=== PATIENT | female | born 1970 | race Caucasian/White ===

== ENCOUNTER → 2016-09-28 | Outpatient (CLI) | payer OTHER ==
--- NOTE | 2016-09-28 13:44 | US ---
EXAMINATION TYPE: US transvaginal DATE OF EXAM: 09/28/2016 1:17 PM COMPARISON: 09/10/2011 CLINICAL HISTORY: heavy frequent cycles with large clots, larger habitus. TECHNIQUE: Transvaginal (TV) Date of LMP: pt unsure EXAM MEASUREMENTS: Uterus: 8.2 x 4.1 x 5.1cm Endometrial Stripe: unable to clearly delineate secondary to distention with fluid and debris. Right Ovary: 3.1 x 1.6 x 1.9cm Left Ovary: 2.3 x 2.1 x 1.7cm Findings: 1. Uterus: Anteverted 2. Endometrium: moderately dilated with fluid and debris, unable to measure thickness 3. Right Ovary: seen with a 1.8cm septated cyst 4. Left Ovary: wnl 5. Bilateral Adnexa: wnl 6. Posterior cul-de-sac: no free fluid seen IMPRESSION: 1. There is moderate dilation of the endometrial cavity with fluid and debris and therefore thickness could not be obtained. This could be related to hemorrhage. Endometrial pathology not excluded corre late clinically. 2. Septated cyst right ovary measuring 1.8 cm.
== END | disposition home or self-care (01) ==
LOC: RADUSWWP 12:59
PROVIDERS: ATTEND Pediatrics
DX: N83.201 Unspecified ovarian cyst, right side (principal); N94.6 Dysmenorrhea, unspecified
CPT/HCPCS: 76830

== ENCOUNTER 2018-03-11 22:21 | Observation (INO) | payer MEDICARE, OTHER ==
--- NOTE | 2018-03-11 22:51 | ED ---
General Adult HPI - General Chief complaint: Chest Pain Stated complaint: Chest Pain Time Seen by Provider: 03/11/18 22:30 Source: patient, RN notes reviewed, old records reviewed Mode of arrival: wheelchair Limitations: no limitations - History of Present Illness Initial comments: This is a 47-year-old female the ER for evasive chest pain. Patient presents today for evaluation of chest pain shortness of breath. Patient patient has history of asthma. She states pain started just prior to coming to emergency room. No recent travel history no sick contacts. No recent fever cough or congestion. As was been under well-controlled rate no change in medications. Patient denies drugs or alcohol. Patient states chest pain is anterior heaviness, no associated diaphoresis. But does again admit to shortness of breath - Related Data Home Medications Medication Instructions Recorded Confirmed ARIPiprazole [Abilify] 10 mg PO DAILY 12/31/15 03/11/18 Furosemide [Lasix] 20 mg PO DAILY 04/13/16 03/11/18 FLUoxetine HCL [PROzac] 20 mg PO DAILY 03/11/18 03/11/18 Ibuprofen [Motrin] 800 mg PO TID 03/11/18 03/11/18 Allergies Allergy/AdvReac Type Severity Reaction Status Date / Time amoxicillin Allergy Nausea & Verified 03/11/18 22:32 Vomiting Review of Systems ROS Statement: Those systems with pertinent positive or pertinent negative responses have been documented in the HPI. ROS Other: All systems not noted in ROS Statement are negative. Past Medical History Past Medical History: Asthma Additional Past Medical History / Comment(s): neurofibrosis History of Any Multi-Drug Resistant Organisms: None Reported Past Surgical History: Tubal Ligation Past Psychological History: Depression Smoking Status: Current every day smoker Past Alcohol Use History: None Reported Past Drug Use History: None Reported General Exam Limitations: no limitations General appearance: alert, in no apparent distress Head exam: Present: atraumatic, normocephalic, normal inspection Eye exam: Present: normal appearance, PERRL, EOMI. Absent: scleral icterus, conjunctival injection, periorbital swelling ENT exam: Present: normal exam, mucous membranes moist Neck exam: Present: normal inspection. Absent: tenderness, meningismus, lymphadenopathy Respiratory exam: Present: normal lung sounds bilaterally. Absent: respiratory distress, wheezes, rales, rhonchi, stridor Cardiovascular Exam: Present: regular rate, normal rhythm, normal heart sounds. Absent: systolic murmur, diastolic murmur, rubs, gallop, clicks GI/Abdominal exam: Present: soft, normal bowel sounds. Absent: distended, tenderness, guarding, rebound, rigid Extremities exam: Present: normal inspection, full ROM, normal capillary refill. Absent: tenderness, pedal edema, joint swelling, calf tenderness Back exam: Present: normal inspection Neurological exam: Present: alert, oriented X3, CN II-XII intact Psychiatric exam: Present: normal affect, normal mood Skin exam: Present: warm, dry, intact, normal color. Absent: rash Course Vital Signs 03/11/18 22:24 Temperature 98.2 F Pulse Rate 74 Respiratory 16 Rate Blood Pressure 132/90 O2 Sat by Pulse 98 Oximetry - Reevaluation(s) Reevaluation #1: 03/12/18 00:59 Patient is with continued chest at this time, no prior cardiac evaluation EKG Findings - EKG Comments: EKG Findings:: EKG shows normal sinus rhythm rate of 71, WA 1:30, QRS 92, QTc 417 Medical Decision Making - Medical Decision Making 47 female the ER with chest pain. CT labwork this time negative, EKG unremarkable. Patient concern for discharge home, patient will be admitted for cardiology observation. Telemetry anticoagulation - Lab Data Result diagrams: 03/11/18 22:45 03/11/18 22:45 Lab Results 03/11/18 03/11/18 03/11/18 Range/Units 22:45 22:45 22:45 WBC 9.4 (3.8-10.6) k/uL RBC 5.01 (3.80-5.40) m/uL Hgb 15.0 (11.4-16.0) gm/dL Hct 44.6 (34.0-46.0) % MCV 89.1 (80.0-100.0) fL MCH 29.9 (25.0-35.0) pg MCHC 33.5 (31.0-37.0) g/dL RDW 13.7 (11.5-15.5) % Plt Count 236 (150-450) k/uL Neutrophils % 51 % Lymphocytes % 35 % Monocytes % 8 % Eosinophils % 3 % Basophils % 1 % Neutrophils # 4.8 (1.3-7.7) k/uL Lymphocytes # 3.3 (1.0-4.8) k/uL Monocytes # 0.7 (0-1.0) k/uL Eosinophils # 0.3 (0-0.7) k/uL Basophils # 0.1 (0-0.2) k/uL PT (9.0-12.0) sec INR (<1.2) APTT (22.0-30.0) sec D-Dimer (<0.60) mg/L FEU Sodium 137 (137-145) mmol/L Potassium 4.2 (3.5-5.1) mmol/L Chloride 101 (98-107) mmol/L Carbon Dioxide 28 (22-30) mmol/L Anion Gap 8 mmol/L BUN 14 (7-17) mg/dL Creatinine 0.90 (0.52-1.04) mg/dL Est GFR (CKD-EPI)AfAm 90 (>60 ml/min/1.73 sqM) Est GFR (CKD-EPI)NonAf 78 (>60 ml/min/1.73 sqM) Glucose 95 (74-99) mg/dL Calcium 10.6 H (8.4-10.2) mg/dL Magnesium 2.1 (1.6-2.3) mg/dL Total Bilirubin 0.2 (0.2-1.3) mg/dL AST 14 (14-36) U/L ALT 29 (9-52) U/L Alkaline Phosphatase 85 (38-126) U/L Total Creatine Kinase 36 (30-135) U/L CK-MB (CK-2) <0.2 (0.0-2.4) ng/mL CK-MB (CK-2) Rel Index Troponin I <0.012 (0.000-0.034) ng/mL Total Protein 6.6 (6.3-8.2) g/dL Albumin 3.9 (3.5-5.0) g/dL Lipase 79 (23-300) U/L 03/11/18 Range/Units 22:45 WBC (3.8-10.6) k/uL RBC (3.80-5.40) m/uL Hgb (11.4-16.0) gm/dL Hct (34.0-46.0) % MCV (80.0-100.0) fL MCH (25.0-35.0) pg MCHC (31.0-37.0) g/dL RDW (11.5-15.5) % Plt Count (150-450) k/uL Neutrophils % % Lymphocytes % % Monocytes % % Eosinophils % % Basophils % % Neutrophils # (1.3-7.7) k/uL Lymphocytes # (1.0-4.8) k/uL Monocytes # (0-1.0) k/uL Eosinophils # (0-0.7) k/uL Basophils # (0-0.2) k/uL PT 10.0 (9.0-12.0) sec INR 1.0 (<1.2) APTT 24.5 (22.0-30.0) sec D-Dimer 0.36 (<0.60) mg/L FEU Sodium (137-145) mmol/L Potassium (3.5-5.1) mmol/L Chloride (98-107) mmol/L Carbon Dioxide (22-30) mmol/L Anion Gap mmol/L BUN (7-17) mg/dL Creatinine (0.52-1.04) mg/dL Est GFR (CKD-EPI)AfAm (>60 ml/min/1.73 sqM) Est GFR (CKD-EPI)NonAf (>60 ml/min/1.73 sqM) Glucose (74-99) mg/dL Calcium (8.4-10.2) mg/dL Magnesium (1.6-2.3) mg/dL Total Bilirubin (0.2-1.3) mg/dL AST (14-36) U/L ALT (9-52) U/L Alkaline Phosphatase (38-126) U/L Total Creatine Kinase (30-135) U/L CK-MB (CK-2) (0.0-2.4) ng/mL CK-MB (CK-2) Rel Index Troponin I (0.000-0.034) ng/mL Total Protein (6.3-8.2) g/dL Albumin (3.5-5.0) g/dL Lipase (23-300) U/L - Radiology Data Radiology results: report reviewed (CTA chest negative), image reviewed Disposition Clinical Impression: Chest pain Disposition: ADMITTED IP TO THIS [facility] Condition: Undetermined Instructions: Chest Pain (ED) Is patient prescribed a controlled substance at d/c from ED?: No Referrals: Nonstaff,Physician [REFERRING] - 1-2 days
[2018-03-11 22:59] LABS: Basophils # (A) 0.1 k/uL (0-0.2); Basophils % (A) 1 %; Eosinophils # (A) 0.3 k/uL (0-0.7); Eosinophils % (A) 3 %; HCT 44.6 % (34.0-46.0); Lymphocytes # (A) 3.3 k/uL (1.0-4.8); Lymphocytes % (A) 35 %; MCH 29.9 pg (25.0-35.0); MCHC 33.5 g/dL (31.0-37.0); MCV 89.1 fL (80.0-100.0); Mean Platelet Volume 10.5; Monocytes # (A) 0.7 k/uL (0-1.0); Monocytes % (A) 8 %; Neutrophils # (A) 4.8 k/uL (1.3-7.7); Neutrophils % (A) 51 %; Platelet Count 236 k/uL (150-450); RBC 5.01 m/uL (3.80-5.40); RDW 13.7 % (11.5-15.5); WBC 9.4 k/uL (3.8-10.6)
[2018-03-11 23:08] LABS: Albumin 3.9 g/dL (3.5-5.0); Calcium 10.6 mg/dL (8.4-10.2); Magnesium 2.1 mg/dL (1.6-2.3); Potassium 4.2 mmol/L (3.5-5.1); Total Bilirubin 0.2 mg/dL (0.2-1.3); Total Protein 6.6 g/dL (6.3-8.2)
[2018-03-11 23:11] LABS: Creatine Kinase 36 U/L (30-135)
[2018-03-11 23:16] LABS: D-Dimer 0.36 mg/L FEU (<0.60); Partial Thromboplastin Time 24.5 sec (22.0-30.0)
--- NOTE | 2018-03-11 23:16 | XR ---
EXAMINATION TYPE: XR chest 2V DATE OF EXAM: 03/11/2018 COMPARISON: NONE HISTORY: Chest pain TECHNIQUE: Frontal and lateral views of the chest are obtained. FINDINGS: There is increased density over the lower lung field on the lateral view that apparently r elates to consolidation in the left lower lobe behind the heart. This is in the left paraspinal regio n. The other lung alejandro are clear. Heart and mediastinum are normal. There is no pleural effusion. T here are chest leads. IMPRESSION: Left lower lobe pneumonia. Follow-up is recommended show clearing.
[2018-03-11 23:25] LABS: Creatine Kinase MB <0.2 ng/mL (0.0-2.4); Troponin I <0.012 ng/mL (0.000-0.034)
--- NOTE | 2018-03-12 00:35 | CT ---
EXAMINATION TYPE: CT angio chest DATE OF EXAM: 03/12/2018 12:15 AM COMPARISON: NONE HISTORY: sternal chest pain CT DLP: 774.10 mGycm Automated exposure control for dose reduction was used. CONTRAST: CTA scan of the thorax is performed with IV Contrast, patient injected with 85 mL of Isovue 370, pulm onary embolism protocol. There are 3-D post processed images.. FINDINGS: The lungs are clear of consolidation. There is some mild groundglass interstitial infiltrate in the l ower lobes. There is no pleural effusion. There is no pericardial effusion. There is no mediastinal a denopathy. There are no hilar masses. Thoracic aorta appears normal. There is no evidence of aneurysm or dissection. I see no filling defec ts in the pulmonary arteries. There is mid and lower thoracic increased paraspinal soft tissue densit y. This extends into expanded neural foramina. IMPRESSION: NO EVIDENCE OF PULMONARY EMBOLISM. INTERSTITIAL PULMONARY DENSITY IS NONSPECIFIC AND COULD RELATE TO PULMONARY FIBROSIS. Paraspinal density and abnormal neural foramina could relate to multiple lateral meningoceles. MR sca n would be helpful for further evaluation if clinically indicated.
--- NOTE | 2018-03-12 00:37 | US ---
EXAMINATION TYPE: US venous doppler duplex LE RT DATE OF EXAM: 03/12/2018 12:28 AM COMPARISON: NONE CLINICAL HISTORY: Pain. SIDE PERFORMED: TECHNIQUE: The lower extremity deep venous system is examined utilizing real time linear array sonog nehemias with graded compression, doppler sonography and color-flow sonography. VESSELS IMAGED: External Iliac Vein (EIV) Common Femoral Vein Deep Femoral Vein Greater Saphenous Vein * Femoral Vein Popliteal Vein Small Saphenous Vein * Proximal Calf Veins (* superficial vessels) Right Leg: IMPRESSION: Negative exam. No evidence of deep venous thrombosis in the right leg.
[2018-03-12] MEDS ORDERED: NITROGLYCERIN SL TABS 0.4 MG TAB SUBLINGUAL PRN (00:57)
[2018-03-12] MEDS ORDERED: ASPIRIN 81 MG PO STA (00:57)
[2018-03-12] MEDS ORDERED: HEPARIN SODIUM,PORCINE 5,000 UNIT/ML 1 ML VIAL IV ONE (00:57)
[2018-03-12] MEDS ORDERED: HEPARIN SODIUM,PORCINE 5,000 UNIT/ML 1 ML VIAL IV PRN (00:57)
[2018-03-12] MEDS ORDERED: SODIUM CHLORIDE 0.9% 1,000 ML IV SCH (01:00)
[2018-03-12] MEDS ORDERED: HEPARIN SODIUM,PORCINE/D5W PMX 25,000 UNIT in DEXTROSE/WATER 1 500ML.BAG IV SCH (01:15)
[2018-03-12 05:35] VITALS: RESP 18
[2018-03-12 07:21] LABS: Mean Platelet Volume 10.2; Platelet Count 210 k/uL (150-450)
[2018-03-12 07:43] LABS: Creatine Kinase 28 U/L (30-135)
[2018-03-12 07:56] LABS: Creatine Kinase MB <0.2 ng/mL (0.0-2.4); Troponin I <0.012 ng/mL (0.000-0.034)
[2018-03-12] MEDS ORDERED: METOPROLOL TARTRATE 25 MG TAB PO SCH (09:00)
[2018-03-12] MEDS: ATORVASTATIN 80 MG TAB PO SCH ×2 (09:49→09:51)
--- NOTE | 2018-03-12 11:21 | P.HPIM ---
History of Present Illness 45-year-old the female came in with comments of chest pain sharp in nature points to parasternal area on the left side which was 10/10 in severity started last night denied any significant shortness of breath was comparing of cough without any sputum production does appear to have bronchitis., Continues to smoke denied any fever chills chest pain isn't not associated diaphoresis not associated with nausea lightheadedness not associated with food not associated with deep breathing. Presently 2/10 in severity, lasted for 2 minutes nonradiating. Patient's EKG is normal sinus rhythm without any acute ST-T wave changes cardiology evaluated the patient patient 2 sets of troponins are negative. CT angios the chest did not show any pulmonary embolism Patient chest x-ray was suspicious for left lower lobe pneumonia on the CAT scan did not show any lobar pneumonia patient does have bronchitis patient does have a neurofibromatosis. If cleared by cardiology patient will be discharged home with doxycycline for bronchitis and counseling for and according cessation. Evaluated addition of further testing including stress test to cardiology. Review of Systems REVIEW OF SYSTEMS: CONSTITUTIONAL: No fever, no malaise, no fatigue. HEENT: No recent visual problems or hearing problems. Denied any sore throat. CARDIOVASCULAR: No orthopnea, PND, no palpitations, no syncope. PULMONARY: No shortness of breath, no cough, no hemoptysis. GASTROINTESTINAL: No diarrhea, no nausea, no vomiting, no abdominal pain. Normoactive bowel sounds. NEUROLOGICAL: No headaches, no weakness, no numbness. HEMATOLOGICAL: Denies any bleeding or petechiae. GENITOURINARY: Denies any burning micturition, frequency, or urgency. MUSCULOSKELETAL/RHEUMATOLOGICAL: Denies any joint pain, swelling, or any muscle pain. ENDOCRINE: Denies any polyuria or polydipsia. The rest of the 14-point review of systems is negative. Past Medical History Past Medical History: Asthma Additional Past Medical History / Comment(s): neurofibromatosis, mild learning disability, legally blind bilaterally-pt states as long as she wears her glasses she can see pretty well, bilateral lower leg edema at times. 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 Past Anesthesia/Blood Transfusion Reactions: Postoperative Nausea & Vomiting ( PONV) Smoking Status: Current every day smoker - Past Family History Father Family Medical History: Cancer Additional Family Medical History / Comment(s): Father had lung to bone cancer and of this at the age of 70yrs. He was an exsmoker. Mother Family Medical History: Cancer Additional Family Medical History / Comment(s): Mother of breast cancer at the age of 65yrs. Medications and Allergies Home Medications Medication Instructions Recorded Confirmed Type ARIPiprazole [Abilify] 10 mg PO DAILY 12/31/15 03/11/18 History Furosemide [Lasix] 20 mg PO DAILY 04/13/16 03/11/18 History FLUoxetine HCL [PROzac] 20 mg PO DAILY 03/11/18 03/11/18 History Ibuprofen [Motrin] 800 mg PO TID 03/11/18 03/11/18 History Albuterol Inhaler [Ventolin Hfa 1 - 2 puff INHALATION Q6HR PRN #1 03/12/18 Rx Inhaler] inhaler Doxycycline Monohydrate [Monodox] 100 mg PO Q12HR #6 cap 03/12/18 Rx Allergies Allergy/AdvReac Type Severity Reaction Status Date / Time amoxicillin Allergy Nausea & Verified 03/11/18 22:32 Vomiting Physical Exam Vitals: Vital Signs Temp Pulse Resp BP Pulse Ox 03/12/18 06:01 97.2 F L 76 18 137/71 98 03/12/18 05:00 78 18 97 03/12/18 04:00 73 16 99 03/12/18 03:38 72 161 H 121/75 98 03/12/18 01:14 98.2 F 71 16 137/67 100 03/12/18 00:27 72 18 134/65 98 03/11/18 22:24 98.2 F 74 16 132/90 98 Intake and Output 03/11/18 03/12/18 03/12/18 22:59 06:59 14:59 Intake Total 165.333 Balance 165.333 Intake: Intake, IV Titration 165.333 Amount Heparin Sodium,Porcine/ 165.333 D5w Pmx 25,000 unit In Dextrose/Water 1 500ml. bag @ 20 mls/hr IV .Q24H [facility] Rx#:[id number] Other: Weight 142.882 kg PHYSICAL EXAMINATION: GENERAL: The patient is alert and oriented x3, not in any acute distress. Obese with the diffuse neurofibromatosis lesions HEENT: Pupils are round and equally reacting to light. EOMI. No scleral icterus. No conjunctival pallor. Normocephalic, atraumatic. No pharyngeal erythema. No thyromegaly. CARDIOVASCULAR: S1 and S2 present. No murmurs, rubs, or gallops. PULMONARY: Good air entry but rhonchus breath sounds due to tracheobronchitis. ABDOMEN: Soft, nontender, nondistended, normoactive bowel sounds. No palpable organomegaly. MUSCULOSKELETAL: No joint swelling or deformity. EXTREMITIES: No cyanosis, clubbing, or pedal edema. NEUROLOGICAL: Gross neurological examination did not reveal any focal deficits. SKIN: No rashes. Results CBC & Chem 7: 03/12/18 07:03 03/11/18 22:45 Labs: Abnormal Lab Results - Last 24 Hours (Table) 03/11/18 03/12/18 Range/Units 22:45 07:03 Calcium 10.6 H (8.4-10.2) mg/dL Total Creatine Kinase 28 L (30-135) U/L Thrombosis Risk Factor Assmnt - Choose All That Apply Any of the Below Risk Factors Present?: Yes Each Factor Represents 1 point: Age 41-60 years, Obesity (BMI >25) Other Risk Factors: No Other congenital or acquired thrombophilia - If yes, enter type in comment: No Thrombosis Risk Factor Assessment Total Risk Factor Score: 2 Thrombosis Risk Factor Assessment Level: Low Risk Assessment and Plan Plan: -Chest pain ruled out acute current syndromes, further management including stress test as per cardiology rule out pulmonary embolism. -Nicotine use: Counseling was provided -Tracheobronchitis 3 days of doxycycline and as needed inhaler. -Neurofibromatosis type II -Depression
--- NOTE | 2018-03-12 11:21 | P.DS ---
Providers Date of admission: 03/12/18 00:59 Attending physician: Juan Morales Consults: 03/12/18 00:57 Consult Physician Urgent Consulting Provider: Jarek De La Cruz Consult Reason/Comments: cp Do you want consulting provider notified?: Yes Primary care physician: [facility] Course: Please refer to my HPI Patient Condition at Discharge: Undetermined Plan - Discharge Summary Discharge Rx Participant: No New Discharge Prescriptions: New Albuterol Inhaler [Ventolin Hfa Inhaler] 1 - 2 puff INHALATION Q6HR PRN #1 inhaler PRN Reason: Shortness Of Breath Or Wheezing Doxycycline Monohydrate [Monodox] 100 mg PO Q12HR #6 cap No Action ARIPiprazole [Abilify] 10 mg PO DAILY Furosemide [Lasix] 20 mg PO DAILY FLUoxetine HCL [PROzac] 20 mg PO DAILY Ibuprofen [Motrin] 800 mg PO TID Discharge Medication List ARIPiprazole [Abilify] 10 mg PO DAILY 12/31/15 [History] Furosemide [Lasix] 20 mg PO DAILY 04/13/16 [History] FLUoxetine HCL [PROzac] 20 mg PO DAILY 03/11/18 [History] Ibuprofen [Motrin] 800 mg PO TID 03/11/18 [History] Albuterol Inhaler [Ventolin Hfa Inhaler] 1 - 2 puff INHALATION Q6HR PRN #1 inhaler 03/12/18 [Rx] Doxycycline Monohydrate [Monodox] 100 mg PO Q12HR #6 cap 03/12/18 [Rx] Follow up Appointment(s)/Referral(s): Nonstaff,Physician [REFERRING] - 1-2 days Patient Instructions/Handouts: Chest Pain (ED) Discharge Disposition: HOME SELF-CARE
[2018-03-12 11:50] LABS: Creatine Kinase 29 U/L (30-135)
[2018-03-12 12:03] LABS: Creatine Kinase MB 0.2 ng/mL (0.0-2.4); Troponin I <0.012 ng/mL (0.000-0.034)
--- NOTE | 2018-03-12 12:11 | P.CRDCN ---
History of Present Illness History of present illness: Mrs. Toure is a pleasant 47-year-old female past medical history significant for asthma, neurofibromatosis and chronic nicotine dependence. She denies history of coronary artery disease, hypertension, dyslipidemia or diabetes mellitus. She has never followed with a clinic office manager for any reason. She started yesterday having a sharp pain in the left precordial region at rest. The pain sudden onset and intense with no associated symptoms and no radiation of the pain. The pain was brief and resolved on its own with no specific alleviating factors. She has been coughing recently with green mucous production. She was recently treated on a course of antibiotics for her primary care physician for bronchitis. She states she finished the antibiotics approximately one to 2 weeks ago. She continues to have intermittent symptoms of chest discomfort that is reproducible on palpation. EKG reveals sinus mechanism with no acute ST or T-wave abnormalities. Chest x-ray is suspicious for left lower lobe pneumonia. CT angios of chest reveals no evidence for pulmonary embolism with possibility of fibrosis. Laboratory data reviewed, hemoglobin 15.0, platelets 210, d-dimer 0.66, sodium 137, potassium 4.2, creatinine 0.9, magnesium 2.1, cardiac enzymes negative 3. She takes no daily cardiac medications. Review of Systems At the time of my exam: CONSTITUTIONAL: Denies fever. Denies chills. EYES: Denies blurred vision. Denies vision changes. Denies eye pain. EARS, NOSE, MOUTH & THROAT: Denies headache. Denies sore throat. Denies ear pain. CARDIOVASCULAR: Complains of reproducible chest pain. Denies shortness of breath. Denies orthopnea. Denies PND. Denies palpitations. RESPIRATORY: Complains of productive cough. GASTROINTESTINAL: Denies abdominal pain. Denies diarrhea. Denies constipation. Denies nausea. Denies vomiting. MUSCULOSKELETAL: Denies myalgias. INTEGUMENTARY: Denies pruitis. Denies rash. NEUROLOGIC: Denies numbness. Denies tingling. Denies weakness. PSYCHIATRIC: Denies anxiety. Denies depression. ENDOCRINE: Denies fatigue. Denies weight change. Denies polydipsia. Denies polyurina. GENITOURINARY: Denies burning, hematuria or urgency with micturation. HEMATOLOGIC: Denies history of anemia. Denies bleeding. Past Medical History Past Medical History: Asthma Additional Past Medical History / Comment(s): neurofibromatosis, mild learning disability, legally blind bilaterally-pt states as long as she wears her glasses she can see pretty well, bilateral lower leg edema at times. 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 Past Anesthesia/Blood Transfusion Reactions: Postoperative Nausea & Vomiting ( PONV) Smoking Status: Current every day smoker - Past Family History Father Family Medical History: Cancer Additional Family Medical History / Comment(s): Father had lung to bone cancer and of this at the age of 70yrs. He was an exsmoker. Mother Family Medical History: Cancer Additional Family Medical History / Comment(s): Mother of breast cancer at the age of 65yrs. Medications and Allergies Home Medications Medication Instructions Recorded Confirmed Type ARIPiprazole [Abilify] 10 mg PO DAILY 12/31/15 03/11/18 History Furosemide [Lasix] 20 mg PO DAILY 04/13/16 03/11/18 History FLUoxetine HCL [PROzac] 20 mg PO DAILY 03/11/18 03/11/18 History Ibuprofen [Motrin] 800 mg PO TID 03/11/18 03/11/18 History Albuterol Inhaler [Ventolin Hfa 1 - 2 puff INHALATION Q6HR PRN #1 03/12/18 Rx Inhaler] inhaler Doxycycline Monohydrate [Monodox] 100 mg PO Q12HR #6 cap 03/12/18 Rx Allergies Allergy/AdvReac Type Severity Reaction Status Date / Time amoxicillin Allergy Nausea & Verified 03/11/18 22:32 Vomiting Physical Exam Vitals: Vital Signs Temp Pulse Resp BP Pulse Ox 03/12/18 06:01 97.2 F L 76 18 137/71 98 03/12/18 05:00 78 18 97 03/12/18 04:00 73 16 99 03/12/18 03:38 72 161 H 121/75 98 03/12/18 01:14 98.2 F 71 16 137/67 100 03/12/18 00:27 72 18 134/65 98 03/11/18 22:24 98.2 F 74 16 132/90 98 Intake and Output 03/11/18 03/12/18 03/12/18 22:59 06:59 14:59 Intake Total 165.333 Balance 165.333 Intake: Intake, IV Titration 165.333 Amount Heparin Sodium,Porcine/ 165.333 D5w Pmx 25,000 unit In Dextrose/Water 1 500ml. bag @ 20 mls/hr IV .Q24H [facility] Rx#:[id number] Other: Weight 142.882 kg Blood pressure 137/71 heart rate 76 afebrile maintaining oxygen saturation on room air GENERAL: This is a 47-year-old female in no apparent distress at the time of my examination. Morbidly obese. HEENT: Head is atraumatic, normocephalic. Pupils are equal, round. Sclerae anicteric. Conjunctivae are clear. Mucous membranes of the mouth are moist. Neck is supple. There is no jugular venous distention. No carotid bruit is heard. LUNGS: Clear to auscultation no wheezes, rales or rhonchi. No chest wall tenderness is noted on palpation or with deep breathing. HEART: Regular rate and rhythm without murmurs, rubs or gallops. S1 and S2 heard. ABDOMEN: Soft, nontender. Bowel sounds are heard. No organomegaly noted. EXTREMITIES: No evidence of peripheral edema and no calf tenderness noted. VASCULAR: Radial and dorsalis pedis pulses palpated, no evidence of clubbing. NEUROLOGIC: Patient is awake, alert and oriented x3. Results 03/12/18 07:03 03/11/18 22:45 Cardiac Enzymes 03/11/18 03/11/18 03/12/18 Range/Units 22:45 22:45 07:03 AST 14 (14-36) U/L CK-MB (CK-2) <0.2 <0.2 (0.0-2.4) ng/mL Troponin I <0.012 <0.012 (0.000-0.034) ng/mL Coagulation 03/11/18 03/12/18 Range/Units 22:45 07:03 PT 10.0 (9.0-12.0) sec APTT 24.5 29.0 (22.0-30.0) sec CBC 03/11/18 03/12/18 Range/Units 22:45 07:03 WBC 9.4 (3.8-10.6) k/uL RBC 5.01 (3.80-5.40) m/uL Hgb 15.0 (11.4-16.0) gm/dL Hct 44.6 (34.0-46.0) % Plt Count 236 210 (150-450) k/uL Comprehensive Metabolic Panel 03/11/18 Range/Units 22:45 Sodium 137 (137-145) mmol/L Potassium 4.2 (3.5-5.1) mmol/L Chloride 101 (98-107) mmol/L Carbon Dioxide 28 (22-30) mmol/L BUN 14 (7-17) mg/dL Creatinine 0.90 (0.52-1.04) mg/dL Glucose 95 (74-99) mg/dL Calcium 10.6 H (8.4-10.2) mg/dL AST 14 (14-36) U/L ALT 29 (9-52) U/L Alkaline Phosphatase 85 (38-126) U/L Total Protein 6.6 (6.3-8.2) g/dL Albumin 3.9 (3.5-5.0) g/dL Current Medications Generic Name Dose Route Start Last Admin Trade Name Freq PRN Reason Stop Dose Admin Aspirin 81 mg 03/13/18 09:00 Aspirin PO DAILY [facility] Atorvastatin Calcium 80 mg 03/12/18 09:00 03/12/18 09:51 Lipitor PO 80 mg DAILY JERRELL Administration Heparin Sodium (Porcine) 0 unit 03/12/18 00:57 Heparin IV Q6HR PRN Low PTT Protocol Sodium Chloride 1,000 mls @ 20 mls/hr 03/12/18 01:00 03/12/18 01:34 Saline 0.9% IV 20 mls/hr .Q24H JERRELL Administration Nitroglycerin 0.4 mg 03/12/18 00:57 Nitrostat SUBLINGUAL Q5M PRN Chest Pain Intake and Output 03/11/18 03/12/18 03/12/18 22:59 06:59 14:59 Intake Total 165.333 Balance 165.333 Intake: Intake, IV Titration 165.333 Amount Heparin Sodium,Porcine/ 165.333 D5w Pmx 25,000 unit In Dextrose/Water 1 500ml. bag @ 20 mls/hr IV .Q24H [facility] Rx#:[id number] Other: Weight 142.882 kg 03/12/18 07:03 03/11/18 22:45 Assessment and Plan Assessment: ASSESSMENT 1. Chest pain, atypical. An acute coronary event has been ruled out with no EKG evidence of ischemia and negative cardiac enzymes. 2. Suspicion of left lower lobe pneumonia with productive cough. 3. Morbid obesity. PLAN Obtain 2D echocardiogram and doppler study to assess cardiac structure and function. An acute coronary event has been ruled out. Heparin infusion can be discontinued. Pain is pleurtic in nature and most likely secondary to cough. If echo is normal she is stable from a cardiac perspective. Thank you kindly for this consultation. Nurse Practitioner note has been reviewed, I agree with a documented findings and plan of care. Patient was seen and examined.
--- NOTE | 2018-03-12 12:59 | ECHOF ---
Referral Reason:cp, sob MEASUREMENTS -------- HEIGHT: 0.0 cm WEIGHT: 0.0 kg BP: 133/71 IVSd: 1.1 cm (0.6 - 1.1) LVIDd: 5.0 cm (3.9 - 5.3) LVPWd: 1.1 cm (0.6 - 1.1) IVSs: 1.2 cm LVIDs: 3.9 cm LVPWs: 1.3 cm LA Diam: 3.4 cm (2.7 - 3.8) LAESV Index (A-L): 24.94 ml/m Ao Diam: 2.6 cm (2.0 - 3.7) AV Cusp: 1.7 cm (1.5 - 2.6) LA Diam: 4.3 cm (2.7 - 3.8) MV EXCURSION: 17.701 mm (> 18.000) MV EF SLOPE: 111 mm/s (70 - 150) EPSS: 0.4 cm MV E Aayush: 0.57 m/s MV DecT: 253 ms MV A Aayush: 0.70 m/s MV E/A Ratio: 0.81 RAP: 5.00 mmHg RVSP: 12.70 mmHg FINDINGS -------- Sinus rhythm. Morbid Obesity This was a techncally difficult study with suboptimal views, , Lumason utilized for enhancement of im ages. LV size, wall thickness and systolic function are normal, with an EF greater than 55%. The left nadya tricular size is normal. The right ventricle is normal in size. The left atrial size is normal. The right atrial size is normal. 5.0mg OF Lumason UTLIZED: 2 OR MORE WALL SEGMENTS NOT VISUALIZED. The aortic valve is trileaflet, and appears structurally normal. No aortic stenosis or regurgitation. Mild mitral regurgitation is present. Mild tricuspid regurgitation present. There is no evidence of pulmonary hypertension. The right v entricular systolic pressure, as measured by Doppler, is 12.70mmHg. There is no pulmonic regurgitation present. The aortic root size is normal. There is no pericardial effusion. CONCLUSIONS -------- 1. Morbid Obesity 2. This was a techncally difficult study with suboptimal views, , Lumason utilized for enhancement of images. 3. LV size, wall thickness and systolic function are normal, with an EF greater than 55%. 4. The left ventricular size is normal. 5. The right ventricle is normal in size. 6. The left atrial size is normal. 7. The right atrial size is normal. 8. 5.0mg OF Lumason UTLIZED: 2 OR MORE WALL SEGMENTS NOT VISUALIZED. 9. The aortic valve is trileaflet, and appears structurally normal. No aortic stenosis or regurgitati on. 10. Mild mitral regurgitation is present. 11. Mild tricuspid regurgitation present. 12. There is no evidence of pulmonary hypertension. 13. The right ventricular systolic pressure, as measured by Doppler, is 12.70mmHg. 14. There is no pulmonic regurgitation present. 15. The aortic root size is normal. 16. There is no pericardial effusion. OFFICE EMPLOYEE: Jaelyn Hankins RDCS
[2018-03-12 13:10] VITALS: BP 118/70; PULSE 85; TEMP 98
[2018-03-13] MEDS ORDERED: ASPIRIN 81 MG PO SCH (09:00)
[2018-03-13] MEDS ORDERED: ASPIRIN 325 MG TAB PO SCH (09:00)
== END 2018-03-12 13:23 | disposition home or self-care (01) ==
LOC: EC 22:21 → 3OBS 03-12 00:59
PROVIDERS: ADMIT Hospitalist; ATTEND Hospitalist
DX: R07.89 Other chest pain (principal); J45.909 Unspecified asthma, uncomplicated; Q85.02 Neurofibromatosis, type 2; F32.9 Major depressive disorder, single episode, unspecified; F17.200 Nicotine dependence, unspecified, uncomplicated; E66.01 Morbid (severe) obesity due to excess calories; Z68.43 Body mass index [BMI] 50.0-59.9, adult; H54.8 Legal blindness, as defined in USA; F81.9 Developmental disorder of scholastic skills, unspecified; Z79.1 Long term (current) use of non-steroidal anti-inflammatories (NSAID); Z79.899 Other long term (current) drug therapy; Z88.0 Allergy status to penicillin; Z80.8 Family history of malignant neoplasm of other organs or systems; Z80.1 Family history of malignant neoplasm of trachea, bronchus and lung; Z80.3 Family history of malignant neoplasm of breast; Z81.2 Family history of tobacco abuse and dependence
CPT/HCPCS: 99285 ×2; 96365 ×2; 96366 ×12; 96376 ×2; 36415; 93005; 85379; 80053; 82550 ×2; 82553 ×2; 83690; 83735; 84484 ×2; 85025; 85049; 85610; 85730 ×2; 71046; 93971; 71275; G0378; C8929; J1644 ×2; Q9950; Q9967; 93306

== ENCOUNTER → 2018-05-09 | Outpatient (CLI) | payer MEDICARE ==
--- NOTE | 2018-05-13 12:20 | MM ---
Reason for exam: screening (asymptomatic). Last mammogram was performed 3 years and 3 months ago. History: Patient is nulliparous. Family history of breast cancer in mother at age 63. Took hormonal contraceptives for 2 years. Physical Findings: A clinical breast exam by your physician is recommended on an annual basis and results should be correlated with mammographic findings. MG 3D Screening Mammo W/Cad Bilateral CC and MLO view(s) were taken. Prior study comparison: January 24, 2015, bilateral MG screening mammo w CAD. The breast tissue is heterogeneously dense. This may lower the sensitivity of mammography. No significant changes when compared with prior studies. ASSESSMENT: Benign, BI-RAD 2 RECOMMENDATION: Routine screening mammogram of both breasts in 1 year.
== END | disposition home or self-care (01) ==
LOC: RADMAMWWP 14:24
PROVIDERS: ATTEND Pediatrics
DX: Z12.31 Encounter for screening mammogram for malignant neoplasm of breast (principal)
CPT/HCPCS: 77063; 77067

== ENCOUNTER → 2018-07-24 | Outpatient (CLI) | payer MEDICARE ==
--- NOTE | 2018-07-24 17:42 | CONS ---
CONSULTATION DATE OF SERVICE: 07/24/2018 47-year-old lady has been evaluated in the sleep center for possible obstructive sleep apnea-hypopnea syndrome. HISTORY OF PRESENT ILLNESS/SLEEP WAKE EVALUATION: SLEEP SCHEDULE: Patient usual sleep schedule to be in between 10 and 10:30 p.m. and she gets up in the morning about 6:30. FALLING ASLEEP: She does have problem with falling asleep although no TV in bedroom. DURING SLEEP: She snores loudly and then wakes up from sleep with episodes of stopped breathing, choking 2 times at night and 2 episodes of nocturia during the sleep. No history of hypnagogical hallucinations, sleep paralysis or cataplexy. DURING THE DAY/SLEEP WAKE EVALUATION: During the day, the patient may feel sleepiness, may take naps around 2:00 pm. Harriet Sleepiness Scale is 6. PAST MEDICAL HISTORY: Positive for anxiety, sciatica and nerve problems, swelling of the legs. PAST SURGICAL HISTORY: Tubal ligation. SOCIAL HISTORY: Positive for smoking about half pack a day for 25 years. Alcohol consumption none. FAMILY HISTORY: Hypertension, asthma, cancer, diabetes. REVIEW OF SYSTEMS: Awakenings from sleep, sometimes tiredness and sleepiness during the day, swelling of the legs. MEDICATIONS: Abilify, Prozac, Aldactone, Lasix, Motrin, Pepcid and . PHYSICAL EXAM: lady without distress. BP 118/63, HR 84, RR 16, height 5 feet 4 inches, weight 302. Body mass index 52, temperature 97.8, O2 saturation room air 98%. Oropharynx low position of soft palate, wide neck, 20 inches in circumference. Abdomen obese. Neck: Supple, no JVD. Thyroid is not palpable. LUNGS: Clear to percussion and to auscultation. Good air exchange. No wheezing or rhonchi. HEART: S1, S2 regular. No murmurs, gallops, or rubs. ABDOMEN: Obese. Soft and nontender. Bowel sounds are present. No organomegaly appreciated. EXTREMITIES: No clubbing or cyanosis. COSMETIC SALES CONSULTANT: Awake, alert, and oriented X3. Cranial nerves 2 to 7 intact. There is no fasciculation or atrophy. noted. No focal deficits observed. SKIN: Multiple papillomas. IMPRESSION: 1. Snoring, awakenings from sleep with choking, low position of soft palate, wide neck. The patient takes naps during the day. Obstructive sleep apnea-hypopnea syndrome. 2. Obesity, body mass index 52. 3. History of anxiety. 4. History of sciatic nerve problems. 5. History of swelling of the legs. 6. disease. 7. Neurofibromatosis. 8. Acid reflux. PLAN: 1. Polysomnography for evaluation of patient's breathing during sleep. 2. CPAP/BiPAP titration if sleep study confirms obstructive sleep apnea-hypopnea syndrome. 3. Preferable position during sleep on the side. 4. No driving if patient feels any sleepiness. 5. I will see patient for follow up visit to explain results of testing and following plan. Tank you very much for referring this patient for consultation. Sincerely, Juan Miguel Everett MD, PhD, FAASM Diplomat of [employer] E[employer] Technician of [facility] [place] MMODL / IJN: [id number] /
== END | disposition home or self-care (01) ==
LOC: SLEEP 11:37
PROVIDERS: ATTEND Internal Medicine
DX: G47.33 Obstructive sleep apnea (adult) (pediatric) (principal); E66.9 Obesity, unspecified; F41.9 Anxiety disorder, unspecified; K21.9 Gastro-esophageal reflux disease without esophagitis; Q85.00 Neurofibromatosis, unspecified; F17.200 Nicotine dependence, unspecified, uncomplicated; Z68.43 Body mass index [BMI] 50.0-59.9, adult; Z87.39 Personal history of other diseases of the musculoskeletal system and connective tissue; Z79.899 Other long term (current) drug therapy; Z79.1 Long term (current) use of non-steroidal anti-inflammatories (NSAID); Z98.890 Other specified postprocedural states
CPT/HCPCS: 99211

== ENCOUNTER 2018-11-21 14:38 | Inpatient (IN) | payer MEDICARE ==
[2018-11-21] MEDS ORDERED: IPRATROPIUM-ALBUTEROL 3 ML NEB INHALATION STA ×3 (14:56→16:52)
[2018-11-21] MEDS ORDERED: SODIUM CHLORIDE 0.9% 500 ML 500 ML IV STA (14:56)
[2018-11-21] MEDS ORDERED: methylPREDNISolone SOD SUCCI 125 MG/2 ML VIAL IV STA (15:05)
--- NOTE | 2018-11-21 15:22 | ED ---
General Adult HPI <Naga Sandoval - Last Filed: 11/21/18 17:08> - General Source: patient, RN notes reviewed, old records reviewed Mode of arrival: wheelchair Limitations: no limitations <Erick Burr - Last Filed: 11/21/18 18:10> - General Chief complaint: Shortness of Breath Stated complaint: ADOLFO Time Seen by Provider: 11/21/18 14:56 - History of Present Illness Initial comments: 48-year-old female patient past medical history of neurofibromatosis, tubal ligation, presents to ED with approximately 1 week of productive cough and shortness of breath while coughing. Patient has not been diagnosed with COPD, however she does have asthma and she has a regular cigarette smoker. Patient was seen at [facility] on 12/17/18 and reportedly diagnosed with pneumonia and started on azithromycin. Patient states that her symptoms have not improved azithromycin. Patient denies any chest pain. Patient denies any abdominal pain, nausea vomiting or diarrhea, fevers or chills. Patient denies all other complaints. Systemic: Pt denies fatigue, myalgia, fever/chills, rash. Pt denies weakness, night sweats, weight loss. Neuro: Pt denies headache, visual disturbances, syncope or pre-syncope. HEENT: Pt denies ocular discharge or irritation, otalgia, rhinorrhea, pharyngitis or notable lymphadenopathy. Cardiopulmonary: Pt denies chest pain, SOB, heart palpitations, dyspnea on exertion. Abdominal/GI: Pt denies abdominal pain, n/v/d. : Pt denies dysuria, burning w/ urination, frequency/urgency. Denies new onset urinary or bowel incontinence. MSK: Pt denies myalgia, loss of strength or function in extremities. Neuro: Pt denies new onset weakness, paresthesias. (Erick Burr) - Related Data Home Medications Medication Instructions Recorded Confirmed ARIPiprazole [Abilify] 10 mg PO DAILY 12/31/15 11/21/18 Furosemide [Lasix] 20 mg PO DIRECTED 04/13/16 11/21/18 FLUoxetine HCL [PROzac] 20 mg PO DAILY 03/11/18 11/21/18 Ibuprofen [Motrin] 800 mg PO TID 03/11/18 11/21/18 Famotidine [Pepcid] 40 mg PO DAILY 11/21/18 11/21/18 Spironolactone [Aldactone] 50 mg PO DAILY 11/21/18 11/21/18 diphenhydrAMINE [Benadryl] 25 mg PO HS 11/21/18 11/21/18 Allergies Allergy/AdvReac Type Severity Reaction Status Date / Time amoxicillin Allergy Nausea & Verified 11/21/18 16:01 Vomiting Review of Systems ROS Other: All systems not noted in ROS Statement are negative. <Naga Sandoval - Last Filed: 11/21/18 17:08> ROS Other: All systems not noted in ROS Statement are negative. <Erick Burr - Last Filed: 11/21/18 18:10> ROS Statement: Those systems with pertinent positive or pertinent negative responses have been documented in the HPI. Past Medical History Past Medical History: Asthma, Pneumonia Additional Past Medical History / Comment(s): neurofibromatosis, mild learning disability, legally blind bilaterally-pt states as long as she wears her glasses she can see pretty well, bilateral lower leg edema at times. 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 Past Anesthesia/Blood Transfusion Reactions: Postoperative Nausea & Vomiting ( PONV) Past Psychological History: Depression Smoking Status: Current every day smoker Past Alcohol Use History: None Reported Past Drug Use History: None Reported - Past Family History Father Family Medical History: Cancer Additional Family Medical History / Comment(s): Father had lung to bone cancer and of this at the age of 70yrs. He was an exsmoker. Mother Family Medical History: Cancer Additional Family Medical History / Comment(s): Mother of breast cancer at the age of 65yrs. <Erick Burr - Last Filed: 11/21/18 18:10> General Exam <Naga Sandoval - Last Filed: 11/21/18 17:08> Limitations: no limitations <Erick Burr - Last Filed: 11/21/18 18:10> - General Exam Comments Initial Comments: Constitutional: NAD, AOX3, Pt has pleasant affect. HEENT: NC/AT, trachea midline, neck supple, no lymphadenopathy. Posterior pharynx non erythematous, without exudates. External ears appear normal, without discharge. Mucous membranes moist. Eyes PERRLA, EOM intact. There is no scleral icterus. No pallor noted. Cardiopulmonary: RRR, no murmurs, rubs or gallops, no JVD noted. Wheezing noted in anterior alejandro. No peripheral edema. Abdominal exam: Abdomen soft and non-distended. Abdomen non-tender to palpation in all 4 quadrants. Bowel sounds active in LLQ. No hepatosplenomegaly. No ecchymosis Neuro: CN II-XII grossly intact. No nuchal rigidity. MSK: No posterior calf tenderness bilaterally, homans sign negative bilaterally. Posterior tibialis and radial pulse +2 bilaterally. Sensation intact in upper and lower extremities. Full active ROM in upper and lower extremities, 5/5 stregnth. (Erick Burr) Course <Naga Sandoval - Last Filed: 11/21/18 17:08> <Erick Burr - Last Filed: 11/21/18 18:10> Vital Signs 11/21/18 11/21/18 11/21/18 14:44 15:23 15:32 Temperature 97.4 F L Pulse Rate 106 H 100 100 Respiratory 24 Rate Blood Pressure 114/63 O2 Sat by Pulse 99 Oximetry 11/21/18 11/21/18 16:56 17:08 Temperature Pulse Rate 102 H 100 Respiratory Rate Blood Pressure O2 Sat by Pulse Oximetry - Reevaluation(s) Reevaluation #1: 11/21/18 17:08 PA supervision: I proceeded [id number] evaluation the patient she did demonstrate some dyspneahe is more upper airway than lower. CAT scan shows evidence of increased interstitial markings consistent with interstitial pneumonia. She has been on oral antibiotics and is failing outpatient treatment she will be admitted for inpatient treatment. I do agree with the assessment and plan. I did discuss the case with Dr. Morales. (Naga Sandoval) Medical Decision Making - Lab Data Result diagrams: 11/21/18 15:17 11/21/18 15:17 <Naga Sandoval - Last Filed: 11/21/18 17:08> - Lab Data Result diagrams: 11/21/18 15:17 11/21/18 15:17 <Erick Burr - Last Filed: 11/21/18 18:10> - Medical Decision Making 48-year-old female patient past medical history of neurofibromatosis, tubal ligation, presents to ED with approximately 1 week of productive cough and shortness of breath while coughing. Patient has not been diagnosed with COPD, however she does have asthma and she has a regular cigarette smoker. Patient was seen at [facility] on 12/17/18 and reportedly diagnosed with pneumonia and started on azithromycin. Patient states that her symptoms have not improved azithromycin. Patient denies any chest pain. Patient denies any abdominal pain, nausea vomiting or diarrhea, fevers or chills. Patient denies all other complaints. Pt VSS, afebrile. Physical exam displayed: Wheezing noted in anterior alejandro. Improved after breathing treatment. Laboratory investigations reveal nonimpressive CBC, CMP. Coagulation studies within normal limits. Troponin negative. BNP within normal limits. CT chest pulmonary angiography revealed no evidence of pulmonary embolism. Pneumonia in bilateral lower lung alejandro. Patient administered DuoNeb breathing treatment, IV steroids. Patient started on Levaquin. Patient to be admitted to hospital for failed outpatient treatment of community-acquired pneumonia and asthma exacerbation. Case discussed and patient seen by Dr. Sandoval. (Erick Burr) - Lab Data Lab Results 11/21/18 11/21/18 11/21/18 Range/Units 15:17 15:17 15:17 WBC 7.1 (3.8-10.6) k/uL RBC 5.02 (3.80-5.40) m/uL Hgb 14.7 (11.4-16.0) gm/dL Hct 46.2 H (34.0-46.0) % MCV 91.9 (80.0-100.0) fL MCH 29.4 (25.0-35.0) pg MCHC 31.9 (31.0-37.0) g/dL RDW 14.5 (11.5-15.5) % Plt Count 228 (150-450) k/uL Neutrophils % 53 % Lymphocytes % 32 % Monocytes % 8 % Eosinophils % 4 % Basophils % 1 % Neutrophils # 3.7 (1.3-7.7) k/uL Lymphocytes # 2.3 (1.0-4.8) k/uL Monocytes # 0.6 (0-1.0) k/uL Eosinophils # 0.3 (0-0.7) k/uL Basophils # 0.1 (0-0.2) k/uL PT 10.2 (9.0-12.0) sec INR 0.9 (<1.2) APTT 27.6 (22.0-30.0) sec Sodium 137 (137-145) mmol/L Potassium 4.8 (3.5-5.1) mmol/L Chloride 105 (98-107) mmol/L Carbon Dioxide 26 (22-30) mmol/L Anion Gap 6 mmol/L BUN 11 (7-17) mg/dL Creatinine 0.62 (0.52-1.04) mg/dL Est GFR (CKD-EPI)AfAm >90 (>60 ml/min/1.73 sqM) Est GFR (CKD-EPI)NonAf >90 (>60 ml/min/1.73 sqM) Glucose 117 H (74-99) mg/dL Calcium 10.7 H (8.4-10.2) mg/dL Total Bilirubin 0.8 (0.2-1.3) mg/dL AST 18 (14-36) U/L ALT 26 (9-52) U/L Alkaline Phosphatase 88 (38-126) U/L Troponin I (0.000-0.034) ng/mL NT-Pro-B Natriuret Pep pg/mL Total Protein 7.1 (6.3-8.2) g/dL Albumin 4.1 (3.5-5.0) g/dL 11/21/18 11/21/18 Range/Units 15:17 15:17 WBC (3.8-10.6) k/uL RBC (3.80-5.40) m/uL Hgb (11.4-16.0) gm/dL Hct (34.0-46.0) % MCV (80.0-100.0) fL MCH (25.0-35.0) pg MCHC (31.0-37.0) g/dL RDW (11.5-15.5) % Plt Count (150-450) k/uL Neutrophils % % Lymphocytes % % Monocytes % % Eosinophils % % Basophils % % Neutrophils # (1.3-7.7) k/uL Lymphocytes # (1.0-4.8) k/uL Monocytes # (0-1.0) k/uL Eosinophils # (0-0.7) k/uL Basophils # (0-0.2) k/uL PT (9.0-12.0) sec INR (<1.2) APTT (22.0-30.0) sec Sodium (137-145) mmol/L Potassium (3.5-5.1) mmol/L Chloride (98-107) mmol/L Carbon Dioxide (22-30) mmol/L Anion Gap mmol/L BUN (7-17) mg/dL Creatinine (0.52-1.04) mg/dL Est GFR (CKD-EPI)AfAm (>60 ml/min/1.73 sqM) Est GFR (CKD-EPI)NonAf (>60 ml/min/1.73 sqM) Glucose (74-99) mg/dL Calcium (8.4-10.2) mg/dL Total Bilirubin (0.2-1.3) mg/dL AST (14-36) U/L ALT (9-52) U/L Alkaline Phosphatase (38-126) U/L Troponin I <0.012 (0.000-0.034) ng/mL NT-Pro-B Natriuret Pep 283 pg/mL Total Protein (6.3-8.2) g/dL Albumin (3.5-5.0) g/dL Disposition <Naga Sandoval - Last Filed: 11/21/18 17:08> Is patient prescribed a controlled substance at d/c from ED?: No <Erick Burr - Last Filed: 11/21/18 18:10> Clinical Impression: Asthma exacerbation, Community acquired pneumonia Disposition: ADMITTED IP TO THIS HOSP Condition: Serious
[2018-11-21 15:36] LABS: Basophils # (A) 0.1 k/uL (0-0.2); Basophils % (A) 1 %; Eosinophils # (A) 0.3 k/uL (0-0.7); Eosinophils % (A) 4 %; HCT 46.2 % (34.0-46.0); HGB 14.7 gm/dL (11.4-16.0); Lymphocytes # (A) 2.3 k/uL (1.0-4.8); Lymphocytes % (A) 32 %; MCH 29.4 pg (25.0-35.0); MCHC 31.9 g/dL (31.0-37.0); MCV 91.9 fL (80.0-100.0); Mean Platelet Volume 9.9; Monocytes # (A) 0.6 k/uL (0-1.0); Monocytes % (A) 8 %; Neutrophils # (A) 3.7 k/uL (1.3-7.7); Neutrophils % (A) 53 %; Platelet Count 228 k/uL (150-450); RBC 5.02 m/uL (3.80-5.40); RDW 14.5 % (11.5-15.5); WBC 7.1 k/uL (3.8-10.6)
[2018-11-21 15:46] LABS: ALT 26 U/L (9-52); AST 18 U/L (14-36); Albumin 4.1 g/dL (3.5-5.0); Alkaline Phosphatase 88 U/L (38-126); Anion Gap 6 mmol/L; Blood Urea Nitrogen 11 mg/dL (7-17); Calcium 10.7 mg/dL (8.4-10.2); Carbon Dioxide 26 mmol/L (22-30); Chloride 105 mmol/L (98-107); Glucose 117 mg/dL (74-99); Potassium 4.8 mmol/L (3.5-5.1); Sodium 137 mmol/L (137-145); Total Bilirubin 0.8 mg/dL (0.2-1.3); Total Protein 7.1 g/dL (6.3-8.2)
[2018-11-21 16:02] LABS: INR 0.9 (<1.2); Partial Thromboplastin Time 27.6 sec (22.0-30.0); Prothrombin Time 10.2 sec (9.0-12.0)
[2018-11-21] MEDS ORDERED: diphenhydrAMINE 50 MG/ML 1 ML VIAL IVP STA (16:26)
[2018-11-21] MEDS ORDERED: FAMOTIDINE 20 MG/2 ML VIAL IV STA (16:26)
--- NOTE | 2018-11-21 16:50 | CT ---
EXAMINATION TYPE: CT chest angio for PE DATE OF EXAM: 11/21/2018 COMPARISON: 03/11/2018 HISTORY: Shortness of breath and cough CT DLP: 528 mGycm Automated exposure control for dose reduction was used. CONTRAST: CT Chest for pulmonary embolism performed with with IV Contrast, patient injected with 100 mL of Isov ue 370. FINDINGS: There is mild groundglass interstitial density in the mid and lower lung alejandro. There is no evidence of a pulmonary mass. There is no pleural effusion. There is subsegmental atelectasis at the right po sterior lung base. Heart size is normal. There are no hilar masses. There is no mediastinal adenopath y. Thoracic aorta shows no aneurysm or dissection. I see no filling defects in the pulmonary arteries . There are multiple bilateral paraspinal mass is with low attenuation in the lower thoracic region w ith expansion of the neural foramina. 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 Masses do not enhance. Multiple neurofibromas is also possibl e. IMPRESSION: No evidence of pulmonary embolism. Increased pulmonary interstitial density in the mid and lower lung alejandro is nonspecific and could relate to interstitial pneumonia or pulmonary fibrosis. This is incr eased compared to last exam. 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
[2018-11-21] MEDS ORDERED: NALOXONE 0.4 MG/ML 1 ML VIAL IV PRN (17:27)
[2018-11-21] MEDS ORDERED: IBUPROFEN 400 MG TAB PO PRN (17:27)
--- NOTE | 2018-11-21 18:12 | ED ---
Medical Decision Making - Lab Data Result diagrams: 11/21/18 15:17 11/21/18 15:17 Lab Results 11/21/18 11/21/18 11/21/18 Range/Units 15:17 15:17 15:17 WBC 7.1 (3.8-10.6) k/uL RBC 5.02 (3.80-5.40) m/uL Hgb 14.7 (11.4-16.0) gm/dL Hct 46.2 H (34.0-46.0) % MCV 91.9 (80.0-100.0) fL MCH 29.4 (25.0-35.0) pg MCHC 31.9 (31.0-37.0) g/dL RDW 14.5 (11.5-15.5) % Plt Count 228 (150-450) k/uL Neutrophils % 53 % Lymphocytes % 32 % Monocytes % 8 % Eosinophils % 4 % Basophils % 1 % Neutrophils # 3.7 (1.3-7.7) k/uL Lymphocytes # 2.3 (1.0-4.8) k/uL Monocytes # 0.6 (0-1.0) k/uL Eosinophils # 0.3 (0-0.7) k/uL Basophils # 0.1 (0-0.2) k/uL PT 10.2 (9.0-12.0) sec INR 0.9 (<1.2) APTT 27.6 (22.0-30.0) sec Sodium 137 (137-145) mmol/L Potassium 4.8 (3.5-5.1) mmol/L Chloride 105 (98-107) mmol/L Carbon Dioxide 26 (22-30) mmol/L Anion Gap 6 mmol/L BUN 11 (7-17) mg/dL Creatinine 0.62 (0.52-1.04) mg/dL Est GFR (CKD-EPI)AfAm >90 (>60 ml/min/1.73 sqM) Est GFR (CKD-EPI)NonAf >90 (>60 ml/min/1.73 sqM) Glucose 117 H (74-99) mg/dL Calcium 10.7 H (8.4-10.2) mg/dL Total Bilirubin 0.8 (0.2-1.3) mg/dL AST 18 (14-36) U/L ALT 26 (9-52) U/L Alkaline Phosphatase 88 (38-126) U/L Troponin I (0.000-0.034) ng/mL NT-Pro-B Natriuret Pep pg/mL Total Protein 7.1 (6.3-8.2) g/dL Albumin 4.1 (3.5-5.0) g/dL 11/21/18 11/21/18 Range/Units 15:17 15:17 WBC (3.8-10.6) k/uL RBC (3.80-5.40) m/uL Hgb (11.4-16.0) gm/dL Hct (34.0-46.0) % MCV (80.0-100.0) fL MCH (25.0-35.0) pg MCHC (31.0-37.0) g/dL RDW (11.5-15.5) % Plt Count (150-450) k/uL Neutrophils % % Lymphocytes % % Monocytes % % Eosinophils % % Basophils % % Neutrophils # (1.3-7.7) k/uL Lymphocytes # (1.0-4.8) k/uL Monocytes # (0-1.0) k/uL Eosinophils # (0-0.7) k/uL Basophils # (0-0.2) k/uL PT (9.0-12.0) sec INR (<1.2) APTT (22.0-30.0) sec Sodium (137-145) mmol/L Potassium (3.5-5.1) mmol/L Chloride (98-107) mmol/L Carbon Dioxide (22-30) mmol/L Anion Gap mmol/L BUN (7-17) mg/dL Creatinine (0.52-1.04) mg/dL Est GFR (CKD-EPI)AfAm (>60 ml/min/1.73 sqM) Est GFR (CKD-EPI)NonAf (>60 ml/min/1.73 sqM) Glucose (74-99) mg/dL Calcium (8.4-10.2) mg/dL Total Bilirubin (0.2-1.3) mg/dL AST (14-36) U/L ALT (9-52) U/L Alkaline Phosphatase (38-126) U/L Troponin I <0.012 (0.000-0.034) ng/mL NT-Pro-B Natriuret Pep 283 pg/mL Total Protein (6.3-8.2) g/dL Albumin (3.5-5.0) g/dL - EKG Data -: EKG Interpreted by Me (and Dr. Sandoval) EKG Comments: 1) Ventricular rate 102, CT interval 132, QRS 86, QT/QTC 342/445. Sinus tachycardia, otherwise normal EKG. Disposition Clinical Impression: Asthma exacerbation, Community acquired pneumonia Disposition: ADMITTED IP TO THIS HOSP Condition: Serious Is patient prescribed a controlled substance at d/c from ED?: No
[2018-11-21] MEDS: LEVOFLOXACIN 750MG-D5W PMX 750 MG in DEXTROSE/WATER 1 150ML.BAG IVPB SCH (19:00)
[2018-11-21] MEDS: SODIUM CHLORIDE 0.9% 1,000 ML IV SCH (19:01)
[2018-11-21 19:31] VITALS: BMI 48.8
[2018-11-21] MEDS: ACETAMINOPHEN TAB 325 MG TAB PO PRN (22:09)
[2018-11-21 22:17] LABS: Appearance,Urine Clear (Clear); Bilirubin,Urine Negative (Negative); Blood,Urine Trace (Negative); Color,Urine Light Yellow; Glucose,Urine (UA) Negative (Negative); Ketones,Urine 1+ (Negative); Leukocyte Esterase,Urine Negative (Negative); Nitrite,Urine Negative (Negative); Protein,Urine Negative (Negative); RBC,Urine <1 /hpf (0-5); Specific Gravity,Urine 1.035 (1.001-1.035); Squamous Epithelial Cell,Urine 1 /hpf (0-4); Urobilinogen,Urine <2.0 mg/dL (<2.0)
[2018-11-21] MEDS: IPRATROPIUM-ALBUTEROL 3 ML NEB INHALATION PRN (22:31)
[2018-11-22] MEDS: ACETAMINOPHEN TAB 325 MG TAB PO PRN (05:51)
[2018-11-22] MEDS: IPRATROPIUM-ALBUTEROL 3 ML NEB INHALATION PRN ×2 (07:22→11:10)
[2018-11-22 07:43] LABS: Basophils % (A) 0 %; Eosinophils # (A) 0.1 k/uL (0-0.7); Eosinophils % (A) 1 %; HCT 45.4 % (34.0-46.0); HGB 14.7 gm/dL (11.4-16.0); Lymphocytes # (A) 1.4 k/uL (1.0-4.8); Lymphocytes % (A) 14 %; MCH 29.9 pg (25.0-35.0); MCHC 32.5 g/dL (31.0-37.0); MCV 92.1 fL (80.0-100.0); Mean Platelet Volume 10.6; Monocytes # (A) 0.4 k/uL (0-1.0); Monocytes % (A) 4 %; Neutrophils # (A) 7.9 k/uL (1.3-7.7); Neutrophils % (A) 80 %; Platelet Count 248 k/uL (150-450); RBC 4.93 m/uL (3.80-5.40); RDW 14.5 % (11.5-15.5); WBC 9.9 k/uL (3.8-10.6)
[2018-11-22 07:56] LABS: Anion Gap 6 mmol/L; Blood Urea Nitrogen 10 mg/dL (7-17); Calcium 11.1 mg/dL (8.4-10.2); Carbon Dioxide 25 mmol/L (22-30); Chloride 106 mmol/L (98-107); Glucose 119 mg/dL (74-99); Potassium 5.1 mmol/L (3.5-5.1); Sodium 137 mmol/L (137-145)
[2018-11-22] MEDS: IPRATROPIUM-ALBUTEROL 3 ML NEB INHALATION SCH ×4 (11:14→23:40)
[2018-11-22] MEDS: FLUoxetine HCL 20 MG CAP PO SCH (11:20)
[2018-11-22] MEDS: SPIRONOLACTONE 25 MG TAB PO SCH (11:20)
[2018-11-22] MEDS: FAMOTIDINE 20 MG TAB PO SCH (11:20)
[2018-11-22] MEDS: IBUPROFEN 800 MG TAB PO SCH ×3 (11:24→21:18)
[2018-11-22] MEDS: ARIPiprazole 10 MG TAB PO SCH (11:38)
--- NOTE | 2018-11-22 13:02 | P.CNPUL ---
History of Present Illness Consult date: 11/22/18 Reason for consult: dyspnea History of present illness: This is a 48-year-old morbidly obese female patient with known history of neurofibromatosis who presented emergency department because of one-week history of increased dyspnea cough chest tightness and wheezing. The patient is a chronic smoker in she is trying to quit smoking. She has history of COPD status as well. The patient was seen and Deja and the patient was started on antibiotics for questionable pneumonia. Her symptoms without improvement following that the patient decided to come into the hospital here at [facility] for further evaluation and treatment. No pleurisy. No hemoptysis. No chest pain. No fever chills or night sweats. No nausea vomiting or abdominal pain. No other complaints otherwise for now. She does not use home oxygen. She does not use any form of maintenance respiratory medications at home. He has a nebulizer that she can use on an as-needed basis. CAT scan of the chest was done and it showed no evidence of any pulmonary embolism. The patient was found to have a bilateral paraspinal lesions a low-attenuation the lower thoracic region with expression of the neural foramina unchanged compared to the previous CAT scan of the chest was done on 03/11/2018. This could be a representation of a underlying neurofibroma. Clinically the patient is feeling better. She is less short of breath compared to yesterday. His sleep evaluation was done and the sleep center and the patient was negative for any underlying obstructive sleep apnea. The patient has known significant leukocytosis. Renal function is stable. No other significant abnormalities noted. Clinically improving. Review of Systems Constitutional: Denies chills, Denies fever Eyes: bilateral blurred vision, bilateral decreased vision, denies as per HPI, denies bulging eye, denies diplopia, denies discharge, denies dry eye, denies irritation, denies itching, denies pain, denies photophobia, denies loss of peripheral vision, denies loss of vision, denies tunnel vision/blind spots Ears: deny: decreased hearing, ear discharge, earache, tinnitus Ears, nose, mouth and throat: Denies headache, Denies sore throat Breasts: absent: as per HPI, change in shape, gynecomastia, masses, nipple discharge, pain, skin changes, swelling Cardiovascular: Reports decreased exercise tolerance, Reports dyspnea on exertion Respiratory: Reports cough, Reports cough with sputum, Reports dyspnea, Reports wheezing Gastrointestinal: Reports as per HPI Genitourinary: Reports as per HPI Menstruation: Reports as per HPI Musculoskeletal: Reports as per HPI Musculoskeletal: absent: ankle pain, ankle stiffness, ankle swelling, as per HPI , elbow pain, elbow stiffness, elbow swelling, foot pain, foot stiffness, foot swelling, hand pain, hand stiffness, hand swelling, hip pain, hip stiffness, hip swelling, knee pain, knee stiffness, knee swelling, shoulder pain, shoulder stiffness, shoulder swelling, wrist pain, wrist stiffness, wrist swelling Integumentary: Reports as per HPI (Patient has neurofibromatosis with extensive skin lesions consistent with her disease.) Neurological: Reports as per HPI Psychiatric: Reports as per HPI Endocrine: Reports as per HPI Hematologic/Lymphatic: Reports as per HPI Allergic/Immunologic: Reports as per HPI Past Medical History Past Medical History: Asthma, Pneumonia Additional Past Medical History / Comment(s): neurofibromatosis, mild learning disability, legally blind bilaterally-pt states as long as she wears her glasses she can see pretty well, bilateral lower leg edema at times. 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 Past Anesthesia/Blood Transfusion Reactions: Postoperative Nausea & Vomiting ( PONV) Past Psychological History: Depression Smoking Status: Current every day smoker Past Alcohol Use History: None Reported Past Drug Use History: None Reported - Past Family History Father Family Medical History: Cancer Additional Family Medical History / Comment(s): Father had lung to bone cancer and of this at the age of 70yrs. He was an exsmoker. Mother Family Medical History: Cancer Additional Family Medical History / Comment(s): Mother of breast cancer at the age of 65yrs. Medications and Allergies Home Medications Medication Instructions Recorded Confirmed Type ARIPiprazole [Abilify] 10 mg PO DAILY 12/31/15 11/21/18 History Furosemide [Lasix] 20 mg PO DIRECTED 04/13/16 11/21/18 History FLUoxetine HCL [PROzac] 20 mg PO DAILY 03/11/18 11/21/18 History Ibuprofen [Motrin] 800 mg PO TID 03/11/18 11/21/18 History Famotidine [Pepcid] 40 mg PO DAILY 11/21/18 11/21/18 History Spironolactone [Aldactone] 50 mg PO DAILY 11/21/18 11/21/18 History diphenhydrAMINE [Benadryl] 25 mg PO HS 11/21/18 11/21/18 History Allergies Allergy/AdvReac Type Severity Reaction Status Date / Time amoxicillin Allergy Nausea & Verified 11/21/18 16:01 Vomiting Physical Exam Vitals: Vital Signs Temp Pulse Pulse Resp BP BP Pulse Ox 11/22/18 11:52 97.5 F L 113 H 22 150/88 98 11/22/18 11:23 100 11/22/18 11:11 98 11/22/18 07:32 101 H 11/22/18 07:24 100 95 11/22/18 05:27 97.7 F 91 17 133/78 97 11/21/18 22:30 89 11/21/18 22:21 88 11/21/18 21:17 97 11/21/18 20:30 97.5 F L 103 H 17 149/89 100 11/21/18 18:00 123 H 22 116/87 99 11/21/18 17:30 101 H 24 105/88 99 11/21/18 17:08 100 11/21/18 17:00 92 14 132/79 100 11/21/18 16:56 102 H 11/21/18 16:30 98 19 122/72 100 11/21/18 16:00 90 17 118/75 100 11/21/18 15:32 100 11/21/18 15:30 96 17 114/68 100 11/21/18 15:28 100 11/21/18 15:23 100 11/21/18 14:44 97.4 F L 106 H 24 114/63 99 Intake and Output 11/21/18 11/22/18 11/22/18 22:59 06:59 14:59 Intake Total 150 240 Balance 150 240 Intake: Intake, IV Titration 150 Amount Levofloxacin 750Mg-D5w 150 Pmx 750 mg In Dextrose/ Water 1 150ml.bag @ 100 mls/hr IVPB Q24H [facility] Rx#: [id number] Oral 240 Other: Voiding Method Toilet Toilet GENERAL: The patient is alert and oriented x3, not in any acute distress. Obese with the diffuse neurofibromatosis lesions HEENT: Pupils are round and equally reacting to light. EOMI. No scleral icterus. No conjunctival pallor. Normocephalic, atraumatic. No pharyngeal erythema. No thyromegaly. CARDIOVASCULAR: S1 and S2 present. No murmurs, rubs, or gallops. PULMONARY: Good air entry but rhonchus breath sounds due to tracheobronchitis. Diminished breath sounds with few scattered expiratory wheezes throughout the lung bilaterally. ABDOMEN: Soft, nontender, nondistended, normoactive bowel sounds. No palpable organomegaly. MUSCULOSKELETAL: No joint swelling or deformity. EXTREMITIES: No cyanosis, clubbing, or pedal edema. NEUROLOGICAL: Gross neurological examination did not reveal any focal deficits. SKIN: No rashes. Examination of the skin revealed no evidence of significant rashes, suspicious appearing nevi or other concerning lesions. Results - Laboratory Findings CBC and BMP: 11/22/18 07:16 11/22/18 07:16 PT/INR, D-dimer PT 10.2 sec (9.0-12.0) 11/21/18 15:17 INR 0.9 (<1.2) 11/21/18 15:17 Abnormal lab findings: Abnormal Labs 11/21/18 11/21/18 11/21/18 15:17 15:17 22:00 Hct 46.2 H Neutrophils # Glucose 117 H Calcium 10.7 H Urine Ketones 1+ H Urine Blood Trace H 11/22/18 11/22/18 07:16 07:16 Hct Neutrophils # 7.9 H Glucose 119 H Calcium 11.1 H Urine Ketones Urine Blood - Diagnostic Findings Chest x-ray: image reviewed CT scan - chest: image reviewed Assessment and Plan Plan: Assessment 1 acute exacerbation of COPD/bronchitis. CT angios the chest was reviewed and there is no evidence of pneumonia or pulmonary embolism 2 paraspinal neurofibroma unchanged compared to the previous CAT scan from last. 3 neurofibromatosis type II 4 morbid obesity with a BMI 53.5 5 depression 6 smoker Plan Smoking cessation counseling was done. DuoNeb treatments around the clock. IV Levaquin. IV Solu Medrol. The shortness and the results of the CAT scan of the chest. We'll continue to follow. Clinically improving compared to yesterday.
[2018-11-22] MEDS: methylPREDNISolone SOD SUCCI 40 MG/ML 1 ML VIAL IV SCH (16:23)
[2018-11-22] MEDS: SODIUM CHLORIDE 0.9% 1,000 ML IV SCH (16:33)
[2018-11-22] MEDS ORDERED: MAGNESIUM HYDROXIDE 2,400 MG/10 ML CUP PO PRN (16:37)
[2018-11-22] MEDS ORDERED: LACTULOSE 20 GM/30 ML CUP PO PRN (16:37)
[2018-11-22] MEDS ORDERED: ONDANSETRON 4 MG/2 ML VIAL IVP PRN (16:37)
[2018-11-22] MEDS ORDERED: ALPRAZolam 0.25 MG TAB PO PRN (16:37)
[2018-11-22] MEDS ORDERED: CALCIUM CARBONATE 500 MG CHEWABLE PO PRN (16:37)
[2018-11-22] MEDS ORDERED: MELATONIN 3 MG TABLET PO PRN (16:37)
[2018-11-22] MEDS: ENOXAPARIN 40 MG/0.4 ML SYRINGE SQ SCH (17:02)
[2018-11-22] MEDS: LEVOFLOXACIN 750MG-D5W PMX 750 MG in DEXTROSE/WATER 1 150ML.BAG IVPB SCH (17:02)
[2018-11-22] MEDS: NICOTINE 14MG/24HR PATCH TRANSDERM SCH (17:02)
--- NOTE | 2018-11-22 17:39 | HP ---
HISTORY AND PHYSICAL DATE OF ADMISSION: 11/21/2018 DATE OF SERVICE: 11/22/2018 PRESENTING COMPLAINT: Short of breath, cough. HISTORY OF PRESENTING COMPLAINT: This is a pleasant 48-year-old patient Dr. Slater whose chronic stable medical conditions include neurofibromatosis, depression, slight mental retardation. The patient is a cigarette smoker. The patient presents with worsening shortness of breath and cough for about a week, a little sputum production. No fever. No chills. Appetite is maintained. Some wheezing. Admitted with COPD exacerbation and started on bronchodilators and steroids. Admitted for the same. REVIEW OF SYSTEMS: CONSTITUTIONAL: Tired. HEENT: None. RESPIRATORY: As above. CARDIOVASCULAR: None. GASTROINTESTINAL: None. GENITOURINARY: None. MUSCULOSKELETAL: None. DERMATOLOGICAL: Chronic fibromas. HEMATOLOGICAL: None. LYMPHATICS: None. PSYCHIATRY: None. NEUROLOGICAL: Mental slowness. PAST MEDICAL HISTORY: 1. COPD. 2. Neurofibromatosis. 3. Decreased vision. 4. Depression. 5. Slight mental retardation. PAST SURGICAL HISTORY: 1. Tubal ligation. 2. Hysterectomy with ablation. 3. Neurofibroma removed from left ear, ureter and finger. PSYCH HISTORY: Depression. SOCIAL HISTORY: Lives with her sister Sally. Has smoked about half a pack a day for close to 28 years. No alcohol. FAMILY HISTORY: Father had lung cancer with metastases to the bone. HOME MEDICATIONS: 1. Benadryl 25 mg at bedtime. 2. Aldactone 50 mg p.o. daily. 3. Lasix 20 mg as directed. 4. Pepcid 40 mg p.o. daily. 5. Prozac 20 mg p.o. daily. 6. Abilify 10 mg p.o. daily. 7. Ibuprofen 800 mg t.i.d. ALLERGIES: AMOXICILLIN. PHYSICAL EXAMINATION: VITAL SIGNS ON PRESENTATION: Temperature 97.4, pulse 106, respiration 24, blood pressure 114/63, pulse 99% on room air. GENERAL APPEARANCE: Well built; BMI 53.5. Sitting up. A bit tired-appearing. EYES: Pupils equal. Conjunctivae normal. HEENT: External appearance of nose and ears normal. Oral cavity normal. NECK: JVD not raised. Mass not palpable. RESPIRATORY: Effort increased. LUNGS: Diminished breath sounds. Prolonged expiration and wheezing. CARDIOVASCULAR: First and second sounds normal. No edema. ABDOMEN: Soft, non-tender. Liver and spleen not palpable. LYMPHATIC: No lymph node palpable in neck or axillae. PSYCHIATRY: Alert and oriented x3. Mood and affect normal. NEUROLOGICAL: Pupils equal. Cranial nerves grossly intact. Power and sensation grossly intact. DERMATOLOGICAL: Multiple neurofibromas. INVESTIGATIONS: White count 7.1, hemoglobin 14.7, potassium 4.8. EKG tracing, personally reviewed by me, shows sinus tachycardia. Chest CTA shows no PE. ASSESSMENT: 1. Acute chronic obstructive pulmonary disease exacerbation, probably from acute bronchitis, in a current smoker. 2. Chronic nicotine dependence. Patient is a cigarette smoker. 3. Morbid obesity; body mass index 53.5. 4. Neurofibromatosis. 5. Depression not otherwise specified. 6. Mild mental retardation. PLAN: Patient has been started on DuoNeb, bronchodilators, antibiotics. Home medications are resumed. Care was discussed with the patient. SMOKING CESSATION COUNSELING: This was done with the patient. More than 3 minutes was spent on this aspect of the case. She was started on a nicotine patch. MMTHELMA / NICHOLEN: [id number] /
[2018-11-23] MEDS: methylPREDNISolone SOD SUCCI 40 MG/ML 1 ML VIAL IV SCH ×2 (00:51→08:13)
[2018-11-23] MEDS: IPRATROPIUM-ALBUTEROL 3 ML NEB INHALATION SCH ×3 (02:51→11:09)
[2018-11-23] MEDS: ARIPiprazole 10 MG TAB PO SCH (08:13)
[2018-11-23] MEDS: FLUoxetine HCL 20 MG CAP PO SCH (08:13)
[2018-11-23] MEDS: FAMOTIDINE 20 MG TAB PO SCH (08:13)
[2018-11-23] MEDS: ENOXAPARIN 40 MG/0.4 ML SYRINGE SQ SCH (08:13)
[2018-11-23] MEDS: IBUPROFEN 800 MG TAB PO SCH ×2 (08:13→14:24)
[2018-11-23] MEDS: NICOTINE 14MG/24HR PATCH TRANSDERM SCH (08:14)
[2018-11-23] MEDS: SPIRONOLACTONE 25 MG TAB PO SCH (08:14)
[2018-11-23 11:30] VITALS: BP 125/74; PULSE 91; RESP 20; TEMP 98
--- NOTE | 2018-11-23 13:21 | P.PN ---
Subjective Progress Note Date: 11/23/18 This is a 48-year-old morbidly obese female patient with known history of neurofibromatosis who presented emergency department because of one-week history of increased dyspnea cough chest tightness and wheezing. The patient is a chronic smoker in she is trying to quit smoking. She has history of COPD status as well. The patient was seen and Deja and the patient was started on antibiotics for questionable pneumonia. Her symptoms without improvement following that the patient decided to come into the hospital here at [facility] for further evaluation and treatment. No pleurisy. No hemoptysis. No chest pain. No fever chills or night sweats. No nausea vomiting or abdominal pain. No other complaints otherwise for now. She does not use home oxygen. She does not use any form of maintenance respiratory medications at home. He has a nebulizer that she can use on an as-needed basis. CAT scan of the chest was done and it showed no evidence of any pulmonary embolism. The patient was found to have a bilateral paraspinal lesions a low-attenuation the lower thoracic region with expression of the neural foramina unchanged compared to the previous CAT scan of the chest was done on 03/11/2018. This could be a representation of a underlying neurofibroma. Clinically the patient is feeling better. She is less short of breath compared to yesterday. His sleep evaluation was done and the sleep center and the patient was negative for any underlying obstructive sleep apnea. The patient has known significant leukocytosis. Renal function is stable. No other significant abnormalities noted. Clinically improving. On today's evaluation of 11/23/2018, the patient is doing well. The patient is being treated for an acute COPD exacerbation. She is on a combination of DuoNeb nebulized treatment [id number], IV Solu-Medrol and antibiotics with Levaquin. No fever or chills. She is improving. She is less short of breath and she is ambulating pH is off oxygen. She is requesting to be discharged home. Objective - Vital Signs Vital signs: Vital Signs Temp 98 F 11/23/18 11:30 Pulse 91 11/23/18 11:30 Resp 20 11/23/18 11:30 BP 125/74 11/23/18 11:30 Pulse Ox 100 11/23/18 11:30 Intake & Output 11/22/18 11/23/18 11/23/18 18:59 06:59 18:59 Intake Total 760 990 Balance 760 990 Intake: Intake, IV Titration 160 150 Amount Levofloxacin 750Mg-D5w 150 Pmx 750 mg In Dextrose/ Water 1 150ml.bag @ 100 mls/hr IVPB Q24H JERRELL Rx#: [id number] Sodium Chloride 0.9% 1, 160 000 ml @ 20 mls/hr IV . Q24H JERRELL Rx#:[id number] Oral 600 840 Other: Voiding Method Toilet Toilet Toilet # Voids 2 2 - Exam GENERAL: The patient is alert and oriented x3, not in any acute distress. Obese with the diffuse neurofibromatosis lesions HEENT: Pupils are round and equally reacting to light. EOMI. No scleral icterus. No conjunctival pallor. Normocephalic, atraumatic. No pharyngeal erythema. No thyromegaly. CARDIOVASCULAR: S1 and S2 present. No murmurs, rubs, or gallops. PULMONARY: Good air entry but rhonchus breath sounds due to tracheobronchitis. Diminished breath sounds with few scattered expiratory wheezes throughout the lung bilaterally. ABDOMEN: Soft, nontender, nondistended, normoactive bowel sounds. No palpable organomegaly. MUSCULOSKELETAL: No joint swelling or deformity. EXTREMITIES: No cyanosis, clubbing, or pedal edema. NEUROLOGICAL: Gross neurological examination did not reveal any focal deficits. SKIN: No rashes. Examination of the skin revealed no evidence of significant rashes, suspicious appearing nevi or other concerning lesions. - Labs CBC & Chem 7: 11/22/18 07:16 11/22/18 07:16 Labs: Microbiology - Last 24 Hours (Table) 11/21/18 15:17 Blood Culture - Preliminary Blood No Growth after 24 hours Assessment and Plan Plan: Assessment 1 acute exacerbation of COPD/bronchitis. CT angios the chest was reviewed and there is no evidence of pneumonia or pulmonary embolism 2 paraspinal neurofibroma unchanged compared to the previous CAT scan from last. 3 neurofibromatosis type II 4 morbid obesity with a BMI 53.5 5 depression 6 smoker Plan Smoking cessation counseling was done. DuoNeb treatments around the clock. IV Levaquin. IV Solu Medrol. The patient can be discharged home today as the patient is improved considerably. Recommend a prednisone burst taper. Outpatient Levaquin course for a total of 6-7 days. Outpatient follow-up regarding her COPD. Weight loss. Smoking cessation counseling was again done.
--- NOTE | 2018-11-23 22:31 | DS ---
DISCHARGE SUMMARY DATE OF ADMISSION: November 21, 2018. DATE OF DISCHARGE: November 23, 2018. FINAL DIAGNOSES: 1. Acute chronic obstructive pulmonary disease exacerbation from acute bronchitis in a current smoker. 2. Chronic nicotine dependence, patient is a cigarette smoker. 3. Morbid obesity BMI 53.5. 4. Chronic neurofibromatosis. 5. Depression, not otherwise specified. 6. Mild mental retardation. HOSPITAL COURSE: This patient is a smoker, presented with COPD exacerbation, bronchitis. Doing better today tolerating a diet, very keen to go home. PHYSICAL EXAMINATION: VITAL SIGNS: Temperature 98, pulse 91, respiration 20, blood pressure 120/74, pulse 100 percent room air. LUNGS: Improved air entry. CONSULTATION: Dr. Rausch from Pulmonary. The patient advised against smoking. DISCHARGE MEDICATIONS: 1. Abilify 10 mg p.o. daily. 2. Lasix 20 mg as directed. 3. Prozac 20 mg a day. 4. Motrin 800 mg t.i.d. 5. Pepcid 40 mg p.o. daily. 6. Aldactone 50 mg p.o. daily. 7. Ventolin HFA 1-2 puffs q.6 p.r.n. 8. Atrovent HFA 2 puffs t.i.d. 9. Levaquin 500 mg p.o. daily melatonin 3 mg q.h.s. p.r.n. 10.Nicotine patch 14. 11.Prednisone taper. Discussion and discharge planning more than 35 minutes. FOLLOWUP: Follow up with Dr. Slater in 3 days. MMODL / IJN: [id number] /
== END 2018-11-23 15:00 | disposition home or self-care (01) | DRG 191 ==
LOC: EC 14:38 → 3NMEDONC 17:07
PROVIDERS: ADMIT Hospitalist; ATTEND Hospitalist
DX: J44.0 Chronic obstructive pulmonary disease with (acute) lower respiratory infection (principal); J45.901 Unspecified asthma with (acute) exacerbation; Z68.43 Body mass index [BMI] 50.0-59.9, adult; J44.1 Chronic obstructive pulmonary disease with (acute) exacerbation; J20.9 Acute bronchitis, unspecified; E66.01 Morbid (severe) obesity due to excess calories; F17.210 Nicotine dependence, cigarettes, uncomplicated; F32.9 Major depressive disorder, single episode, unspecified; F70 Mild intellectual disabilities; F81.9 Developmental disorder of scholastic skills, unspecified; H54.8 Legal blindness, as defined in USA; Q85.02 Neurofibromatosis, type 2; Z79.899 Other long term (current) drug therapy; Z80.1 Family history of malignant neoplasm of trachea, bronchus and lung; Z80.3 Family history of malignant neoplasm of breast; Z90.710 Acquired absence of both cervix and uterus; Z71.6 Tobacco abuse counseling; Z88.1 Allergy status to other antibiotic agents
CPT/HCPCS: 36415; 71275; 80048; 80053; 81001; 83880; 84484; 85025; 85610; 85730; 87040; 93005; 94640; 96365; 96375; 99285

== ENCOUNTER 2019-01-24 12:32 | Emergency (ER) | payer MEDICARE ==
[2019-01-24 13:15] LABS: Basophils # (A) 0.1 k/uL (0-0.2); Basophils % (A) 1 %; Eosinophils # (A) 0.2 k/uL (0-0.7); Eosinophils % (A) 2 %; HCT 43.9 % (34.0-46.0); HGB 14.8 gm/dL (11.4-16.0); Lymphocytes # (A) 2.4 k/uL (1.0-4.8); Lymphocytes % (A) 27 %; MCH 30.6 pg (25.0-35.0); MCHC 33.6 g/dL (31.0-37.0); MCV 90.9 fL (80.0-100.0); Mean Platelet Volume 9.2; Monocytes # (A) 0.6 k/uL (0-1.0); Monocytes % (A) 7 %; Neutrophils # (A) 5.5 k/uL (1.3-7.7); Neutrophils % (A) 62 %; Platelet Count 225 k/uL (150-450); RBC 4.83 m/uL (3.80-5.40)
--- NOTE | 2019-01-24 13:17 | ED ---
General Adult HPI - General Chief complaint: Shortness of Breath Stated complaint: ADOLFO Time Seen by Provider: 01/24/19 12:35 Source: patient, RN notes reviewed Mode of arrival: ambulatory Limitations: no limitations - History of Present Illness Initial comments: This is a 48-year-old female who comes to the emergency department complaining of shortness of breath. Patient states symptoms on going for 2 days. Patient denies any chest pain or palpitations. Patient denies any fever chills or cough. Patient states a month ago she had pneumonia. Patient denies any lightheadedness or dizziness. Patient denies any abdominal pain. Patient denies any nausea vomiting. Patient is oxygenating in the 100% when I interviewed and she is on room air. Patient denies any calf pain or swelling to the legs - Related Data Home Medications Medication Instructions Recorded Confirmed ARIPiprazole [Abilify] 10 mg PO DAILY 12/31/15 01/25/19 Furosemide [Lasix] 20 mg PO DAILY 04/13/16 01/25/19 FLUoxetine HCL [PROzac] 20 mg PO DAILY 03/11/18 01/25/19 Ibuprofen [Motrin] 800 mg PO TID 03/11/18 01/25/19 Famotidine [Pepcid] 40 mg PO DAILY 11/21/18 01/25/19 Spironolactone [Aldactone] 50 mg PO DAILY 11/21/18 01/25/19 Ipratropium Ch[place]is [Atrovent Hfa] 2 puff INHALATION RT-TID 01/24/19 01/25/19 Previous Rx's Medication Instructions Recorded Albuterol Inhaler [Ventolin Hfa 1 - 2 puff INHALATION RT-Q6H PRN 11/23/18 Inhaler] #1 inhaler Allergies Allergy/AdvReac Type Severity Reaction Status Date / Time amoxicillin AdvReac Nausea & Verified 01/25/19 07:16 Vomiting Review of Systems ROS Statement: Those systems with pertinent positive or pertinent negative responses have been documented in the HPI. ROS Other: All systems not noted in ROS Statement are negative. Past Medical History Past Medical History: Asthma Additional Past Medical History / Comment(s): neurofibromatosis, mild learning disability, legally blind bilaterally-pt states as long as she wears her glasses she can see pretty well, bilateral lower leg edema at times. 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 Past Anesthesia/Blood Transfusion Reactions: Postoperative Nausea & Vomiting (PONV) Past Psychological History: Depression Smoking Status: Current every day smoker Past Alcohol Use History: None Reported Past Drug Use History: None Reported - Past Family History Father Family Medical History: Cancer Additional Family Medical History / Comment(s): Father had lung to bone cancer and of this at the age of 70yrs. He was an exsmoker. Mother Family Medical History: Cancer Additional Family Medical History / Comment(s): Mother of breast cancer at the age of 65yrs. General Exam - General Exam Comments Initial Comments: GENERAL: Patient is well-developed and well-nourished. Patient is nontoxic and well- hydrated and is in no acute distress. ENT: Neck is soft and supple. No significant lymphadenopathy is noted. Oropharynx is clear. Moist mucous membranes. Neck has full range of motion without eliciting any pain. EYES: The sclera were anicteric and conjunctiva were pink and moist. Extraocular movements were intact and pupils were equal round and reactive to light. Eyelids were unremarkable. PULMONARY: Unlabored respirations. Good breath sounds bilaterally. Patient had an ex piratory groan but it disappeared when distracted or speaking or when breathing through her nose CARDIOVASCULAR: There is a regular rate and rhythm without any murmurs gallops or rubs. ABDOMEN: Soft and nontender with normal bowel sounds. SKIN: Patient has lesions all over her back and chest and face that appears as though she might have neurofibromatosis NEUROLOGIC: Patient is alert and oriented x3. Cranial nerves II through XII are grossly intact. Motor and sensory are also intact. Normal speech, volume and content. Symmetrical smile. MUSCULOSKELETAL: Normal extremities with adequate strength and full range of motion. No lower extremity swelling or edema. No calf tenderness. LYMPHATICS: No significant lymphadenopathy is noted PSYCHIATRIC: Normal psychiatric evaluation. Normal interpersonal interactions appears functionally intact in deals appropriately with others. No signs of depression. No signs of anxiety. Limitations: no limitations Course Vital Signs 01/24/19 01/24/19 01/24/19 12:33 13:18 13:19 Temperature 97.6 F Pulse Rate 94 91 Respiratory 18 20 20 Rate Blood Pressure 111/60 107/71 O2 Sat by Pulse 99 99 Oximetry 01/24/19 01/24/19 14:39 14:46 Temperature 97.8 F Pulse Rate 93 Respiratory 18 Rate Blood Pressure 107/60 O2 Sat by Pulse 99 Oximetry Medical Decision Making - Medical Decision Making EKG shows normal sinus rhythm at 99 bpm [place] interval is 128 QRSs 80 QT interval 340 QTC is 446. Patient's EKG shows no ST segment elevation or depression or T wave abnormalities are noted. Chest x-ray shows no acute abnormality. Patient was having 100% on room air throughout her stay in the emergency department. I went back to reevaluate the patient she was oxygenating 100% on room air she was in no respiratory distress. Patient ambulated out of the ER without any expiratory or inspiratory noise and in no respiratory distress. - Lab Data Result diagrams: 01/24/19 13:03 01/24/19 13:03 Lab Results 01/24/19 01/24/19 01/24/19 Range/Units 13:03 13:03 13:03 WBC 9.0 (3.8-10.6) k/uL RBC 4.83 (3.80-5.40) m/uL Hgb 14.8 (11.4-16.0) gm/dL Hct 43.9 (34.0-46.0) % MCV 90.9 (80.0-100.0) fL MCH 30.6 (25.0-35.0) pg MCHC 33.6 (31.0-37.0) g/dL RDW 14.0 (11.5-15.5) % Plt Count 225 (150-450) k/uL Neutrophils % 62 % Lymphocytes % 27 % Monocytes % 7 % Eosinophils % 2 % Basophils % 1 % Neutrophils # 5.5 (1.3-7.7) k/uL Lymphocytes # 2.4 (1.0-4.8) k/uL Monocytes # 0.6 (0-1.0) k/uL Eosinophils # 0.2 (0-0.7) k/uL Basophils # 0.1 (0-0.2) k/uL PT 10.3 (9.0-12.0) sec INR 1.0 (<1.2) APTT 27.3 (22.0-30.0) sec D-Dimer 0.31 (<0.60) mg/L FEU Sodium 137 (137-145) mmol/L Potassium 4.4 (3.5-5.1) mmol/L Chloride 105 (98-107) mmol/L Carbon Dioxide 25 (22-30) mmol/L Anion Gap 7 mmol/L BUN 9 (7-17) mg/dL Creatinine 0.74 (0.52-1.04) mg/dL Est GFR (CKD-EPI)AfAm >90 (>60 ml/min/1.73 sqM) Est GFR (CKD-EPI)NonAf >90 (>60 ml/min/1.73 sqM) Glucose 99 (74-99) mg/dL Calcium 10.9 H (8.4-10.2) mg/dL Magnesium 1.9 (1.6-2.3) mg/dL Total Bilirubin 0.5 (0.2-1.3) mg/dL AST 14 (14-36) U/L ALT 21 (9-52) U/L Alkaline Phosphatase 87 (38-126) U/L Troponin I (0.000-0.034) ng/mL NT-Pro-B Natriuret Pep pg/mL Total Protein 6.9 (6.3-8.2) g/dL Albumin 4.0 (3.5-5.0) g/dL 01/24/19 01/24/19 Range/Units 13:03 13:03 WBC (3.8-10.6) k/uL RBC (3.80-5.40) m/uL Hgb (11.4-16.0) gm/dL Hct (34.0-46.0) % MCV (80.0-100.0) fL MCH (25.0-35.0) pg MCHC (31.0-37.0) g/dL RDW (11.5-15.5) % Plt Count (150-450) k/uL Neutrophils % % Lymphocytes % % Monocytes % % Eosinophils % % Basophils % % Neutrophils # (1.3-7.7) k/uL Lymphocytes # (1.0-4.8) k/uL Monocytes # (0-1.0) k/uL Eosinophils # (0-0.7) k/uL Basophils # (0-0.2) k/uL PT (9.0-12.0) sec INR (<1.2) APTT (22.0-30.0) sec D-Dimer (<0.60) mg/L FEU Sodium (137-145) mmol/L Potassium (3.5-5.1) mmol/L Chloride (98-107) mmol/L Carbon Dioxide (22-30) mmol/L Anion Gap mmol/L BUN (7-17) mg/dL Creatinine (0.52-1.04) mg/dL Est GFR (CKD-EPI)AfAm (>60 ml/min/1.73 sqM) Est GFR (CKD-EPI)NonAf (>60 ml/min/1.73 sqM) Glucose (74-99) mg/dL Calcium (8.4-10.2) mg/dL Magnesium (1.6-2.3) mg/dL Total Bilirubin (0.2-1.3) mg/dL AST (14-36) U/L ALT (9-52) U/L Alkaline Phosphatase (38-126) U/L Troponin I <0.012 (0.000-0.034) ng/mL NT-Pro-B Natriuret Pep 192 pg/mL Total Protein (6.3-8.2) g/dL Albumin (3.5-5.0) g/dL Disposition Clinical Impression: Anxiety Disposition: HOME SELF-CARE Condition: Good Instructions (If sedation given, give patient instructions): Anxiety (ED) Is patient prescribed a controlled substance at d/c from ED?: No Referrals: Mt Slater MD [Primary Care Provider] - 1-2 days Time of Disposition: 14:30
--- NOTE | 2019-01-24 13:23 | XR ---
EXAMINATION TYPE: XR chest 2V DATE OF EXAM: 01/24/2019 HISTORY: difficulty breathing. REFERENCE: Previous study dated 03/11/2018 as [address] as a CT scan of the chest dated 11/21/2018. FINDINGS: There is increased density in the left paraspinal region. This is less obvious than on the previous examination. This may represent pneumonia. Paraspinal mass is not excluded. No pleural fluid is seen. The heart is not enlarged. The right lung is clear. 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 THIS WAS SHOWN O N A RECENT CT SCAN TO REPRESENT A PARTIALLY CALCIFIED MASS EXTENDING FROM THE NEURAL FORAMINA AND PRE SENT BILATERALLY. MRI OF THE SPINAL BE SUGGESTED.
[2019-01-24 13:25] LABS: ALT 21 U/L (9-52); AST 14 U/L (14-36); Alkaline Phosphatase 87 U/L (38-126); Anion Gap 7 mmol/L; Blood Urea Nitrogen 9 mg/dL (7-17); Calcium 10.9 mg/dL (8.4-10.2); Carbon Dioxide 25 mmol/L (22-30); Chloride 105 mmol/L (98-107); Glucose 99 mg/dL (74-99); Magnesium 1.9 mg/dL (1.6-2.3); Potassium 4.4 mmol/L (3.5-5.1); Sodium 137 mmol/L (137-145); Total Bilirubin 0.5 mg/dL (0.2-1.3); Total Protein 6.9 g/dL (6.3-8.2)
[2019-01-24 13:31] LABS: D-Dimer 0.31 mg/L FEU (<0.60); Partial Thromboplastin Time 27.3 sec (22.0-30.0); Prothrombin Time 10.3 sec (9.0-12.0)
[2019-01-24] MEDS ORDERED: LORazepam 1 MG TAB PO STA (14:30)
[2019-01-24 14:40] VITALS: BP 107/60; PULSE 93; RESP 18
[2019-01-24 14:47] VITALS: TEMP 97.8
== END 2019-01-24 14:46 | disposition home or self-care (01) ==
LOC: EC 12:32
DX: F41.9 Anxiety disorder, unspecified (principal); J45.909 Unspecified asthma, uncomplicated; F32.9 Major depressive disorder, single episode, unspecified; F17.200 Nicotine dependence, unspecified, uncomplicated; Z79.899 Other long term (current) drug therapy; Z79.51 Long term (current) use of inhaled steroids; Z88.0 Allergy status to penicillin
CPT/HCPCS: 36415; 71046; 80053; 83735; 83880; 84484; 85025; 85379; 85610; 85730; 93005; 99285

== ENCOUNTER 2019-01-24 23:51 | Emergency (ER) | payer MEDICARE ==
[2019-01-25] MEDS ORDERED: ETOMIDATE 2 MG/ML 10 ML VIAL IVP STA (00:01)
[2019-01-25] MEDS ORDERED: SUCCINYLCHOLINE CHLORIDE VIAL 200 MG/10 ML VIAL IV STA (00:01)
[2019-01-25] MEDS ORDERED: PROPOFOL 1,000 MG in EMPTY BAG 1 BAG IV SCH (00:05)
[2019-01-25] MEDS ORDERED: ALBUTEROL NEBULIZED 2.5 MG/3 ML INHALATION STA (00:12)
[2019-01-25] MEDS ORDERED: SODIUM CHLORIDE 0.9% 1,000 ML IV STA (00:12)
[2019-01-25 00:49] VITALS: TEMP 97.9
[2019-01-25 00:53] LABS: Partial Thromboplastin Time 24.7 sec (22.0-30.0); Prothrombin Time 10.3 sec (9.0-12.0)
--- NOTE | 2019-01-25 00:54 | ED ---
SOB HPI - General Chief Complaint: Shortness of Breath Stated Complaint: ADOLFO Time Seen by Provider: 01/25/19 00:11 Source: patient, EMS Mode of arrival: EMS - History of Present Illness Initial Comments: Nisha is a 48-year-old female with a history of asthma and neurofibromatosis type II. Patient was seen and evaluated in our emergency department earlier in the day today, and evaluated for shortness of breath. At that time her chest x- ray and labs were unremarkable. Patient was subsequently discharged home. Patient reports that since being discharged home her breathing has worsened. Patient is only able to answer yes and no questions upon arrival, she denies any chest pain or recent fevers or chills. - Related Data Home Medications Medication Instructions Recorded Confirmed ARIPiprazole [Abilify] 10 mg PO DAILY 12/31/15 01/24/19 Furosemide [Lasix] 20 mg PO DAILY 04/13/16 01/24/19 FLUoxetine HCL [PROzac] 20 mg PO DAILY 03/11/18 01/24/19 Ibuprofen [Motrin] 800 mg PO TID 03/11/18 01/24/19 Famotidine [Pepcid] 40 mg PO DAILY 11/21/18 01/24/19 Spironolactone [Aldactone] 50 mg PO DAILY 11/21/18 01/24/19 Ipratropium [place] [Atrovent Hfa] 2 puff INHALATION RT-TID 01/24/19 01/24/19 Previous Rx's Medication Instructions Recorded Albuterol Inhaler [Ventolin Hfa 1 - 2 puff INHALATION RT-Q6H PRN 11/23/18 Inhaler] #1 inhaler Allergies Allergy/AdvReac Type Severity Reaction Status Date / Time amoxicillin AdvReac Nausea & Verified 01/25/19 00:49 Vomiting Review of Systems ROS Statement: Those systems with pertinent positive or pertinent negative responses have been documented in the HPI. ROS Other: All systems not noted in ROS Statement are negative. Past Medical History Past Medical History: Asthma Additional Past Medical History / Comment(s): neurofibromatosis, mild learning disability, legally blind bilaterally-pt states as long as she wears her glasses she can see pretty well, bilateral lower leg edema at times. 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 Past Anesthesia/Blood Transfusion Reactions: Postoperative Nausea & Vomiting (PONV) Past Psychological History: Depression Smoking Status: Current every day smoker Past Alcohol Use History: None Reported Past Drug Use History: None Reported - Past Family History Father Family Medical History: Cancer Additional Family Medical History / Comment(s): Father had lung to bone cancer and of this at the age of 70yrs. He was an exsmoker. Mother Family Medical History: Cancer Additional Family Medical History / Comment(s): Mother of breast cancer at the age of 65yrs. General Exam - General Exam Comments Initial Comments: Physical Exam GENERAL: Acute respiratory distress Diaphoretic HENT: Normocephalic, Atraumatic. EYES: PERRL, EOMI PULMONARY: Upper airway stridor Loud transmitted upper airway sounds CARDIOVASCULAR: Tachycardic ABDOMEN: Soft and nontender with normal bowel sounds. SKIN: Neurofibromatosis : Normal external genitalia NEUROLOGIC: Patient is alert and oriented x3 Moving all extremities spontaneously MUSCULOSKELETAL: No obvious deformities PSYCHIATRIC: Appropriate situational anxiety Limitations: respiratory distress Course Vital Signs 01/25/19 01/25/19 01/25/19 00:44 01:34 01:37 Temperature 97.9 F Pulse Rate 140 H 117 H 116 H Respiratory 30 H 16 14 Rate Blood Pressure 143/115 103/53 109/48 O2 Sat by Pulse 96 99 99 Oximetry 01/25/19 01/25/19 01:40 01:50 Temperature Pulse Rate 114 H 114 H Respiratory 6 L 16 Rate Blood Pressure 109/48 105/47 O2 Sat by Pulse 99 99 Oximetry Procedures - Intubation Sedative: Etomidate Paralytic: Succinylcholine Laryngoscope: fiber optic video scope Size: 4 Assist Device Used: Bougie ET Tube Size: 7.5 ET Tube Uncuffed: No Tube Secured Depth (cm): 22 Tube Secured Location: teeth Tube Placement Confirmation: visualized tube passing through cords, equal breath sounds bilaterally, no breath sounds over epigastrium, confirmation by capnometry Patient Tolerated Procedure: well Intubation Complications: difficult intubation Medical Decision Making - Medical Decision Making The patient was seen and evaluated immediately upon arrival to the emergency department Patient was noted to be in acute respiratory distress with audible stridor, when moved from EMS gurney to the bed patient was removed from oxygen and oxygen saturations decreased from the mid 90s to 76% patient became diaphoretic and tachycardic Patient was placed on BiPAP but continued to have significant stridor, there is concern the patient did not have a stable airway and decision was made to intubate the patient Patient was intubated with 7.5 ET tube, there was significant angioedema of the tongue during intubation, airway was very tight and there is bloody secretions Chest x-ray with concern for pulmonary hemorrhage versus edema given that there is significant bloody secretions were ET tube I have a high suspicion of pulmonary hemorrhage unknown etiology Or standing leukocytosis troponin mildly elevated 0.06 however given that the patient is having bloody secretions I do not feel she would benefit from heparin at this time Patient care was discussed with buffing and sueding machine operator textile conservator Dr. Rausch, given the patient's relatively young age and Get a medical comorbidities he recommends transfer to a higher level of care Patient care was discussed with Dr. Cuellar at [facility] who accepts the transfer - Lab Data Result diagrams: 01/24/19 22:55 01/24/19 22:55 Lab Results 01/24/19 01/24/19 01/24/19 Range/Units 22:55 22:55 22:55 WBC 14.7 H (3.8-10.6) k/uL RBC 5.09 (3.80-5.40) m/uL Hgb 15.0 (11.4-16.0) gm/dL Hct 47.5 H (34.0-46.0) % MCV 93.3 (80.0-100.0) fL MCH 29.4 (25.0-35.0) pg MCHC 31.5 (31.0-37.0) g/dL RDW 14.7 (11.5-15.5) % Plt Count 279 (150-450) k/uL Neutrophils % 46 % Lymphocytes % 41 % Monocytes % 7 % Eosinophils % 2 % Basophils % 1 % Neutrophils # 6.7 (1.3-7.7) k/uL Lymphocytes # 6.0 H (1.0-4.8) k/uL Monocytes # 1.0 (0-1.0) k/uL Eosinophils # 0.3 (0-0.7) k/uL Basophils # 0.2 (0-0.2) k/uL Manual Slide Review Performed Large Platelets Present Anisocytosis (manual) Present PT (9.0-12.0) sec INR (<1.2) APTT (22.0-30.0) sec Sodium 138 (137-145) mmol/L Potassium 5.1 (3.5-5.1) mmol/L Chloride 105 (98-107) mmol/L Carbon Dioxide 26 (22-30) mmol/L Anion Gap 7 mmol/L BUN 9 (7-17) mg/dL Creatinine 0.83 (0.52-1.04) mg/dL Est GFR (CKD-EPI)AfAm >90 (>60 ml/min/1.73 sqM) Est GFR (CKD-EPI)NonAf 85 (>60 ml/min/1.73 sqM) Glucose 174 H (74-99) mg/dL POC Glucose (mg/dL) (75-99) mg/dL POC Glu Instructional Support Technician ID Calcium 10.5 H (8.4-10.2) mg/dL Magnesium 1.8 (1.6-2.3) mg/dL Total Bilirubin 0.5 (0.2-1.3) mg/dL AST 17 (14-36) U/L ALT 22 (9-52) U/L Alkaline Phosphatase 105 (38-126) U/L Troponin I (0.000-0.034) ng/mL NT-Pro-B Natriuret Pep 152 pg/mL Total Protein 7.0 (6.3-8.2) g/dL Albumin 4.1 (3.5-5.0) g/dL 01/24/19 01/24/19 01/25/19 Range/Units 22:55 22:55 00:45 WBC (3.8-10.6) k/uL RBC (3.80-5.40) m/uL Hgb (11.4-16.0) gm/dL Hct (34.0-46.0) % MCV (80.0-100.0) fL MCH (25.0-35.0) pg MCHC (31.0-37.0) g/dL RDW (11.5-15.5) % Plt Count (150-450) k/uL Neutrophils % % Lymphocytes % % Monocytes % % Eosinophils % % Basophils % % Neutrophils # (1.3-7.7) k/uL Lymphocytes # (1.0-4.8) k/uL Monocytes # (0-1.0) k/uL Eosinophils # (0-0.7) k/uL Basophils # (0-0.2) k/uL Manual Slide Review Large Platelets Anisocytosis (manual) PT 10.3 (9.0-12.0) sec INR 1.0 (<1.2) APTT 24.7 (22.0-30.0) sec Sodium (137-145) mmol/L Potassium (3.5-5.1) mmol/L Chloride (98-107) mmol/L Carbon Dioxide (22-30) mmol/L Anion Gap mmol/L BUN (7-17) mg/dL Creatinine (0.52-1.04) mg/dL Est GFR (CKD-EPI)AfAm (>60 ml/min/1.73 sqM) Est GFR (CKD-EPI)NonAf (>60 ml/min/1.73 sqM) Glucose (74-99) mg/dL POC Glucose (mg/dL) 131 H (75-99) mg/dL POC Glu Instructional Support Technician ID Becerra, Edilia Calcium (8.4-10.2) mg/dL Magnesium (1.6-2.3) mg/dL Total Bilirubin (0.2-1.3) mg/dL AST (14-36) U/L ALT (9-52) U/L Alkaline Phosphatase (38-126) U/L Troponin I 0.067 H* (0.000-0.034) ng/mL NT-Pro-B Natriuret Pep pg/mL Total Protein (6.3-8.2) g/dL Albumin (3.5-5.0) g/dL Critical Care Time Critical Care Time: Yes Total Critical Care Time: 45 Disposition Clinical Impression: Stridor, Respiratory failure with hypoxia, Pulmonary hemorrhage, Neurofibromatosis, type 2, Morbid obesity Disposition: OTHER INSTITUTION NOT DEFINED Condition: Serious Referrals: Mt Slater MD [Primary Care Provider] - 1-2 days - Out of Hospital Transfer - Req. Specs Out of Hospital Transfer - Requested Specifics: Other Emergency Center ([facility])
[2019-01-25 00:57] LABS: Glucose,Whole Blood 131 mg/dL (75-99)
--- NOTE | 2019-01-25 00:57 | XR ---
EXAM: XR Chest, 1 View CLINICAL HISTORY: intubation TECHNIQUE: Frontal view of the chest. COMPARISON: 01/24/2019 FINDINGS: Lungs: Large amount of airspace opacities throughout both lungs are new, suggest pulmonary edema versus hemorrhage. Pleural space: Suspect small bilateral pleural effusions. No pneumothorax. Heart: Unremarkable. No cardiomegaly. Mediastinum: Unremarkable. Bones/joints: Unremarkable. Tubes, lines and devices: Tip of endotracheal tube is directed towards right main bronchus, at the level of lj. Tip of enteric tube is in the body of the stomach. IMPRESSION: 1. Tip of endotracheal tube is directed towards right main bronchus, at the level of lj. Recommend pull up by about 2-3 cm. 2. Large amount of airspace opacities throughout both lungs are new, suggest pulmonary edema versus hemorrhage. 3. Suspect small bilateral pleural effusions.
[2019-01-25 00:58] LABS: ALT 22 U/L (9-52); AST 17 U/L (14-36); Albumin 4.1 g/dL (3.5-5.0); Alkaline Phosphatase 105 U/L (38-126); Anion Gap 7 mmol/L; Blood Urea Nitrogen 9 mg/dL (7-17); Calcium 10.5 mg/dL (8.4-10.2); Carbon Dioxide 26 mmol/L (22-30); Chloride 105 mmol/L (98-107); Glucose 174 mg/dL (74-99); Magnesium 1.8 mg/dL (1.6-2.3); Potassium 5.1 mmol/L (3.5-5.1); Sodium 138 mmol/L (137-145); Total Bilirubin 0.5 mg/dL (0.2-1.3)
[2019-01-25 01:00] LABS: Basophils # (A) 0.2 k/uL (0-0.2); Basophils % (A) 1 %; Eosinophils # (A) 0.3 k/uL (0-0.7); Eosinophils % (A) 2 %; HCT 47.5 % (34.0-46.0); Lymphocytes % (A) 41 %; MCH 29.4 pg (25.0-35.0); MCHC 31.5 g/dL (31.0-37.0); MCV 93.3 fL (80.0-100.0); Mean Platelet Volume 10.9; Monocytes % (A) 7 %; Neutrophils # (A) 6.7 k/uL (1.3-7.7); Neutrophils % (A) 46 %; Platelet Count 279 k/uL (150-450); RBC 5.09 m/uL (3.80-5.40); RDW 14.7 % (11.5-15.5); WBC 14.7 k/uL (3.8-10.6)
[2019-01-25] MEDS: MIDAZOLAM 1 MG/ML 5 ML VIAL IV PRN ×2 (01:16→01:59)
[2019-01-25 01:31] LABS: Large Platelets Present
[2019-01-25 01:33] LABS: Anisocytosis (M) Present
[2019-01-25 01:43] VITALS: PULSE 114
[2019-01-25 01:52] VITALS: BP 105/47; RESP 16
== END 2019-01-25 02:05 | disposition short-term general hospital (02) ==
LOC: EC 23:51
DX: J96.91 Respiratory failure, unspecified with hypoxia (principal); R04.89 Hemorrhage from other sites in respiratory passages; Q85.02 Neurofibromatosis, type 2; E66.01 Morbid (severe) obesity due to excess calories; Z68.42 Body mass index [BMI] 45.0-49.9, adult; R00.0 Tachycardia, unspecified; J45.909 Unspecified asthma, uncomplicated; F32.9 Major depressive disorder, single episode, unspecified; F17.200 Nicotine dependence, unspecified, uncomplicated; Z79.899 Other long term (current) drug therapy; Z88.0 Allergy status to penicillin
CPT/HCPCS: 99291 ×2; 31500 ×2; 99285; 36415 ×2; 94002; 93005; 85379; 83880; 80053; 83735; 84484; 85025; 85610; 85730; 71045; 71046; J0330; J2250; J2704

== ENCOUNTER 2019-02-14 03:42 | Inpatient (IN) | payer MEDICARE ==
[2019-02-14 04:09] LABS: VBG PH 7.25 (7.31-7.41)
[2019-02-14 04:14] LABS: ALT 32 U/L (9-52); AST 31 U/L (14-36); African American GFR (CKD) >90 (>60 ml/min/1.73 sqM); Albumin 4.1 g/dL (3.5-5.0); Alkaline Phosphatase 115 U/L (38-126); Anion Gap 7 mmol/L; Blood Urea Nitrogen 22 mg/dL (7-17); Calcium 11.9 mg/dL (8.4-10.2); Carbon Dioxide 26 mmol/L (22-30); Chloride 103 mmol/L (98-107); Glucose 138 mg/dL (74-99); Sodium 136 mmol/L (137-145); Total Bilirubin 1.1 mg/dL (0.2-1.3); Total Protein 7.1 g/dL (6.3-8.2)
[2019-02-14 04:15] LABS: Potassium 4.6 mmol/L (3.5-5.1)
--- NOTE | 2019-02-14 04:15 | ED ---
SOB HPI - General Chief Complaint: Shortness of Breath Stated Complaint: ADOLFO Hx CHF Time Seen by Provider: 02/14/19 03:48 Source: patient, EMS Mode of arrival: EMS Limitations: physical limitation (Severe dyspnea) - History of Present Illness Initial Comments: This patient is a 48-year-old woman with history of neurofibromatosis, who comes to the emergency department by ambulance after she developed increasing dyspnea tonight. She also was having noisy respirations. Patient's was coughing up moderate amounts of thin clear to white sputum. She denied fever. She had just been discharged from the hospital prior. She was not able to give much history as she is very dyspneic. MD Complaint: shortness of breath, cough -: hour(s) Consistency: constant Improves With: nothing Worsens With: nothing Known History Of: COPD Associated Symptoms: cough, sputum production Treatments Prior to Arrival: oxygen, NIPPV - Related Data Home Medications Medication Instructions Recorded Confirmed ARIPiprazole [Abilify] 10 mg PO DAILY 12/31/15 02/14/19 FLUoxetine HCL [PROzac] 20 mg PO DAILY 03/11/18 02/14/19 Ibuprofen [Motrin] 800 mg PO TID 03/11/18 02/14/19 Famotidine [Pepcid] 40 mg PO DAILY 11/21/18 02/14/19 Previous Rx's Medication Instructions Recorded Chlorhexidine Gluconate [Peridex] 15 ml MUCOUS MEM BID solution 02/24/19 Heparin Sodium,Porcine [Heparin 5,000 unit SQ Q8HR vial 02/24/19 Sodium] Ipratropium-Albuterol Nebulize 3 ml INHALATION RT-QID ampul.neb 02/24/19 [Duoneb 0.5 mg-3 mg/3 ml Soln] cefTRIAXone [Rocephin] 1 gm IVPB Q24HR vial 02/24/19 predniSONE 60 mg PO DAILY #10 tab 02/24/19 Allergies Allergy/AdvReac Type Severity Reaction Status Date / Time amoxicillin AdvReac Nausea & Verified 02/14/19 07:24 Vomiting Review of Systems ROS Statement: Those systems with pertinent positive or pertinent negative responses have been documented in the HPI. ROS Other: All systems not noted in ROS Statement are negative. Limitations: ROS unobtainable due to patients medical condition Constitutional: Denies: fever Respiratory: Reports: cough, dyspnea, wheezes Cardiovascular: Reports: edema. Denies: chest pain, palpitations Gastrointestinal: Denies: abdominal pain, vomiting, diarrhea Genitourinary: Denies: dysuria Musculoskeletal: Denies: back pain Skin: Denies: rash Neurological: Denies: headache, weakness Past Medical History Past Medical History: Asthma Additional Past Medical History / Comment(s): neurofibromatosis, mild learning disability, legally blind bilaterally-pt states as long as she wears her glasses she can see pretty well, bilateral lower leg edema at times. 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 Past Anesthesia/Blood Transfusion Reactions: Postoperative Nausea & Vomiting (PONV) Past Psychological History: Depression Smoking Status: Current every day smoker Past Alcohol Use History: None Reported Past Drug Use History: None Reported - Past Family History Father Family Medical History: Cancer Additional Family Medical History / Comment(s): Father had lung to bone cancer and of this at the age of 70yrs. He was an exsmoker. Mother Family Medical History: Cancer Additional Family Medical History / Comment(s): Mother of breast cancer at the age of 65yrs. General Exam Limitations: no limitations General appearance: alert, in distress Head exam: Present: atraumatic, normocephalic Eye exam: Present: normal appearance. Absent: scleral icterus, conjunctival injection ENT exam: Present: normal oropharynx Neck exam: Present: normal inspection Respiratory exam: Present: respiratory distress, rales, rhonchi, accessory muscle use. Absent: wheezes, decreased breath sounds, prolonged expiratory Cardiovascular Exam: Present: regular rate, tachycardia, normal heart sounds. Absent: systolic murmur, diastolic murmur, rubs, gallop GI/Abdominal exam: Present: soft. Absent: distended, tenderness, guarding, rebound, rigid Extremities exam: Present: normal inspection, normal capillary refill. Absent: pedal edema, calf tenderness Back exam: Present: normal inspection. Absent: CVA tenderness (R), CVA tenderness (L) Neurological exam: Present: alert Skin exam: Present: warm, dry, intact, normal color. Absent: rash Course Vital Signs 02/14/19 02/14/19 02/14/19 03:49 04:15 05:23 Temperature 97.6 F 98.0 F Pulse Rate 112 H 104 H Respiratory 18 18 30 H Rate Blood Pressure 155/84 142/85 O2 Sat by Pulse 97 96 Oximetry Medical Decision Making - Medical Decision Making This patient is a 48-year-old woman who presents by ambulance for acute dyspnea. Patient not able to give much history initially as she is severely dyspneic and on BiPAP. She did begin to have some improvement with the BiPAP. The patient's chest x-ray shows possible infiltrates versus CHF developing. Patient's labs do show leukocytosis, elevated d-dimer, and gases that are suggestive of respiratory acidosis. In addition patient has a mild elevation of BNP. It appears that the patient has multifactorial dyspnea. She is given antibiotic. Patient is on the BiPAP. She does appear to be having improvement with this. Patient admitted. Case discussed with application packager. - Lab Data Result diagrams: 02/24/19 05:00 02/24/19 05:00 Lab Results 02/14/19 02/14/19 02/14/19 Range/Units 03:53 03:53 03:53 WBC 20.9 H (3.8-10.6) k/uL RBC 4.49 (3.80-5.40) m/uL Hgb 13.6 (11.4-16.0) gm/dL Hct 40.5 (34.0-46.0) % MCV 90.1 (80.0-100.0) fL MCH 30.3 (25.0-35.0) pg MCHC 33.7 (31.0-37.0) g/dL RDW 16.0 H (11.5-15.5) % Plt Count 226 (150-450) k/uL Neutrophils % (Manual) 81 % Lymphocytes % (Manual) 12 % Monocytes % (Manual) 7 % Neutrophils # (Manual) 16.93 H (1.3-7.7) k/uL Lymphocytes # (Manual) 2.51 (1.0-4.8) k/uL Monocytes # (Manual) 1.46 H (0-1.0) k/uL Nucleated RBCs 0 (0-0) /100 WBC Manual Slide Review Performed Large Platelets Present PT (9.0-12.0) sec INR (<1.2) APTT (22.0-30.0) sec D-Dimer (<0.60) mg/L FEU VBG pH 7.25 L (7.31-7.41) VBG pCO2 64 H (37-51) mmHg VBG HCO3 27 (24-28) mmol/L Sodium (137-145) mmol/L Potassium (3.5-5.1) mmol/L Chloride (98-107) mmol/L Carbon Dioxide (22-30) mmol/L Anion Gap mmol/L BUN (7-17) mg/dL Creatinine (0.52-1.04) mg/dL Est GFR (CKD-EPI)AfAm (>60 ml/min/1.73 sqM) Est GFR (CKD-EPI)NonAf (>60 ml/min/1.73 sqM) Glucose (74-99) mg/dL Plasma Lactic Acid Jeffrey 0.9 (0.7-2.0) mmol/L Calcium (8.4-10.2) mg/dL Phosphorus (2.5-4.5) mg/dL Magnesium (1.6-2.3) mg/dL Total Bilirubin (0.2-1.3) mg/dL AST (14-36) U/L ALT (9-52) U/L Alkaline Phosphatase (38-126) U/L Troponin I (0.000-0.034) ng/mL NT-Pro-B Natriuret Pep pg/mL Total Protein (6.3-8.2) g/dL Albumin (3.5-5.0) g/dL 02/14/19 02/14/19 02/14/19 Range/Units 03:53 03:53 03:53 WBC (3.8-10.6) k/uL RBC (3.80-5.40) m/uL Hgb (11.4-16.0) gm/dL Hct (34.0-46.0) % MCV (80.0-100.0) fL MCH (25.0-35.0) pg MCHC (31.0-37.0) g/dL RDW (11.5-15.5) % Plt Count (150-450) k/uL Neutrophils % (Manual) % Lymphocytes % (Manual) % Monocytes % (Manual) % Neutrophils # (Manual) (1.3-7.7) k/uL Lymphocytes # (Manual) (1.0-4.8) k/uL Monocytes # (Manual) (0-1.0) k/uL Nucleated RBCs (0-0) /100 WBC Manual Slide Review Large Platelets PT 11.1 (9.0-12.0) sec INR 1.1 (<1.2) APTT 22.4 (22.0-30.0) sec D-Dimer (<0.60) mg/L FEU VBG pH (7.31-7.41) VBG pCO2 (37-51) mmHg VBG HCO3 (24-28) mmol/L Sodium 136 L (137-145) mmol/L Potassium 4.6 (3.5-5.1) mmol/L Chloride 103 (98-107) mmol/L Carbon Dioxide 26 (22-30) mmol/L Anion Gap 7 mmol/L BUN 22 H (7-17) mg/dL Creatinine 0.50 L (0.52-1.04) mg/dL Est GFR (CKD-EPI)AfAm >90 (>60 ml/min/1.73 sqM) Est GFR (CKD-EPI)NonAf >90 (>60 ml/min/1.73 sqM) Glucose 138 H (74-99) mg/dL Plasma Lactic Acid Jeffrey (0.7-2.0) mmol/L Calcium 11.9 H (8.4-10.2) mg/dL Phosphorus (2.5-4.5) mg/dL Magnesium 2.0 (1.6-2.3) mg/dL Total Bilirubin 1.1 (0.2-1.3) mg/dL AST 31 (14-36) U/L ALT 32 (9-52) U/L Alkaline Phosphatase 115 (38-126) U/L Troponin I (0.000-0.034) ng/mL NT-Pro-B Natriuret Pep 1280 pg/mL Total Protein 7.1 (6.3-8.2) g/dL Albumin 4.1 (3.5-5.0) g/dL 02/14/19 02/14/19 02/14/19 Range/Units 03:53 03:53 03:53 WBC (3.8-10.6) k/uL RBC (3.80-5.40) m/uL Hgb (11.4-16.0) gm/dL Hct (34.0-46.0) % MCV (80.0-100.0) fL MCH (25.0-35.0) pg MCHC (31.0-37.0) g/dL RDW (11.5-15.5) % Plt Count (150-450) k/uL Neutrophils % (Manual) % Lymphocytes % (Manual) % Monocytes % (Manual) % Neutrophils # (Manual) (1.3-7.7) k/uL Lymphocytes # (Manual) (1.0-4.8) k/uL Monocytes # (Manual) (0-1.0) k/uL Nucleated RBCs (0-0) /100 WBC Manual Slide Review Large Platelets PT (9.0-12.0) sec INR (<1.2) APTT (22.0-30.0) sec D-Dimer 1.76 H (<0.60) mg/L FEU VBG pH (7.31-7.41) VBG pCO2 (37-51) mmHg VBG HCO3 (24-28) mmol/L Sodium (137-145) mmol/L Potassium (3.5-5.1) mmol/L Chloride (98-107) mmol/L Carbon Dioxide (22-30) mmol/L Anion Gap mmol/L BUN (7-17) mg/dL Creatinine (0.52-1.04) mg/dL Est GFR (CKD-EPI)AfAm (>60 ml/min/1.73 sqM) Est GFR (CKD-EPI)NonAf (>60 ml/min/1.73 sqM) Glucose (74-99) mg/dL Plasma Lactic Acid Jeffrey (0.7-2.0) mmol/L Calcium (8.4-10.2) mg/dL Phosphorus 3.6 (2.5-4.5) mg/dL Magnesium (1.6-2.3) mg/dL Total Bilirubin (0.2-1.3) mg/dL AST (14-36) U/L ALT (9-52) U/L Alkaline Phosphatase (38-126) U/L Troponin I 0.018 (0.000-0.034) ng/mL NT-Pro-B Natriuret Pep pg/mL Total Protein (6.3-8.2) g/dL Albumin (3.5-5.0) g/dL - EKG Data -: EKG Interpreted by Me EKG shows normal: sinus rhythm, axis (Normal), intervals (Normal), QRS complexes (Normal) Rate: tachycardia (Rate 105 bpm) Interpretation: nonspecific ST-T wave changes Critical Care Time Critical Care Time: Yes (35 minutes) Disposition Clinical Impression: Pneumonia, CHF (congestive heart failure), Respiratory acidosis Disposition: ADMITTED IP TO THIS HOSP Condition: Serious
--- NOTE | 2019-02-14 04:15 | XR ---
EXAM: XR Chest, 1 View CLINICAL HISTORY: ITS.REASON XR Reason: dyspnea TECHNIQUE: Frontal view of the chest. COMPARISON: Chest x-ray 01/25/19 IMPRESSION: Cardiomegaly. Increased bilateral lower lobe opacities, possibly aspiration, atelectasis, or edema. No pleural effusion.
[2019-02-14 04:20] LABS: HCT 40.5 % (34.0-46.0); HGB 13.6 gm/dL (11.4-16.0); MCH 30.3 pg (25.0-35.0); MCHC 33.7 g/dL (31.0-37.0); MCV 90.1 fL (80.0-100.0); Mean Platelet Volume 12.6; Platelet Count 226 k/uL (150-450); RBC 4.49 m/uL (3.80-5.40); WBC 20.9 k/uL (3.8-10.6)
[2019-02-14 04:25] LABS: INR 1.1 (<1.2); Partial Thromboplastin Time 22.4 sec (22.0-30.0); Prothrombin Time 11.1 sec (9.0-12.0)
[2019-02-14 04:40] LABS: Lymphocytes # (M) 2.51 k/uL (1.0-4.8); Monocytes # (M) 1.46 k/uL (0-1.0); Neutrophils # (M) 16.93 k/uL (1.3-7.7); Neutrophils % (M) 81 %; Nucleated Red Blood Cells 0 /100 WBC (0-0); Total Cells Counted 100
[2019-02-14 04:41] LABS: Large Platelets Present
[2019-02-14] MEDS ORDERED: FUROSEMIDE 10 MG/ML 2 ML VIAL IV STA (05:03)
[2019-02-14] MEDS ORDERED: ALBUTEROL NEBULIZED 2.5 MG/3 ML INHALATION PRN (05:08)
[2019-02-14] MEDS ORDERED: FUROSEMIDE 10 MG/ML 4 ML VIAL IV SCH (05:15)
[2019-02-14] MEDS ORDERED: PNEUMONIA PROTOCOL UTILIZED 1 EACH MISC PO PRN (05:45)
[2019-02-14] MEDS ORDERED: LEVOFLOXACIN 750MG-D5W PMX 750 MG in DEXTROSE/WATER 1 150ML.BAG IVPB STA (05:45)
[2019-02-14] MEDS ORDERED: IPRATROPIUM-ALBUTEROL 3 ML NEB INHALATION SCH (08:00)
[2019-02-14] MEDS ORDERED: FAMOTIDINE 20 MG TAB PO SCH (09:00)
[2019-02-14] MEDS ORDERED: FLUoxetine HCL 20 MG CAP PO SCH (09:00)
[2019-02-14] MEDS ORDERED: SPIRONOLACTONE 25 MG TAB PO SCH (09:00)
[2019-02-14] MEDS ORDERED: ARIPiprazole 10 MG TAB PO SCH (09:00)
[2019-02-14] MEDS ORDERED: predniSONE 20 MG TAB PO SCH (09:00)
[2019-02-14] MEDS ORDERED: NITROGLYCERIN OINT 1 INCH/GM PACKET TOPICAL SCH (09:00)
[2019-02-14] MEDS ORDERED: VANCOMYCIN IV PER PHARMACY 1 EACH MISC MISCELLANE PRN (09:41)
[2019-02-14 10:18] LABS: ABG Base Excess 3.7 mmol/L; ABG HCO3 29 mmol/L (21-25); ABG Oxygen Saturation 97.3 % (94-97); ABG PCO2 47 mmHg (35-45); ABG PH 7.39 (7.35-7.45); ABG PO2 87 mmHg (83-108); ABG TCO2 30 mmol/L (19-24); Allen Test Performed? Yes
--- NOTE | 2019-02-14 10:35 | XR ---
EXAMINATION TYPE: XR chest 1V DATE OF EXAM: 02/14/2019 COMPARISON: 02/14/2019 INDICATION: Intubation, difficulty breathing TECHNIQUE: Single frontal view of the chest is obtained. FINDINGS: The heart size is normal. The pulmonary vasculature is upper limits of normal. Infiltrate is present at the right lower lobe. Correlate for atelectasis and pneumonia. Findings are worsening from comparison. Patient has been intubated and has its tip of the endotracheal tube 4.4 cm above the lj. Nasogast hugo tube transverses the thorax tip in the left upper quadrant of the abdomen. Left central venous ca theter is present with tip in superior vena cava region. No pneumothorax is evident. IMPRESSION: 1. Worsening right lower lobe infiltrate. Correlate for atelectasis. Pneumonia could be considered. 2. Multiple lines and catheters discussed above. 3. No pneumothorax is present post central venous catheter placement.
[2019-02-14] MEDS: CHLORHEXIDINE GLUCONATE 15 ML CUP MUCOUS MEM SCH ×2 (10:38→20:31)
[2019-02-14] MEDS: PROPOFOL 1,000 MG in EMPTY BAG 1 BAG IV SCH ×6 (10:38→23:18)
[2019-02-14] MEDS: SODIUM CHLORIDE 0.9% 1,000 ML IV SCH ×2 (10:43→23:18)
[2019-02-14] MEDS: HEPARIN SODIUM,PORCINE 5,000 UNIT/ML 1 ML VIAL SQ SCH ×3 (10:43→23:38)
[2019-02-14] MEDS: CEFEPIME 2 GM in SODIUM CHLORIDE 0.9% 100 ML IVPB SCH ×2 (10:43→20:28)
[2019-02-14] MEDS: PANTOPRAZOLE 40 MG/10 ML VIAL IVP SCH (10:43)
[2019-02-14] MEDS ORDERED: VANCOMYCIN 2,500 MG in SODIUM CHLORIDE 0.9% 500 ML 500 ML IVPB ONE (11:00)
[2019-02-14] MEDS: IPRATROPIUM-ALBUTEROL 3 ML NEB INHALATION SCH ×3 (11:32→19:43)
[2019-02-14 12:12] LABS: Appearance,Urine Clear (Clear); Bilirubin,Urine Negative (Negative); Blood,Urine Negative (Negative); Color,Urine Colorless; Glucose,Urine (UA) Negative (Negative); Ketones,Urine Negative (Negative); Leukocyte Esterase,Urine Negative (Negative); Nitrite,Urine Negative (Negative); Protein,Urine Negative (Negative); Specific Gravity,Urine 1.008 (1.001-1.035); Urobilinogen,Urine <2.0 mg/dL (<2.0)
--- NOTE | 2019-02-14 12:44 | P.CNPUL ---
History of Present Illness Consult date: 02/14/19 Reason for consult: dyspnea History of present illness: This is a 48-year-old female patient with known history of COPD and neurofibromatosis was post intubation mechanical ventilation for respiratory failure approximately 3 weeks ago at [facility]. The patient was discharged home and this morning the patient was brought back to the emergency department lethargic, diminished level of consciousness, worsening shortness of breath and she was having inspiratory stridor. The patient was placed on a BiPAP in the emergency department. The patient was transferred to selective telemetry unit. At that point, the patient had worsening shortness of breath and further diminishment in level of consciousness pH she got transferred to the intensive care unit. I immediately saw the patient upon arrival to the ICU. She was having inspiratory stridor/noisy breathing while even being on a BiPAP at a pressure of 10/5 cm of water. I briefly discontinued the BiPAP and inspiratory stridor was quite obvious. As such, I suspect an upper airway obstruction. He decided to intubate the patient accordingly. The chest x-ray showed cardiac cardiac structures to be normal with some cardiomegaly. There was increased bilateral lower lobe opacity and pneumonia was suspected. At this point, I started the patient with propofol. Using a glydoscope, I inspected the upper airway. I did not find any significant obstruction in the supraglottic area. In fact, epiglottis was within normal limits. The arytenoids and the vocal cords were all within normal limits. There was copious amount of purulent respiratory secretions occupying the posterior oropharynx and the larynx and the these were suctioned out. As I was getting ready to do my intubation, I noticed that the patient was coughing copious amount of purulent material which was origin radiating from her lungs and with every cough I was able to suction large globs of purulent material that was settling in her posterior larynx and the vocal cord area. I did further suctioning and I aspirated approximately 20-25 mL of purulent chocolate the creamy.material. Following that, intubated the patient with a #7.5 ET tube. Post intubation, I performed a bronchoscopy and another 25-30 mL of purulent material was aspirated from the patient's lungs bilaterally more so on the right. Following this, I did an airway inspection. The lower airways were patent without any acute abnormalities. There was significant purulent material and this was only finding. The visualized airways were all patent without any foreign bodies or endobronchial tumor. At that point, I moved the bronchoscope to the ET tube and I retracted the bronchoscope and I inspected the entire trachea reaching the subglottic area. I was not able to identify any form of airway obstruction or subglottic stenosis in this patient. The subglottic trachea was small but patent. I completed the procedure. Following that I kept the patient a mechanical ventilator and currently she is sedated with propofol. Is on a vent with a assist-control mode with an FiO2 of 100%, PEEP of 5, tidal volume of 400 and rate of 20. Post intubation blood gases showed a pH of 7.39 with a pCO2 of 46 and pO2 of 87. Po st intubation chest x-ray showed a large consolidation of the right lower lobe. A triple lumen catheter was inserted. An outline catheter was inserted. The patient was started on a combination of cefepime and vancomycin and Levaquin. The patient was started on IV Solu-Medrol. The patient was started on DuoNeb the right units [id number]. She is well sedated for now and she is quite successful the mechanical ventilator. No hypotension. She is currently on normal saline at the rate of 75 mL an hour and the patient has not required any pressors. Review of Systems ROS unobtainable: due to endotracheal tube Past Medical History Past Medical History: COPD Additional Past Medical History / Comment(s): neurofibromatosis, mild learning disability, legally blind bilaterally-pt states as long as she wears her glasses she can see pretty well, bilateral lower leg edema at times. 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 Past Anesthesia/Blood Transfusion Reactions: Postoperative Nausea & Vomiting (PONV) Smoking Status: Current every day smoker - Past Family History Father Family Medical History: Cancer Additional Family Medical History / Comment(s): Father had lung to bone cancer and of this at the age of 70yrs. He was an exsmoker. Mother Family Medical History: Cancer Additional Family Medical History / Comment(s): Mother of breast cancer at the age of 65yrs. Medications and Allergies Home Medications Medication Instructions Recorded Confirmed Type ARIPiprazole [Abilify] 10 mg PO DAILY 12/31/15 02/14/19 History Furosemide [Lasix] 20 mg PO DAILY 04/13/16 02/14/19 History FLUoxetine HCL [PROzac] 20 mg PO DAILY 03/11/18 02/14/19 History Ibuprofen [Motrin] 800 mg PO TID 03/11/18 02/14/19 History Famotidine [Pepcid] 40 mg PO DAILY 11/21/18 02/14/19 History Spironolactone [Aldactone] 50 mg PO DAILY 11/21/18 02/14/19 History Albuterol Inhaler [Ventolin Hfa 1 - 2 puff INHALATION RT-Q6H PRN 11/23/18 Rx Inhaler] #1 inhaler Ipratropium [place] [Atrovent Hfa] 2 puff INHALATION RT-TID 01/24/19 02/14/19 History Allergies Allergy/AdvReac Type Severity Reaction Status Date / Time amoxicillin AdvReac Nausea & Verified 02/14/19 07:24 Vomiting Physical Exam Vitals: Vital Signs Temp Pulse Pulse Resp BP BP Pulse Ox 02/14/19 11:54 90 02/14/19 11:33 96 02/14/19 08:15 116 H 02/14/19 08:03 110 H 02/14/19 06:17 97.6 F 108 H 30 H 131/56 94 L 02/14/19 05:23 98.0 F 104 H 30 H 142/85 96 02/14/19 04:15 18 02/14/19 03:49 97.6 F 112 H 18 155/84 97 Intake and Output 02/13/19 02/14/19 02/14/19 22:59 06:59 14:59 Intake Total 881.608 Output Total 1300 Balance -418.392 Intake: IV 825 Cefepime 2 gm In Sodium 100 Chloride 0.9% 100 ml @ 200 mls/hr IVPB Q12HR [facility] Rx#:[id number] Sodium Chloride 0.9% 1, 225 000 ml @ 75 mls/hr IV . [id number] [facility] Rx#:[id number] Vancomycin 2,000 mg In 500 Sodium Chloride 0.9% 500 ml 500 ml @ 167 mls/hr IVPB Q12H [facility] Rx#: [id number] Intake, IV Titration 56.608 Amount Propofol 1,000 mg In 56.608 Empty Bag 1 bag @ Titrate IV .Q0M [facility] Rx#: [id number] Output: Urine 1300 Other: Weight 136.078 kg Obese, comfortable likely distress sedated. The patient is also intubated on a mechanical ventilator. She is interested a mechanical ventilator. She is morbidly obese with a BMI 51.5. She has obvious neurofibromas scattered throughout her face neck upper and lower extremities bilaterally. Also there are neurofibromas on her abdomen and trunk. Head exam was generally normal. There was no scleral icterus or corneal arcus. Mucous membranes were moist. Neck was supple and without jugular venous distension, thyromegaly, or carotid bruits. Carotids were easily palpable bilaterally. There was no adenopathy. The patient has no significant JVDs. No goiter or neck masses. Orogastric and o rotracheal tube are both in place and the patient has a left subtalar triple- lumen catheter in place. Lungs sounds are diminished bilaterally especially in the lung bases along with scattered rhonchi Cardiac exam revealed the PMI to be normally situated and sized. The rhythm was regular and no extrasystoles were noted during several minutes of auscultation. The first and second heart sounds were normal and physiologic splitting of the second heart sound was noted. There were no murmurs, rubs, clicks, or gallops. Abdominal exam revealed normal bowel sounds. The abdomen was soft, non-tender, and without masses, organomegaly, or appreciable enlargement of the abdominal aorta. Examination of the extremities revealed easily palpable radial, femoral and pedal pulses. There was no cyanosis, clubbing , trace edema in lower extremities bilaterally. Examination of the skin revealed no evidence of significant rashes, suspicious appearing nevi or other concerning lesions. There is diffuse neurofibromas neurologically the patient is sedated and intubated on a mechanical ventilator. She was awake and she was moving all 4 extremities just prior to the intubation process. Results - Laboratory Findings CBC and BMP: 02/14/19 03:53 02/14/19 03:53 ABG ABG pH 7.39 (7.35-7.45) 02/14/19 10:10 ABG pCO2 47 mmHg (35-45) H 02/14/19 10:10 ABG pO2 87 mmHg (83-108) 02/14/19 10:10 ABG O2 Saturation 97.3 % (94-97) H 02/14/19 10:10 PT/INR, D-dimer PT 11.1 sec (9.0-12.0) 02/14/19 03:53 INR 1.1 (<1.2) 02/14/19 03:53 D-Dimer 1.76 mg/L FEU (<0.60) H 02/14/19 03:53 Abnormal lab findings: Abnormal Labs 02/14/19 02/14/19 02/14/19 03:53 03:53 03:53 WBC 20.9 H RDW 16.0 H Neutrophils # (Manual) 16.93 H Monocytes # (Manual) 1.46 H D-Dimer ABG pCO2 ABG HCO3 ABG Total CO2 ABG O2 Saturation VBG pH 7.25 L VBG pCO2 64 H Sodium 136 L BUN 22 H Creatinine 0.50 L Glucose 138 H Calcium 11.9 H 02/14/19 02/14/19 03:53 10:10 WBC RDW Neutrophils # (Manual) Monocytes # (Manual) D-Dimer 1.76 H ABG pCO2 47 H ABG HCO3 29 H ABG Total CO2 30 H ABG O2 Saturation 97.3 H VBG pH VBG pCO2 Sodium BUN Creatinine Glucose Calcium - Diagnostic Findings Chest x-ray: image reviewed Assessment and Plan Plan: 1 acute hypoxic respiratory failure with copious and purulent respiratory secretions causing significant amount of mucus plugging it stridor at time of admission. The patient has better lower lobe pneumonia right more than left and she has a dense consolidation that evolved following the intubation process. Consider gram-negative/polymicrobial infection. The patient is covered with broad-spectrum antibiotics and currently she is intubated on a mechanical ventilator. She is also post bronchoscopy and seborrheic it was suctioning with removal of copious amount of purulent discharge secretions from the airway 2 stridor, likely secondary to copious mucous plugs occupying the upper airway, the patient is post intubation, the patient is post herpetic airway suctioning, the patient is post bronchoscopy 3 COPD exacerbation secondary to above 4 neurofibromatosis 5 obesity with a BMI of 51.5 6 smoking 7 depression 8 leukocytosis secondary to above 9 troponin leak Plan The patient is currently intubated on a mechanical ventilator. The necessity ventilator changes will be done. We'll wean down the FiO2. Increase the PEEP up to 8 and gradually wean down FiO2 to maintain a saturation above 90%. The secretions in the mucous plugs that were suctioned earlier will be sent for Gram stain and culture. We'll cover the patient with a combination of antibiotics including IV cefepime and vancomycin. The patient will placed on DuoNeb nebulized treatment [id number]. The patient be kept on IV Solu Medrol. A triple lumen catheter inserted. Arterial line cath has been inserted. We'll initiate tube feeds at a later stage. Heparin subcu for DVT prophylaxis. IV fluids with normal state rate of 75 mL an hour. We'll continue to follow make further recommendations based on her progress. Condition is critical and the patient will be kept in ICU. Time with Patient: Greater than 30
--- NOTE | 2019-02-14 12:49 | P.PCN ---
Date of Procedure: 02/14/19 Preoperative Diagnosis: Acute stridor and respiratory failure Postoperative Diagnosis: Copious amount of mucous plugs causing obstruction of the airway and the vocal cords, therapeutic airway suctioning was done. Patient is intubated on a mechanical ventilator. The patient had a bronchoscopy with airway inspection where therapeutic airway suctioning was done approximately 20-25 mL of purulent chocolate-like material was aspirated from the lungs bilaterally. Patient has bilateral pneumonia right more than left. No evidence of any upper or lower airways obstruction. Procedure(s) Performed: Flexible bronchoscopy Anesthesia: MAC Surgeon: Adrienne Rausch Pathology: other Condition: critical Disposition: ICU Operative Findings: This patient came in to the ICU having stridor. Immediately she was sedated with propofol. Following that the glyburide to scope was used and copious amount of upper airway purulent material was identified occupying the voice box and the vocal cords. Therapeutic airway suctioning was done. In fact the patient was coughing out purulent material and upon direct inspection with a glidoscope, we were able to see please material been consult from the lung and causing upper airway obstruction. Therapeutic airway suctioning. Done and following that the patient was intubated and placed on a mechanical ventilator. The patient was intubated with a glidoscope utilizing a 7.5 oral tracheal tube. Following intubation the patient was tested mechanical ventilator. As the patient was being oxygenated and ventilated, a flexible bronchoscope was inserted through the orotracheal tube and was advanced into the lower trachea. The tip of the orotracheal tube was seen on 1 cm above the lj. The tube was pulled back by around 1 cm. Copious amount of rest or secretions were occupying the patient's ET tube that were suctioned out. Similar secretions were also seen in the distal trachea and bilateral mainstem bronchi and a segment of the lower lobes bilaterally. Therapeutic it was suctioning was done and a total of 25-30 mL of pleural material was aspirated without any major difficulties. This improved the patient's oxygenation which immediately came up to 97%. At that point, airway inspection was completed and the visualized airways included the d istal trachea, right upper lobe bronchus, right middle lobe bronchus, right lower lobe bronchus, bronchus intermedius, left upper lobe bronchus and left lower lobe bronchus and all of these airways achieved adequate patency after therapeutic it was suctioning. Following that the bronchoscope was moved to the ET tube and the ET tube was pulled back all the way up to the vocal cords. The subglottic area was patent and there was no evidence of any subglottic lesions or stenosis or narrowing. The proximal and the trachea was also patent and within normal limits. Addendum of the procedure, I did another inspection of the upper airway through the left nostril and the posterior oropharynx and the larynx and epiglottis and the vallecula were all within normal limits without any anatomic obstruction. The scope was removed. The patient was Sedated on a mechanical ventilator. The physical vent changes to be done after obtaining blood gases.
--- NOTE | 2019-02-14 13:32 | PCN ---
PROCEDURE NOTE TRIPLE LUMEN CATHETER PLACEMENT IN RIGHT RADIAL ARTERY: Indication: Hemodynamic monitoring/Intravenous access. PREOPERATIVE DIAGNOSIS: Acute respiratory failure. POSTOPERATIVE DIAGNOSIS: Acute respiratory failure. A time-out was completed verifying correct patient, procedure, site, positioning, and implant(s) or special equipment if applicable. The patient was placed in a dependent position appropriate for triple lumen catheter placement based on the vein to be cannulated. The patient's left neck was prepped and draped in sterile fashion. 1% Lidocaine was used to anesthetize the surrounding skin area. A triple lumen 9F Cordis catheter was introduced into the left subclavian vein using Seldinger technique. The catheter was threaded smoothly over the guide wire and appropriate blood return was obtained. Each lumen of the catheter was evacuated of air and flushed with sterile saline. The catheter was then sutured in place to the skin and a sterile dressing applied. Perfusion to the extremity distal to the point of catheter insertion was checked and found to be adequate. No bedside complications or bleeding. MMODL / IJN: [id number] /
--- NOTE | 2019-02-14 13:35 | PCN ---
PROCEDURE NOTE PROCEDURE: Intubation. PREOPERATIVE DIAGNOSIS: Acute respiratory failure/stridor. POSTOPERATIVE DIAGNOSIS: Acute respiratory failure/stridor. This procedure was done in the intensive care unit. I utilized a GlideScope to visualize the upper airway. The patient was having stridor preoperatively. The patient was having a significant amount of respiratory distress and she was placed on BiPAP. Even while on the BiPAP she was having a harsh inspiratory noise originating from her neck area. At that point, the patient was given propofol, a total of 10 mg IV push. Using the GlideScope, the upper airway structures were inspected and the patient was identified to have copious amounts of purulent respiratory secretion plugs occupying the posterior oropharynx and larynx and completely occluding the vocal cords. Using a suction catheter, these secretions were suctioned out. There was a total of 10- 15 mL of creamy dark-colored purulent material in the upper airway. As the voice box was being inspected, more material was being coughed out from the patient's lungs, and it was causing again obstruction of her upper airway. Under direct visualization using the GlideScope, these secretions were aspirated. Following that, using the GlideScope, I intubated the patient utilizing a 7.5 ET tube. No difficulties during the intubation process. After insertion of the ET tube the tube was suctioned out and there was more material being suctioned out. The total amount of purulent material was estimated to be around 25-30 mL. The patient was placed on a mechanical ventilator. No complications. Chest x-ray is to follow. MMODL / IJN: [id number] /
[2019-02-14] MEDS ORDERED: SUCCINYLCHOLINE CHLORIDE VIAL 200 MG/10 ML VIAL IV ONE (13:46)
[2019-02-14] MEDS ORDERED: ETOMIDATE 2 MG/ML 10 ML VIAL ONE (13:46)
[2019-02-14] MEDS: methylPREDNISolone SOD SUCCI 40 MG/ML 1 ML VIAL IV SCH ×3 (14:07→23:38)
[2019-02-14] MEDS: VANCOMYCIN 2,000 MG in SODIUM CHLORIDE 0.9% 500 ML 500 ML IVPB SCH (20:46)
[2019-02-15] MEDS: PROPOFOL 1,000 MG in EMPTY BAG 1 BAG IV SCH ×9 (01:44→21:30)
[2019-02-15 04:01] LABS: Glucose,Whole Blood 123 mg/dL (75-99)
[2019-02-15 04:29] LABS: ABG Base Excess 3.9 mmol/L; ABG HCO3 28 mmol/L (21-25); ABG PCO2 42 mmHg (35-45); ABG PH 7.44 (7.35-7.45); ABG PO2 75 mmHg (83-108); ABG TCO2 29 mmol/L (19-24); Allen Test Performed? Yes
[2019-02-15 05:27] LABS: African American GFR (CKD) >90 (>60 ml/min/1.73 sqM); Anion Gap 5 mmol/L; Blood Urea Nitrogen 17 mg/dL (7-17); Calcium 11.2 mg/dL (8.4-10.2); Carbon Dioxide 27 mmol/L (22-30); Chloride 104 mmol/L (98-107); Glucose 126 mg/dL (74-99); Magnesium 1.7 mg/dL (1.6-2.3); Phosphorus 2.5 mg/dL (2.5-4.5); Potassium 3.5 mmol/L (3.5-5.1); Sodium 136 mmol/L (137-145)
[2019-02-15 05:28] LABS: Anisocytosis Slight; Basophils % (A) 0 %; Eosinophils % (A) 0 %; HCT 35.6 % (34.0-46.0); HGB 11.5 gm/dL (11.4-16.0); Lymphocytes # (A) 0.8 k/uL (1.0-4.8); Lymphocytes % (A) 6 %; MCH 29.7 pg (25.0-35.0); MCHC 32.2 g/dL (31.0-37.0); MCV 92.1 fL (80.0-100.0); Mean Platelet Volume 12.5; Monocytes # (A) 0.8 k/uL (0-1.0); Monocytes % (A) 6 %; Neutrophils # (A) 10.4 k/uL (1.3-7.7); Neutrophils % (A) 86 %; Platelet Count 155 k/uL (150-450); RBC 3.86 m/uL (3.80-5.40); RDW 16.6 % (11.5-15.5); WBC 12.1 k/uL (3.8-10.6)
[2019-02-15] MEDS ORDERED: LEVOFLOXACIN 750 MG TAB PO SCH (05:46)
[2019-02-15] MEDS: methylPREDNISolone SOD SUCCI 40 MG/ML 1 ML VIAL IV SCH ×3 (06:02→18:05)
[2019-02-15] MEDS: IPRATROPIUM-ALBUTEROL 3 ML NEB INHALATION SCH ×4 (07:36→19:42)
--- NOTE | 2019-02-15 07:54 | XR ---
EXAMINATION TYPE: XR chest 1V portable DATE OF EXAM: 02/15/2019 COMPARISON: Prior chest x-ray 02/14/2019 HISTORY: Intubated TECHNIQUE: Single frontal view of the chest is obtained. FINDINGS: Endotracheal tube and NG tube, left subclavian central venous catheter or overlying approp riate positions and are stable. No pneumothorax. Bibasilar increased density is present, interval obs cured left hemidiaphragm noted. Heart is stable. IMPRESSION: Possible basilar effusions and associated atelectasis, correlate to exclude pneumonia or edema. Follow-up recommended.
[2019-02-15] MEDS: CHLORHEXIDINE GLUCONATE 15 ML CUP MUCOUS MEM SCH ×2 (08:54→21:31)
[2019-02-15] MEDS: POTASSIUM CHLORIDE 10 MEQ in WATER FOR INJECTION 1 100ML.BAG IVPB SCH ×4 (08:54→15:31)
[2019-02-15] MEDS: HEPARIN SODIUM,PORCINE 5,000 UNIT/ML 1 ML VIAL SQ SCH ×2 (08:54→15:31)
[2019-02-15] MEDS: MAGNESIUM SULFATE-D5W PMX 1 GM in DEXTROSE/WATER 1 100ML.BAG IVPB SCH ×2 (08:54→12:35)
[2019-02-15] MEDS: PANTOPRAZOLE 40 MG/10 ML VIAL IVP SCH (08:55)
[2019-02-15] MEDS: CEFEPIME 2 GM in SODIUM CHLORIDE 0.9% 100 ML IVPB SCH ×2 (08:55→21:31)
[2019-02-15] MEDS: VANCOMYCIN 2,000 MG in SODIUM CHLORIDE 0.9% 500 ML 500 ML IVPB SCH ×2 (08:57→21:31)
--- NOTE | 2019-02-15 11:35 | P.PN ---
Subjective Progress Note Date: 02/15/19 This is a 48-year-old female patient with known history of COPD and neurofibromatosis was post intubation mechanical ventilation for respiratory failure approximately 3 weeks ago at [facility]. The patient was discharged home and this morning the patient was brought back to the emergency department lethargic, diminished level of consciousness, worsening shortness of breath and she was having inspiratory stridor. The patient was placed on a BiPAP in the emergency department. The patient was transferred to selective telemetry unit. At that point, the patient had worsening shortness of breath and further diminishment in level of consciousness pH she got transferred to the intensive care unit. I immediately saw the patient upon arrival to the ICU. She was having inspiratory stridor/noisy breathing while even being on a BiPAP at a pressure of 10/5 cm of water. I briefly discontinued the BiPAP and inspiratory stridor was quite obvious. As such, I suspect an upper airway obstr uction. He decided to intubate the patient accordingly. The chest x-ray showed cardiac cardiac structures to be normal with some cardiomegaly. There was increased bilateral lower lobe opacity and pneumonia was suspected. At this point, I started the patient with propofol. Using a glydoscope, I inspected the upper airway. I did not find any significant obstruction in the supraglottic area. In fact, epiglottis was within normal limits. The arytenoids and the vocal cords were all within normal limits. There was copious amount of purulent respiratory secretions occupying the posterior oropharynx and the larynx and the these were suctioned out. As I was getting ready to do my intubation, I noticed that the patient was coughing copious amount of purulent material which was origin radiating from her lungs and with every cough I was able to suction large globs of purulent material that was settling in her posterior larynx and the vocal cord area. I did further suctioning and I aspirated approximately 20-25 mL of purulent chocolate the creamy.material. Following that, intubated the patient with a #7.5 ET tube. Post intubation, I performed a bronchoscopy and another 25-30 mL of purulent material was aspirated from the patient's lungs bilaterally more so on the right. Following this, I did an airway inspection. The lower airways were patent without any acute abnormalities. There was significant purulent material and this was only finding. The visualized airways were all patent without any foreign bodies or endobronchial tumor. At that point, I moved the bronchoscope to the ET tube and I retracted the bronchoscope and I inspected the entire trachea reaching the subglottic area. I was not able to identify any form of airway obstruction or subglottic stenosis in this patient. The subglottic trachea was small but patent. I completed the procedure. Following that I kept the patient a mechanical ventilator and currently she is sedated with propofol. Is on a vent with a assist-control mode with an FiO2 of 100%, PEEP of 5, tidal volume of 400 and rate of 20. Post intubation blood gases showed a pH of 7.39 with a pCO2 of 46 and pO2 of 87. Post intubation chest x-ray showed a large consolidation of the right lower lobe. A triple lumen catheter was inserted. An outline catheter was inserted. The patient was started on a combination of cefepime and vancomycin and Levaquin. The patient was started on IV Solu-Medrol. The patient was started on DuoNeb the right units [id number]. She is well sedated for now and she is quite successful the mechanical ventilator. No hypotension. She is currently on normal saline at the rate of 75 mL an hour and the patient has not required any pressors. On 02/15/2019 the patient remains sedated and intubated on a mechanical ventilator, comfortable on propofol at 60 mics. 6 is a mechanical ventilator which is set at a tidal volume of 400 with a rate of 20 and a PEEP of 8 with an FiO2 of 50%. Blood gases from today showed a pH of 7.44 with a pCO2 of 42 and pO2 of 75. Chest x-rays revealing bilateral lower lobe consolidation/pneumonia. ET tube is in a good location. All of the lines are in place. The cultures still pending for now. Cover this patient with broad-spectrum antibiotics yesterday and the patient is afebrile and hemodynamically stable. Tube feeds will be started today. No nausea. No emesis. No abdominal distention. No significant orotracheal secretions. She remains on a combination of DuoNeb nebulized treatments around the clock. She is on IV cefepime and vancomycin. She is on IV Solu Medrol 4 mg every 6 hours. She is on DVT and GI prophylaxis. As mentioned earlier, the guide the scope evaluation of the upper airway, bronchoscopic evaluation of the lower airway shows no evidence of any airway obstruction and the findings were mainly consistent with purulent mucus and mucous plugs causing airway obstruction. Therapeutic airway suctioning was done. Objective - Vital Signs Vital signs: Vital Signs Temp 97.4 F L 02/15/19 08:00 Pulse 68 02/15/19 11:25 Resp 22 02/15/19 11:00 BP 85/64 02/14/19 09:30 Pulse Ox 97 02/15/19 11:00 Intake & Output 02/14/19 02/15/19 02/15/19 18:59 06:59 18:59 Intake Total 4055.216 1658.909 1067.261 Output Total 1730 630 210 Balance -092.897 2355.909 857.261 Weight 132.5 kg Intake: IV 1275 1576 875 Cefepime 2 gm In Sodium 100 100 100 Chloride 0.9% 100 ml @ 200 mls/hr IVPB Q12HR [facility] Rx#:[id number] Magnesium Sulfate-D5w Pmx 100 1 gm In Dextrose/Water 1 100ml.bag @ 100 mls/hr IVPB Q1H [facility] Rx#: [id number] Potassium Chloride 10 meq 100 In Water For Injection 1 100ml.bag @ 100 mls/hr IVPB Q1HR [facility] Rx#: [id number] Sodium Chloride 0.9% 1, 675 975 75 000 ml @ 75 mls/hr IV . [id number] [facility] Rx#:[id number] Vancomycin 2,000 mg In 500 501 500 Sodium Chloride 0.9% 500 ml 500 ml @ 167 mls/hr IVPB Q12H [facility] Rx#: [id number] Intake, IV Titration 255.111 483.909 192.261 Amount Propofol 1,000 mg In 255.111 483.909 192.261 Empty Bag 1 bag @ Titrate IV .Q0M [facility] Rx#: [id number] Output: Gastric Drainage 200 300 Urine 1530 330 210 Other: Voiding Method Indwelling Catheter Indwelling Catheter Indwelling Catheter # Voids 0 ABP, PAP, CO, CI - Last Documented Arterial Blood Pressure 142/64 - Exam Obese, comfortable likely distress sedated. The patient is also intubated on a mechanical ventilator. She is interested a mechanical ventilator. She is morbidly obese with a BMI 51.5. She has obvious neurofibromas scattered throughout her face neck upper and lower extremities bilaterally. Also there are neurofibromas on her abdomen and trunk. Head exam was generally normal. There was no scleral icterus or corneal arcus. Mucous membranes were moist. Neck was supple and without jugular venous distension, thyromegaly, or carotid bruits. Carotids were easily palpable bilaterally. There was no adenopathy. The patient has no significant JVDs. No goiter or neck masses. Orogastric and orotracheal tube are both in place and the patient has a left subtalar triple- lumen catheter in place. Lungs sounds are diminished bilaterally especially in the lung bases along with scattered rhonchi Cardiac exam revealed the PMI to be normally situated and sized. The rhythm was regular and no extrasystoles were noted during several minutes of auscultation. The first and second heart sounds were normal and physiologic splitting of the second heart sound was noted. There were no murmurs, rubs, clicks, or gallops. Abdominal exam revealed normal bowel sounds. The abdomen was soft, non-tender, and without masses, organomegaly, or appreciable enlargement of the abdominal aorta. Examination of the extremities revealed easily palpable radial, femoral and pedal pulses. There was no cyanosis, clubbing , trace edema in lower extremities bilaterally. Examination of the skin revealed no evidence of significant rashes, suspicious appearing nevi or other concerning lesions. There is diffuse neurofibromas neurologically the patient is sedated and intubated on a mechanical ventilator. She was awake and she was moving all 4 extremities just prior to the intubation process. - Labs CBC & Chem 7: 02/15/19 05:05 02/15/19 05:05 Labs: Abnormal Lab Results - Last 24 Hours (Table) 02/15/19 02/15/19 02/15/19 Range/Units 03:59 04:24 05:05 WBC 12.1 H (3.8-10.6) k/uL RDW 16.6 H (11.5-15.5) % Neutrophils # 10.4 H (1.3-7.7) k/uL Lymphocytes # 0.8 L (1.0-4.8) k/uL ABG pO2 75 L (83-108) mmHg ABG HCO3 28 H (21-25) mmol/L ABG Total CO2 29 H (19-24) mmol/L Sodium (137-145) mmol/L Creatinine (0.52-1.04) mg/dL Glucose (74-99) mg/dL POC Glucose (mg/dL) 123 H (75-99) mg/dL Calcium (8.4-10.2) mg/dL 02/15/19 Range/Units 05:05 WBC (3.8-10.6) k/uL RDW (11.5-15.5) % Neutrophils # (1.3-7.7) k/uL Lymphocytes # (1.0-4.8) k/uL ABG pO2 (83-108) mmHg ABG HCO3 (21-25) mmol/L ABG Total CO2 (19-24) mmol/L Sodium 136 L (137-145) mmol/L Creatinine 0.45 L (0.52-1.04) mg/dL Glucose 126 H (74-99) mg/dL POC Glucose (mg/dL) (75-99) mg/dL Calcium 11.2 H (8.4-10.2) mg/dL Microbiology - Last 24 Hours (Table) 02/14/19 11:00 Gram Stain - Preliminary Sputum Sputum Culture - Preliminary Assessment and Plan Plan: 1 acute hypoxic respiratory failure with copious and purulent respiratory secretions causing significant amount of mucus plugging it stridor at time of admission. The patient has better lower lobe pneumonia right more than left and she has a dense consolidation that evolved following the intubation process. Consider gram-negative/polymicrobial infection. The patient is covered with broad-spectrum antibiotics and currently she is intubated on a mechanical ventilator. She is also post bronchoscopy and seborrheic it was suctioning with removal of copious amount of purulent discharge secretions from the airway. The patient is currently showing bilateral lower lobe consolidation. Cultures are still pending for now. Remains and accommodation of cefepime and vancomycin. Currently on a PEEP of 8 with an FiO2 of 50%. Blood gases was noted. The patient will be started on enteral feeding for nutritional support. 2 stridor, likely secondary to copious mucous plugs occupying the upper airway, the patient is post intubation, the patient is post herpetic airway suctioning, the patient is post bronchoscopy 3 COPD exacerbation secondary to above 4 neurofibromatosis 5 obesity with a BMI of 51.5 6 smoking 7 depression 8 leukocytosis secondary to above 9 troponin leak Plan The patient is currently intubated on a mechanical ventilator. No vent changes for today. Continue same antibiotic coverage. Awaiting cultures and sensitivities from the samples of mucous plugs send earlier for microbial analysis. Start tube feeds. Continue bronchodilators. Continue systemic steroids. Continue same antibiotic coverage. Continue vent support. Not ready for any weaning yet and will continue making further recommendations as to monitor this patient on a daily basis. There is a critically care evaluation was done more than 30 minutes. Patient is critically ill intubated on mechanical ventilator. Time with Patient: Greater than 30
--- NOTE | 2019-02-15 12:00 | P.HPIM ---
History of Present Illness Date of service 02/14/2019, patient is seen and examined by me on 02/14/2019. This is a 48 years old female who presents because of respiratory distress. When I was informed about the patient she was already in the ICU, at that time patient was already been seen by the critical care team and they were doing the intubation procedure while she was in the ICU. I saw patient later on she was already intubated and on mechanical ventilation. Patient could not provide information as she was intubated and sedated so information was taken from the staff and the medical records. Apparently patient with past medical history of COPD and neurofibromatosis, she was recently discharged from my clearing the [facility] where she got intubated there for respiratory failure however she is on support to the hospital again with diminished level of consciousness and dyspnea as per records so patient was moved to the ICU and she was intubated. She has a lot of secretions which were worked suctioned out both at the Intubation time and during the bronchoscopy which was done later on. Review of Systems not applicable as patient is intubated Past Medical History Past Medical History: COPD Additional Past Medical History / Comment(s): neurofibromatosis, mild learning disability, legally blind bilaterally-pt states as long as she wears her glasses she can see pretty well, bilateral lower leg edema at times. 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 Past Anesthesia/Blood Transfusion Reactions: Postoperative Nausea & Vomiting (PONV) Past Psychological History: Depression Additional Psychological History / Comment(s): Pt resides with her sister, Sally who is her payee. Pt uses no assistive device. She does not drive, her sister or boyfriend take her places. She is disabled. She signs her own paperwork, she manages her own medications. Smoking Status: Former smoker Past Alcohol Use History: None Reported Additional Past Alcohol Use History / Comment(s): Pt started smoking in 1990, quit 2017 Past Drug Use History: None Reported - Past Family History Father Family Medical History: Cancer Additional Family Medical History / Comment(s): Father had lung to bone cancer and of this at the age of 70yrs. He was an exsmoker. Mother Family Medical History: Cancer Additional Family Medical History / Comment(s): Mother of breast cancer at the age of 65yrs. Medications and Allergies Home Medications Medication Instructions Recorded Confirmed Type ARIPiprazole [Abilify] 10 mg PO DAILY 12/31/15 02/14/19 History Furosemide [Lasix] 20 mg PO DAILY 04/13/16 02/14/19 History FLUoxetine HCL [PROzac] 20 mg PO DAILY 03/11/18 02/14/19 History Ibuprofen [Motrin] 800 mg PO TID 03/11/18 02/14/19 History Famotidine [Pepcid] 40 mg PO DAILY 11/21/18 02/14/19 History Spironolactone [Aldactone] 50 mg PO DAILY 11/21/18 02/14/19 History Albuterol Inhaler [Ventolin Hfa 1 - 2 puff INHALATION RT-Q6H PRN 11/23/18 02/14/19 Rx Inhaler] #1 inhaler Ipratropium [place] [Atrovent Hfa] 2 puff INHALATION RT-TID 01/24/19 02/14/19 History Allergies Allergy/AdvReac Type Severity Reaction Status Date / Time amoxicillin AdvReac Nausea & Verified 02/14/19 07:24 Vomiting Physical Exam Vitals: Vital Signs Temp Pulse Pulse Resp Pulse Ox 02/15/19 11:25 68 02/15/19 11:00 70 22 97 02/15/19 10:30 78 20 97 02/15/19 10:00 73 20 95 02/15/19 09:30 71 20 94 L 02/15/19 09:00 63 20 95 02/15/19 08:30 62 20 95 02/15/19 08:00 97.4 F L 60 20 96 02/15/19 07:45 67 02/15/19 07:39 62 02/15/19 07:30 64 20 95 02/15/19 07:00 64 20 96 02/15/19 06:30 64 20 96 02/15/19 06:00 64 20 96 02/15/19 05:30 68 20 96 02/15/19 05:00 69 20 96 02/15/19 04:30 71 20 96 02/15/19 04:00 97.5 F L 74 20 98 02/15/19 03:30 71 20 95 02/15/19 03:00 70 20 95 02/15/19 02:30 69 20 95 02/15/19 02:00 71 20 95 02/15/19 01:30 74 20 95 02/15/19 01:00 75 20 95 02/15/19 00:30 78 20 95 02/15/19 00:00 97.6 F 74 20 98 02/14/19 23:49 77 20 97 02/14/19 23:30 78 16 97 02/14/19 23:00 72 20 99 02/14/19 22:30 82 20 96 02/14/19 22:00 85 20 96 02/14/19 21:30 87 22 97 02/14/19 21:00 86 20 98 02/14/19 20:30 84 20 99 02/14/19 20:00 98.2 F 86 20 97 02/14/19 19:53 87 02/14/19 19:44 80 02/14/19 19:30 83 22 98 02/14/19 19:00 89 20 99 02/14/19 18:30 88 20 99 02/14/19 18:00 86 20 100 02/14/19 17:30 90 20 99 02/14/19 17:00 89 20 100 02/14/19 16:30 92 20 99 02/14/19 16:00 98.1 F 93 20 99 02/14/19 15:33 96 02/14/19 15:30 98 20 99 02/14/19 15:27 98 02/14/19 15:00 89 20 99 02/14/19 14:30 95 20 99 02/14/19 14:05 95 20 99 02/14/19 14:00 93 20 99 02/14/19 13:00 87 25 H 100 02/14/19 12:50 87 20 100 02/14/19 12:41 89 20 100 02/14/19 12:00 88 20 99 02/14/19 11:54 90 02/14/19 11:33 96 Intake and Output 02/14/19 02/15/19 02/15/19 22:59 06:59 14:59 Intake Total 4257.982 8486.909 1067.261 Output Total 540 420 210 Balance 849.111 705.909 857.261 Intake: IV 1034 842 875 Cefepime 2 gm In Sodium 100 100 Chloride 0.9% 100 ml @ 200 mls/hr IVPB Q12HR [facility] Rx#:[id number] Magnesium Sulfate-D5w Pmx 100 1 gm In Dextrose/Water 1 100ml.bag @ 100 mls/hr IVPB Q1H [facility] Rx#: [id number] Potassium Chloride 10 meq 100 In Water For Injection 1 100ml.bag @ 100 mls/hr IVPB Q1HR [facility] Rx#: [id number] Sodium Chloride 0.9% 1, 600 675 75 000 ml @ 75 mls/hr IV . [id number] [facility] Rx#:[id number] Vancomycin 2,000 mg In 334 167 500 Sodium Chloride 0.9% 500 ml 500 ml @ 167 mls/hr IVPB Q12H [facility] Rx#: [id number] Intake, IV Titration 355.111 283.909 192.261 Amount Propofol 1,000 mg In 355.111 283.909 192.261 Empty Bag 1 bag @ Titrate IV .Q0M [facility] Rx#: [id number] Output: Gastric Drainage 300 200 Urine 240 220 210 Other: Voiding Method Indwelling Catheter Indwelling Catheter Indwelling Catheter # Voids 0 Weight 132.5 kg ABP, PAP, CO, CI - Last 8 Hours Arterial Blood Pressure 142/64 Arterial Blood Pressure 154/70 Arterial Blood Pressure 125/59 Arterial Blood Pressure 116/57 Arterial Blood Pressure 102/50 Arterial Blood Pressure 108/53 Arterial Blood Pressure 108/53 Arterial Blood Pressure 95/47 Arterial Blood Pressure 98/49 Arterial Blood Pressure 101/49 Arterial Blood Pressure 102/48 Arterial Blood Pressure 98/47 Arterial Blood Pressure 105/51 Arterial Blood Pressure 114/52 -GENERAL: The patient is intubated and sedated. She is obese HEENT: Pupils are round and equally reacting to light. EOMI. No scleral icterus. No conjunctival pallor. Normocephalic, atraumatic. No pharyngeal erythema. No thyromegaly. CARDIOVASCULAR: S1 and S2 present. No murmurs, rubs, or gallops. -PULMONARY: Chest is clear to auscultation, she has coarse breath sounds on both lower bases. no wheezing or crackles. ABDOMEN: Soft, nontender, nondistended, normoactive bowel sounds. No palpable organomegaly. MUSCULOSKELETAL: No joint swelling or deformity. -EXTREMITIES: No cyanosis, clubbing, or pedal edema. She has multiple nodules in extremities, related to her neurofibromatosis NEUROLOGICAL: Gross neurological examination did not reveal any focal deficits. SKIN: No rashes. Results CBC & Chem 7: 02/15/19 05:05 02/15/19 05:05 Labs: Abnormal Lab Results - Last 24 Hours (Table) 02/15/19 02/15/19 02/15/19 Range/Units 03:59 04:24 05:05 WBC 12.1 H (3.8-10.6) k/uL RDW 16.6 H (11.5-15.5) % Neutrophils # 10.4 H (1.3-7.7) k/uL Lymphocytes # 0.8 L (1.0-4.8) k/uL ABG pO2 75 L (83-108) mmHg ABG HCO3 28 H (21-25) mmol/L ABG Total CO2 29 H (19-24) mmol/L Sodium (137-145) mmol/L Creatinine (0.52-1.04) mg/dL Glucose (74-99) mg/dL POC Glucose (mg/dL) 123 H (75-99) mg/dL Calcium (8.4-10.2) mg/dL 02/15/19 Range/Units 05:05 WBC (3.8-10.6) k/uL RDW (11.5-15.5) % Neutrophils # (1.3-7.7) k/uL Lymphocytes # (1.0-4.8) k/uL ABG pO2 (83-108) mmHg ABG HCO3 (21-25) mmol/L ABG Total CO2 (19-24) mmol/L Sodium 136 L (137-145) mmol/L Creatinine 0.45 L (0.52-1.04) mg/dL Glucose 126 H (74-99) mg/dL POC Glucose (mg/dL) (75-99) mg/dL Calcium 11.2 H (8.4-10.2) mg/dL Microbiology - Last 24 Hours (Table) 02/14/19 11:00 Gram Stain - Preliminary Sputum Sputum Culture - Preliminary Thrombosis Risk Factor Assmnt - Choose All That Apply Any of the Below Risk Factors Present?: Yes Each Factor Represents 1 point: Age 41-60 years, Medical pt on bed rest, Obesity (BMI >25) Other Risk Factors: Yes Each Risk Factor Represents 2 Points: Patient confined to bed Other congenital or acquired thrombophilia - If yes, enter type in comment: No Thrombosis Risk Factor Assessment Total Risk Factor Score: 5 Thrombosis Risk Factor Assessment Level: High Risk Assessment and Plan Assessment: Acute hypoxemic respiratory failure secondary to bilateral lower lobe pneumonia. Patient need mechanical ventilation bilateral purulent lower lobe pneumonia, clips more on the right side Acute COPD exacerbation history of neurofibromatosis Obesity History of smoking Plan: This is a 48 years old female who presents with bilateral purulent pneumonia, a nd respiratory failure needed intubation. Patient admitted to the ICU. We'll follow the recommendation of the pulmonary/critical care team. Continue with broad-spectrum antibiotics. Follow-up sputum culture. Continue with steroids. Continue with a breathing treatments. Continue with IV fluids.Labs and medication were reviewed.. Continue same treatment. Continue with symptomatic treatment. Monitor lytes and vitals. DVT and GI prophylaxis. Further recommendations of the clinical course of the patient DVT prophylaxis: Subcutaneous heparin GI Prophylaxis: Protonix Prognosis is guarded
--- NOTE | 2019-02-15 12:25 | PCN ---
PROCEDURE NOTE PROCEDURE PERFORMED: Art line insertion. SITE OF INSERTION: Right radial artery. DATE OF INSERTION: 02/14/2019. PREOP DIAGNOSES: Bilateral pneumonia and respiratory failure. POSTOP DIAGNOSES: Bilateral pneumonia and respiratory failure. ARTERIAL LINE PLACEMENT: Indications: Hemodynamic monitoring. A time-out was completed verifying correct patient, procedure, site, positioning, and implant(s) or special equipment if applicable. Zach's test was performed to ensure adequate perfusion. The patient's right wrist was prepped and draped in sterile fashion. 1% Lidocaine was used to anesthetize the area. An 18G Arrow arterial line was introduced into the radial artery. The catheter was threaded over the guide wire and the needle was removed with appropriate pulsatile blood return. Blood loss was minimal. The catheter was then sutured in place to the skin and a sterile dressing applied. Perfusion to the extremity distal to the point of catheter insertion was checked and found to be adequate. The patient tolerated the procedure well and there were no complications. MMODL / IJN: [id number] /
[2019-02-15] MEDS: SODIUM CHLORIDE 0.9% 1,000 ML IV SCH (12:35)
[2019-02-16] MEDS: PROPOFOL 1,000 MG in EMPTY BAG 1 BAG IV SCH ×11 (00:50→23:08)
[2019-02-16] MEDS: HEPARIN SODIUM,PORCINE 5,000 UNIT/ML 1 ML VIAL SQ SCH ×4 (00:51→23:19)
[2019-02-16] MEDS: methylPREDNISolone SOD SUCCI 40 MG/ML 1 ML VIAL IV SCH ×5 (00:51→23:19)
--- NOTE | 2019-02-16 01:31 | P.PN ---
Subjective This is a 48 years old female who presents because of respiratory distress. When I was informed about the patient she was already in the ICU, at that time patient was already been seen by the critical care team and they were doing the intubation procedure while she was in the ICU. I saw patient later on she was already intubated and on mechanical ventilation. Patient could not provide information as she was intubated and sedated so information was taken from the staff and the medical records. Apparently patient with past medical history of COPD and neurofibromatosis, she was recently discharged from my [facility] where she got intubated there for respiratory failure however she is on support to the hospital again with diminished level of consciousness and dyspnea as per records so patient was moved to the ICU and she was intubated. She has a lot of secretions which were worked suctioned out both at the Intubation time and during the bronchoscopy which was done later on. 02/16/2019 pt remains in the ICU intubated and sedated , she is in critical condition for her bilateral pneumonia, more on the right , she has coupous purulent secretion , . she is currently on vancomycin and cefepime, culture is growing presumptive staph aureus, pending final results, her WBC is coming down 20 K to 12 K ,her creatinine is 0.45 Objective - Vital Signs Vital signs: Vital Signs Temp 97.5 F L 02/15/19 16:00 Pulse 65 02/15/19 19:53 Resp 21 02/15/19 19:00 BP 85/64 02/14/19 09:30 Pulse Ox 96 02/15/19 19:00 Intake & Output 02/15/19 02/15/19 02/16/19 06:59 18:59 06:59 Intake Total 2059.909 1989.623 175.000 Output Total 630 995 50 Balance 1429.909 994.623 125.000 Weight 132.5 kg 132.5 kg Intake: IV 1576 1510 75 Cefepime 2 gm In Sodium 100 100 Chloride 0.9% 100 ml @ 200 mls/hr IVPB Q12HR [facility] Rx#:[id number] Magnesium Sulfate-D5w Pmx 200 1 gm In Dextrose/Water 1 100ml.bag @ 100 mls/hr IVPB Q1H [facility] Rx#: [id number] Potassium Chloride 10 meq 400 In Water For Injection 1 100ml.bag @ 100 mls/hr IVPB Q1HR [facility] Rx#: [id number] Sodium Chloride 0.9% 1, 975 310 75 000 ml @ 75 mls/hr IV . [id number] [facility] Rx#:[id number] Vancomycin 2,000 mg In 501 500 Sodium Chloride 0.9% 500 ml 500 ml @ 167 mls/hr IVPB Q12H [facility] Rx#: [id number] Intake, IV Titration 483.909 479.623 100.000 Amount Propofol 1,000 mg In 483.909 479.623 100.000 Empty Bag 1 bag @ Titrate IV .Q0M [facility] Rx#: [id number] Output: Gastric Drainage 300 Urine 330 995 50 Other: Voiding Method Indwelling Catheter Indwelling Catheter # Voids 0 ABP, PAP, CO, CI - Last Documented Arterial Blood Pressure 90/47 - Exam -GENERAL: The patient is intubated and sedated. She is obese HEENT: Pupils are round and equally reacting to light. EOMI. No scleral icterus. No conjunctival pallor. Normocephalic, atraumatic. No pharyngeal erythema. No thyromegaly. CARDIOVASCULAR: S1 and S2 present. No murmurs, rubs, or gallops. -PULMONARY: Chest is clear to auscultation, she has coarse breath sounds on both lower bases. no wheezing or crackles. ABDOMEN: Soft, nontender, nondistended, normoactive bowel sounds. No palpable organomegaly. MUSCULOSKELETAL: No joint swelling or deformity. -EXTREMITIES: No cyanosis, clubbing, or pedal edema. She has multiple nodules in extremities, related to her neurofibromatosis NEUROLOGICAL: Gross neurological examination did not reveal any focal deficits. SKIN: No rashes. - Labs CBC & Chem 7: 02/15/19 05:05 02/15/19 05:05 Labs: Abnormal Lab Results - Last 24 Hours (Table) 02/15/19 02/15/19 02/15/19 Range/Units 03:59 04:24 05:05 WBC 12.1 H (3.8-10.6) k/uL RDW 16.6 H (11.5-15.5) % Neutrophils # 10.4 H (1.3-7.7) k/uL Lymphocytes # 0.8 L (1.0-4.8) k/uL ABG pO2 75 L (83-108) mmHg ABG HCO3 28 H (21-25) mmol/L ABG Total CO2 29 H (19-24) mmol/L Sodium (137-145) mmol/L Creatinine (0.52-1.04) mg/dL Glucose (74-99) mg/dL POC Glucose (mg/dL) 123 H (75-99) mg/dL Calcium (8.4-10.2) mg/dL 02/15/19 Range/Units 05:05 WBC (3.8-10.6) k/uL RDW (11.5-15.5) % Neutrophils # (1.3-7.7) k/uL Lymphocytes # (1.0-4.8) k/uL ABG pO2 (83-108) mmHg ABG HCO3 (21-25) mmol/L ABG Total CO2 (19-24) mmol/L Sodium 136 L (137-145) mmol/L Creatinine 0.45 L (0.52-1.04) mg/dL Glucose 126 H (74-99) mg/dL POC Glucose (mg/dL) (75-99) mg/dL Calcium 11.2 H (8.4-10.2) mg/dL Microbiology - Last 24 Hours (Table) 02/14/19 10:12 Blood Culture - Preliminary Blood No Growth after 24 hours 02/14/19 11:00 Gram Stain - Preliminary Sputum Sputum Culture - Preliminary Presumptive Staph aureus Assessment and Plan Assessment: Acute hypoxemic respiratory failure secondary to bilateral lower lobe pneumonia. Patient need mechanical ventilation bilateral purulent lower lobe pneumonia, clips more on the right side Acute COPD exacerbation history of neurofibromatosis Obesity History of smoking Plan: This is a 48 years old female who presents with bilateral purulent pneumonia, and respiratory failure needed intubation. Patient admitted to the ICU. We'll follow the recommendation of the pulmonary/critical care team. Continue with broad-spectrum antibiotics. Follow-up sputum culture. Continue with steroids. Continue with a breathing treatments. Continue with IV fluids.Labs and medication were reviewed.. Continue same treatment. Continue with symptomatic treatment. Monitor lytes and vitals. DVT and GI prophylaxis. Further recommendations of the clinical course of the patient DVT prophylaxis: Subcutaneous heparin GI Prophylaxis: Protonix Prognosis is guarded
[2019-02-16] MEDS: SODIUM CHLORIDE 0.9% 1,000 ML IV SCH ×2 (03:37→15:11)
[2019-02-16 03:47] LABS: ABG Base Excess 1.9 mmol/L; ABG HCO3 26 mmol/L (21-25); ABG Oxygen Saturation 96.7 % (94-97); ABG PCO2 39 mmHg (35-45); ABG PH 7.44 (7.35-7.45); ABG PO2 80 mmHg (83-108); ABG TCO2 27 mmol/L (19-24)
[2019-02-16 04:17] LABS: Allen Test Performed? no
[2019-02-16 05:09] LABS: Anisocytosis Slight; HCT 34.3 % (34.0-46.0); HGB 11.4 gm/dL (11.4-16.0); MCH 30.7 pg (25.0-35.0); MCHC 33.4 g/dL (31.0-37.0); MCV 91.9 fL (80.0-100.0); Mean Platelet Volume 11.6; Platelet Count 149 k/uL (150-450); RBC 3.73 m/uL (3.80-5.40); RDW 16.7 % (11.5-15.5); WBC 12.9 k/uL (3.8-10.6)
[2019-02-16 05:18] LABS: African American GFR (CKD) >90 (>60 ml/min/1.73 sqM); Anion Gap 3 mmol/L; Blood Urea Nitrogen 14 mg/dL (7-17); Calcium 11.1 mg/dL (8.4-10.2); Carbon Dioxide 27 mmol/L (22-30); Chloride 109 mmol/L (98-107); Glucose 124 mg/dL (74-99); Magnesium 2.2 mg/dL (1.6-2.3); Phosphorus 2.5 mg/dL (2.5-4.5); Potassium 3.7 mmol/L (3.5-5.1); Sodium 139 mmol/L (137-145)
[2019-02-16 05:32] LABS: Band Neutrophils % 3 %; Large Platelets Present; Lymphocytes # (M) 0.65 k/uL (1.0-4.8); Monocytes # (M) 0.52 k/uL (0-1.0); Myelocytes # (M) 0.13 k/uL (0); Myelocytes % 1 %; Neutrophils % (M) 87 %; Nucleated Red Blood Cells 0 /100 WBC (0-0); Total Cells Counted 200
[2019-02-16] MEDS ORDERED: POTASSIUM BICARBONATE/CIT AC 20 MEQ TABLET.EFF NG-TUBE SCH (06:00)
[2019-02-16] MEDS: IPRATROPIUM-ALBUTEROL 3 ML NEB INHALATION SCH ×4 (07:25→19:36)
[2019-02-16] MEDS ORDERED: FUROSEMIDE 10 MG/ML 2 ML VIAL IV STA (07:27)
--- NOTE | 2019-02-16 08:32 | XR ---
EXAMINATION TYPE: XR chest 1V portable DATE OF EXAM: 02/16/2019 COMPARISON: 02/15/2019 INDICATION: Tube placement TECHNIQUE: Single frontal view of the chest is obtained. FINDINGS: The heart size is mildly prominent. The pulmonary vasculature is normal. Bibasilar infiltrates are present. Small left pleural effusion may be present. Findings appear simila r prior study Endotracheal tube tip is above the lj. Nasogastric tube transverses the thorax. Left central veno us catheter is tip in the superior vena cava. IMPRESSION: 1. Bibasilar infiltrates and small left pleural effusion. 2. Lines and catheters discussed above
[2019-02-16] MEDS: CHLORHEXIDINE GLUCONATE 15 ML CUP MUCOUS MEM SCH ×2 (08:53→20:20)
[2019-02-16] MEDS: CEFEPIME 2 GM in SODIUM CHLORIDE 0.9% 100 ML IVPB SCH ×2 (08:53→20:19)
[2019-02-16] MEDS: VANCOMYCIN 2,000 MG in SODIUM CHLORIDE 0.9% 500 ML 500 ML IVPB SCH (08:53)
[2019-02-16] MEDS: PANTOPRAZOLE 40 MG/10 ML VIAL IVP SCH (08:53)
--- NOTE | 2019-02-16 11:28 | P.PN ---
Subjective Progress Note Date: 02/16/19 This is a 48-year-old female patient with known history of COPD and neurofibromatosis was post intubation mechanical ventilation for respiratory failure approximately 3 weeks ago at [facility]. The patient was discharged home and this morning the patient was brought back to the emergency department lethargic, diminished level of consciousness, worsening shortness of breath and she was having inspiratory stridor. The patient was placed on a BiPAP in the emergency department. The patient was transferred to selective telemetry unit. At that point, the patient had worsening shortness of breath and further diminishment in level of consciousness pH she got transferred to the intensive care unit. I immediately saw the patient upon arrival to the ICU. She was having inspiratory stridor/noisy breathing while even being on a BiPAP at a pressure of 10/5 cm of water. I briefly discontinued the BiPAP and inspiratory stridor was quite obvious. As such, I suspect an upper airway obstr uction. He decided to intubate the patient accordingly. The chest x-ray showed cardiac cardiac structures to be normal with some cardiomegaly. There was increased bilateral lower lobe opacity and pneumonia was suspected. At this point, I started the patient with propofol. Using a glydoscope, I inspected the upper airway. I did not find any significant obstruction in the supraglottic area. In fact, epiglottis was within normal limits. The arytenoids and the vocal cords were all within normal limits. There was copious amount of purulent respiratory secretions occupying the posterior oropharynx and the larynx and the these were suctioned out. As I was getting ready to do my intubation, I noticed that the patient was coughing copious amount of purulent material which was origin radiating from her lungs and with every cough I was able to suction large globs of purulent material that was settling in her posterior larynx and the vocal cord area. I did further suctioning and I aspirated approximately 20-25 mL of purulent chocolate the creamy.material. Following that, intubated the patient with a #7.5 ET tube. Post intubation, I performed a bronchoscopy and another 25-30 mL of purulent material was aspirated from the patient's lungs bilaterally more so on the right. Following this, I did an airway inspection. The lower airways were patent without any acute abnormalities. There was significant purulent material and this was only finding. The visualized airways were all patent without any foreign bodies or endobronchial tumor. At that point, I moved the bronchoscope to the ET tube and I retracted the bronchoscope and I inspected the entire trachea reaching the subglottic area. I was not able to identify any form of airway obstruction or subglottic stenosis in this patient. The subglottic trachea was small but patent. I completed the procedure. Following that I kept the patient a mechanical ventilator and currently she is sedated with propofol. Is on a vent with a assist-control mode with an FiO2 of 100%, PEEP of 5, tidal volume of 400 and rate of 20. Post intubation blood gases showed a pH of 7.39 with a pCO2 of 46 and pO2 of 87. Post intubation chest x-ray showed a large consolidation of the right lower lobe. A triple lumen catheter was inserted. An outline catheter was inserted. The patient was started on a combination of cefepime and vancomycin and Levaquin. The patient was started on IV Solu-Medrol. The patient was started on DuoNeb the right units [id number]. She is well sedated for now and she is quite successful the mechanical ventilator. No hypotension. She is currently on normal saline at the rate of 75 mL an hour and the patient has not required any pressors. On 02/15/2019 the patient remains sedated and intubated on a mechanical ventilator, comfortable on propofol at 60 mics. 6 is a mechanical ventilator which is set at a tidal volume of 400 with a rate of 20 and a PEEP of 8 with an FiO2 of 50%. Blood gases from today showed a pH of 7.44 with a pCO2 of 42 and pO2 of 75. Chest x-rays revealing bilateral lower lobe consolidation/pneumonia. ET tube is in a good location. All of the lines are in place. The cultures still pending for now. Cover this patient with broad-spectrum antibiotics yesterday and the patient is afebrile and hemodynamically stable. Tube feeds will be started today. No nausea. No emesis. No abdominal distention. No significant orotracheal secretions. She remains on a combination of DuoNeb nebulized treatments around the clock. She is on IV cefepime and vancomycin. She is on IV Solu Medrol 4 mg every 6 hours. She is on DVT and GI prophylaxis. As mentioned earlier, the guide the scope evaluation of the upper airway, bronchoscopic evaluation of the lower airway shows no evidence of any airway obstruction and the findings were mainly consistent with purulent mucus and mucous plugs causing airway obstruction. Therapeutic airway suctioning was done. On 02/16/2019 the patient remains intubated on a mechanical ventilator. The patient is sedated. She was given a pre-sedation holiday during which she was waking up and moving and she was not following any specific commands. We'll put her back on propofol. She is still on a tidal volume of 400 with FiO2 of 50% and PEEP of 8 with a rate of 20. Morning blood gases showed a pH of 7.44 with a pCO2 of 39 and pO2 of 80. The patient is found to have staph aureus in her lungs and a culture is more consistent with MSSA. Based on that the vancomycin will be discontinued and the patient will be kept on IV cefepime. The patient is still having significant amount of respiratory secretions. The chest x-ray from today still showing bilateral lower lobe consolidation of right more than left. She is receiving enteral feeding for nutritional support. Otherwise, she has adequate blood pressure pH is adequate urine output. No fever or chills. She remains on IV Solu Medrol at a lower dose of 40 mg every 6 hours. We'll continue to follow. Objective - Vital Signs Vital signs: Vital Signs Temp 97.6 F 02/16/19 08:00 Pulse 105 H 02/16/19 11:00 Resp 24 02/16/19 11:00 BP 85/64 02/14/19 09:30 Pulse Ox 93 L 02/16/19 11:00 Intake & Output 02/15/19 02/16/19 02/16/19 18:59 06:59 18:59 Intake Total 6989.541 4734.790 1038.767 Output Total 759 698 4556 Balance 236.414 2874.790 -226.233 Weight 132.5 kg 130.6 kg Intake: IV 1510 1500 706 Cefepime 2 gm In Sodium 100 100 100 Chloride 0.9% 100 ml @ 200 mls/hr IVPB Q12HR [facility] Rx#:[id number] Magnesium Sulfate-D5w Pmx 200 1 gm In Dextrose/Water 1 100ml.bag @ 100 mls/hr IVPB Q1H [facility] Rx#: [id number] Potassium Chloride 10 meq 400 In Water For Injection 1 100ml.bag @ 100 mls/hr IVPB Q1HR [facility] Rx#: [id number] Sodium Chloride 0.9% 1, 310 900 105 000 ml @ 10 mls/hr IV . Q24H [facility] Rx#:[id number] Vancomycin 2,000 mg In 500 500 501 Sodium Chloride 0.9% 500 ml 500 ml @ 167 mls/hr IVPB Q12H [facility] Rx#: [id number] Intake, IV Titration 479.623 375.790 225.767 Amount Propofol 1,000 mg In 479.623 375.790 225.767 Empty Bag 1 bag @ Titrate IV .Q0M [facility] Rx#: [id number] Tube Feeding 55 77 Other 30 30 Output: Urine 381 023 2164 Other: Voiding Method Indwelling Catheter Indwelling Catheter Indwelling Catheter ABP, PAP, CO, CI - Last Documented Arterial Blood Pressure 130/65 - Exam Obese, comfortable likely distress sedated. The patient is also intubated on a mechanical ventilator. She is interested a mechanical ventilator. She is morbidly obese with a BMI 51.5. She has obvious neurofibromas scattered th roughout her face neck upper and lower extremities bilaterally. Also there are neurofibromas on her abdomen and trunk. Head exam was generally normal. There was no scleral icterus or corneal arcus. M ucous membranes were moist. Neck was supple and without jugular venous distension, thyromegaly, or carotid bruits. Carotids were easily palpable bilaterally. There was no adenopathy. The patient has no significant JVDs. No goiter or neck masses. Orogastric and orotracheal tube are both in place and the patient has a left subtalar triple- lumen catheter in place. Lungs sounds are diminished bilaterally especially in the lung bases along with scattered rhonchi Cardiac exam revealed the PMI to be normally situated and sized. The rhythm was regular and no extrasystoles were noted during several minutes of auscultation. The first and second heart sounds were normal and physiologic splitting of the second heart sound was noted. There were no murmurs, rubs, clicks, or gallops. Abdominal exam revealed normal bowel sounds. The abdomen was soft, non-tender, and without masses, organomegaly, or appreciable enlargement of the abdominal aorta. Examination of the extremities revealed easily palpable radial, femoral and pedal pulses. There was no cyanosis, clubbing , trace edema in lower extremities bilaterally. Examination of the skin revealed no evidence of significant rashes, suspicious appearing nevi or other concerning lesions. There is diffuse neurofibromas neurologically the patient is sedated and intubated on a mechanical ventilator. She was awake and she was moving all 4 extremities just prior to the intubation process. - Labs CBC & Chem 7: 02/16/19 05:00 02/16/19 05:00 Labs: Abnormal Lab Results - Last 24 Hours (Table) 02/16/19 02/16/19 02/16/19 Range/Units 03:46 05:00 05:00 WBC 12.9 H (3.8-10.6) k/uL RBC 3.73 L (3.80-5.40) m/uL RDW 16.7 H (11.5-15.5) % Plt Count 149 L (150-450) k/uL Neutrophils # (Manual) 11.60 H (1.3-7.7) k/uL Lymphocytes # (Manual) 0.65 L (1.0-4.8) k/uL Myelocytes # (Manual) 0.13 H (0) k/uL ABG pO2 80 L (83-108) mmHg ABG HCO3 26 H (21-25) mmol/L ABG Total CO2 27 H (19-24) mmol/L Chloride 109 H (98-107) mmol/L Creatinine 0.49 L (0.52-1.04) mg/dL Glucose 124 H (74-99) mg/dL Calcium 11.1 H (8.4-10.2) mg/dL Microbiology - Last 24 Hours (Table) 02/14/19 11:00 Gram Stain - Final Sputum Sputum Culture - Final Staphylococcus aureus 02/14/19 10:12 Blood Culture - Preliminary Blood No Growth after 24 hours Assessment and Plan Plan: 1 acute hypoxic respiratory failure with copious and purulent respiratory secretions causing significant amount of mucus plugging / stridor at time of admission. The patient has better lower lobe pneumonia right more than left and she has a dense consolidation that evolved following the intubation process. Consider gram-negative/polymicrobial infection. The patient is covered with broad-spectrum antibiotics and currently she is intubated on a mechanical ventilator. She is also post bronchoscopy and suctioning with removal of copious amount of purulent discharge secretions from the airway. The patient is currently showing bilateral lower lobe consolidation. Cultures are consistent with staph aureus/emesis and the patient will be taken of vancomycin for now. Nevertheless, the chest x-ray findings that showing lower lobe consolidation bilaterally right more than left. The patient remains on a mechanical ventilator. She is oxygenating and ventilating well for now. She remains sedated. 2 stridor, likely secondary to copious mucous plugs occupying the upper airway, the patient is post intubation, the patient is post herpetic airway suctioning, the patient is post bronchoscopy 3 COPD exacerbation secondary to above 4 neurofibromatosis 5 obesity with a BMI of 51.5 6 smoking 7 depression 8 leukocytosis secondary to above 9 troponin leak Plan Drop-down the FiO2 to 40%. We'll attempt to wean down the PEEP gradually to maintain a saturation above 90%. Kept on IV fluids to KVO. Give the patient dose of Lasix. Discontinue the vancomycin and continued IV cefepime for now. Sedation holiday. Continue enteral feeding for nutritional support. Repeat chest x-ray in the morning. Blood gases in the morning. We'll continue to follow make further recommendations based on her progress. She will stay intubated for now. There is a critically care evaluation was done and more than 30 minutes. Time with Patient: Greater than 30
[2019-02-16] MEDS ORDERED: VANCOMYCIN TROUGH DUE 1 EACH MISC MISCELLANE ONE (20:00)
[2019-02-17] MEDS: PROPOFOL 1,000 MG in EMPTY BAG 1 BAG IV SCH ×7 (01:03→23:51)
[2019-02-17 04:12] LABS: Anisocytosis Slight; Basophils # (A) 0.1 k/uL (0-0.2); Basophils % (A) 1 %; Eosinophils # (A) 0.1 k/uL (0-0.7); Eosinophils % (A) 1 %; HCT 36.3 % (34.0-46.0); HGB 11.4 gm/dL (11.4-16.0); Lymphocytes # (A) 0.7 k/uL (1.0-4.8); Lymphocytes % (A) 5 %; MCHC 31.4 g/dL (31.0-37.0); MCV 92.3 fL (80.0-100.0); Mean Platelet Volume 11.5; Monocytes # (A) 0.8 k/uL (0-1.0); Monocytes % (A) 6 %; Neutrophils # (A) 11.9 k/uL (1.3-7.7); Neutrophils % (A) 86 %; Platelet Count 173 k/uL (150-450); RBC 3.94 m/uL (3.80-5.40); RDW 16.7 % (11.5-15.5); WBC 13.8 k/uL (3.8-10.6)
[2019-02-17 04:23] LABS: African American GFR (CKD) >90 (>60 ml/min/1.73 sqM); Anion Gap 4 mmol/L; Blood Urea Nitrogen 22 mg/dL (7-17); Calcium 11.1 mg/dL (8.4-10.2); Carbon Dioxide 28 mmol/L (22-30); Chloride 108 mmol/L (98-107); Glucose 138 mg/dL (74-99); Magnesium 2.1 mg/dL (1.6-2.3); Phosphorus 2.6 mg/dL (2.5-4.5); Sodium 140 mmol/L (137-145)
[2019-02-17 04:55] LABS: ABG Base Excess 5.2 mmol/L; ABG HCO3 29 mmol/L (21-25); ABG Oxygen Saturation 96.3 % (94-97); ABG PCO2 39 mmHg (35-45); ABG PH 7.48 (7.35-7.45); ABG PO2 80 mmHg (83-108); ABG TCO2 30 mmol/L (19-24); Allen Test Performed? Yes
[2019-02-17 05:11] LABS: Large Platelets Present
[2019-02-17] MEDS: methylPREDNISolone SOD SUCCI 40 MG/ML 1 ML VIAL IV SCH ×4 (05:11→23:52)
--- NOTE | 2019-02-17 06:22 | P.PN ---
Subjective This is a 48 years old female who presents because of respiratory distress. When I was informed about the patient she was already in the ICU, at that time patient was already been seen by the critical care team and they were doing the intubation procedure while she was in the ICU. I saw patient later on she was already intubated and on mechanical ventilation. Patient could not provide information as she was intubated and sedated so information was taken from the staff and the medical records. Apparently patient with past medical history of COPD and neurofibromatosis, she was recently discharged from [facility] where she got intubated there for respiratory failure however she is on support to the hospital again with diminished level of consciousness and dyspnea as per records so patient was moved to the ICU and she was intubated. She has a lot of secretions which were worked suctioned out both at the Intubation time and during the bronchoscopy which was done later on. 02/16/2019 pt remains in the ICU intubated and sedated , she is in critical condition for her bilateral pneumonia, more on the right , she has coupous purulent secretion , . she is currently on vancomycin and cefepime, culture is growing MSSA, vancomycin will be discontinued., her WBC is coming down 20 K to 12.9 K .pulmonary critical care team are following the case closely and mention patient found. Patient is currently on steroids as well. And Lasix. Patient was on sedation holiday today Objective - Vital Signs Vital signs: Vital Signs Temp 97.6 F 02/16/19 08:00 Pulse 80 02/16/19 19:00 Resp 24 02/16/19 19:00 BP 85/64 02/14/19 09:30 Pulse Ox 93 L 02/16/19 19:00 Intake & Output 02/16/19 02/16/19 02/17/19 06:59 18:59 06:59 Intake Total 3334.838 1938.267 67 Output Total 800 1985 15 Balance 1160.790 -355.733 52 Weight 130.6 kg Intake: IV 1500 829 56 Arterial Line 0 3 CVP 3 3 Cefepime 2 gm In Sodium 100 100 Chloride 0.9% 100 ml @ 200 mls/hr IVPB Q12HR [facility] Rx#:[id number] Sodium Chloride 0.9% 1, 900 225 50 000 ml @ 50 mls/hr IV . Q20H [facility] Rx#:[id number] Vancomycin 2,000 mg In 500 501 Sodium Chloride 0.9% 500 ml 500 ml @ 167 mls/hr IVPB Q12H [facility] Rx#: [id number] Intake, IV Titration 375.790 545.267 Amount Propofol 1,000 mg In 375.790 545.267 Empty Bag 1 bag @ Titrate IV .Q0M [facility] Rx#: [id number] Tube Feeding 55 165 11 Other 30 90 Output: Urine 800 1985 15 Other: Voiding Method Indwelling Catheter Indwelling Catheter ABP, PAP, CO, CI - Last Documented Arterial Blood Pressure 107/59 - Exam -GENERAL: The patient is intubated and sedated. She is obese HEENT: Pupils are round and equally reacting to light. EOMI. No scleral icterus. No conjunctival pallor. Normocephalic, atraumatic. No pharyngeal erythema. No thyromegaly. CARDIOVASCULAR: S1 and S2 present. No murmurs, rubs, or gallops. -PULMONARY: Chest is clear to auscultation, she has coarse breath sounds on both lower bases. no wheezing or crackles. ABDOMEN: Soft, nontender, nondistended, normoactive bowel sounds. No palpable organomegaly. MUSCULOSKELETAL: No joint swelling or deformity. -EXTREMITIES: No cyanosis, clubbing, or pedal edema. She has multiple nodules in extremities, related to her neurofibromatosis NEUROLOGICAL: Gross neurological examination did not reveal any focal deficits. SKIN: No rashes. - Labs CBC & Chem 7: 02/17/19 04:03 02/17/19 04:03 Labs: Abnormal Lab Results - Last 24 Hours (Table) 02/16/19 02/16/19 02/16/19 Range/Units 03:46 05:00 05:00 WBC 12.9 H (3.8-10.6) k/uL RBC 3.73 L (3.80-5.40) m/uL RDW 16.7 H (11.5-15.5) % Plt Count 149 L (150-450) k/uL Neutrophils # (Manual) 11.60 H (1.3-7.7) k/uL Lymphocytes # (Manual) 0.65 L (1.0-4.8) k/uL Myelocytes # (Manual) 0.13 H (0) k/uL ABG pO2 80 L (83-108) mmHg ABG HCO3 26 H (21-25) mmol/L ABG Total CO2 27 H (19-24) mmol/L Chloride 109 H (98-107) mmol/L Creatinine 0.49 L (0.52-1.04) mg/dL Glucose 124 H (74-99) mg/dL Calcium 11.1 H (8.4-10.2) mg/dL Microbiology - Last 24 Hours (Table) 02/14/19 10:12 Blood Culture - Preliminary Blood No Growth after 48 hours 02/14/19 11:00 Gram Stain - Final Sputum Sputum Culture - Final Staphylococcus aureus Assessment and Plan Assessment: Acute hypoxemic respiratory failure secondary to bilateral lower lobe pneumonia. Patient need mechanical ventilation bilateral purulent lower lobe pneumonia, clips more on the right side Acute COPD exacerbation history of neurofibromatosis Obesity History of smoking Plan: This is a 48 years old female who presents with bilateral purulent pneumonia, and respiratory failure needed intubation. Patient admitted to the ICU. We'll follow the recommendation of the pulmonary/critical care team. Continue with broad-spectrum antibiotics. Follow-up sputum culture. Continue with steroids. Continue with a breathing treatments. Continue with IV fluids.Labs and medication were reviewed.. Continue same treatment. Continue with symptomatic treatment. Monitor lytes and vitals. DVT and GI prophylaxis. Further recommendations of the clinical course of the patient DVT prophylaxis: Subcutaneous heparin GI Prophylaxis: Protonix Prognosis is guarded
[2019-02-17] MEDS: IPRATROPIUM-ALBUTEROL 3 ML NEB INHALATION SCH ×4 (07:27→19:44)
[2019-02-17] MEDS: HEPARIN SODIUM,PORCINE 5,000 UNIT/ML 1 ML VIAL SQ SCH ×3 (08:06→23:53)
[2019-02-17] MEDS: CHLORHEXIDINE GLUCONATE 15 ML CUP MUCOUS MEM SCH ×2 (08:07→21:27)
[2019-02-17] MEDS: CEFEPIME 2 GM in SODIUM CHLORIDE 0.9% 100 ML IVPB SCH ×2 (08:07→21:27)
[2019-02-17] MEDS: PANTOPRAZOLE 40 MG/10 ML VIAL IVP SCH (08:07)
--- NOTE | 2019-02-17 09:04 | XR ---
EXAMINATION TYPE: XR chest 1V portable DATE OF EXAM: 02/17/2019 COMPARISON: 02/16/2019 HISTORY: Endotracheal tube placement. Ventilatory dependent respiratory failure. TECHNIQUE: Single frontal view of the chest is obtained. FINDINGS: There are small layering pleural effusions and bibasilar airspace disease, similar to the prior. Enteric tube and endotracheal tube appear stable. Left-sided subclavian central venous cathete r has its distal tip in the distal superior vena cava. No pneumothorax is noted. Cardia mediastinal s ilhouette is stable and again upper limits of normal. IMPRESSION: Similar small pleural effusions and bibasilar airspace disease that may represent atelec tasis or pneumonia.
--- NOTE | 2019-02-17 13:51 | P.PN ---
Subjective Progress Note Date: 02/17/19 Principal diagnosis: Acute hypoxic respiratory failure secondary to her 11 tracheobronchitis and pneumonia. Likely hospital-acquired. This is a 48-year-old female patient with known history of COPD and neurofibromatosis was post intubation mechanical ventilation for respiratory failure approximately 3 weeks ago at [facility]. The patient was discharged home and this morning the patient was brought back to the emergency department lethargic, diminished level of consciousness, worsening shortness of breath and she was having inspiratory stridor. The patient was placed on a BiPAP in the emergency department. The patient was transferred to selective telemetry unit. At that point, the patient had worsening shortness of breath and further diminishment in level of consciousness pH she got transferred to the intensive care unit. I immediately saw the patient upon arrival to the ICU. She was having inspiratory stridor/noisy breathing while even being on a BiPAP at a pressure of 10/5 cm of water. I briefly discontinued the BiPAP and inspiratory stridor was quite obvious. As such, I suspect an upper airway obstruction. He decided to intubate the patient accordingly. The chest x-ray showed cardiac cardiac structures to be normal with some cardiomegaly. There was increased bilateral lower lobe opacity and pneumonia was suspected. At this point, I started the patient with propofol. Using a glydoscope, I inspected the upper airway. I did not find any significant obstruction in the supraglottic area. In fact, epiglottis was within normal limits. The arytenoids and the vocal cords were all within normal limits. There was copious amount of purulent respiratory secretions occupying the posterior oropharynx and the larynx and the these were suctioned out. As I was getting ready to do my intubation, I noticed that the patient was coughing copious amount of purulent material which was origin radiating from her lungs and with every cough I was able to suction large globs of purulent material that was settling in her posterior larynx and the vocal cord area. I did further suctioning and I aspirated approximately 20-25 mL of purulent chocolate the creamy.material. Following that, intubated the patient with a #7.5 ET tube. Post intubation, I performed a bronchoscopy and another 25-30 mL of purulent material was aspirated from the patient's lungs bilaterally more so on the right. Following this, I did an airway inspection. The lower airways were patent without any acute abnormalities. There was significant purulent material and this was only finding. The visualized airways were all patent without any foreign bodies or endobronchial tumor. At that point, I moved the bronchoscope to the ET tube and I retracted the bronchoscope and I inspected the entire trachea reaching the subglottic area. I was not able to identify any form of airway obstruction or subglottic stenosis in this patient. The subglottic trachea was small but patent. I completed the procedure. Following that I kept the patient a mechanical ventilator and currently she is sedated with propofol. Is on a vent with a assist-control mode with an FiO2 of 100%, PEEP of 5, tidal volume of 400 and rate of 20. Post intubation blood gases showed a pH of 7.39 with a pCO2 of 46 and pO2 of 87. Post intubation chest x-ray showed a large consolidation of the right lower lobe. A triple lumen catheter was inserted. An outline catheter was inserted. The patient was started on a combination of cefepime and vancomycin and Levaquin. The patient was started on IV Solu-Medrol. The patient was started on DuoNeb the right units [id number]. She is well sedated for now and she is quite successful the mechanical ventilator. No hypotension. She is currently on normal saline at the rate of 75 mL an hour and the patient has not required any pressors. On 02/15/2019 the patient remains sedated and intubated on a mechanical ventilator, comfortable on propofol at 60 mics. 6 is a mechanical ventilator which is set at a tidal volume of 400 with a rate of 20 and a PEEP of 8 with an FiO2 of 50%. Blood gases from today showed a pH of 7.44 with a pCO2 of 42 and pO2 of 75. Chest x-rays revealing bilateral lower lobe consolidation/pneumonia. ET tube is in a good location. All of the lines are in place. The cultures still pending for now. Cover this patient with broad-spectrum antibiotics yesterday and the patient is afebrile and hemodynamically stable. Tube feeds will be started today. No nausea. No emesis. No abdominal distention. No significant orotracheal secretions. She remains on a combination of DuoNeb nebulized treatments around the clock. She is on IV cefepime and vancomycin. She is on IV Solu Medrol 4 mg every 6 hours. She is on DVT and GI prophylaxis. As mentioned earlier, the guide the scope evaluation of the upper airway, bronchoscopic evaluation of the lower airway shows no evidence of any airway obstruction and the findings were mainly consistent with purulent mucus and mucous plugs causing airway obstruction. Therapeutic airway suctioning was done. On 02/16/2019 the patient remains intubated on a mechanical ventilator. The patient is sedated. She was given a pre-sedation holiday during which she was waking up and moving and she was not following any specific commands. We'll put her back on propofol. She is still on a tidal volume of 400 with FiO2 of 50% and PEEP of 8 with a rate of 20. Morning blood gases showed a pH of 7.44 with a pCO2 of 39 and pO2 of 80. The patient is found to have staph aureus in her lungs and a culture is more consistent with MSSA. Based on that the vancomycin will be discontinued and the patient will be kept on IV cefepime. The patient is still having significant amount of respiratory secretions. The chest x-ray from today still showing bilateral lower lobe consolidation of right more than left. She is receiving enteral feeding for nutritional support. Otherwise, she has adequate blood pressure pH is adequate urine output. No fever or chills. She remains on IV Solu Medrol at a lower dose of 40 mg every 6 hours. We'll continue to follow. Reevaluated today on 02/17/2019, remains on mechanical ventilation. She is presently on assist control rate of 20, tidal volume of 400, FiO2 40%, PEEP of 8. Patient is on propofol, at 20 mcg/kg/m. Sedated, however I plan to wake of the patient today, and I plan to consider weaning parameters evaluation, and possibly a weaning trial. Chest x-ray was reviewed showed small bilateral pleural effusions, anddisease involving the lower lobes representing atelectasis or infiltrates. ABG this morning showed a pO2 of 80 pCO2 of 39 pH of 7.48 electrolytes were noted to be normal renal profile is normal. CBC showed a bit of leukocytosis with WBC count of 13.8 hemoglobin is 11.4. Objective - Vital Signs Vital signs: Vital Signs Temp 98.0 F 02/17/19 12:00 Pulse 83 02/17/19 12:00 Resp 15 02/17/19 12:00 BP 99/48 02/17/19 06:30 Pulse Ox 95 02/17/19 12:00 Intake & Output 02/16/19 02/17/19 02/17/19 18:59 06:59 18:59 Intake Total 7391.565 4980.463 601.506 Output Total 1984 328 162 Balance -774.414 7977.463 439.506 Weight 132 kg Intake: IV 829 772 336 Arterial Line 0 36 18 CVP 3 36 18 Cefepime 2 gm In Sodium 100 100 Chloride 0.9% 100 ml @ 200 mls/hr IVPB Q12HR [facility]RE[facility] Rx#:[id number] Sodium Chloride 0.9% 1, 225 600 300 000 ml @ 50 mls/hr IV . Q20H [facility] Rx#:[id number] Vancomycin 2,000 mg In 501 Sodium Chloride 0.9% 500 ml 500 ml @ 167 mls/hr IVPB Q12H [facility] Rx#: [id number] Intake, IV Titration 545.267 359.463 191.506 Amount Propofol 1,000 mg In 545.267 359.463 191.506 Empty Bag 1 bag @ Titrate IV .Q0M J[facility]RELL Rx#: [id number] Tube Feeding 165 121 44 Other 90 90 30 Output: Urine 1984 328 162 Other: Voiding Method Indwelling Catheter Indwelling Catheter ABP, PAP, CO, CI - Last Documented Arterial Blood Pressure 143/69 - Exam Physical Exam: Revealed 48-year-old female in no distress, sedated, on mechanical ventilation. Head: Atraumatic, normocephalic. HEENT:[Neck is supple.] [No neck masses.] [No thyromegaly.] [No JVD.] PERRLA, EOMI, no icterus, endotracheal tube and orogastric tube are intact. Chest: Crackles and rhonchi at the bases, no wheezes noted. Symmetrical chest expansion, no chest wall tenderness.] Cardiac Exam: [Normal S1 and S2, no S3 gallop, no murmur.] Abdomen: Obese, [Soft, nontender, no megaly, no rebound, no guarding, normal bowel sounds.] Extremities: [No clubbing, trace of bipedal edema, no cyanosis.] Neurological Exam: Not be assessed, patient is sedated, on propofol drip. Psychiatric: Could not be assessed, patient is on propofol drip. Lymphatics: No lymphadenopathy. Skin: Diffuse neurofibromas noted bilaterally. - Labs CBC & Chem 7: 02/17/19 04:03 02/17/19 04:03 Labs: Abnormal Lab Results - Last 24 Hours (Table) 02/17/19 02/17/19 02/17/19 Range/Units 04:03 04:03 04:51 WBC 13.8 H (3.8-10.6) k/uL RDW 16.7 H (11.5-15.5) % Neutrophils # 11.9 H (1.3-7.7) k/uL Lymphocytes # 0.7 L (1.0-4.8) k/uL ABG pH 7.48 H (7.35-7.45) ABG pO2 80 L (83-108) mmHg ABG HCO3 29 H (21-25) mmol/L ABG Total CO2 30 H (19-24) mmol/L Chloride 108 H (98-107) mmol/L BUN 22 H (7-17) mg/dL Glucose 138 H (74-99) mg/dL Calcium 11.1 H (8.4-10.2) mg/dL Microbiology - Last 24 Hours (Table) 02/14/19 10:12 Blood Culture - Preliminary Blood No Growth after 72 hours Assessment and Plan Assessment: Impression: 1 acute hypoxic respiratory failure requiring intubation and mechanical ventilation, patient presented with significant stridor and significant mucus plugging was suspected upon intubating the patient by Dr. Rausch. 2 strongly suspect right lower lobe pneumonia most likely hospital-acquired since the patient had a recent hospitalization for similar presentation. Chest x-ray shows consolidation in the right lower lobe and to some extent in the left lower lobe. 3 history of underlying COPD with acute exacerbation. For neurofibromatosis 5 obesity 6 depression 7 history of smoking 8 troponin leak Recommendation: Continue ventilatory support, nutritional support, GI and DVT prophylaxis, patient is presently on cefepime, her vancomycin was discontinued, she is also on Lasix. Will likely hold sedation today, and address the patient weaning parameters and weaning trial if possible today. In the meantime continue enteral feeding, continue antibiotics, we'll continue to follow. Critical care time is 35 minutes. Time with Patient: Greater than 30
[2019-02-17] MEDS: SODIUM CHLORIDE 0.9% 1,000 ML IV SCH (16:31)
[2019-02-18] MEDS: PROPOFOL 1,000 MG in EMPTY BAG 1 BAG IV SCH ×5 (02:10→17:47)
[2019-02-18 04:57] LABS: African American GFR (CKD) >90 (>60 ml/min/1.73 sqM); Anion Gap 4 mmol/L; Blood Urea Nitrogen 27 mg/dL (7-17); Calcium 11.3 mg/dL (8.4-10.2); Carbon Dioxide 27 mmol/L (22-30); Chloride 109 mmol/L (98-107); Glucose 129 mg/dL (74-99); Magnesium 2.2 mg/dL (1.6-2.3); Phosphorus 3.1 mg/dL (2.5-4.5); Potassium 4.2 mmol/L (3.5-5.1); Sodium 140 mmol/L (137-145)
[2019-02-18 05:18] LABS: Anisocytosis Slight; HCT 35.1 % (34.0-46.0); HGB 11.1 gm/dL (11.4-16.0); MCH 29.3 pg (25.0-35.0); MCHC 31.8 g/dL (31.0-37.0); MCV 92.2 fL (80.0-100.0); Mean Platelet Volume 11.5; Platelet Count 169 k/uL (150-450); RDW 16.8 % (11.5-15.5); WBC 11.8 k/uL (3.8-10.6)
[2019-02-18] MEDS: methylPREDNISolone SOD SUCCI 40 MG/ML 1 ML VIAL IV SCH ×3 (05:43→16:54)
--- NOTE | 2019-02-18 06:43 | P.PN ---
Subjective This is a 48 years old female who presents because of respiratory distress. When I was informed about the patient she was already in the ICU, at that time patient was already been seen by the critical care team and they were doing the intubation procedure while she was in the ICU. I saw patient later on she was already intubated and on mechanical ventilation. Patient could not provide information as she was intubated and sedated so information was taken from the staff and the medical records. Apparently patient with past medical history of COPD and neurofibromatosis, she was recently discharged from my clearing the [facility] where she got intubated there for respiratory failure however she is on support to the hospital again with diminished level of consciousness and dyspnea as per records so patient was moved to the ICU and she was intubated. She has a lot of secretions which were worked suctioned out both at the Intubation time and during the bronchoscopy which was done later on. 02/16/2019 pt remains in the ICU intubated and sedated , she is in critical condition for her bilateral pneumonia, more on the right , she has coupous purulent secretion , . she is currently on vancomycin and cefepime, culture is growing MSSA, vancomycin will be discontinued., her WBC is coming down 20 K to 12.9 K .pulmonary critical care team are following the case closely and mention patient found. Patient is currently on steroids as well. And Lasix. Patient was on sedation holiday today 02/17/2019 Patient in the ICU, intubated and sedated. Repeat chest x-ray showing possible persistent pneumonia with small bilateral pleural effusion. She is currently on cefepime and steroids. Her vancomycin was stopped. WBC is 13.8 K, creatinine 0.5. Patient is followed and managed carefully by the pulmonary/critical care team. Objective - Vital Signs Vital signs: Vital Signs Temp 98.1 F 02/17/19 19:30 Pulse 82 02/17/19 20:00 Resp 20 02/17/19 20:00 BP 99/48 02/17/19 06:30 Pulse Ox 96 02/17/19 20:00 Intake & Output 02/17/19 02/17/19 02/18/19 06:59 18:59 06:59 Intake Total 1196.650 5635.506 123 Output Total 328 367 70 Balance 1014.463 705.506 53 Weight 132 kg Intake: IV 772 622 112 Arterial Line 36 36 6 CVP 36 36 6 Cefepime 2 gm In Sodium 100 Chloride 0.9% 100 ml @ 200 mls/hr IVPB Q12HR [facility] Rx#:[id number] Sodium Chloride 0.9% 1, 600 550 100 000 ml @ 50 mls/hr IV . Q20H [facility] Rx#:[id number] Intake, IV Titration 359.463 291.506 Amount Propofol 1,000 mg In 359.463 291.506 Empty Bag 1 bag @ Titrate IV .Q0M [facility]LL Rx#: [id number] Tube Feeding 121 99 11 Other 90 60 Output: Urine 328 367 70 Other: Voiding Method Indwelling Catheter Indwelling Catheter Indwelling Catheter ABP, PAP, CO, CI - Last Documented Arterial Blood Pressure 136/70 - Exam -GENERAL: The patient is intubated and sedated. She is obese HEENT: Pupils are round and equally reacting to light. EOMI. No scleral icterus. No conjunctival pallor. Normocephalic, atraumatic. No pharyngeal erythema. No thyromegaly. CARDIOVASCULAR: S1 and S2 present. No murmurs, rubs, or gallops. -PULMONARY: Chest is clear to auscultation, she has coarse breath sounds on both lower bases. no wheezing or crackles. ABDOMEN: Soft, nontender, nondistended, normoactive bowel sounds. No palpable organomegaly. MUSCULOSKELETAL: No joint swelling or deformity. -EXTREMITIES: No cyanosis, clubbing, or pedal edema. She has multiple nodules in extremities, related to her neurofibromatosis NEUROLOGICAL: Gross neurological examination did not reveal any focal deficits. SKIN: No rashes. - Labs CBC & Chem 7: 02/18/19 04:15 02/18/19 04:15 Labs: Abnormal Lab Results - Last 24 Hours (Table) 02/17/19 02/17/19 02/17/19 Range/Units 04:03 04:03 04:51 WBC 13.8 H (3.8-10.6) k/uL RDW 16.7 H (11.5-15.5) % Neutrophils # 11.9 H (1.3-7.7) k/uL Lymphocytes # 0.7 L (1.0-4.8) k/uL ABG pH 7.48 H (7.35-7.45) ABG pO2 80 L (83-108) mmHg ABG HCO3 29 H (21-25) mmol/L ABG Total CO2 30 H (19-24) mmol/L Chloride 108 H (98-107) mmol/L BUN 22 H (7-17) mg/dL Glucose 138 H (74-99) mg/dL Calcium 11.1 H (8.4-10.2) mg/dL Microbiology - Last 24 Hours (Table) 02/14/19 10:12 Blood Culture - Preliminary Blood No Growth after 72 hours Assessment and Plan Assessment: Acute hypoxemic respiratory failure secondary to bilateral lower lobe pneumonia. Patient need mechanical ventilation bilateral purulent lower lobe pneumonia, clips more on the right side Acute COPD exacerbation history of neurofibromatosis Obesity History of smoking Plan: This is a 48 years old female who presents with bilateral purulent pneumonia, and respiratory failure needed intubation. Patient admitted to the ICU. We'll follow the recommendation of the pulmonary/critical care team. Continue with broad-spectrum antibiotics. Follow-up sputum culture. Continue with steroids. Continue with a breathing treatments. Continue with IV fluids.Labs and medication were reviewed.. Continue same treatment. Continue with symptomatic treatment. Monitor lytes and vitals. DVT and GI prophylaxis. Further recommendations of the clinical course of the patient DVT prophylaxis: Subcutaneous heparin GI Prophylaxis: Protonix Prognosis is guarded
[2019-02-18 07:34] LABS: ABG Base Excess 4.8 mmol/L; ABG HCO3 28 mmol/L (21-25); ABG Oxygen Saturation 96.9 % (94-97); ABG PCO2 38 mmHg (35-45); ABG PH 7.48 (7.35-7.45); ABG PO2 83 mmHg (83-108); ABG TCO2 30 mmol/L (19-24)
[2019-02-18 07:36] LABS: Band Neutrophils % 2 %; Lymphocytes # (M) 0.71 k/uL (1.0-4.8); Metamyelocytes # (M) 0.12 k/uL (0); Metamyelocytes % 1 %; Monocytes # (M) 0.59 k/uL (0-1.0); Myelocytes # (M) 0.12 k/uL (0); Myelocytes % 1 %; Neutrophils % (M) 86 %; Nucleated Red Blood Cells 0 /100 WBC (0-0); Total Cells Counted 200
[2019-02-18 07:37] LABS: Large Platelets Present
[2019-02-18] MEDS: IPRATROPIUM-ALBUTEROL 3 ML NEB INHALATION SCH ×4 (07:39→19:26)
--- NOTE | 2019-02-18 07:53 | XR ---
EXAMINATION TYPE: XR chest 1V portable DATE OF EXAM: 02/18/2019 COMPARISON: 02/17/2019 HISTORY: SOB, Follow Up FINDINGS: Indwelling tubes and catheters are unchanged. Right basilar infiltrate, atelectasis and/or effusion persists. Improved aeration left lung base. Stable appearance of the cardio-mediastinal structures at this time. IMPRESSION: 1. Right basilar infiltrate, atelectasis and/or effusion persists. Improved aeration left lung base.
[2019-02-18 08:00] LABS: Allen Test Performed? no
[2019-02-18] MEDS: HEPARIN SODIUM,PORCINE 5,000 UNIT/ML 1 ML VIAL SQ SCH ×2 (08:48→16:54)
[2019-02-18] MEDS: PANTOPRAZOLE 40 MG/10 ML VIAL IVP SCH (08:48)
[2019-02-18] MEDS: CEFEPIME 2 GM in SODIUM CHLORIDE 0.9% 100 ML IVPB SCH ×2 (08:48→20:28)
[2019-02-18] MEDS: CHLORHEXIDINE GLUCONATE 15 ML CUP MUCOUS MEM SCH ×2 (08:48→20:28)
[2019-02-18] MEDS: SODIUM CHLORIDE 0.9% 1,000 ML IV SCH (10:54)
--- NOTE | 2019-02-18 12:42 | P.PN ---
Subjective Progress Note Date: 02/18/19 Principal diagnosis: Acute hypoxic respiratory failure secondary to purulent tracheobronchitis and pneumonia. This is a 48-year-old female patient with known history of COPD and neurofibromatosis was post intubation mechanical ventilation for respiratory failure approximately 3 weeks ago at [facility]. The patient was discharged home and this morning the patient was brought back to the emergency department lethargic, diminished level of consciousness, worsening shortness of breath and she was having inspiratory stridor. The patient was placed on a BiPAP in the emergency department. The patient was transferred to selective telemetry unit. At that point, the patient had worsening shortness of breath and further diminishment in level of consciousness pH she got transferred to the intensive care unit. I immediately saw the patient upon arrival to the ICU. She was having inspiratory stridor/noisy breathing while even being on a BiPAP at a pressure of 10/5 cm of water. I briefly discontinued the BiPAP and inspiratory stridor was quite obvious. As such, I suspect an upper airway obstruction. He decided to intubate the patient accordingly. The chest x-ray showed cardiac cardiac structures to be normal with some cardiomegaly. There was increased bilateral lower lobe opacity and pneumonia was suspected. At this point, I started the patient with propofol. Using a glydoscope, I inspected the upper airway. I did not find any significant obstruction in the supraglottic area. In fact, epiglottis was within normal limits. The arytenoids and the vocal cords were all within normal limits. There was copious amount of purulent respiratory secretions occupying the posterior oropharynx and the larynx and the these were suctioned out. As I was getting ready to do my intubation, I noticed that the patient was coughing copious amount of purulent material which was origin radiating from her lungs and with every cough I was able to suction large globs of purulent material that was settling in her posterior larynx and the vocal cord area. I did further suctioning and I aspirated approximately 20-25 mL of purulent chocolate the creamy.material. Following that, intubated the patient with a #7.5 ET tube. Post intubation, I performed a bronchoscopy and another 25-30 mL of purulent material was aspirated from the patient's lungs bilaterally more so on the right. Following this, I did an airway inspection. The lower airways were patent without any acute abnormalities. There was significant purulent material and this was only finding. The visualized airways were all patent without any foreign bodies or endobronchial tumor. At that point, I moved the bronchoscope to the ET tube and I retracted the bronchoscope and I inspected the entire trachea reaching the subglottic area. I was not able to identify any form of airway obstruction or subglottic stenosis in this patient. The subglottic trachea was small but patent. I completed the procedure. Following that I kept the patient a mechanical ventilator and currently she is sedated with propofol. Is on a vent with a assist-control mode with an FiO2 of 100%, PEEP of 5, tidal volume of 400 and rate of 20. Post intubation blood gases showed a pH of 7.39 with a pCO2 of 46 and pO2 of 87. Post intubation chest x-ray showed a large consolidation of the right lower lob e. A triple lumen catheter was inserted. An outline catheter was inserted. The patient was started on a combination of cefepime and vancomycin and Levaquin. The patient was started on IV Solu-Medrol. The patient was started on DuoNeb the right units [id number]. She is well sedated for now and she is quite successful the mechanical ventilator. No hypotension. She is currently on normal saline at the rate of 75 mL an hour and the patient has not required any pressors. On 02/15/2019 the patient remains sedated and intubated on a mechanical ventilator, comfortable on propofol at 60 mics. 6 is a mechanical ventilator which is set at a tidal volume of 400 with a rate of 20 and a PEEP of 8 with an FiO2 of 50%. Blood gases from today showed a pH of 7.44 with a pCO2 of 42 and pO2 of 75. Chest x-rays revealing bilateral lower lobe consolidation/pneumonia. ET tube is in a good location. All of the lines are in place. The cultures still pending for now. Cover this patient with broad-spectrum antibiotics yesterday and the patient is afebrile and hemodynamically stable. Tube feeds will be started today. No nausea. No emesis. No abdominal distention. No significant orotracheal secretions. She remains on a combination of DuoNeb nebulized treatments around the clock. She is on IV cefepime and vancomycin. She is on IV Solu Medrol 4 mg every 6 hours. She is on DVT and GI prophylaxis. As mentioned earlier, the guide the scope evaluation of the upper airway, bronch oscopic evaluation of the lower airway shows no evidence of any airway obstruction and the findings were mainly consistent with purulent mucus and mucous plugs causing airway obstruction. Therapeutic airway suctioning was done. On 02/16/2019 the patient remains intubated on a mechanical ventilator. The patient is sedated. She was given a pre-sedation holiday during which she was waking up and moving and she was not following any specific commands. We'll put her back on propofol. She is still on a tidal volume of 400 with FiO2 of 50% and PEEP of 8 with a rate of 20. Morning blood gases showed a pH of 7.44 with a pCO2 of 39 and pO2 of 80. The patient is found to have staph aureus in her lungs and a culture is more consistent with MSSA. Based on that the vancomycin will be discontinued and the patient will be kept on IV cefepime. The patient is still having significant amount of respiratory secretions. The chest x-ray from today still showing bilateral lower lobe consolidation of right more than left. She is receiving enteral feeding for nutritional support. Otherwise, she has adequate blood pressure pH is adequate urine output. No fever or chills. She remains on IV Solu Medrol at a lower dose of 40 mg every 6 hours. We'll continue to follow. Reevaluated today on 02/17/2019, remains on mechanical ventilation. She is presently on assist control rate of 20, tidal volume of 400, FiO2 40%, PEEP of 8. Patient is on propofol, at 20 mcg/kg/m. Sedated, however I plan to wake of the patient today, and I plan to consider weaning parameters evaluation, and possibly a weaning trial. Chest x-ray was reviewed showed small bilateral pleural effusions, anddisease involving the lower lobes representing atelectasis or infiltrates. ABG this morning showed a pO2 of 80 pCO2 of 39 pH of 7.48 electrolytes were noted to be normal renal profile is normal. CBC showed a bit of leukocytosis with WBC count of 13.8 hemoglobin is 11.4. Patient was reevaluated today on 02/18/2019, remains on mechanical ventilation, basically on the same vent settings as noted above. PEEP was cut down to 5. Her FiO2 remained at 40%. Her ABG showed a pO2 of 83 pCO2 of 38 pH of 7.48. Chest x-ray continues to show dense consolidation in the right lower lobe. Patient was taken off sedation, seems to be arousable, followed simple instructions, however I had a chance today to get a full discussion with her sister was also legal guardian, and she explained to me that the patient had similar presentation before in early January, she was intubated in our ER, sent to [facility], she was extubated after couple of days, but within 3 hours she had to be reintubated. Even the second time she was extubated she was always marginal, and she continued to have almost symptoms of stridor. She was sent to [facility], and 2 days after the patient deteriorated again and had to be reintubated in our ER again. Considering the story and the presentation, today I had a long discussion with the sister, and suggested that we proceed with tracheostomy since this usually seems to be going on for quite some time. And most likely the patient will fail again if extubated hence it would be best to proceed with tracheostomy, in the meantime continue antibiotics, continue suctioning of secretions when tracheostomy is placed, and eventually may have to be bronchoscoped and evaluate her airways, also have ENT evaluate her vocal cords. According to Dr. Rausch the vocal cords were intact, and there was no evidence of masses on the vocal cords when he intubated the patient. Objective - Vital Signs Vital signs: Vital Signs Temp 97.9 F 02/18/19 04:00 Pulse 76 02/18/19 12:02 Resp 14 02/18/19 10:30 BP 83/29 02/18/19 10:30 Pulse Ox 94 L 02/18/19 10:30 Intake & Output 02/17/19 02/18/19 02/18/19 18:59 06:59 18:59 Intake Total 4199.907 2645.566 531.226 Output Total 367 384 235 Balance 705.506 774.566 296.226 Weight 132.8 kg 132.8 kg Intake: IV 622 628 330 Arterial Line 36 39 15 CVP 36 39 15 Cefepime 2 gm In Sodium 100 Chloride 0.9% 100 ml @ 200 mls/hr IVPB Q12HR [facility] Rx#:[id number] Sodium Chloride 0.9% 1, 550 550 200 000 ml @ 50 mls/hr IV . Q20H [facility] Rx#:[id number] Intake, IV Titration 291.506 382.566 179.226 Amount Propofol 1,000 mg In 291.506 382.566 179.226 Empty Bag 1 bag @ Titrate IV .Q0M [facility] Rx#: [id number] Tube Feeding 99 88 22 Other 60 60 Output: Urine 367 384 235 Other: Voiding Method Indwelling Catheter Indwelling Catheter Indwelling Catheter ABP, PAP, CO, CI - Last Documented Arterial Blood Pressure 159/76 - Exam Physical Exam: Revealed 48-year-old female in no distress, sedated, on mechanical ventilation. Head: Atraumatic, normocephalic. HEENT:[Neck is supple.] [No neck masses.] [No thyromegaly.] [No JVD.] PERRLA, EOMI, no icterus, endotracheal tube and orogastric tube are intact. Chest: Crackles and rhonchi at the bases, no wheezes noted. Symmetrical chest expansion, no chest wall tenderness.] Cardiac Exam: [Normal S1 and S2, no S3 gallop, no murmur.] Abdomen: Obese, [Soft, nontender, no megaly, no rebound, no guarding, normal bowel sounds.] Extremities: [No clubbing, trace of bipedal edema, no cyanosis.] Neurological Exam: Awake, follows simple instructions, legally blind, Lymphatics: No lymphadenopathy. Skin: Diffuse neurofibromas noted bilaterally. - Labs CBC & Chem 7: 02/18/19 04:15 02/18/19 04:15 Labs: Abnormal Lab Results - Last 24 Hours (Table) 02/18/19 02/18/19 02/18/19 Range/Units 04:15 04:15 07:29 WBC 11.8 H (3.8-10.6) k/uL Hgb 11.1 L (11.4-16.0) gm/dL RDW 16.8 H (11.5-15.5) % Neutrophils # (Manual) 10.30 H (1.3-7.7) k/uL Lymphocytes # (Manual) 0.71 L (1.0-4.8) k/uL Metamyelocytes # (Man) 0.12 H (0) k/uL Myelocytes # (Manual) 0.12 H (0) k/uL ABG pH 7.48 H (7.35-7.45) ABG HCO3 28 H (21-25) mmol/L ABG Total CO2 30 H (19-24) mmol/L Chloride 109 H (98-107) mmol/L BUN 27 H (7-17) mg/dL Creatinine 0.50 L (0.52-1.04) mg/dL Glucose 129 H (74-99) mg/dL Calcium 11.3 H (8.4-10.2) mg/dL Microbiology - Last 24 Hours (Table) 02/14/19 10:12 Blood Culture - Preliminary Blood No Growth after 72 hours Assessment and Plan Assessment: Impression: 1 acute hypoxic respiratory failure requiring intubation and mechanical ve ntilation, patient presented with significant stridor and significant mucus plugging was suspected upon intubating the patient by Dr. Rausch. 2 strongly suspect right lower lobe pneumonia most likely hospital-acquired since the patient had a recent hospitalization for similar presentation. Chest x-ray shows consolidation in the right lower lobe and to some extent in the left lower lobe. 3 history of underlying COPD with acute exacerbation. For neurofibromatosis 5 obesity 6 depression 7 history of smoking 8 troponin leak Recommendation: Considering the full story from her sister and the recurrent episodes of intubation, extubation, and failure to wean, apparently the patient was already extubated twice and failed. Hence I strongly recommended proceeding with tracheostomy and will seek surgical consultation for tracheostomy. Made aware that tracheostomy is reversible but it will not be reversed until patient proves to do well for quite some time possibly a couple of months before she will be D cannulated. Tracheostomy will make weaning from mechanical ventilation easier considering the whole clinical scenario. Sister is agreeable to proceed with tracheostomy. In the meantime we'll continue weaning trials with pressure support and CPAP. Chest x-ray continues to show significant pneumonic process mostly in the right lower lobe, and I have a strong feeling that if the patient is extubated she will most likely fail again. Again I had a long discussion with family at bedside including her sister and her cousin, and both are agreeable to proceed with tracheostomy. In the meantime continue mechanical ventilation, ventilatory support, nutritional support, antibiotics, steroids, bronchodilators. Prognosis is definitely guarded at this point. Critical care time is 40 minutes Time with Patient: Greater than 30
--- NOTE | 2019-02-18 14:03 | P.GSCN ---
History of Present Illness Consult date: 02/18/19 Reason for Consult: Tracheostomy Requesting physician: Taylor Schultz History of present illness: CHIEF COMPLAINT: Tracheostomy HISTORY OF PRESENT ILLNESS: 48-year-old female currently admitted to the intensive care unit secondary to pneumonia. Patient remains on mechanical ve ntilation. Attempts at extubation have been unsuccessful. General surgery was consulted for tracheostomy placement. PAST MEDICAL HISTORY: See list. PAST SURGICAL HISTORY: See list. SOCIAL HISTORY: No illicit drug use. REVIEW OF SYSTEMS: Unable to obtain secondary to sedation and mechanical ventilation PHYSICAL EXAM: VITAL SIGNS: Reviewed. GENERAL: Well-developed in no acute distress on continuous sedation HEENT: ET tube noted. OG with tube feeding infusing. No sclera icterus. Extraocular movements grossly intact. Moist buccal mucosa. Head is atraumatic, normocephalic. ABDOMEN: Soft. Nondistended. Positive bowel sounds. NEUROLOGIC: Sedated on mechanical ventilation ASSESSMENT: 1. Acute hypoxic respiratory failure requiring mechanical ventilation secondary to pneumonia PLAN: Dr. Rees discussed tracheostomy with family member at the bedside. Agreeable to undergo trach. Patient scheduled for tracheostomy tomorrow with Dr. Rees Please stop tube feedings at midnight Nurse practitioner note has been reviewed by physician. Signing provider agrees with the documented findings, assessment, and plan of care. Past Medical History Past Medical History: COPD Additional Past Medical History / Comment(s): neurofibromatosis, mild learning disability, legally blind bilaterally-pt states as long as she wears her glasses she can see pretty well, bilateral lower leg edema at times. 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 Past Anesthesia/Blood Transfusion Reactions: Postoperative Nausea & Vomiting (PONV) Past Psychological History: Depression Additional Psychological History / Comment(s): Pt resides with her sister, Sally who is her payee. Pt uses no assistive device. She does not drive, her sister or boyfriend take her places. She is disabled. She signs her own paperwork, she manages her own medications. Smoking Status: Former smoker Past Alcohol Use History: None Reported Additional Past Alcohol Use History / Comment(s): Pt started smoking in 1990, quit 2018 Past Drug Use History: None Reported - Past Family History Father Family Medical History: Cancer Additional Family Medical History / Comment(s): Father had lung to bone cancer and of this at the age of 70yrs. He was an exsmoker. Mother Family Medical History: Cancer Additional Family Medical History / Comment(s): Mother of breast cancer at the age of 65yrs. Medications and Allergies Home Medications Medication Instructions Recorded Confirmed Type ARIPiprazole [Abilify] 10 mg PO DAILY 12/31/15 02/14/19 History Furosemide [Lasix] 20 mg PO DAILY 04/13/16 02/14/19 History FLUoxetine HCL [PROzac] 20 mg PO DAILY 03/11/18 02/14/19 History Ibuprofen [Motrin] 800 mg PO TID 03/11/18 02/14/19 History Famotidine [Pepcid] 40 mg PO DAILY 11/21/18 02/14/19 History Spironolactone [Aldactone] 50 mg PO DAILY 11/21/18 02/14/19 History Albuterol Inhaler [Ventolin Hfa 1 - 2 puff INHALATION RT-Q6H PRN 11/23/18 02/14/19 Rx Inhaler] #1 inhaler Ipratropium [place] [Atrovent Hfa] 2 puff INHALATION RT-TID 01/24/19 02/14/19 History Allergies Allergy/AdvReac Type Severity Reaction Status Date / Time amoxicillin AdvReac Nausea & Verified 02/14/19 07:24 Vomiting Surgical - Exam Vital Signs Temp Pulse Resp BP Pulse Ox 97.6 F 112 H 18 155/84 97 02/14/19 03:49 02/14/19 03:49 02/14/19 03:49 02/14/19 03:49 02/14/19 03:49 Results - Labs 02/18/19 04:15 02/18/19 04:15 Abnormal Lab Results - Last 24 Hours (Table) 02/18/19 02/18/19 02/18/19 Range/Units 04:15 04:15 07:29 WBC 11.8 H (3.8-10.6) k/uL Hgb 11.1 L (11.4-16.0) gm/dL RDW 16.8 H (11.5-15.5) % Neutrophils # (Manual) 10.30 H (1.3-7.7) k/uL Lymphocytes # (Manual) 0.71 L (1.0-4.8) k/uL Metamyelocytes # (Man) 0.12 H (0) k/uL Myelocytes # (Manual) 0.12 H (0) k/uL ABG pH 7.48 H (7.35-7.45) ABG HCO3 28 H (21-25) mmol/L ABG Total CO2 30 H (19-24) mmol/L Chloride 109 H (98-107) mmol/L BUN 27 H (7-17) mg/dL Creatinine 0.50 L (0.52-1.04) mg/dL Glucose 129 H (74-99) mg/dL Calcium 11.3 H (8.4-10.2) mg/dL Microbiology - Last 24 Hours (Table) 02/14/19 10:12 Blood Culture - Preliminary Blood No Growth after 96 hours Diabetes panel 02/18/19 Range/Units 04:15 Sodium 140 (137-145) mmol/L Potassium 4.2 (3.5-5.1) mmol/L Chloride 109 H (98-107) mmol/L Carbon Dioxide 27 (22-30) mmol/L BUN 27 H (7-17) mg/dL Creatinine 0.50 L (0.52-1.04) mg/dL Glucose 129 H (74-99) mg/dL Calcium 11.3 H (8.4-10.2) mg/dL Calcium panel 02/18/19 Range/Units 04:15 Calcium 11.3 H (8.4-10.2) mg/dL Phosphorus 3.1 (2.5-4.5) mg/dL Pituitary panel 02/18/19 Range/Units 04:15 Sodium 140 (137-145) mmol/L Potassium 4.2 (3.5-5.1) mmol/L Chloride 109 H (98-107) mmol/L Carbon Dioxide 27 (22-30) mmol/L BUN 27 H (7-17) mg/dL Creatinine 0.50 L (0.52-1.04) mg/dL Glucose 129 H (74-99) mg/dL Calcium 11.3 H (8.4-10.2) mg/dL Adrenal panel 02/18/19 Range/Units 04:15 Sodium 140 (137-145) mmol/L Potassium 4.2 (3.5-5.1) mmol/L Chloride 109 H (98-107) mmol/L Carbon Dioxide 27 (22-30) mmol/L BUN 27 H (7-17) mg/dL Creatinine 0.50 L (0.52-1.04) mg/dL Glucose 129 H (74-99) mg/dL Calcium 11.3 H (8.4-10.2) mg/dL
--- NOTE | 2019-02-18 16:35 | P.PN ---
Subjective This is a 48 years old female who presents because of respiratory distress. When I was informed about the patient she was already in the ICU, at that time patient was already been seen by the critical care team and they were doing the intubation procedure while she was in the ICU. I saw patient later on she was already intubated and on mechanical ventilation. Patient could not provide information as she was intubated and sedated so information was taken from the staff and the medical records. Apparently patient with past medical history of COPD and neurofibromatosis, she was recently discharged from my [facility] the [facility] where she got intubated there for respiratory failure however she is on support to the hospital again with diminished level of consciousness and dyspnea as per records so patient was moved to the ICU and she was intubated. She has a lot of secretions which were worked suctioned out both at the Intubation time and during the bronchoscopy which was done later on. 02/16/2019 pt remains in the ICU intubated and sedated , she is in critical condition for her bilateral pneumonia, more on the right , she has coupous purulent secretion , . she is currently on vancomycin and cefepime, culture is growing MSSA, vancomycin will be discontinued., her WBC is coming down 20 K to 12.9 K .pulmonary critical care team are following the case closely and mention patient found. Patient is currently on steroids as well. And Lasix. Patient was on sedation holiday today 02/17/2019 Patient in the ICU, intubated and sedated. Repeat chest x-ray showing possible persistent pneumonia with small bilateral pleural effusion. She is currently on cefepime and steroids. Her vancomycin was stopped. WBC is 13.8 K, creatinine 0.5. Patient is followed and managed carefully by the pulmonary/critical care team. 02/18/2019 Patient remains in the ICU. No much difference clinically from yesterday. Chest x-ray showing right basal infiltrate and improved aeration in the left lung. Patient is being followed closely by the pulmonary/critical care team will discuss the case with the sister at bedside and decided to go for tracheostomy given her previous history of extubation and reintubation, please refer to pulmonary/critical care note for more details. Surgical consult evaluated the patient today. Sputum culture growing MSSA and patient is currently on cefepime. WBC is coming down to 11.8 K. Creatinine 0.5. Blood pressure is stable at 128/62. Patient is afebrile. Objective - Vital Signs Vital signs: Vital Signs Temp 97.9 F 02/18/19 04:00 Pulse 80 02/18/19 15:49 Resp 25 H 02/18/19 15:00 BP 83/29 02/18/19 10:30 Pulse Ox 97 02/18/19 15:00 Intake & Output 02/17/19 02/18/19 02/18/19 18:59 06:59 18:59 Intake Total 7476.556 5288.566 719.226 Output Total 367 384 485 Balance 705.506 774.566 234.226 Weight 132.8 kg 132.8 kg Intake: IV 622 628 480 Arterial Line 36 39 15 CVP 36 39 15 Cefepime 2 gm In Sodium 100 Chloride 0.9% 100 ml @ 200 mls/hr IVPB Q12HR [facility] Rx#:[id number] Sodium Chloride 0.9% 1, 550 550 350 000 ml @ 50 mls/hr IV . Q20H [facility] Rx#:[id number] Intake, IV Titration 291.506 382.566 179.226 Amount Propofol 1,000 mg In 291.506 382.566 179.226 Empty Bag 1 bag @ Titrate IV .Q0M [facility] Rx#: [id number] Tube Feeding 99 88 60 Other 60 60 Output: Urine 367 384 485 Other: Voiding Method Indwelling Catheter Indwelling Catheter Indwelling Catheter # Voids 0 ABP, PAP, CO, CI - Last Documented Arterial Blood Pressure 132/64 - Exam -GENERAL: The patient is intubated and sedated. She is obese HEENT: Pupils are round and equally reacting to light. EOMI. No scleral icterus. No conjunctival pallor. Normocephalic, atraumatic. No pharyngeal erythema. No thyromegaly. CARDIOVASCULAR: S1 and S2 present. No murmurs, rubs, or gallops. -PULMONARY: Chest is clear to auscultation, she has coarse breath sounds on both lower bases. no wheezing or crackles. ABDOMEN: Soft, nontender, nondistended, normoactive bowel sounds. No palpable organomegaly. MUSCULOSKELETAL: No joint swelling or deformity. -EXTREMITIES: No cyanosis, clubbing, or pedal edema. She has multiple nodules in extremities, related to her neurofibromatosis NEUROLOGICAL: Gross neurological examination did not reveal any focal deficits. SKIN: No rashes. - Labs CBC & Chem 7: 02/18/19 04:15 02/18/19 04:15 Labs: Abnormal Lab Results - Last 24 Hours (Table) 02/18/19 02/18/19 02/18/19 Range/Units 04:15 04:15 07:29 WBC 11.8 H (3.8-10.6) k/uL Hgb 11.1 L (11.4-16.0) gm/dL RDW 16.8 H (11.5-15.5) % Neutrophils # (Manual) 10.30 H (1.3-7.7) k/uL Lymphocytes # (Manual) 0.71 L (1.0-4.8) k/uL Metamyelocytes # (Man) 0.12 H (0) k/uL Myelocytes # (Manual) 0.12 H (0) k/uL ABG pH 7.48 H (7.35-7.45) ABG HCO3 28 H (21-25) mmol/L ABG Total CO2 30 H (19-24) mmol/L Chloride 109 H (98-107) mmol/L BUN 27 H (7-17) mg/dL Creatinine 0.50 L (0.52-1.04) mg/dL Glucose 129 H (74-99) mg/dL Calcium 11.3 H (8.4-10.2) mg/dL Microbiology - Last 24 Hours (Table) 02/14/19 10:12 Blood Culture - Preliminary Blood No Growth after 96 hours Assessment and Plan Assessment: Acute hypoxemic respiratory failure secondary to bilateral lower lobe pneumonia. Patient need mechanical ventilation bilateral purulent lower lobe pneumonia, clips more on the right side Acute COPD exacerbation history of neurofibromatosis Obesity History of smoking Plan: This is a 48 years old female who presents with bilateral purulent pneumonia, and respiratory failure needed intubation. Patient admitted to the ICU. We'll follow the recommendation of the pulmonary/critical care team. Continue with broad-spectrum antibiotics. Follow-up sputum culture. Continue with steroids. Continue with a breathing treatments. Continue with IV fluids.Labs and medication were reviewed.. Continue same treatment. Continue with symptomatic treatment. Monitor lytes and vitals. DVT and GI prophylaxis. Further re commendations of the clinical course of the patient DVT prophylaxis: Subcutaneous heparin GI Prophylaxis: Protonix Prognosis is guarded
[2019-02-19] MEDS: methylPREDNISolone SOD SUCCI 40 MG/ML 1 ML VIAL IV SCH ×5 (00:56→23:49)
[2019-02-19] MEDS: HEPARIN SODIUM,PORCINE 5,000 UNIT/ML 1 ML VIAL SQ SCH ×4 (00:56→23:50)
[2019-02-19] MEDS: PROPOFOL 1,000 MG in EMPTY BAG 1 BAG IV SCH ×6 (01:01→21:20)
[2019-02-19] MEDS: SODIUM CHLORIDE 0.9% 1,000 ML IV SCH ×2 (05:46→21:56)
[2019-02-19 06:00] VITALS: BP 140/67
[2019-02-19 06:51] LABS: ABG Base Excess 4.6 mmol/L; ABG HCO3 28 mmol/L (21-25); ABG PCO2 39 mmHg (35-45); ABG PH 7.47 (7.35-7.45); ABG PO2 84 mmHg (83-108); ABG TCO2 30 mmol/L (19-24); Allen Test Performed? Yes
[2019-02-19 06:58] LABS: Anisocytosis Slight; HCT 35.6 % (34.0-46.0); HGB 11.5 gm/dL (11.4-16.0); MCH 29.7 pg (25.0-35.0); MCHC 32.3 g/dL (31.0-37.0); MCV 92.1 fL (80.0-100.0); Mean Platelet Volume 10.9; Platelet Count 162 k/uL (150-450); RBC 3.87 m/uL (3.80-5.40); RDW 16.8 % (11.5-15.5); WBC 14.5 k/uL (3.8-10.6)
[2019-02-19 07:25] LABS: African American GFR (CKD) >90 (>60 ml/min/1.73 sqM); Anion Gap 1 mmol/L; Blood Urea Nitrogen 32 mg/dL (7-17); Calcium 11.2 mg/dL (8.4-10.2); Carbon Dioxide 28 mmol/L (22-30); Chloride 111 mmol/L (98-107); Glucose 116 mg/dL (74-99); Magnesium 2.2 mg/dL (1.6-2.3); Phosphorus 2.8 mg/dL (2.5-4.5); Potassium 4.2 mmol/L (3.5-5.1); Sodium 140 mmol/L (137-145)
[2019-02-19] MEDS: IPRATROPIUM-ALBUTEROL 3 ML NEB INHALATION SCH ×4 (07:36→19:23)
[2019-02-19] MEDS: CEFEPIME 2 GM in SODIUM CHLORIDE 0.9% 100 ML IVPB SCH (08:13)
[2019-02-19] MEDS: PANTOPRAZOLE 40 MG/10 ML VIAL IVP SCH (08:13)
[2019-02-19] MEDS: CHLORHEXIDINE GLUCONATE 15 ML CUP MUCOUS MEM SCH ×2 (08:13→21:56)
[2019-02-19 08:14] LABS: Band Neutrophils % 5 %; Basophils # (M) 0.15 k/uL (0-0.2); Lymphocytes # (M) 0.44 k/uL (1.0-4.8); Metamyelocytes # (M) 0.73 k/uL (0); Metamyelocytes % 5 %; Monocytes # (M) 1.74 k/uL (0-1.0); Myelocytes # (M) 0.29 k/uL (0); Myelocytes % 2 %; Neutrophils % (M) 74 %; Nucleated Red Blood Cells 0 /100 WBC (0-0); Total Cells Counted 200
--- NOTE | 2019-02-19 10:15 | XR ---
EXAMINATION TYPE: XR chest 1V portable DATE OF EXAM: 02/19/2019 COMPARISON: 02/18/2019 INDICATION: Tube placement TECHNIQUE: Single frontal view of the chest is obtained. FINDINGS: The heart size is normal. The pulmonary vasculature is normal. Mild infiltrate is at the right base. This is improving from comparison. There is an endotracheal tube with the tip above the lj. Nasogastric tube transverses the thorax. Left central venous catheter is present with the tip in superior vena cava region. IMPRESSION: 1. Improving right lower lobe infiltrate. 2. Lines and catheters discussed above
--- NOTE | 2019-02-19 11:14 | P.PN ---
Subjective Progress Note Date: 02/19/19 Principal diagnosis: Acute hypoxic respiratory failure secondary to purulent tracheobronchitis and pneumonia. This is a 48-year-old female patient with known history of COPD and neurofibromatosis was post intubation mechanical ventilation for respiratory failure approximately 3 weeks ago at [facility]. The patient was discharged home and this morning the patient was brought back to the emergency department lethargic, diminished level of consciousness, worsening shortness of breath and she was having inspiratory stridor. The patient was placed on a BiPAP in the emergency department. The patient was transferred to selective telemetry unit. At that point, the patient had worsening shortness of breath and further diminishment in level of consciousness pH she got transferred to the intensive care unit. I immediately saw the patient upon arrival to the ICU. She was having inspiratory stridor/noisy breathing while even being on a BiPAP at a pressure of 10/5 cm of water. I briefly discontinued the BiPAP and inspiratory stridor was quite obvious. As such, I suspect an upper airway obstruction. He decided to intubate the patient accordingly. The chest x-ray showed cardiac cardiac structures to be normal with some cardiomegaly. There was increased bilateral lower lobe opacity and pneumonia was suspected. At this point, I started the patient with propofol. Using a glydoscope, I inspected the upper airway. I did not find any significant obstruction in the supraglottic area. In fact, epiglottis was within normal limits. The arytenoids and the vocal cords were all within normal limits. There was copious amount of purulent respiratory secretions occupying the posterior oropharynx and the larynx and the these were suctioned out. As I was getting ready to do my intubation, I noticed that the patient was coughing copious amount of purulent material which was origin radiating from her lungs and with every cough I was able to suction large globs of purulent material that was settling in her posterior larynx and the vocal cord area. I did further suctioning and I aspirated approximately 20-25 mL of purulent chocolate the creamy.material. Following that, intubated the patient with a #7.5 ET tube. Post intubation, I performed a bronchoscopy and another 25-30 mL of purulent material was aspirated from the patient's lungs bilaterally more so on the right. Following this, I did an airway inspection. The lower airways were patent without any acute abnormalities. There was significant purulent material and this was only finding. The visualized airways were all patent without any foreign bodies or endobronchial tumor. At that point, I moved the bronchoscope to the ET tube and I retracted the bronchoscope and I inspected the entire trachea reaching the subglottic area. I was not able to identify any form of airway obstruction or subglottic stenosis in this patient. The subglottic trachea was small but patent. I completed the procedure. Following that I kept the patient a mechanical ventilator and currently she is sedated with propofol. Is on a vent with a assist-control mode with an FiO2 of 100%, PEEP of 5, tidal volume of 400 and rate of 20. Post intubation blood gases showed a pH of 7.39 with a pCO2 of 46 and pO2 of 87. Post intubation chest x-ray showed a large consolidation of the right lower lob e. A triple lumen catheter was inserted. An outline catheter was inserted. The patient was started on a combination of cefepime and vancomycin and Levaquin. The patient was started on IV Solu-Medrol. The patient was started on DuoNeb the right units [id number]. She is well sedated for now and she is quite successful the mechanical ventilator. No hypotension. She is currently on normal saline at the rate of 75 mL an hour and the patient has not required any pressors. On 02/15/2019 the patient remains sedated and intubated on a mechanical ventilator, comfortable on propofol at 60 mics. 6 is a mechanical ventilator which is set at a tidal volume of 400 with a rate of 20 and a PEEP of 8 with an FiO2 of 50%. Blood gases from today showed a pH of 7.44 with a pCO2 of 42 and pO2 of 75. Chest x-rays revealing bilateral lower lobe consolidation/pneumonia. ET tube is in a good location. All of the lines are in place. The cultures still pending for now. Cover this patient with broad-spectrum antibiotics yesterday and the patient is afebrile and hemodynamically stable. Tube feeds will be started today. No nausea. No emesis. No abdominal distention. No significant orotracheal secretions. She remains on a combination of DuoNeb nebulized treatments around the clock. She is on IV cefepime and vancomycin. She is on IV Solu Medrol 4 mg every 6 hours. She is on DVT and GI prophylaxis. As mentioned earlier, the guide the scope evaluation of the upper airway, bronch oscopic evaluation of the lower airway shows no evidence of any airway obstruction and the findings were mainly consistent with purulent mucus and mucous plugs causing airway obstruction. Therapeutic airway suctioning was done. On 02/16/2019 the patient remains intubated on a mechanical ventilator. The patient is sedated. She was given a pre-sedation holiday during which she was waking up and moving and she was not following any specific commands. We'll put her back on propofol. She is still on a tidal volume of 400 with FiO2 of 50% and PEEP of 8 with a rate of 20. Morning blood gases showed a pH of 7.44 with a pCO2 of 39 and pO2 of 80. The patient is found to have staph aureus in her lungs and a culture is more consistent with MSSA. Based on that the vancomycin will be discontinued and the patient will be kept on IV cefepime. The patient is still having significant amount of respiratory secretions. The chest x-ray from today still showing bilateral lower lobe consolidation of right more than left. She is receiving enteral feeding for nutritional support. Otherwise, she has adequate blood pressure pH is adequate urine output. No fever or chills. She remains on IV Solu Medrol at a lower dose of 40 mg every 6 hours. We'll continue to follow. Reevaluated today on 02/17/2019, remains on mechanical ventilation. She is presently on assist control rate of 20, tidal volume of 400, FiO2 40%, PEEP of 8. Patient is on propofol, at 20 mcg/kg/m. Sedated, however I plan to wake of the patient today, and I plan to consider weaning parameters evaluation, and possibly a weaning trial. Chest x-ray was reviewed showed small bilateral pleural effusions, anddisease involving the lower lobes representing atelectasis or infiltrates. ABG this morning showed a pO2 of 80 pCO2 of 39 pH of 7.48 electrolytes were noted to be normal renal profile is normal. CBC showed a bit of leukocytosis with WBC count of 13.8 hemoglobin is 11.4. Patient was reevaluated today on 02/18/2019, remains on mechanical ventilation, basically on the same vent settings as noted above. PEEP was cut down to 5. Her FiO2 remained at 40%. Her ABG showed a pO2 of 83 pCO2 of 38 pH of 7.48. Chest x-ray continues to show dense consolidation in the right lower lobe. Patient was taken off sedation, seems to be arousable, followed simple instructions, however I had a chance today to get a full discussion with her sister was also legal guardian, and she explained to me that the patient had similar presentation before in early January, she was intubated in our ER, sent to [facility], she was extubated after couple of days, but within 3 hours she had to be reintubated. Even the second time she was extubated she was always marginal, and she continued to have almost symptoms of stridor. She was sent to [facility], and 2 days after the patient deteriorated again and had to be reintubated in our ER again. Considering the story and the presentation, today I had a long discussion with the sister, and suggested that we proceed with tracheostomy since this usually seems to be going on for quite some time. And most likely the patient will fail again if extubated hence it would be best to proceed with tracheostomy, in the meantime continue antibiotics, continue suctioning of secretions when tracheostomy is placed, and eventually may have to be bronchoscoped and evaluate her airways, also have ENT evaluate her vocal cords. According to Dr. Rausch the vocal cords were intact, and there was no evidence of masses on the vocal cords when he intubated the patient. Reevaluated today on 02/19/2019, patient remains on mechanical ventilation, and she is scheduled for tracheostomy today. Her ventilator settings are assist control rate of 20 tidal volume 400 FiO2 of 40% PEEP of 5. Remains on propofol at 35 mcg/kg/m, not requiring any pressors. Chest x-ray continues to show consolidation in the right lower lobe. After a long discussion with family yesterday, we have decided to proceed with tracheostomy since the patient had multiple intubations and extubation as, and she would likely fail if extubated this time. Tracheostomy would be a better choice at this point. And eventually decannulate and removed tracheostomy down the line. And the patient completely recovers. She may even need to be bronchoscoped after tracheostomy is done. ABG this morning showed a pO2 of 84 pCO2 of 39 pH of 7.47. Electrolytes and renal profile are normal. She has a bit of leukocytosis with WBC 14.5 hemoglobin is 11.5. Sputum is positive for MSSA. Hence we will discontinue cefepime, and place the patient on rocephin. Vancomycin was discontinued. Objective - Vital Signs Vital signs: Vital Signs Temp 98.1 F 02/19/19 08:00 Pulse 72 02/19/19 11:00 Resp 20 02/19/19 11:00 BP 140/67 02/19/19 04:00 Pulse Ox 96 02/19/19 11:00 Intake & Output 02/18/19 02/19/19 02/19/19 18:59 06:59 18:59 Intake Total 3425.664 1694 334.648 Output Total 690 640 280 Balance 314.836 364 54.648 Weight 132.8 kg 132 kg Intake: IV 630 766 330 Arterial Line 15 33 15 CVP 15 33 15 Cefepime 2 gm In Sodium 100 100 100 Chloride 0.9% 100 ml @ 200 mls/hr IVPB Q12HR [facility] Rx#:[id number] Sodium Chloride 0.9% 1, 500 600 200 000 ml @ 50 mls/hr IV . Q20H [facility] Rx#:[id number] Intake, IV Titration 276.836 200 4.648 Amount Propofol 1,000 mg In 276.836 200 4.648 Empty Bag 1 bag @ Titrate IV .Q0M [facility] Rx#: [id number] Tube Feeding 98 38 Output: Urine 690 640 280 Other: Voiding Method Indwelling Catheter Indwelling Catheter Indwelling Catheter # Voids 0 ABP, PAP, CO, CI - Last Documented Arterial Blood Pressure 136/64 - Exam Physical Exam: Revealed 48-year-old female in no distress, sedated, on mechanical ventilation. Scheduled for tracheostomy today. Head: Atraumatic, normocephalic. HEENT:[Neck is supple.] [No neck masses.] [No thyromegaly.] [No JVD.] PERRLA, EOMI, no icterus, endotracheal tube and orogastric tube are intact. Chest: Crackles and rhonchi at the bases, no wheezes noted. Symmetrical chest expansion, no chest wall tenderness.] Cardiac Exam: [Normal S1 and S2, no S3 gallop, no murmur.] Abdomen: Obese, [Soft, nontender, no megaly, no rebound, no guarding, normal bowel sounds.] Extremities: [No clubbing, trace of bipedal edema, no cyanosis.] Neurological Exam: Could not be assessed today, patient is sedated, will undergo tracheostomy today. Lymphatics: No lymphadenopathy. Skin: Diffuse neurofibromas noted bilaterally. - Labs CBC & Chem 7: 02/19/19 06:00 02/19/19 06:00 Labs: Abnormal Lab Results - Last 24 Hours (Table) 02/19/19 02/19/19 02/19/19 Range/Units 06:00 06:00 06:48 WBC 14.5 H (3.8-10.6) k/uL RDW 16.8 H (11.5-15.5) % Neutrophils # (Manual) 11.40 H (1.3-7.7) k/uL Lymphocytes # (Manual) 0.44 L (1.0-4.8) k/uL Monocytes # (Manual) 1.74 H (0-1.0) k/uL Metamyelocytes # (Man) 0.73 H (0) k/uL Myelocytes # (Manual) 0.29 H (0) k/uL ABG pH 7.47 H (7.35-7.45) ABG HCO3 28 H (21-25) mmol/L ABG Total CO2 30 H (19-24) mmol/L Chloride 111 H (98-107) mmol/L BUN 32 H (7-17) mg/dL Creatinine 0.51 L (0.52-1.04) mg/dL Glucose 116 H (74-99) mg/dL Calcium 11.2 H (8.4-10.2) mg/dL Microbiology - Last 24 Hours (Table) 02/14/19 10:12 Blood Culture - Preliminary Blood No Growth after 96 hours Assessment and Plan Assessment: Impression: 1 acute hypoxic respiratory failure requiring intubation and mechanical ventilation, patient presented with significant stridor and significant mucus plugging was suspected upon intubating the patient by Dr. Rausch. 2 strongly suspect right lower lobe pneumonia secondary to MSSA 3 history of underlying COPD with acute exacerbation. For neurofibromatosis 5 obesity 6 depression 7 history of smoking 8 troponin leak Recommendation: Continue ventilatory support, nutritional support, GI and DVT prophylaxis, proceed with tracheostomy today, will start weaning trials utilizing pressure support and CPAP tomorrow. Continue steroids. Continue bronchodilators Continue antibiotics, switched the patient to Rocephin. Continu e to monitor chest x-ray on a daily basis, daily interruption of sedation and assessment for weaning. I think it will be much easier to wean and x-rayed the patient down the line once tracheostomy was performed. We'll continue to follow. Critical care time is 32 minutes. Time with Patient: Greater than 30
[2019-02-19] MEDS ORDERED: ROCURONIUM BROMIDE 10 MG/ML 10 ML VIAL IV ONE (13:15)
[2019-02-19] MEDS ORDERED: fentaNYL (PF) 50 MCG/ML 2 ML AMP ONE (13:15)
--- NOTE | 2019-02-19 15:49 | CDI ---
Documentation Clarification Form Date: 02/19/2019 3:38:31 PM From: Demetra BlumGarciaMERVIN currie, CCDS Admit Date: 02/14/2019 5:04:00 AM Patient Name: Nisha Toure I Visit Number: [id number] Discharge Date: ATTENTION: The Clinical Documentation Specialists (CDI) and [facility] Coding Staff appreciate your assistance in clarifying documentation. Please respond to the clarification below the line at the bottom and electronically sign. The CDI & [facility] Coding staff will review the response and follow-up if needed. Please note: Queries are made part of the Legal Health Record. If you have any questions, please contact the author of this message via ITS. Dr. Nur Sheet: Per the History & Physical, the patient is admitted with acute hypoxemic respiratory failure secondary to bilateral pneumonia & acute COPD exacerbation. History/Risk Factors: COPD, Neurofibromatosis, Obesity, former smoker. Clinical Indicators: Patient was admitted on 02/14, eventually intubated & has remained on the ventilator since pending a tracheostomy on 02/19 for failed attempts to wean. The patient also required a bronchoscopy with therapeutic airway suctioning of purulent materal. Admission VS: T 97.6, P 112^, R 18 (sob, labored, deep breathing, tachypnea), BP 155/84^, PO 97 on BiPAP LAB: WBC 20.9^, Neut 16.93^, D dimer 1.76^. Blood gas: pCO2 47^, HCO3 29^, Total CO2 30^, O2 sat 97.3^, pH 7.25*, pCO2 64^. 02/14 Blood culture: neg. 02/14 Sputum culture: Staphylococcus aureus. CXR: 02/14: Worsening RLL infiltrate, pneumonia considered. Daily CXRs: similar. Treatment: Intubated w/ventilation on 02/14. IV Lasix, Albuterol INH, IV Levaquin, IV Cefepime, IV Vancomycin In order to capture the severity of condition, please clarify if the condition signifies and you are treating for: Aspiration Pneumonia, identify if: o Due to solids or liquids Bacterial Pneumonia, specify causal organism (if known) Gram Negative Pneumonia, specify organism (if known) Viral Pneumonia, specify casual organism (if known) Healthcare Acquired Pneumonia/Pneumonia, unspecified Other, please specify Unable to determine (Last Revision: December 2017) Unable to determine MTDD
[2019-02-19] MEDS: HYDROmorphone 1 MG/ML 1 ML SYRINGE IVP PRN (16:44)
[2019-02-20] MEDS: HYDROmorphone 1 MG/ML 1 ML SYRINGE IVP PRN ×4 (00:06→20:11)
[2019-02-20] MEDS: PROPOFOL 1,000 MG in EMPTY BAG 1 BAG IV SCH ×4 (00:09→11:00)
[2019-02-20 04:48] LABS: Anisocytosis Slight; HCT 32.6 % (34.0-46.0); HGB 10.9 gm/dL (11.4-16.0); MCH 30.2 pg (25.0-35.0); MCHC 33.3 g/dL (31.0-37.0); MCV 90.5 fL (80.0-100.0); Mean Platelet Volume 11.1; Platelet Count 143 k/uL (150-450); RDW 16.7 % (11.5-15.5); WBC 16.2 k/uL (3.8-10.6)
[2019-02-20 04:53] LABS: ALT 31 U/L (9-52); AST 16 U/L (14-36); African American GFR (CKD) >90 (>60 ml/min/1.73 sqM); Albumin 2.8 g/dL (3.5-5.0); Alkaline Phosphatase 86 U/L (38-126); Anion Gap 1 mmol/L; Blood Urea Nitrogen 30 mg/dL (7-17); Calcium 11.1 mg/dL (8.4-10.2); Carbon Dioxide 28 mmol/L (22-30); Chloride 109 mmol/L (98-107); Glucose 113 mg/dL (74-99); Potassium 4.2 mmol/L (3.5-5.1); Sodium 138 mmol/L (137-145); Total Bilirubin 0.3 mg/dL (0.2-1.3); Total Protein 5.2 g/dL (6.3-8.2)
[2019-02-20] MEDS: methylPREDNISolone SOD SUCCI 40 MG/ML 1 ML VIAL IV SCH ×3 (05:51→17:43)
--- NOTE | 2019-02-20 06:01 | P.PN ---
Subjective This is a 48 years old female who presents because of respiratory distress. When I was informed about the patient she was already in the ICU, at that time patient was already been seen by the critical care team and they were doing the intubation procedure while she was in the ICU. I saw patient later on she was already intubated and on mechanical ventilation. Patient could not provide information as she was intubated and sedated so information was taken from the staff and the medical records. Apparently patient with past medical history of COPD and neurofibromatosis, she was recently discharged from [facility] the [facility] where she got intubated there for respiratory failure however she is on support to the hospital again with diminished level of consciousness and dyspnea as per records so patient was moved to the ICU and she was intubated. She has a lot of secretions which were worked suctioned out both at the Intubation time and during the bronchoscopy which was done later on. 02/16/2019 pt remains in the ICU intubated and sedated , she is in critical condition for her bilateral pneumonia, more on the right , she has coupous purulent secretion , . she is currently on vancomycin and cefepime, culture is growing MSSA, vancomycin will be discontinued., her WBC is coming down 20 K to 12.9 K .pulmonary critical care team are following the case closely and mention patient found. Patient is currently on steroids as well. And Lasix. Patient was on sedation holiday today 02/17/2019 Patient in the ICU, intubated and sedated. Repeat chest x-ray showing possible persistent pneumonia with small bilateral pleural effusion. She is currently on cefepime and steroids. Her vancomycin was stopped. WBC is 13.8 K, creatinine 0.5. Patient is followed and managed carefully by the pulmonary/critical care team. 02/18/2019 Patient remains in the ICU. No much difference clinically from yesterday. Chest x-ray showing right basal infiltrate and improved aeration in the left lung. Patient is being followed closely by the pulmonary/critical care team will discuss the case with the sister at bedside and decided to go for tracheostomy given her previous history of extubation and reintubation, please refer to pulmonary/critical care note for more details. Surgical consult evaluated the patient today. Sputum culture growing MSSA and patient is currently on cefepime. WBC is coming down to 11.8 K. Creatinine 0.5. Blood pressure is stable at 128/62. Patient is afebrile. 02/19/2019 Patient in the ICU on steroids and antibiotics for permanent pneumonia, pulmonary/critical care team R following the case closely and for her vent management. Patient is going for tracheostomy today by surgery team. Vitals stable. WBC 14.5 K. Sodium 140, creatinine 0.5. Culture is growing MSSA and patient ceftriaxone was started today. Objective - Vital Signs Vital signs: Vital Signs Temp 98.1 F 02/19/19 16:00 Pulse 66 02/19/19 19:30 Resp 20 02/19/19 19:23 BP 140/67 02/19/19 04:00 Pulse Ox 97 02/19/19 19:00 Intake & Output 02/19/19 02/19/19 02/20/19 06:59 18:59 06:59 Intake Total 1004 944.882 50 Output Total 640 845 35 Balance 364 99.882 15 Weight 132 kg Intake: IV 766 654 50 Arterial Line 33 27 CVP 33 27 Cefepime 2 gm In Sodium 100 100 Chloride 0.9% 100 ml @ 200 mls/hr IVPB Q12HR [facility] Rx#:[id number] Sodium Chloride 0.9% 1, 600 400 50 000 ml @ 50 mls/hr IV . Q20H [facility] Rx#:[id number] cefTRIAXone 1 gm In 100 Sodium Chloride 0.9% 50 ml @ 100 mls/hr IVPB Q24HR [facility] Rx#:[id number] Intake, IV Titration 200 290.882 Amount Propofol 1,000 mg In 200 290.882 Empty Bag 1 bag @ Titrate IV .Q0M [facility] Rx#: [id number] Tube Feeding 38 Output: Urine 640 645 35 Estimated Blood Loss 200 Other: Voiding Method Indwelling Catheter Indwelling Catheter ABP, PAP, CO, CI - Last Documented Arterial Blood Pressure 128/63 - Exam -GENERAL: The patient is intubated and sedated. She is obese HEENT: Pupils are round and equally reacting to light. EOMI. No scleral icterus. No conjunctival pallor. Normocephalic, atraumatic. No pharyngeal erythema. No thyromegaly. CARDIOVASCULAR: S1 and S2 present. No murmurs, rubs, or gallops. -PULMONARY: Chest is clear to auscultation, she has coarse breath sounds on both lower bases. no wheezing or crackles. ABDOMEN: Soft, nontender, nondistended, normoactive bowel sounds. No palpable organomegaly. MUSCULOSKELETAL: No joint swelling or deformity. -EXTREMITIES: No cyanosis, clubbing, or pedal edema. She has multiple nodules in extremities, related to her neurofibromatosis NEUROLOGICAL: Gross neurological examination did not reveal any focal deficits. SKIN: No rashes. - Labs CBC & Chem 7: 02/20/19 04:15 02/20/19 04:15 Labs: Abnormal Lab Results - Last 24 Hours (Table) 02/19/19 02/19/19 02/19/19 Range/Units 06:00 06:00 06:48 WBC 14.5 H (3.8-10.6) k/uL RDW 16.8 H (11.5-15.5) % Neutrophils # (Manual) 11.40 H (1.3-7.7) k/uL Lymphocytes # (Manual) 0.44 L (1.0-4.8) k/uL Monocytes # (Manual) 1.74 H (0-1.0) k/uL Metamyelocytes # (Man) 0.73 H (0) k/uL Myelocytes # (Manual) 0.29 H (0) k/uL ABG pH 7.47 H (7.35-7.45) ABG HCO3 28 H (21-25) mmol/L ABG Total CO2 30 H (19-24) mmol/L Chloride 111 H (98-107) mmol/L BUN 32 H (7-17) mg/dL Creatinine 0.51 L (0.52-1.04) mg/dL Glucose 116 H (74-99) mg/dL Calcium 11.2 H (8.4-10.2) mg/dL Microbiology - Last 24 Hours (Table) 02/14/19 10:12 Blood Culture - Preliminary Blood No Growth after 120 hours Assessment and Plan Assessment: Acute hypoxemic respiratory failure secondary to bilateral lower lobe pneumonia. Patient need mechanical ventilation bilateral purulent lower lobe pneumonia, clips more on the right side Acute COPD exacerbation history of neurofibromatosis Obesity History of smoking Plan: This is a 48 years old female who presents with bilateral purulent pneumonia, and respiratory failure needed intubation. Patient admitted to the ICU. We'll follow the recommendation of the pulmonary/critical care team. Continue with broad-spectrum antibiotics. Follow-up sputum culture. Continue with steroids. Continue with a breathing treatments. Continue with IV fluids.Labs and medication were reviewed.. Continue same treatment. Continue with symptomatic treatment. Monitor lytes and vitals. DVT and GI prophylaxis. Further recommendations of the clinical course of the patient DVT prophylaxis: Subcutaneous heparin GI Prophylaxis: Protonix Prognosis is guarded
[2019-02-20 06:11] LABS: Band Neutrophils % 11 %; Large Platelets Present; Lymphocytes # (M) 2.27 k/uL (1.0-4.8); Metamyelocytes # (M) 0.81 k/uL (0); Metamyelocytes % 5 %; Monocytes # (M) 0.81 k/uL (0-1.0); Myelocytes # (M) 0.32 k/uL (0); Myelocytes % 2 %; Neutrophils % (M) 65 %; Nucleated Red Blood Cells 0 /100 WBC (0-0); Total Cells Counted 200
[2019-02-20 06:20] LABS: Polychromasia Present
--- NOTE | 2019-02-20 07:02 | XR ---
EXAMINATION TYPE: XR chest 1V portable DATE OF EXAM: 02/20/2019 CLINICAL HISTORY: Difficulty breathing progress study. TECHNIQUE: Single AP portable semiupright view of the chest is obtained. COMPARISON: Chest x-ray from one day earlier and older studies. FINDINGS: There is interval replacement of endotracheal tube with flexible tracheostomy tube. There is interval removal of orogastric tube. Left subclavian central venous catheter is stable. Cardiac si lhouette size is stable and upper limits of normal with persistent bibasilar opacities. Upper lungs r emain clear. Osseous structures are intact. IMPRESSION: Interval tracheostomy. Persistent bibasilar acute infiltrate and/or atelectasis with susp ected small left pleural effusion not significantly changed.
[2019-02-20 07:22] LABS: ABG Base Excess 5.3 mmol/L; ABG HCO3 29 mmol/L (21-25); ABG Oxygen Saturation 96.2 % (94-97); ABG PCO2 37 mmHg (35-45); ABG PO2 84 mmHg (83-108); ABG TCO2 30 mmol/L (19-24); Allen Test Performed? Yes
[2019-02-20] MEDS: IPRATROPIUM-ALBUTEROL 3 ML NEB INHALATION SCH ×4 (07:42→20:25)
[2019-02-20] MEDS: HEPARIN SODIUM,PORCINE 5,000 UNIT/ML 1 ML VIAL SQ SCH ×2 (08:01→15:56)
[2019-02-20] MEDS: PANTOPRAZOLE 40 MG/10 ML VIAL IVP SCH (08:02)
[2019-02-20] MEDS: CHLORHEXIDINE GLUCONATE 15 ML CUP MUCOUS MEM SCH ×2 (08:02→20:50)
--- NOTE | 2019-02-20 11:09 | P.PN ---
Subjective Progress Note Date: 02/20/19 Principal diagnosis: Acute hypoxic respiratory failure secondary to purulent tracheobronchitis and pneumonia. This is a 48-year-old female patient with known history of COPD and neurofibromatosis was post intubation mechanical ventilation for respiratory failure approximately 3 weeks ago at [facility]. The patient was discharged home and this morning the patient was brought back to the emergency department lethargic, diminished level of consciousness, worsening shortness of breath and she was having inspiratory stridor. The patient was placed on a BiPAP in the emergency department. The patient was transferred to selective telemetry unit. At that point, the patient had worsening shortness of breath and further diminishment in level of consciousness pH she got transferred to the intensive care unit. I immediately saw the patient upon arrival to the ICU. She was having inspiratory stridor/noisy breathing while even being on a BiPAP at a pressure of 10/5 cm of water. I briefly discontinued the BiPAP and inspiratory stridor was quite obvious. As such, I suspect an upper airway obstruction. He decided to intubate the patient accordingly. The chest x-ray showed cardiac cardiac structures to be normal with some cardiomegaly. There was increased bilateral lower lobe opacity and pneumonia was suspected. At this point, I started the patient with propofol. Using a glydoscope, I inspected the upper airway. I did not find any significant obstruction in the supraglottic area. In fact, epiglottis was within normal limits. The arytenoids and the vocal cords were all within normal limits. There was copious amount of purulent respiratory secretions occupying the posterior oropharynx and the larynx and the these were suctioned out. As I was getting ready to do my intubation, I noticed that the patient was coughing copious amount of purulent material which was origin radiating from her lungs and with every cough I was able to suction large globs of purulent material that was settling in her posterior larynx and the vocal cord area. I did further suctioning and I aspirated approximately 20-25 mL of purulent chocolate the creamy.material. Following that, intubated the patient with a #7.5 ET tube. Post intubation, I performed a bronchoscopy and another 25-30 mL of purulent material was aspirated from the patient's lungs bilaterally more so on the right. Following this, I did an airway inspection. The lower airways were patent without any acute abnormalities. There was significant purulent material and this was only finding. The visualized airways were all patent without any foreign bodies or endobronchial tumor. At that point, I moved the bronchoscope to the ET tube and I retracted the bronchoscope and I inspected the entire trachea reaching the subglottic area. I was not able to identify any form of airway obstruction or subglottic stenosis in this patient. The subglottic trachea was small but patent. I completed the procedure. Following that I kept the patient a mechanical ventilator and currently she is sedated with propofol. Is on a vent with a assist-control mode with an FiO2 of 100%, PEEP of 5, tidal volume of 400 and rate of 20. Post intubation blood gases showed a pH of 7.39 with a pCO2 of 46 and pO2 of 87. Post intubation chest x-ray showed a large consolidation of the right lower lob e. A triple lumen catheter was inserted. An outline catheter was inserted. The patient was started on a combination of cefepime and vancomycin and Levaquin. The patient was started on IV Solu-Medrol. The patient was started on DuoNeb the right units [id number]. She is well sedated for now and she is quite successful the mechanical ventilator. No hypotension. She is currently on normal saline at the rate of 75 mL an hour and the patient has not required any pressors. On 02/15/2019 the patient remains sedated and intubated on a mechanical ventilator, comfortable on propofol at 60 mics. 6 is a mechanical ventilator which is set at a tidal volume of 400 with a rate of 20 and a PEEP of 8 with an FiO2 of 50%. Blood gases from today showed a pH of 7.44 with a pCO2 of 42 and pO2 of 75. Chest x-rays revealing bilateral lower lobe consolidation/pneumonia. ET tube is in a good location. All of the lines are in place. The cultures still pending for now. Cover this patient with broad-spectrum antibiotics yesterday and the patient is afebrile and hemodynamically stable. Tube feeds will be started today. No nausea. No emesis. No abdominal distention. No significant orotracheal secretions. She remains on a combination of DuoNeb nebulized treatments around the clock. She is on IV cefepime and vancomycin. She is on IV Solu Medrol 4 mg every 6 hours. She is on DVT and GI prophylaxis. As mentioned earlier, the guide the scope evaluation of the upper airway, bronch oscopic evaluation of the lower airway shows no evidence of any airway obstruction and the findings were mainly consistent with purulent mucus and mucous plugs causing airway obstruction. Therapeutic airway suctioning was done. On 02/16/2019 the patient remains intubated on a mechanical ventilator. The patient is sedated. She was given a pre-sedation holiday during which she was waking up and moving and she was not following any specific commands. We'll put her back on propofol. She is still on a tidal volume of 400 with FiO2 of 50% and PEEP of 8 with a rate of 20. Morning blood gases showed a pH of 7.44 with a pCO2 of 39 and pO2 of 80. The patient is found to have staph aureus in her lungs and a culture is more consistent with MSSA. Based on that the vancomycin will be discontinued and the patient will be kept on IV cefepime. The patient is still having significant amount of respiratory secretions. The chest x-ray from today still showing bilateral lower lobe consolidation of right more than left. She is receiving enteral feeding for nutritional support. Otherwise, she has adequate blood pressure pH is adequate urine output. No fever or chills. She remains on IV Solu Medrol at a lower dose of 40 mg every 6 hours. We'll continue to follow. Reevaluated today on 02/17/2019, remains on mechanical ventilation. She is presently on assist control rate of 20, tidal volume of 400, FiO2 40%, PEEP of 8. Patient is on propofol, at 20 mcg/kg/m. Sedated, however I plan to wake of the patient today, and I plan to consider weaning parameters evaluation, and possibly a weaning trial. Chest x-ray was reviewed showed small bilateral pleural effusions, anddisease involving the lower lobes representing atelectasis or infiltrates. ABG this morning showed a pO2 of 80 pCO2 of 39 pH of 7.48 electrolytes were noted to be normal renal profile is normal. CBC showed a bit of leukocytosis with WBC count of 13.8 hemoglobin is 11.4. Patient was reevaluated today on 02/18/2019, remains on mechanical ventilation, basically on the same vent settings as noted above. PEEP was cut down to 5. Her FiO2 remained at 40%. Her ABG showed a pO2 of 83 pCO2 of 38 pH of 7.48. Chest x-ray continues to show dense consolidation in the right lower lobe. Patient was taken off sedation, seems to be arousable, followed simple instructions, however I had a chance today to get a full discussion with her sister was also legal guardian, and she explained to me that the patient had similar presentation before in early January, she was intubated in our ER, sent to [facility], she was extubated after couple of days, but within 3 hours she had to be reintubated. Even the second time she was extubated she was always marginal, and she continued to have almost symptoms of stridor. She was sent to [facility], and 2 days after the patient deteriorated again and had to be reintubated in our ER again. Considering the story and the presentation, today I had a long discussion with the sister, and suggested that we proceed with tracheostomy since this usually seems to be going on for quite some time. And most likely the patient will fail again if extubated hence it would be best to proceed with tracheostomy, in the meantime continue antibiotics, continue suctioning of secretions when tracheostomy is placed, and eventually may have to be bronchoscoped and evaluate her airways, also have ENT evaluate her vocal cords. According to Dr. Rausch the vocal cords were intact, and there was no evidence of masses on the vocal cords when he intubated the patient. Reevaluated today on 02/19/2019, patient remains on mechanical ventilation, and she is scheduled for tracheostomy today. Her ventilator settings are assist control rate of 20 tidal volume 400 FiO2 of 40% PEEP of 5. Remains on propofol at 35 mcg/kg/m, not requiring any pressors. Chest x-ray continues to show consolidation in the right lower lobe. After a long discussion with family yesterday, we have decided to proceed with tracheostomy since the patient had multiple intubations and extubation as, and she would likely fail if extubated this time. Tracheostomy would be a better choice at this point. And eventually decannulate and removed tracheostomy down the line. And the patient completely recovers. She may even need to be bronchoscoped after tracheostomy is done. ABG this morning showed a pO2 of 84 pCO2 of 39 pH of 7.47. Electrolytes and renal profile are normal. She has a bit of leukocytosis with WBC 14.5 hemoglobin is 11.5. Sputum is positive for MSSA. Hence we will discontinue cefepime, and place the patient on rocephin. Vancomycin was discontinued. Reevaluated today on 02/20/2019, patient remains on mechanical ventilation, she underwent tracheostomy yesterday. Patient is on tidal volume of 400 assist control rate of 20 FiO2 of 40% and PEEP of 5. She was on 40 mcg/kg/m of propofol until earlier today, hence this was discontinued, and we plan to the patient a weaning trial with a pressure support and CPAP. If tolerated, we'll may proceed to a trach collar. In the meantime her urine output is marginal, and I increased her IV fluid to 100 mL per hour. Nurses could not place a na sogastric tube, hence I would hold on GI consultation for a nasogastric tube placement, if the patient gets to be placed on trach collar, we may assess swallow evaluation, and may feed while on trach collar. Otherwise may have to consult GI for nasogastric tube placement. ABG this morning showed a pO2 of 84 pCO2 of 37 pH of 7.50. Chest x-ray continues to show by basilar infiltrates. And very small tiny left pleural effusion Objective - Vital Signs Vital signs: Vital Signs Temp 98.6 F 02/20/19 08:00 Pulse 89 02/20/19 10:00 Resp 24 02/20/19 10:00 BP 140/67 02/19/19 04:00 Pulse Ox 95 02/20/19 10:00 Intake & Output 02/19/19 02/20/19 02/20/19 18:59 06:59 18:59 Intake Total 895.742 0343.296 324 Output Total 845 565 185 Balance 99.882 476.296 139 Weight 133.9 kg Intake: IV 654 666 224 Arterial Line 27 33 12 CVP 27 33 12 Cefepime 2 gm In Sodium 100 Chloride 0.9% 100 ml @ 200 mls/hr IVPB Q12HR [facility] Rx#:[id number] Sodium Chloride 0.9% 1, 400 600 150 000 ml @ 50 mls/hr IV . Q20H [facility] Rx#:[id number] cefTRIAXone 1 gm In 100 50 Sodium Chloride 0.9% 50 ml @ 100 mls/hr IVPB Q24HR [facility] Rx#:[id number] Intake, IV Titration 290.882 375.296 100 Amount Propofol 1,000 mg In 290.882 375.296 100 Empty Bag 1 bag @ Titrate IV .Q0M [facility] Rx#: [id number] Output: Urine 645 565 185 Estimated Blood Loss 200 Other: Voiding Method Indwelling Catheter Indwelling Catheter ABP, PAP, CO, CI - Last Documented Arterial Blood Pressure 154/70 - Exam Physical Exam: Revealed 48-year-old female in no distress, sedated, on mec hanical ventilation. Head: Atraumatic, normocephalic. HEENT:[Neck is supple.] [No neck masses.] [No thyromegaly.] [No JVD.] PERRLA, EOMI, no icterus, tracheostomy is intact. Chest: Crackles and rhonchi at the bases, no wheezes noted. Symmetrical chest expansion, no chest wall tenderness.] Cardiac Exam: [Normal S1 and S2, no S3 gallop, no murmur.] Abdomen: Obese, [Soft, nontender, no megaly, no rebound, no guarding, normal bowel sounds.] Extremities: [No clubbing, trace of bipedal edema, no cyanosis.] Neurological Exam: Could not be assessed today, patient is sedated, Lymphatics: No lymphadenopathy. Skin: Diffuse neurofibromas noted bilaterally. - Labs CBC & Chem 7: 02/20/19 04:15 02/20/19 04:15 Labs: Abnormal Lab Results - Last 24 Hours (Table) 02/20/19 02/20/19 02/20/19 Range/Units 04:15 04:15 07:20 WBC 16.2 H (3.8-10.6) k/uL RBC 3.60 L (3.80-5.40) m/uL Hgb 10.9 L (11.4-16.0) gm/dL Hct 32.6 L (34.0-46.0) % RDW 16.7 H (11.5-15.5) % Plt Count 143 L (150-450) k/uL Neutrophils # (Manual) 12.30 H (1.3-7.7) k/uL Metamyelocytes # (Man) 0.81 H (0) k/uL Myelocytes # (Manual) 0.32 H (0) k/uL ABG pH 7.50 H (7.35-7.45) ABG HCO3 29 H (21-25) mmol/L ABG Total CO2 30 H (19-24) mmol/L Chloride 109 H (98-107) mmol/L BUN 30 H (7-17) mg/dL Glucose 113 H (74-99) mg/dL Calcium 11.1 H (8.4-10.2) mg/dL Total Protein 5.2 L (6.3-8.2) g/dL Albumin 2.8 L (3.5-5.0) g/dL Microbiology - Last 24 Hours (Table) 02/14/19 10:12 Blood Culture - Preliminary Blood No Growth after 120 hours Assessment and Plan Assessment: Impression: 1 acute hypoxic respiratory failure requiring intubation and mechanical ventilation, patient presented with significant stridor and significant mucus plugging was suspected upon intubating the patient by Dr. Rausch. 2 strongly suspect right lower lobe pneumonia secondary to MSSA, remains on antibiotics for MSSA pneumonia. 3 history of underlying COPD with acute exacerbation. For neurofibromatosis 5 obesity 6 depression 7 history of smoking 8 troponin leak 9 status post tracheostomy, and I plan today to place the patient on pressure support and CPAP, and if tolerated transition the patient to trach collar, and we will proceed accordingly. Prognosis remains guarded, patient remains critically ill, we'll continue to follow. Continue ventilatory support, nutritional support, GI and DVT prophylaxis, weaning trials, continue steroids, bronchodilators, antibiotics, will continue to follow closely. Critical care time is 35 minutes. Time with Patient: Greater than 30
--- NOTE | 2019-02-20 11:53 | P.PN ---
Subjective Progress Note Date: 02/20/19 CHIEF COMPLAINT: Tracheostomy HISTORY OF PRESENT ILLNESS: 48-year-old female currently admitted to the intensive care unit secondary to pneumonia. Patient remains on mechanical ventilation. Patient is s/p trach placement. POD #1. NG was ordered yesterday postop for tube feeding but attempts by nursing were unsuccessful. PHYSICAL EXAM: VITAL SIGNS: Reviewed. GENERAL: Well-developed in no acute distress. Remains on mechanical ventilation. HEENT: No sclera icterus. Extraocular movements grossly intact. Moist buccal mucosa. Head is atraumatic, normocephalic. ABDOMEN: Soft. Nondistended. Positive bowel sounds. NEUROLOGIC: Sedated on mechanical ventilation ASSESSMENT: 1. Acute hypoxic respiratory failure requiring mechanical ventilation secondary to pneumonia PLAN: 1. Ventilator management per Dr. Schultz 2. Per pulmonary documentation, may attempt trach collar and possible swallow evaluation for PO intake. Otherwise pulmonary plans on consulting GI for NG tube insertion. Will defer to their services. Nurse practitioner note has been reviewed by physician. Signing provider agrees with the documented findings, assessment, and plan of care. Objective - Vital Signs Vital signs: Vital Signs Temp 98.6 F 02/20/19 08:00 Pulse 71 02/20/19 11:00 Resp 20 02/20/19 11:00 BP 140/67 02/19/19 04:00 Pulse Ox 95 02/20/19 11:00 Intake & Output 02/19/19 02/20/19 02/20/19 18:59 06:59 18:59 Intake Total 687.849 6966.296 453.566 Output Total 845 565 310 Balance 99.882 476.296 143.566 Weight 133.9 kg 133.9 kg Intake: IV 654 666 330 Arterial Line 27 33 15 CVP 27 33 15 Cefepime 2 gm In Sodium 100 Chloride 0.9% 100 ml @ 200 mls/hr IVPB Q12HR [facility] Rx#:[id number] Sodium Chloride 0.9% 1, 400 600 250 000 ml @ 50 mls/hr IV . Q20H [facility] Rx#:[id number] cefTRIAXone 1 gm In 100 50 Sodium Chloride 0.9% 50 ml @ 100 mls/hr IVPB Q24HR [facility] Rx#:[id number] Intake, IV Titration 290.882 375.296 123.566 Amount Propofol 1,000 mg In 290.882 375.296 123.566 Empty Bag 1 bag @ Titrate IV .Q0M [facility] Rx#: [id number] Output: Urine 645 565 310 Estimated Blood Loss 200 Other: Voiding Method Indwelling Catheter Indwelling Catheter Indwelling Catheter ABP, PAP, CO, CI - Last Documented Arterial Blood Pressure 124/57 - Labs CBC & Chem 7: 02/20/19 04:15 02/20/19 04:15 Labs: Abnormal Lab Results - Last 24 Hours (Table) 02/20/19 02/20/19 02/20/19 Range/Units 04:15 04:15 07:20 WBC 16.2 H (3.8-10.6) k/uL RBC 3.60 L (3.80-5.40) m/uL Hgb 10.9 L (11.4-16.0) gm/dL Hct 32.6 L (34.0-46.0) % RDW 16.7 H (11.5-15.5) % Plt Count 143 L (150-450) k/uL Neutrophils # (Manual) 12.30 H (1.3-7.7) k/uL Metamyelocytes # (Man) 0.81 H (0) k/uL Myelocytes # (Manual) 0.32 H (0) k/uL ABG pH 7.50 H (7.35-7.45) ABG HCO3 29 H (21-25) mmol/L ABG Total CO2 30 H (19-24) mmol/L Chloride 109 H (98-107) mmol/L BUN 30 H (7-17) mg/dL Glucose 113 H (74-99) mg/dL Calcium 11.1 H (8.4-10.2) mg/dL Total Protein 5.2 L (6.3-8.2) g/dL Albumin 2.8 L (3.5-5.0) g/dL Microbiology - Last 24 Hours (Table) 02/14/19 10:12 Blood Culture - Preliminary Blood No Growth after 120 hours
[2019-02-21] MEDS: methylPREDNISolone SOD SUCCI 40 MG/ML 1 ML VIAL IV SCH ×4 (00:03→17:41)
[2019-02-21] MEDS: HEPARIN SODIUM,PORCINE 5,000 UNIT/ML 1 ML VIAL SQ SCH ×3 (00:03→17:41)
[2019-02-21] MEDS: SODIUM CHLORIDE 0.9% 1,000 ML IV SCH ×2 (00:04→20:00)
[2019-02-21 05:45] LABS: Anisocytosis Slight; HCT 33.5 % (34.0-46.0); HGB 10.9 gm/dL (11.4-16.0); MCH 29.5 pg (25.0-35.0); MCHC 32.4 g/dL (31.0-37.0); Mean Platelet Volume 11.5; Platelet Count 126 k/uL (150-450); RBC 3.68 m/uL (3.80-5.40); WBC 17.5 k/uL (3.8-10.6)
[2019-02-21 06:22] LABS: African American GFR (CKD) >90 (>60 ml/min/1.73 sqM); Anion Gap 4 mmol/L; Blood Urea Nitrogen 26 mg/dL (7-17); Calcium 11.2 mg/dL (8.4-10.2); Carbon Dioxide 28 mmol/L (22-30); Chloride 106 mmol/L (98-107); Glucose 98 mg/dL (74-99); Potassium 4.2 mmol/L (3.5-5.1); Sodium 138 mmol/L (137-145)
[2019-02-21 06:44] LABS: Band Neutrophils % 18 %; Lymphocytes # (M) 1.05 k/uL (1.0-4.8); Metamyelocytes # (M) 0.53 k/uL (0); Metamyelocytes % 3 %; Monocytes # (M) 0.18 k/uL (0-1.0); Myelocytes # (M) 0.18 k/uL (0); Myelocytes % 1 %; Neutrophils % (M) 71 %; Nucleated Red Blood Cells 0 /100 WBC (0-0); Total Cells Counted 200
[2019-02-21 06:45] LABS: Anisocytosis (M) Present
--- NOTE | 2019-02-21 06:55 | P.PN ---
Subjective This is a 48 years old female who presents because of respiratory distress. When I was informed about the patient she was already in the ICU, at that time patient was already been seen by the critical care team and they were doing the intubation procedure while she was in the ICU. I saw patient later on she was already intubated and on mechanical ventilation. Patient could not provide information as she was intubated and sedated so information was taken from the staff and the medical records. Apparently patient with past medical history of COPD and neurofibromatosis, she was recently discharged from my [facility] where she got intubated there for respiratory failure however she is on support to the hospital again with diminished level of consciousness and dyspnea as per records so patient was moved to the ICU and she was intubated. She has a lot of secretions which were worked suctioned out both at the Intubation time and during the bronchoscopy which was done later on. 02/16/2019 pt remains in the ICU intubated and sedated , she is in critical condition for her bilateral pneumonia, more on the right , she has coupous purulent secretion , . she is currently on vancomycin and cefepime, culture is growing MSSA, vancomycin will be discontinued., her WBC is coming down 20 K to 12.9 K .pulmonary critical care team are following the case closely and mention patient found. Patient is currently on steroids as well. And Lasix. Patient was on sedation holiday today 02/17/2019 Patient in the ICU, intubated and sedated. Repeat chest x-ray showing possible persistent pneumonia with small bilateral pleural effusion. She is currently on cefepime and steroids. Her vancomycin was stopped. WBC is 13.8 K, creatinine 0.5. Patient is followed and managed carefully by the pulmonary/critical care team. 02/18/2019 Patient remains in the ICU. No much difference clinically from yesterday. Chest x-ray showing right basal infiltrate and improved aeration in the left lung. Patient is being followed closely by the pulmonary/critical care team will discuss the case with the sister at bedside and decided to go for tracheostomy given her previous history of extubation and reintubation, please refer to pulmonary/critical care note for more details. Surgical consult evaluated the patient today. Sputum culture growing MSSA and patient is currently on cefepime. WBC is coming down to 11.8 K. Creatinine 0.5. Blood pressure is stable at 128/62. Patient is afebrile. 02/19/2019 Patient in the ICU on steroids and antibiotics for permanent pneumonia, pulmonary/critical care team R following the case closely and for her vent management. Patient is going for tracheostomy today by surgery team. Vitals stable. WBC 14.5 K. Sodium 140, creatinine 0.5. Culture is growing MSSA and patient ceftriaxone was started today. 02/20/2019 Patient in the ICU on steroids and antibiotics for purulant pneumonia, pulmonary/critical care team R following the case closely and for her vent management. Patient is status post tracheostomy , Vitals stable oxygen saturation 94L on 40 %. WBC 17.5 K. Hb stable at 10.9 ,Sodium 138, creatinine 0.52. Culture is growing MSSA and patient is on ceftriaxone Objective - Vital Signs Vital signs: Vital Signs Temp 98.4 F 02/20/19 16:00 Pulse 83 02/20/19 20:42 Resp 26 H 02/20/19 19:00 BP 140/67 02/19/19 04:00 Pulse Ox 91 L 02/20/19 19:00 Intake & Output 02/20/19 02/20/19 02/21/19 06:59 18:59 06:59 Intake Total 2428.904 7817.414 Output Total 565 765 Balance 476.296 563.414 Weight 133.9 kg 133.9 kg Intake: IV 666 1178 Arterial Line 33 39 CVP 33 39 Sodium Chloride 0.9% 1, 600 1050 000 ml @ 50 mls/hr IV . Q20H [facility] Rx#:[id number] cefTRIAXone 1 gm In 50 Sodium Chloride 0.9% 50 ml @ 100 mls/hr IVPB Q24HR [facility] Rx#:[id number] Intake, IV Titration 375.296 150.414 Amount Propofol 1,000 mg In 375.296 150.414 Empty Bag 1 bag @ Titrate IV .Q0M [facility] Rx#: [id number] Output: Urine 565 765 Other: Voiding Method Indwelling Catheter Indwelling Catheter ABP, PAP, CO, CI - Last Documented Arterial Blood Pressure 148/70 - Exam -GENERAL: The patient is intubated and sedated. She is obese HEENT: Pupils are round and equally reacting to light. EOMI. No scleral icterus. No conjunctival pallor. Normocephalic, atraumatic. No pharyngeal erythema. No thyromegaly. CARDIOVASCULAR: S1 and S2 present. No murmurs, rubs, or gallops. -PULMONARY: Chest is clear to auscultation, she has coarse breath sounds on both lower bases. no wheezing or crackles. ABDOMEN: Soft, nontender, nondistended, normoactive bowel sounds. No palpable organomegaly. MUSCULOSKELETAL: No joint swelling or deformity. -EXTREMITIES: No cyanosis, clubbing, or pedal edema. She has multiple nodules in extremities, related to her neurofibromatosis NEUROLOGICAL: Gross neurological examination did not reveal any focal deficits. SKIN: No rashes. - Labs CBC & Chem 7: 02/21/19 03:55 02/21/19 03:55 Labs: Abnormal Lab Results - Last 24 Hours (Table) 02/20/19 02/20/19 02/20/19 Range/Units 04:15 04:15 07:20 WBC 16.2 H (3.8-10.6) k/uL RBC 3.60 L (3.80-5.40) m/uL Hgb 10.9 L (11.4-16.0) gm/dL Hct 32.6 L (34.0-46.0) % RDW 16.7 H (11.5-15.5) % Plt Count 143 L (150-450) k/uL Neutrophils # (Manual) 12.30 H (1.3-7.7) k/uL Metamyelocytes # (Man) 0.81 H (0) k/uL Myelocytes # (Manual) 0.32 H (0) k/uL ABG pH 7.50 H (7.35-7.45) ABG HCO3 29 H (21-25) mmol/L ABG Total CO2 30 H (19-24) mmol/L Chloride 109 H (98-107) mmol/L BUN 30 H (7-17) mg/dL Glucose 113 H (74-99) mg/dL Calcium 11.1 H (8.4-10.2) mg/dL Total Protein 5.2 L (6.3-8.2) g/dL Albumin 2.8 L (3.5-5.0) g/dL Microbiology - Last 24 Hours (Table) 02/14/19 10:12 Blood Culture - Final Blood No Growth after 144 hours Assessment and Plan Assessment: Acute hypoxemic respiratory failure secondary to bilateral lower lobe pneumonia. Patient need mechanical ventilation bilateral purulent lower lobe pneumonia, clips more on the right side Acute COPD exacerbation history of neurofibromatosis Obesity History of smoking Plan: This is a 48 years old female who presents with bilateral purulent pneumonia, and respiratory failure needed intubation. Patient admitted to the ICU. We'll follow the recommendation of the pulmonary/critical care team. Continue with broad-spectrum antibiotics. Follow-up sputum culture. Continue with steroids. Continue with a breathing treatments. Continue with IV fluids.Labs and medication were reviewed.. Continue same treatment. Continue with symptomatic treatment. Monitor lytes and vitals. DVT and GI prophylaxis. Further recommen dations of the clinical course of the patient DVT prophylaxis: Subcutaneous heparin GI Prophylaxis: Protonix Prognosis is guarded
--- NOTE | 2019-02-21 07:23 | XR ---
EXAMINATION TYPE: XR chest 1V portable DATE OF EXAM: 02/21/2019 HISTORY: SOB. REFERENCE: Previous study dated 02/20/2019. FINDINGS: A tracheostomy tube is in place. Its tip overlies the tracheal air column in this single fr ontal projection. There is bibasilar atelectasis. There are small, bilateral effusions. The heart is mildly prominent. IMPRESSION: 1. CONTINUING BIBASILAR ATELECTASIS. 2. SMALL, BILATERAL EFFUSIONS. 3. MILD CARDIOMEGALY.
[2019-02-21 07:25] LABS: ABG Base Excess 5.7 mmol/L; ABG HCO3 29 mmol/L (21-25); ABG Oxygen Saturation 94.9 % (94-97); ABG PCO2 40 mmHg (35-45); ABG PH 7.48 (7.35-7.45); ABG PO2 71 mmHg (83-108); ABG TCO2 30 mmol/L (19-24); Allen Test Performed? Yes
[2019-02-21] MEDS: IPRATROPIUM-ALBUTEROL 3 ML NEB INHALATION SCH ×4 (07:32→20:30)
[2019-02-21] MEDS: PANTOPRAZOLE 40 MG/10 ML VIAL IVP SCH (08:58)
[2019-02-21] MEDS: CHLORHEXIDINE GLUCONATE 15 ML CUP MUCOUS MEM SCH ×2 (08:58→21:40)
[2019-02-21] MEDS: HYDROmorphone 1 MG/ML 1 ML SYRINGE IVP PRN ×4 (09:46→21:40)
--- NOTE | 2019-02-21 10:48 | P.PN ---
Subjective Progress Note Date: 02/21/19 Principal diagnosis: Acute hypoxic respiratory failure secondary to purulent tracheobronchitis and pneumonia. This is a 48-year-old female patient with known history of COPD and neurofibromatosis was post intubation mechanical ventilation for respiratory failure approximately 3 weeks ago at [facility]. The patient was discharged home and this morning the patient was brought back to the emergency department lethargic, diminished level of consciousness, worsening shortness of breath and she was having inspiratory stridor. The patient was placed on a BiPAP in the emergency department. The patient was transferred to selective telemetry unit. At that point, the patient had worsening shortness of breath and further diminishment in level of consciousness pH she got transferred to the intensive care unit. I immediately saw the patient upon arrival to the ICU. She was having inspiratory stridor/noisy breathing while even being on a BiPAP at a pressure of 10/5 cm of water. I briefly discontinued the BiPAP and inspiratory stridor was quite obvious. As such, I suspect an upper airway obstruction. He decided to intubate the patient accordingly. The chest x-ray showed cardiac cardiac structures to be normal with some cardiomegaly. There was increased bilateral lower lobe opacity and pneumonia was suspected. At this point, I started the patient with propofol. Using a glydoscope, I inspected the upper airway. I did not find any significant obstruction in the supraglottic area. In fact, epiglottis was within normal limits. The arytenoids and the vocal cords were all within normal limits. There was copious amount of purulent respiratory secretions occupying the posterior oropharynx and the larynx and the these were suctioned out. As I was getting ready to do my intubation, I noticed that the patient was coughing copious amount of purulent material which was origin radiating from her lungs and with every cough I was able to suction large globs of purulent material that was settling in her posterior larynx and the vocal cord area. I did further suctioning and I aspirated approximately 20-25 mL of purulent chocolate the creamy.material. Following that, intubated the patient with a #7.5 ET tube. Post intubation, I performed a bronchoscopy and another 25-30 mL of purulent material was aspirated from the patient's lungs bilaterally more so on the right. Following this, I did an airway inspection. The lower airways were patent without any acute abnormalities. There was significant purulent material and this was only finding. The visualized airways were all patent without any foreign bodies or endobronchial tumor. At that point, I moved the bronchoscope to the ET tube and I retracted the bronchoscope and I inspected the entire trachea reaching the subglottic area. I was not able to identify any form of airway obstruction or subglottic stenosis in this patient. The subglottic trachea was small but patent. I completed the procedure. Following that I kept the patient a mechanical ventilator and currently she is sedated with propofol. Is on a vent with a assist-control mode with an FiO2 of 100%, PEEP of 5, tidal volume of 400 and rate of 20. Post intubation blood gases showed a pH of 7.39 with a pCO2 of 46 and pO2 of 87. Post intubation chest x-ray showed a large consolidation of the right lower lob e. A triple lumen catheter was inserted. An outline catheter was inserted. The patient was started on a combination of cefepime and vancomycin and Levaquin. The patient was started on IV Solu-Medrol. The patient was started on DuoNeb the right units [id number]. She is well sedated for now and she is quite successful the mechanical ventilator. No hypotension. She is currently on normal saline at the rate of 75 mL an hour and the patient has not required any pressors. On 02/15/2019 the patient remains sedated and intubated on a mechanical ventilator, comfortable on propofol at 60 mics. 6 is a mechanical ventilator which is set at a tidal volume of 400 with a rate of 20 and a PEEP of 8 with an FiO2 of 50%. Blood gases from today showed a pH of 7.44 with a pCO2 of 42 and pO2 of 75. Chest x-rays revealing bilateral lower lobe consolidation/pneumonia. ET tube is in a good location. All of the lines are in place. The cultures still pending for now. Cover this patient with broad-spectrum antibiotics yesterday and the patient is afebrile and hemodynamically stable. Tube feeds will be started today. No nausea. No emesis. No abdominal distention. No significant orotracheal secretions. She remains on a combination of DuoNeb nebulized treatments around the clock. She is on IV cefepime and vancomycin. She is on IV Solu Medrol 4 mg every 6 hours. She is on DVT and GI prophylaxis. As mentioned earlier, the guide the scope evaluation of the upper airway, bronch oscopic evaluation of the lower airway shows no evidence of any airway obstruction and the findings were mainly consistent with purulent mucus and mucous plugs causing airway obstruction. Therapeutic airway suctioning was done. On 02/16/2019 the patient remains intubated on a mechanical ventilator. The patient is sedated. She was given a pre-sedation holiday during which she was waking up and moving and she was not following any specific commands. We'll put her back on propofol. She is still on a tidal volume of 400 with FiO2 of 50% and PEEP of 8 with a rate of 20. Morning blood gases showed a pH of 7.44 with a pCO2 of 39 and pO2 of 80. The patient is found to have staph aureus in her lungs and a culture is more consistent with MSSA. Based on that the vancomycin will be discontinued and the patient will be kept on IV cefepime. The patient is still having significant amount of respiratory secretions. The chest x-ray from today still showing bilateral lower lobe consolidation of right more than left. She is receiving enteral feeding for nutritional support. Otherwise, she has adequate blood pressure pH is adequate urine output. No fever or chills. She remains on IV Solu Medrol at a lower dose of 40 mg every 6 hours. We'll continue to follow. Reevaluated today on 02/17/2019, remains on mechanical ventilation. She is presently on assist control rate of 20, tidal volume of 400, FiO2 40%, PEEP of 8. Patient is on propofol, at 20 mcg/kg/m. Sedated, however I plan to wake of the patient today, and I plan to consider weaning parameters evaluation, and possibly a weaning trial. Chest x-ray was reviewed showed small bilateral pleural effusions, anddisease involving the lower lobes representing atelectasis or infiltrates. ABG this morning showed a pO2 of 80 pCO2 of 39 pH of 7.48 electrolytes were noted to be normal renal profile is normal. CBC showed a bit of leukocytosis with WBC count of 13.8 hemoglobin is 11.4. Patient was reevaluated today on 02/18/2019, remains on mechanical ventilation, basically on the same vent settings as noted above. PEEP was cut down to 5. Her FiO2 remained at 40%. Her ABG showed a pO2 of 83 pCO2 of 38 pH of 7.48. Chest x-ray continues to show dense consolidation in the right lower lobe. Patient was taken off sedation, seems to be arousable, followed simple instructions, however I had a chance today to get a full discussion with her sister was also legal guardian, and she explained to me that the patient had similar presentation before in early January, she was intubated in our ER, sent to [facility], she was extubated after couple of days, but within 3 hours she had to be reintubated. Even the second time she was extubated she was always marginal, and she continued to have almost symptoms of stridor. She was sent to [facility], and 2 days after the patient deteriorated again and had to be reintubated in our ER again. Considering the story and the presentation, today I had a long discussion with the sister, and suggested that we proceed with tracheostomy since this usually seems to be going on for quite some time. And most likely the patient will fail again if extubated hence it would be best to proceed with tracheostomy, in the meantime continue antibiotics, continue suctioning of secretions when tracheostomy is placed, and eventually may have to be bronchoscoped and evaluate her airways, also have ENT evaluate her vocal cords. According to Dr. Rausch the vocal cords were intact, and there was no evidence of masses on the vocal cords when he intubated the patient. Reevaluated today on 02/19/2019, patient remains on mechanical ventilation, and she is scheduled for tracheostomy today. Her ventilator settings are assist control rate of 20 tidal volume 400 FiO2 of 40% PEEP of 5. Remains on propofol at 35 mcg/kg/m, not requiring any pressors. Chest x-ray continues to show consolidation in the right lower lobe. After a long discussion with family yesterday, we have decided to proceed with tracheostomy since the patient had multiple intubations and extubation as, and she would likely fail if extubated this time. Tracheostomy would be a better choice at this point. And eventually decannulate and removed tracheostomy down the line. And the patient completely recovers. She may even need to be bronchoscoped after tracheostomy is done. ABG this morning showed a pO2 of 84 pCO2 of 39 pH of 7.47. Electrolytes and renal profile are normal. She has a bit of leukocytosis with WBC 14.5 hemoglobin is 11.5. Sputum is positive for MSSA. Hence we will discontinue cefepime, and place the patient on rocephin. Vancomycin was discontinued. Reevaluated today on 02/20/2019, patient remains on mechanical ventilation, she underwent tracheostomy yesterday. Patient is on tidal volume of 400 assist control rate of 20 FiO2 of 40% and PEEP of 5. She was on 40 mcg/kg/m of propofol until earlier today, hence this was discontinued, and we plan to the patient a weaning trial with a pressure support and CPAP. If tolerated, we'll may proceed to a trach collar. In the meantime her urine output is marginal, and I increased her IV fluid to 100 mL per hour. Nurses could not place a na sogastric tube, hence I would hold on GI consultation for a nasogastric tube placement, if the patient gets to be placed on trach collar, we may assess swallow evaluation, and may feed while on trach collar. Otherwise may have to consult GI for nasogastric tube placement. ABG this morning showed a pO2 of 84 pCO2 of 37 pH of 7.50. Chest x-ray continues to show by basilar infiltrates. And very small tiny left pleural effusion Patient was reevaluated today on 02/21/2019, remains on mechanical ventilation, was attempted to be placed on trach collar yesterday, and did not do quite well. Her ventilator settings are basically the same as noted above, she is on tidal volume of 400 assist control rate 25-40% and PEEP of 5. Chest x-ray showed minimal bibasilar atelectasis, suspect underlying pneumonia in the right lower lobe. Small bilateral pleural effusions were noted. Patient is awake, she is not on any sedation medication, and I have recommended a trial of pressure support of 8 and CPAP, if tolerated will proceed with trach collar. Labs were reviewed including his CBC demonstrated scattered 17.5 hemoglobin is 10.9. ABG showed a pO2 of 71 pCO2 of 40 pH of 7.48. Patient is not on any enteral feeding, I plan to place the patient on trach collar, and allow her to swallow, we encountered some difficulty in placement of a nasogastric tube. I'm hoping once the patient tolerates trach collar, we can feed her orally. Objective - Vital Signs Vital signs: Vital Signs Temp 98.4 F 02/21/19 08:00 Pulse 78 02/21/19 09:00 Resp 20 02/21/19 09:00 BP 140/67 02/19/19 04:00 Pulse Ox 96 02/21/19 09:00 Intake & Output 02/20/19 02/21/19 02/21/19 18:59 06:59 18:59 Intake Total 1328.414 616 56 Output Total 765 445 40 Balance 563.414 171 16 Weight 133.9 kg Intake: IV 1178 616 56 Arterial Line 39 33 3 CVP 39 33 3 Sodium Chloride 0.9% 1, 1050 550 50 000 ml @ 50 mls/hr IV . Q20H [facility] Rx#:[id number] cefTRIAXone 1 gm In 50 Sodium Chloride 0.9% 50 ml @ 100 mls/hr IVPB Q24HR [facility] Rx#:[id number] Intake, IV Titration 150.414 Amount Propofol 1,000 mg In 150.414 Empty Bag 1 bag @ Titrate IV .Q0M [facility] Rx#: [id number] Output: Urine 765 445 40 Other: Voiding Method Indwelling Catheter Indwelling Catheter ABP, PAP, CO, CI - Last Documented Arterial Blood Pressure 138/67 - Exam Physical Exam: Revealed 48-year-old female in no distress, awake, on mechanical ventilation, follows all instructions. Head: Atraumatic, normocephalic. HEENT:[Neck is supple.] [No neck masses.] [No thyromegaly.] [No JVD.] PERRLA, EOMI, no icterus, tracheostomy is intact. Chest: Crackles and rhonchi at the bases, no wheezes noted. Symmetrical chest expansion, no chest wall tenderness.] Cardiac Exam: [Normal S1 and S2, no S3 gallop, no murmur.] Abdomen: Obese, [Soft, nontender, no megaly, no rebound, no guarding, normal bowel sounds.] Extremities: [No clubbing, trace of bipedal edema, no cyanosis.] Neurological Exam: Awake, alert oriented 3, no gross focal neurologic deficits. Lymphatics: No lymphadenopathy. Skin: Diffuse neurofibromas noted bilaterally. - Labs CBC & Chem 7: 02/21/19 03:55 02/21/19 03:55 Labs: Abnormal Lab Results - Last 24 Hours (Table) 02/21/19 02/21/19 02/21/19 Range/Units 03:55 03:55 07:19 WBC 17.5 H (3.8-10.6) k/uL RBC 3.68 L (3.80-5.40) m/uL Hgb 10.9 L (11.4-16.0) gm/dL Hct 33.5 L (34.0-46.0) % RDW 17.0 H (11.5-15.5) % Plt Count 126 L (150-450) k/uL Neutrophils # (Manual) 15.50 H (1.3-7.7) k/uL Metamyelocytes # (Man) 0.53 H (0) k/uL Myelocytes # (Manual) 0.18 H (0) k/uL ABG pH 7.48 H (7.35-7.45) ABG pO2 71 L (83-108) mmHg ABG HCO3 29 H (21-25) mmol/L ABG Total CO2 30 H (19-24) mmol/L BUN 26 H (7-17) mg/dL Calcium 11.2 H (8.4-10.2) mg/dL Microbiology - Last 24 Hours (Table) 02/14/19 10:12 Blood Culture - Final Blood No Growth after 144 hours Assessment and Plan Assessment: Impression: 1 acute hypoxic respiratory failure requiring intubation and mechanical ventilation, patient presented with significant stridor and significant mucus plugging was suspected upon intubating the patient by Dr. Rausch. 2 strongly suspect right lower lobe pneumonia secondary to MSSA, remains on antibiotics for MSSA pneumonia. 3 history of underlying COPD with acute exacerbation. 4 neurofibromatosis 5 obesity 6 depression 7 history of smoking 8 troponin leak 9 status post tracheostomy, Recommendation: Continue mechanical ventilation, however I will switch the mode from assist-control mode of mechanical ventilation to pressure support mode with CPAP., If tolerated, will plan to switch the patient to a trach collar. In the meantime continue antibiotics, bronchodilators, GI and DVT prophylaxis, and we'll address nutrition-pierce the patient is on trach collar. I'm hoping we can switch her later today to a trach collar. And possibly start oral feeding. Prognosis remains relatively guarded, patient remains in the ICU on mechanical ventilation, relatively critically ill, critical care time is 35 minutes. Her family was updated yesterday on her condition. Time with Patient: Greater than 30
--- NOTE | 2019-02-21 14:02 | P.PN ---
Subjective Progress Note Date: 02/21/19 Principal diagnosis: This is a 48-year-old female patient with known history of COPD and neurofibromatosis was post intubation mechanical ventilation for respiratory failure approximately 3 weeks ago at [facility]. The patient was discharged home and this morning the patient was brought back to the emergency department lethargic, diminished level of consciousness, worsening shortness of breath and she was having inspiratory stridor. The patient was placed on a BiPAP in the emergency department. The patient was transferred to selective telemetry unit. At that point, the patient had worsening shortness of breath and further diminishment in level of consciousness pH she got transferred to the intensive care unit. 02/21/2019, Patient remains on mechanical ventilation, was attempted to be placed on trach collar yesterday, and did not do quite well. Chest x-ray showed minimal bibasilar atelectasis, suspect underlying pneumonia in the right lower lobe. Small bilateral pleural effusions were noted. Patient is awake, she is not on any sedation medication, and I have recommended a trial of pressure support of 8 and CPAP, if tolerated will proceed with trach collar. Labs were reviewed including his CBC demonstrated scattered 17.5 hemoglobin is 10.9. ABG showed a pO2 of 71 pCO2 of 40 pH of 7.48. Patient is not on any ent eral feeding, I plan to place the patient on trach collar, and allow her to swallow, we encountered some difficulty in placement of a nasogastric tube; once the patient tolerates trach collar, she can be started on oral feeding. Objective - Vital Signs Vital signs: Vital Signs Temp 98.4 F 02/20/19 16:00 Pulse 83 02/20/19 20:42 Resp 26 H 02/20/19 19:00 BP 140/67 02/19/19 04:00 Pulse Ox 91 L 02/20/19 19:00 Intake & Output 02/20/19 02/20/19 02/21/19 06:59 18:59 06:59 Intake Total 1834.564 1819.414 Output Total 565 765 Balance 476.296 563.414 Weight 133.9 kg 133.9 kg Intake: IV 666 1178 Arterial Line 33 39 CVP 33 39 Sodium Chloride 0.9% 1, 600 1050 000 ml @ 50 mls/hr IV . Q20H [facility] Rx#:[id number] cefTRIAXone 1 gm In 50 Sodium Chloride 0.9% 50 ml @ 100 mls/hr IVPB Q24HR [facility] Rx#:[id number] Intake, IV Titration 375.296 150.414 Amount Propofol 1,000 mg In 375.296 150.414 Empty Bag 1 bag @ Titrate IV .Q0M [facility] Rx#: [id number] Output: Urine 565 765 Other: Voiding Method Indwelling Catheter Indwelling Catheter ABP, PAP, CO, CI - Last Documented Arterial Blood Pressure 148/70 - Exam Physical Exam: Revealed 48-year-old female in no distress, awake, on mechanical ventilation, follows all instructions. Head: Atraumatic, normocephalic. HEENT:[Neck is supple.] [No neck masses.] [No thyromegaly.] [No JVD.] PERRLA, EOMI, no icterus, tracheostomy is intact. Chest: Crackles and rhonchi at the bases, no wheezes noted. Symmetrical chest expansion, no chest wall tenderness.] Cardiac Exam: [Normal S1 and S2, no S3 gallop, no murmur.] Abdomen: Obese, [Soft, nontender, no megaly, no rebound, no guarding, normal bowel sounds.] Extremities: [No clubbing, trace of bipedal edema, no cyanosis.] Neurological Exam: Awake, alert oriented 3, no gross focal neurologic deficits. Lymphatics: No lymphadenopathy. Skin: Diffuse neurofibromas noted bilaterally. - Labs CBC & Chem 7: 02/21/19 03:55 02/21/19 03:55 Labs: Abnormal Lab Results - Last 24 Hours (Table) 02/20/19 02/20/19 02/20/19 Range/Units 04:15 04:15 07:20 WBC 16.2 H (3.8-10.6) k/uL RBC 3.60 L (3.80-5.40) m/uL Hgb 10.9 L (11.4-16.0) gm/dL Hct 32.6 L (34.0-46.0) % RDW 16.7 H (11.5-15.5) % Plt Count 143 L (150-450) k/uL Neutrophils # (Manual) 12.30 H (1.3-7.7) k/uL Metamyelocytes # (Man) 0.81 H (0) k/uL Myelocytes # (Manual) 0.32 H (0) k/uL ABG pH 7.50 H (7.35-7.45) ABG HCO3 29 H (21-25) mmol/L ABG Total CO2 30 H (19-24) mmol/L Chloride 109 H (98-107) mmol/L BUN 30 H (7-17) mg/dL Glucose 113 H (74-99) mg/dL Calcium 11.1 H (8.4-10.2) mg/dL Total Protein 5.2 L (6.3-8.2) g/dL Albumin 2.8 L (3.5-5.0) g/dL Microbiology - Last 24 Hours (Table) 02/14/19 10:12 Blood Culture - Final Blood No Growth after 144 hours Assessment and Plan Assessment: 1. Acute hypoxic respiratory failure requiring intubation and mechanical ventilation, patient presented with significant stridor and significant mucus plugging was suspected upon intubating the patient by Dr. Rausch. 2. Right lower lobe pneumonia secondary to MSSA, remains on antibiotics for MSSA pneumonia in form of ceftriaxone 1 g IV daily. 3. COPD with acute exacerbation; continue with Solu-Medrol 40 mg IV every 6 hours. 4. Neurofibromatosis 5. Obesity 6. Depression 7. History of smoking 8. Troponin leak; stable 9. Status post tracheostomy; patient to be started on trach collar if tolerates, 10. DVT prophylaxis; subcu heparin CODE STATUS; full code Time with Patient: Greater than 30
--- NOTE | 2019-02-21 17:26 | P.PN ---
Subjective Progress Note Date: 02/21/19 CHIEF COMPLAINT: Status post tracheostomy HISTORY OF PRESENT ILLNESS: The patient is a 48-year-old female postop day 1 status post tracheostomy, 02/20/2019. Family is at bedside. She is tolerating the ventilator. In fact she smiling and awake. ROS: No reports of nausea and vomiting. No fevers or chills. PHYSICAL EXAM: VITAL SIGNS: Reviewed CONSTITUTIONAL: Well developed and in no acute distress. EYES: Conjuctivae without sclera icterus. Extraocular movements grossly intact. HEAD, EARS, NOSE, THROAT: Moist buccal mucosa. Head is atraumatic, normocephalic. Hears conversational speech. No nasal drainage. NECK: Tracheostomy site clean dry and intact with trach collar RESPIRATORY: Non-labored respirations and equal bilateral excursions. Mechanically ventilated. CARDIOVASCULAR: Palpable 2+ radial pulses. Regular rate. Regular rhythm. ABDOMEN: Soft. No peritonitis. MUSCULOSKELETAL: No gross deformity of the lower extremities noted. No clubbing. No cyanosis. SKIN: Good skin turgor. Well perfused. NEUROLOGIC: Cranial nerves I through XII grossly intact. No focal or lat eralizing signs. PSYCH: Alert and oriented to person CLINCAL LABS: White blood cell count elevated ASSESSMENT: 1. Acute respiratory failure status post tracheostomy PLAN: 1. Continue current dressings for tracheostomy 2. Ventilatory management per ICU Objective - Vital Signs Vital signs: Vital Signs Temp 98.1 F 02/21/19 12:00 Pulse 100 02/21/19 16:19 Resp 31 H 02/21/19 16:00 BP 140/67 02/19/19 04:00 Pulse Ox 92 L 02/21/19 16:00 Intake & Output 02/20/19 02/21/19 02/21/19 18:59 06:59 18:59 Intake Total 1328.414 616 610 Output Total 765 445 545 Balance 563.414 171 65 Weight 133.9 kg 133.9 kg Intake: IV 1178 616 610 Arterial Line 39 33 30 CVP 39 33 30 Sodium Chloride 0.9% 1, 1050 550 500 000 ml @ 50 mls/hr IV . Q20H [facility] Rx#:[id number] cefTRIAXone 1 gm In 50 50 Sodium Chloride 0.9% 50 ml @ 100 mls/hr IVPB Q24HR [facility] Rx#:[id number] Intake, IV Titration 150.414 Amount Propofol 1,000 mg In 150.414 Empty Bag 1 bag @ Titrate IV .Q0M [facility] Rx#: [id number] Output: Urine 875 445 545 Other: Voiding Method Indwelling Catheter Indwelling Catheter Indwelling Catheter ABP, PAP, CO, CI - Last Documented Arterial Blood Pressure 137/71 - Labs CBC & Chem 7: 02/21/19 03:55 02/21/19 03:55 Labs: Abnormal Lab Results - Last 24 Hours (Table) 02/21/19 02/21/19 02/21/19 Range/Units 03:55 03:55 07:19 WBC 17.5 H (3.8-10.6) k/uL RBC 3.68 L (3.80-5.40) m/uL Hgb 10.9 L (11.4-16.0) gm/dL Hct 33.5 L (34.0-46.0) % RDW 17.0 H (11.5-15.5) % Plt Count 126 L (150-450) k/uL Neutrophils # (Manual) 15.50 H (1.3-7.7) k/uL Metamyelocytes # (Man) 0.53 H (0) k/uL Myelocytes # (Manual) 0.18 H (0) k/uL ABG pH 7.48 H (7.35-7.45) ABG pO2 71 L (83-108) mmHg ABG HCO3 29 H (21-25) mmol/L ABG Total CO2 30 H (19-24) mmol/L BUN 26 H (7-17) mg/dL Calcium 11.2 H (8.4-10.2) mg/dL Assessment and Plan (1) Tracheobronchitis Current Visit: Yes Status: Acute Code(s): J40 - BRONCHITIS, NOT SPECIFIED ACUTE OR CHRONIC SNOMED Code(s): 63503015 (2) Respiratory failure with hypoxia Current Visit: Yes Status: Acute Code(s): J96.91 - RESPIRATORY FAILURE, UNSPECIFIED WITH HYPOXIA SNOMED Code(s): 20472016461922734 (3) Community acquired pneumonia Current Visit: No Status: Acute Code(s): J18.9 - PNEUMONIA, UNSPECIFIED ORGANISM SNOMED Code(s): 278803111 (4) Morbid obesity Current Visit: No Status: Acute Code(s): E66.01 - MORBID (SEVERE) OBESITY DUE TO EXCESS CALORIES SNOMED Code(s): 424673123 (5) Neurofibromatosis, type 2 Current Visit: No Status: Acute Code(s): Q85.02 - NEUROFIBROMATOSIS, TYPE 2 SNOMED Code(s): 70962354 (6) Stridor Current Visit: No Status: Acute Code(s): R06.1 - STRIDOR SNOMED Code(s): 73326815
[2019-02-22] MEDS: methylPREDNISolone SOD SUCCI 40 MG/ML 1 ML VIAL IV SCH ×4 (00:21→17:47)
[2019-02-22] MEDS: LORazepam 2 MG/ML INJ IV PRN ×2 (00:21→06:38)
[2019-02-22] MEDS: HEPARIN SODIUM,PORCINE 5,000 UNIT/ML 1 ML VIAL SQ SCH ×3 (00:22→17:47)
[2019-02-22] MEDS: HYDROmorphone 1 MG/ML 1 ML SYRINGE IVP PRN ×5 (03:24→20:44)
[2019-02-22 04:37] LABS: Anisocytosis Slight; HCT 35.9 % (34.0-46.0); HGB 11.5 gm/dL (11.4-16.0); MCH 29.5 pg (25.0-35.0); MCV 92.2 fL (80.0-100.0); Mean Platelet Volume 10.9; Platelet Count 120 k/uL (150-450); RBC 3.89 m/uL (3.80-5.40); RDW 16.3 % (11.5-15.5); WBC 17.7 k/uL (3.8-10.6)
[2019-02-22 04:49] LABS: African American GFR (CKD) >90 (>60 ml/min/1.73 sqM); Anion Gap 4 mmol/L; Blood Urea Nitrogen 27 mg/dL (7-17); Carbon Dioxide 30 mmol/L (22-30); Chloride 105 mmol/L (98-107); Glucose 104 mg/dL (74-99); Potassium 3.9 mmol/L (3.5-5.1); Sodium 139 mmol/L (137-145)
[2019-02-22] MEDS ORDERED: Potassium Replacement Protocol 1 EACH MISC MISCELLANE PRN (05:57)
[2019-02-22 06:31] LABS: Band Neutrophils % 10 %; Lymphocytes # (M) 1.59 k/uL (1.0-4.8); Metamyelocytes # (M) 0.71 k/uL (0); Metamyelocytes % 4 %; Monocytes # (M) 0.89 k/uL (0-1.0); Myelocytes # (M) 0.18 k/uL (0); Myelocytes % 1 %; Neutrophils % (M) 72 %; Nucleated Red Blood Cells 0 /100 WBC (0-0); Total Cells Counted 200
[2019-02-22 06:32] LABS: Large Platelets Present
[2019-02-22 06:33] LABS: Polychromasia Present
[2019-02-22] MEDS: POTASSIUM CHLORIDE 10 MEQ in WATER FOR INJECTION 1 100ML.BAG IVPB SCH ×2 (06:38→08:43)
[2019-02-22] MEDS: IPRATROPIUM-ALBUTEROL 3 ML NEB INHALATION SCH ×4 (07:23→19:31)
[2019-02-22] MEDS: CHLORHEXIDINE GLUCONATE 15 ML CUP MUCOUS MEM SCH ×2 (08:44→20:45)
[2019-02-22] MEDS: PANTOPRAZOLE 40 MG/10 ML VIAL IVP SCH (08:44)
--- NOTE | 2019-02-22 09:50 | P.PN ---
Subjective Progress Note Date: 02/22/19 Principal diagnosis: Acute hypoxic respiratory failure secondary to purulent tracheobronchitis and pneumonia. This is a 48-year-old female patient with known history of COPD and neurofibromatosis was post intubation mechanical ventilation for respiratory failure approximately 3 weeks ago at [facility]. The patient was discharged home and this morning the patient was brought back to the emergency department lethargic, diminished level of consciousness, worsening shortness of breath and she was having inspiratory stridor. The patient was placed on a BiPAP in the emergency department. The patient was transferred to selective telemetry unit. At that point, the patient had worsening shortness of breath and further diminishment in level of consciousness pH she got transferred to the intensive care unit. I immediately saw the patient upon arrival to the ICU. She was having inspiratory stridor/noisy breathing while even being on a BiPAP at a pressure of 10/5 cm of water. I briefly discontinued the BiPAP and inspiratory stridor was quite obvious. As such, I suspect an upper airway obstruction. He decided to intubate the patient accordingly. The chest x-ray showed cardiac cardiac structures to be normal with some cardiomegaly. There was increased bilateral lower lobe opacity and pneumonia was suspected. At this point, I started the patient with propofol. Using a glydoscope, I inspected the upper airway. I did not find any significant obstruction in the supraglottic area. In fact, epiglottis was within normal limits. The arytenoids and the vocal cords were all within normal limits. There was copious amount of purulent respiratory secretions occupying the posterior oropharynx and the larynx and the these were suctioned out. As I was getting ready to do my intubation, I noticed that the patient was coughing copious amount of purulent material which was origin radiating from her lungs and with every cough I was able to suction large globs of purulent material that was settling in her posterior larynx and the vocal cord area. I did further suctioning and I aspirated approximately 20-25 mL of purulent chocolate the creamy.material. Following that, intubated the patient with a #7.5 ET tube. Post intubation, I performed a bronchoscopy and another 25-30 mL of purulent material was aspirated from the patient's lungs bilaterally more so on the right. Following this, I did an airway inspection. The lower airways were patent without any acute abnormalities. There was significant purulent material and this was only finding. The visualized airways were all patent without any foreign bodies or endobronchial tumor. At that point, I moved the bronchoscope to the ET tube and I retracted the bronchoscope and I inspected the entire trachea reaching the subglottic area. I was not able to identify any form of airway obstruction or subglottic stenosis in this patient. The subglottic trachea was small but patent. I completed the procedure. Following that I kept the patient a mechanical ventilator and currently she is sedated with propofol. Is on a vent with a assist-control mode with an FiO2 of 100%, PEEP of 5, tidal volume of 400 and rate of 20. Post intubation blood gases showed a pH of 7.39 with a pCO2 of 46 and pO2 of 87. Post intubation chest x-ray showed a large consolidation of the right lower lob e. A triple lumen catheter was inserted. An outline catheter was inserted. The patient was started on a combination of cefepime and vancomycin and Levaquin. The patient was started on IV Solu-Medrol. The patient was started on DuoNeb the right units [id number]. She is well sedated for now and she is quite successful the mechanical ventilator. No hypotension. She is currently on normal saline at the rate of 75 mL an hour and the patient has not required any pressors. On 02/15/2019 the patient remains sedated and intubated on a mechanical ventilator, comfortable on propofol at 60 mics. 6 is a mechanical ventilator which is set at a tidal volume of 400 with a rate of 20 and a PEEP of 8 with an FiO2 of 50%. Blood gases from today showed a pH of 7.44 with a pCO2 of 42 and pO2 of 75. Chest x-rays revealing bilateral lower lobe consolidation/pneumonia. ET tube is in a good location. All of the lines are in place. The cultures still pending for now. Cover this patient with broad-spectrum antibiotics yesterday and the patient is afebrile and hemodynamically stable. Tube feeds will be started today. No nausea. No emesis. No abdominal distention. No significant orotracheal secretions. She remains on a combination of DuoNeb nebulized treatments around the clock. She is on IV cefepime and vancomycin. She is on IV Solu Medrol 4 mg every 6 hours. She is on DVT and GI prophylaxis. As mentioned earlier, the guide the scope evaluation of the upper airway, bronch oscopic evaluation of the lower airway shows no evidence of any airway obstruction and the findings were mainly consistent with purulent mucus and mucous plugs causing airway obstruction. Therapeutic airway suctioning was done. On 02/16/2019 the patient remains intubated on a mechanical ventilator. The patient is sedated. She was given a pre-sedation holiday during which she was waking up and moving and she was not following any specific commands. We'll put her back on propofol. She is still on a tidal volume of 400 with FiO2 of 50% and PEEP of 8 with a rate of 20. Morning blood gases showed a pH of 7.44 with a pCO2 of 39 and pO2 of 80. The patient is found to have staph aureus in her lungs and a culture is more consistent with MSSA. Based on that the vancomycin will be discontinued and the patient will be kept on IV cefepime. The patient is still having significant amount of respiratory secretions. The chest x-ray from today still showing bilateral lower lobe consolidation of right more than left. She is receiving enteral feeding for nutritional support. Otherwise, she has adequate blood pressure pH is adequate urine output. No fever or chills. She remains on IV Solu Medrol at a lower dose of 40 mg every 6 hours. We'll continue to follow. Reevaluated today on 02/17/2019, remains on mechanical ventilation. She is presently on assist control rate of 20, tidal volume of 400, FiO2 40%, PEEP of 8. Patient is on propofol, at 20 mcg/kg/m. Sedated, however I plan to wake of the patient today, and I plan to consider weaning parameters evaluation, and possibly a weaning trial. Chest x-ray was reviewed showed small bilateral pleural effusions, anddisease involving the lower lobes representing atelectasis or infiltrates. ABG this morning showed a pO2 of 80 pCO2 of 39 pH of 7.48 electrolytes were noted to be normal renal profile is normal. CBC showed a bit of leukocytosis with WBC count of 13.8 hemoglobin is 11.4. Patient was reevaluated today on 02/18/2019, remains on mechanical ventilation, basically on the same vent settings as noted above. PEEP was cut down to 5. Her FiO2 remained at 40%. Her ABG showed a pO2 of 83 pCO2 of 38 pH of 7.48. Chest x-ray continues to show dense consolidation in the right lower lobe. Patient was taken off sedation, seems to be arousable, followed simple instructions, however I had a chance today to get a full discussion with her sister was also legal guardian, and she explained to me that the patient had similar presentation before in early January, she was intubated in our ER, sent to [facility], she was extubated after couple of days, but within 3 hours she had to be reintubated. Even the second time she was extubated she was always marginal, and she continued to have almost symptoms of stridor. She was sent to [facility], and 2 days after the patient deteriorated again and had to be reintubated in our ER again. Considering the story and the presentation, today I had a long discussion with the sister, and suggested that we proceed with tracheostomy since this usually seems to be going on for quite some time. And most likely the patient will fail again if extubated hence it would be best to proceed with tracheostomy, in the meantime continue antibiotics, continue suctioning of secretions when tracheostomy is placed, and eventually may have to be bronchoscoped and evaluate her airways, also have ENT evaluate her vocal cords. According to Dr. Rausch the vocal cords were intact, and there was no evidence of masses on the vocal cords when he intubated the patient. Reevaluated today on 02/19/2019, patient remains on mechanical ventilation, and she is scheduled for tracheostomy today. Her ventilator settings are assist control rate of 20 tidal volume 400 FiO2 of 40% PEEP of 5. Remains on propofol at 35 mcg/kg/m, not requiring any pressors. Chest x-ray continues to show consolidation in the right lower lobe. After a long discussion with family yesterday, we have decided to proceed with tracheostomy since the patient had multiple intubations and extubation as, and she would likely fail if extubated this time. Tracheostomy would be a better choice at this point. And eventually decannulate and removed tracheostomy down the line. And the patient completely recovers. She may even need to be bronchoscoped after tracheostomy is done. ABG this morning showed a pO2 of 84 pCO2 of 39 pH of 7.47. Electrolytes and renal profile are normal. She has a bit of leukocytosis with WBC 14.5 hemoglobin is 11.5. Sputum is positive for MSSA. Hence we will discontinue cefepime, and place the patient on rocephin. Vancomycin was discontinued. Reevaluated today on 02/20/2019, patient remains on mechanical ventilation, she underwent tracheostomy yesterday. Patient is on tidal volume of 400 assist control rate of 20 FiO2 of 40% and PEEP of 5. She was on 40 mcg/kg/m of propofol until earlier today, hence this was discontinued, and we plan to the patient a weaning trial with a pressure support and CPAP. If tolerated, we'll may proceed to a trach collar. In the meantime her urine output is marginal, and I increased her IV fluid to 100 mL per hour. Nurses could not place a na sogastric tube, hence I would hold on GI consultation for a nasogastric tube placement, if the patient gets to be placed on trach collar, we may assess swallow evaluation, and may feed while on trach collar. Otherwise may have to consult GI for nasogastric tube placement. ABG this morning showed a pO2 of 84 pCO2 of 37 pH of 7.50. Chest x-ray continues to show by basilar infiltrates. And very small tiny left pleural effusion Patient was reevaluated today on 02/21/2019, remains on mechanical ventilation, was attempted to be placed on trach collar yesterday, and did not do quite well. Her ventilator settings are basically the same as noted above, she is on tidal volume of 400 assist control rate 25-40% and PEEP of 5. Chest x-ray showed minimal bibasilar atelectasis, suspect underlying pneumonia in the right lower lobe. Small bilateral pleural effusions were noted. Patient is awake, she is not on any sedation medication, and I have recommended a trial of pressure support of 8 and CPAP, if tolerated will proceed with trach collar. Labs were reviewed including his CBC demonstrated scattered 17.5 hemoglobin is 10.9. ABG showed a pO2 of 71 pCO2 of 40 pH of 7.48. Patient is not on any enteral feeding, I plan to place the patient on trach collar, and allow her to swallow, we encountered some difficulty in placement of a nasogastric tube. I'm hoping once the patient tolerates trach collar, we can feed her orally. Reevaluated today on 02/22/2019, patient was on trach collar most of the day yesterday, however she was demonstrating some agitation, and she had to be placed back on mechanical ventilation, and she was given sedation/Ativan. Today she is back on mechanical ventilation, the same vent settings as above. She is on tidal volume of 400 assist control rate of 20 FiO2 40% and PEEP of 5. Patient is sedated, received Ativan earlier, hence I have instructed the patient that to hold all narcotics and sedatives, and to give the patient again at trial of pressure support of 8 and CPAP. Will definitely switch her later on today to a trach collar again. In the meantime we will continue present course of treatment including antibiotics, bronchodilators. And steroids. Patient may or may may not require nasogastric tube placement for feeding. However we encoun tered difficulty in placement of the nasogastric tube after her surgery. Labs today were reviewed WBC count of 17.7 hemoglobin is 11.5. Basic metabolic profile is relatively normal. No chest x-ray was done today Objective - Vital Signs Vital signs: Vital Signs Temp 98.2 F 02/22/19 04:00 Pulse 113 H 02/22/19 08:03 Resp 20 02/22/19 07:00 BP 140/67 02/19/19 04:00 Pulse Ox 94 L 02/22/19 07:00 Intake & Output 02/21/19 02/22/19 02/22/19 18:59 06:59 18:59 Intake Total 622 622 56 Output Total 770 610 60 Balance -148 12 -4 Weight 133.4 kg Intake: IV 622 622 56 Arterial Line 36 36 3 CVP 36 36 3 Sodium Chloride 0.9% 1, 500 550 50 000 ml @ 50 mls/hr IV . Q20H [facility]ERRE[facility] Rx#:[id number] cefTRIAXone 1 gm In 50 Sodium Chloride 0.9% 50 ml @ 100 mls/hr IVPB Q24HR [facility] Rx#:[id number] Output: Urine 770 610 60 Other: Voiding Method Indwelling Catheter Indwelling Catheter ABP, PAP, CO, CI - Last Documented Arterial Blood Pressure 135/65 - Exam Physical Exam: Revealed 48-year-old female in no distress, awake, on mechanical ventilation, sedated, but arousable. Head: Atraumatic, normocephalic. HEENT:[Neck is supple.] [No neck masses.] [No thyromegaly.] [No JVD.] PERRLA, EOMI, no icterus, tracheostomy is intact. Chest: Crackles and rhonchi at the bases, no wheezes noted. Symmetrical chest e xpansion, no chest wall tenderness.] Cardiac Exam: [Normal S1 and S2, no S3 gallop, no murmur.] Abdomen: Obese, [Soft, nontender, no megaly, no rebound, no guarding, normal bowel sounds.] Extremities: [No clubbing, trace of bipedal edema, no cyanosis.] Neurological Exam: Sedated, arousable, follows simple instructions only. Lymphatics: No lymphadenopathy. Skin: Diffuse neurofibromas noted bilaterally. - Labs CBC & Chem 7: 02/22/19 04:10 02/22/19 04:10 Labs: Abnormal Lab Results - Last 24 Hours (Table) 02/22/19 02/22/19 Range/Units 04:10 04:10 WBC 17.7 H (3.8-10.6) k/uL RDW 16.3 H (11.5-15.5) % Plt Count 120 L (150-450) k/uL Neutrophils # (Manual) 14.50 H (1.3-7.7) k/uL Metamyelocytes # (Man) 0.71 H (0) k/uL Myelocytes # (Manual) 0.18 H (0) k/uL BUN 27 H (7-17) mg/dL Creatinine 0.43 L (0.52-1.04) mg/dL Glucose 104 H (74-99) mg/dL Calcium 11.0 H (8.4-10.2) mg/dL Assessment and Plan Assessment: Impression: 1 acute hypoxic respiratory failure requiring intubation and mechanical ventilation, patient presented with significant stridor and significant mucus plugging 2 right lower lobe MSSA pneumonia being treated. 3 history of underlying COPD with acute exacerbation. 4 neurofibromatosis 5 obesity 6 depression 7 history of smoking 8 troponin leak 9 status post tracheostomy, Recommendation: Patient was switched to a pressure support and CPAP mode of mechanical ventilation. We'll switch later on this afternoon to a trach collar, in the meantime we'll continue antibiotics, continue bronchodilators, GI and DVT prophylaxis, we'll continue to monitor the patient in the intensive care unit, the issue of feeding will be addressed specially the patient cannot swallow after placement on a trach collar. May even need speech therapy evaluation and swallow evaluation at bedside once she goes on trach collar. Otherwise we'll have to arrange for a nasogastric tube by gastroenterology for enteral feeding. Patient is not ready to be transferred out of the ICU at this point, remains critically ill, critical care time is 32 minutes. Time with Patient: Greater than 30
--- NOTE | 2019-02-22 13:30 | P.PN ---
Subjective Progress Note Date: 02/22/19 CHIEF COMPLAINT: Status post tracheostomy HISTORY OF PRESENT ILLNESS: The patient is a 48-year-old female postop day 2 status post tracheostomy, 02/20/2019. Per discussion with nursing, patient became agitated with hypertension found discontinuing of Ativan and pain meds. She was placed back on ventilator support from trach collar. ROS: No reports of nausea and vomiting. No fevers or chills. PHYSICAL EXAM: VITAL SIGNS: Reviewed CONSTITUTIONAL: Well developed and in no acute distress. EYES: Conjuctivae without sclera icterus. Extraocular movements grossly intact. HEAD, EARS, NOSE, THROAT: Moist buccal mucosa. Head is atraumatic, normocephalic. Hears conversational speech. No nasal drainage. NECK: Tracheostomy site clean dry and intact with trach collar RESPIRATORY: Non-labored respirations and equal bilateral excursions. Mechanically ventilated. CARDIOVASCULAR: Palpable 2+ radial pulses. Regular rate. Regular rhythm. ABDOMEN: Soft. No peritonitis. MUSCULOSKELETAL: No gross deformity of the lower extremities noted. No clubbing. No cyanosis. SKIN: Good skin turgor. Well perfused. NEUROLOGIC: Cranial nerves I through XII grossly intact. No focal or lateralizing signs. PSYCH: Alert and oriented to person CLINCAL LABS: White blood cell count elevated at 17,000. ASSESSMENT: 1. Acute respiratory failure status post tracheostomy 2. Tracheal bronchitis pneumonia 3. Super morbid obesity, BMI 50.5 PLAN: 1. Agree with adjustment of medications to make patient comfortable. 2. Dressing change around tracheostomy to be clarified with Dr. Rees 3. Continue current ICU care Objective - Vital Signs Vital signs: Vital Signs Temp 98.2 F 02/22/19 04:00 Pulse 105 H 02/22/19 11:02 Resp 20 02/22/19 11:00 BP 140/67 02/19/19 04:00 Pulse Ox 95 02/22/19 11:00 Intake & Output 02/21/19 02/22/19 02/22/19 18:59 06:59 18:59 Intake Total 622 622 274 Output Total 770 610 310 Balance -148 12 -36 Weight 133.4 kg Intake: IV 622 622 274 Arterial Line 36 36 12 CVP 36 36 12 Sodium Chloride 0.9% 1, 500 550 200 000 ml @ 50 mls/hr IV . Q20H [facility] Rx#:[id number] cefTRIAXone 1 gm In 50 50 Sodium Chloride 0.9% 50 ml @ 100 mls/hr IVPB Q24HR [facility] Rx#:[id number] Output: Urine 770 610 310 Other: Voiding Method Indwelling Catheter Indwelling Catheter Indwelling Catheter ABP, PAP, CO, CI - Last Documented Arterial Blood Pressure 120/64 - Labs CBC & Chem 7: 02/22/19 04:10 02/22/19 04:10 Labs: Abnormal Lab Results - Last 24 Hours (Table) 02/22/19 02/22/19 Range/Units 04:10 04:10 WBC 17.7 H (3.8-10.6) k/uL RDW 16.3 H (11.5-15.5) % Plt Count 120 L (150-450) k/uL Neutrophils # (Manual) 14.50 H (1.3-7.7) k/uL Metamyelocytes # (Man) 0.71 H (0) k/uL Myelocytes # (Manual) 0.18 H (0) k/uL BUN 27 H (7-17) mg/dL Creatinine 0.43 L (0.52-1.04) mg/dL Glucose 104 H (74-99) mg/dL Calcium 11.0 H (8.4-10.2) mg/dL Assessment and Plan (1) Tracheobronchitis Current Visit: Yes Status: Acute Code(s): J40 - BRONCHITIS, NOT SPECIFIED ACUTE OR CHRONIC SNOMED Code(s): 34224058 (2) Respiratory failure with hypoxia Current Visit: Yes Status: Acute Code(s): J96.91 - RESPIRATORY FAILURE, UNSPECIFIED WITH HYPOXIA SNOMED Code(s): 10836292347939264 (3) Community acquired pneumonia Current Visit: No Status: Acute Code(s): J18.9 - PNEUMONIA, UNSPECIFIED ORGANISM SNOMED Code(s): 976715598 (4) Morbid obesity Current Visit: No Status: Acute Code(s): E66.01 - MORBID (SEVERE) OBESITY DUE TO EXCESS CALORIES SNOMED Code(s): 302654488 (5) Neurofibromatosis, type 2 Current Visit: No Status: Acute Code(s): Q85.02 - NEUROFIBROMATOSIS, TYPE 2 SNOMED Code(s): 50903812 (6) Stridor Current Visit: No Status: Acute Code(s): R06.1 - STRIDOR SNOMED Code(s): 37160371
--- NOTE | 2019-02-22 14:07 | P.PN ---
Subjective Progress Note Date: 02/22/19 Principal diagnosis: This is a 48-year-old female patient with known history of COPD and neurofibromatosis was post intubation mechanical ventilation for respiratory failure approximately 3 weeks ago at [facility]. The patient was discharged home and this morning the patient was brought back to the emergency department lethargic, diminished level of consciousness, worsening shortness of breath and she was having inspiratory stridor. The patient was placed on a BiPAP in the emergency department. The patient was transferred to selective telemetry unit. At that point, the patient had worsening shortness of breath and further diminishment in level of consciousness pH she got transferred to the intensive care unit. 02/21/2019, Patient remains on mechanical ventilation, was attempted to be placed on trach collar yesterday, and did not do quite well. Chest x-ray showed minimal bibasilar atelectasis, suspect underlying pneumonia in the right lower lobe. Small bilateral pleural effusions were noted. Patient is awake, she is not on any sedation medication, and I have recommended a trial of pressure support of 8 and CPAP, if tolerated will proceed with trach collar. Labs were reviewed including his CBC demonstrated scattered 17.5 hemoglobin is 10.9. ABG showed a pO2 of 71 pCO2 of 40 pH of 7.48. Patient is not on any ent eral feeding, I plan to place the patient on trach collar, and allow her to swallow, we encountered some difficulty in placement of a nasogastric tube; once the patient tolerates trach collar, she can be started on oral feeding. 02/22/2019, patient was on trach collar most of the day yesterday, however she was demonstrating some agitation, and she had to be placed back on mechanical ventilation, and she was given sedation/Ativan. Today she is back on mechanical ventilation, the same vent settings as above. She is on tidal volume of 400 assist control rate of 20 FiO2 40% and PEEP of 5. Patient is sedated, received Ativan earlier, hence I have instructed the patient that to hold all narcotics and sedatives, and to give the patient again at trial of pressure support of 8 and CPAP. Will definitely switch her later on today to a trach collar again. In the meantime we will continue present course of treatment including antibiotics, bronchodilators. And steroids. Patient may or may may not require nasogastric tube placement for feeding. However we encountered difficulty in placement of the nasogastric tube after her surgery. Labs today were reviewed WBC count of 17.7 hemoglobin is 11.5. Basic metabolic profile is relatively normal. No chest x-ray was done today Objective - Vital Signs Vital signs: Vital Signs Temp 98.2 F 02/22/19 04:00 Pulse 105 H 02/22/19 11:02 Resp 20 02/22/19 11:00 BP 140/67 02/19/19 04:00 Pulse Ox 95 02/22/19 11:00 Intake & Output 02/21/19 02/22/19 02/22/19 18:59 06:59 18:59 Intake Total 622 622 274 Output Total 770 610 310 Balance -148 12 -36 Weight 133.4 kg Intake: IV 622 622 274 Arterial Line 36 36 12 CVP 36 36 12 Sodium Chloride 0.9% 1, 500 550 200 000 ml @ 50 mls/hr IV . Q20H JERRELL Rx#:[id number] cefTRIAXone 1 gm In 50 50 Sodium Chloride 0.9% 50 ml @ 100 mls/hr IVPB Q24HR JERRELL Rx#:[id number] Output: Urine 770 610 310 Other: Voiding Method Indwelling Catheter Indwelling Catheter Indwelling Catheter ABP, PAP, CO, CI - Last Documented Arterial Blood Pressure 120/64 - Exam Physical Exam: Revealed 48-year-old female in no distress, awake, on mechanical ventilation, follows all instructions. Head: Atraumatic, normocephalic. HEENT:[Neck is supple.] [No neck masses.] [No thyromegaly.] [No JVD.] PERRLA, EOMI, no icterus, tracheostomy is intact. Chest: Crackles and rhonchi at the bases, no wheezes noted. Symmetrical chest expansion, no chest wall tenderness.] Cardiac Exam: [Normal S1 and S2, no S3 gallop, no murmur.] Abdomen: Obese, [Soft, nontender, no megaly, no rebound, no guarding, normal b owel sounds.] Extremities: [No clubbing, trace of bipedal edema, no cyanosis.] Neurological Exam: Awake, alert oriented 3, no gross focal neurologic deficits. Lymphatics: No lymphadenopathy. Skin: Diffuse neurofibromas noted bilaterally. - Labs CBC & Chem 7: 02/22/19 04:10 02/22/19 04:10 Labs: Abnormal Lab Results - Last 24 Hours (Table) 02/22/19 02/22/19 Range/Units 04:10 04:10 WBC 17.7 H (3.8-10.6) k/uL RDW 16.3 H (11.5-15.5) % Plt Count 120 L (150-450) k/uL Neutrophils # (Manual) 14.50 H (1.3-7.7) k/uL Metamyelocytes # (Man) 0.71 H (0) k/uL Myelocytes # (Manual) 0.18 H (0) k/uL BUN 27 H (7-17) mg/dL Creatinine 0.43 L (0.52-1.04) mg/dL Glucose 104 H (74-99) mg/dL Calcium 11.0 H (8.4-10.2) mg/dL Assessment and Plan Assessment: 1. Acute hypoxic respiratory failure requiring intubation and mechanical nadya tilation, patient presented with significant stridor and significant mucus plugging was suspected upon intubating the patient by Dr. Rausch. 2. Right lower lobe pneumonia secondary to MSSA, remains on antibiotics for MSSA pneumonia in form of ceftriaxone 1 g IV daily. 3. COPD with acute exacerbation; continue with Solu-Medrol 40 mg IV every 6 hours. 4. Neurofibromatosis 5. Obesity 6. Depression 7. History of smoking 8. Troponin leak; stable 9. Status post tracheostomy; patient to be started on trach collar if tolerates, 10. DVT prophylaxis; subcu heparin CODE STATUS; full code Time with Patient: Greater than 30
[2019-02-22] MEDS: SODIUM CHLORIDE 0.9% 1,000 ML IV SCH (15:47)
[2019-02-23] MEDS: HEPARIN SODIUM,PORCINE 5,000 UNIT/ML 1 ML VIAL SQ SCH ×4 (02:53→23:20)
[2019-02-23] MEDS: methylPREDNISolone SOD SUCCI 40 MG/ML 1 ML VIAL IV SCH ×5 (02:53→23:20)
[2019-02-23 04:19] LABS: ABG Base Excess 6.2 mmol/L; ABG HCO3 30 mmol/L (21-25); ABG Oxygen Saturation 97.5 % (94-97); ABG PCO2 42 mmHg (35-45); ABG PH 7.46 (7.35-7.45); ABG PO2 91 mmHg (83-108); ABG TCO2 31 mmol/L (19-24); Allen Test Performed? Yes
[2019-02-23] MEDS: HYDROmorphone 1 MG/ML 1 ML SYRINGE IVP PRN ×5 (04:28→22:37)
[2019-02-23 05:15] LABS: Anisocytosis Slight; HCT 31.8 % (34.0-46.0); HGB 10.3 gm/dL (11.4-16.0); MCH 29.9 pg (25.0-35.0); MCHC 32.3 g/dL (31.0-37.0); MCV 92.5 fL (80.0-100.0); Mean Platelet Volume 11.4; RBC 3.43 m/uL (3.80-5.40); RDW 17.8 % (11.5-15.5); WBC 17.7 k/uL (3.8-10.6)
[2019-02-23 05:43] LABS: African American GFR (CKD) >90 (>60 ml/min/1.73 sqM); Anion Gap 2 mmol/L; Blood Urea Nitrogen 29 mg/dL (7-17); Calcium 11.4 mg/dL (8.4-10.2); Carbon Dioxide 31 mmol/L (22-30); Chloride 106 mmol/L (98-107); Glucose 100 mg/dL (74-99); Sodium 139 mmol/L (137-145)
[2019-02-23 05:45] LABS: Band Neutrophils % 3 %; Lymphocytes # (M) 1.42 k/uL (1.0-4.8); Metamyelocytes # (M) 0.18 k/uL (0); Metamyelocytes % 1 %; Monocytes # (M) 0.18 k/uL (0-1.0); Neutrophils % (M) 87 %; Nucleated Red Blood Cells 0 /100 WBC (0-0); Total Cells Counted 200
[2019-02-23 05:46] LABS: Large Platelets Present; Platelet Count 83 k/uL (150-450)
[2019-02-23] MEDS: IPRATROPIUM-ALBUTEROL 3 ML NEB INHALATION SCH ×4 (07:13→19:39)
[2019-02-23] MEDS: PANTOPRAZOLE 40 MG/10 ML VIAL IVP SCH (07:38)
[2019-02-23] MEDS: CHLORHEXIDINE GLUCONATE 15 ML CUP MUCOUS MEM SCH ×2 (07:38→20:08)
--- NOTE | 2019-02-23 10:40 | PN ---
PROGRESS NOTE DATE OF SERVICE: February 23, 2019. CRITICAL CARE TIME: 35 minutes. This is a 48-year-old female with a history of von Recklinghausen syndrome who was admitted with a diagnosis of acute hypoxemic respiratory failure secondary to possible right lower lobe of oxacillin sensitive Staph aureus pneumonia. The patient was admitted on February 14. She was intubated on the and remains on the ventilator. She had a tracheostomy performed on February 19. She is currently on the volume assist- control mode with a rate of 20, tidal volume 400, FiO2 of 40%, PEEP of 8. Blood gases show pO2 of 91, pCO2 of 42, pH 7.46. These blood gases consistent with a mild metabolic alkalosis. She is getting a saline IV at 50 mL an hour. Yesterday, February 22, she spent 3 hours on CPAP. The sputum shows evidence of oxacillin sensitive Staph aureus. Currently, she is going to be placed on PSV 8, CPAP of 5, and so she could have a weaning trial. The patient did not have a PEG tube placed at the time of her tracheostomy. She did apparently spend some time on trach collar recently. Currently, she looks relatively comfortable. In addition to the von Recklinghausen syndrome/neurofibromatosis, she has a history of underlying COPD, obesity, depression, and tobacco use. PHYSICAL EXAMINATION: VITAL SIGNS: Current vital signs are reviewed. Temperature is 98.7, heart rate 112, respiratory rate 20, blood pressure 115/59. Central venous pressure is 8 cm water and saturations are 94%. GENERAL: Appears in no acute distress. Looks relatively comfortable. HEENT: Examination is grossly unremarkable. NECK: Supple. Full range of motion. There is a midline tracheostomy. No neck vein distention. CARDIOVASCULAR: Examination reveals regular rhythm and rate. Heart sounds are distant. Her heart rate is right around 100 beats per minute. S1, S2 normal. No distinct murmur. LUNGS: Reveal coarse rhonchi. Breath sounds are diminished. There is no wheezes. There is no crackles. ABDOMEN: Obese. Bowel sounds are not noted. EXTREMITIES: Are intact. SKIN: Reveals multiple small lesions consistent with a diagnosis of neurofibromatosis. NEUROLOGIC: Examination is brief but nonfocal. MICROBIOLOGIC STUDY: Microbiologic study shows evidence of oxacillin sensitive Staph aureus in the sputum on February 14. LABS: Labs are reviewed. White count 17.7, hemoglobin 10.3, hematocrit 31.8, platelet count 83,000. Sodium 139, potassium 4, chloride 106, CO2 of 31, anion gap of 2, BUN and creatinine were 29 and 0.52. The rest of her labs look okay. X-RAY: A chest x-ray was not done. MEDICATIONS: Medications are reviewed. She is currently on Rocephin for her methicillin sensitive Staph aureus pneumonia, chlorhexidine, heparin subcu, Dilaudid, DuoNeb Solu-Medrol 40 q.6, Protonix, potassium replacement, and her basic IV. She is no longer on propofol. ASSESSMENT: 1. Acute hypoxemic respiratory failure requiring intubation on February 14 secondary to mucus plugging and suspected methicillin sensitive Staph aureus pneumonia, right lower lobe. 2. History of underlying chronic obstructive pulmonary disease with chronic obstructive pulmonary disease exacerbation. 3. History of neurofibromatosis/von Recklinghausen disease. 4. History of obesity. 5. Depression. 6. History of ongoing tobacco use with nicotine addiction. 7. Troponin leak. 8. Status post tracheostomy on February 19 for failure to wean. PLAN: The patient was placed on PSV 8, CPAP of 5. She will continue on her current antibiotic. Her blood gases today seem reasonable. She is awake and alert. Additional recommendations and suggestions are forthcoming. We may need to insert a Dobhoff tube to feed her. Overall prognosis remains very guarded. CRITICAL CARE TIME: 34 minutes. PINEDA / NICHOLEN: [id number] /
--- NOTE | 2019-02-23 10:54 | P.PN ---
Subjective Progress Note Date: 02/23/19 CHIEF COMPLAINT: Tracheostomy HISTORY OF PRESENT ILLNESS: 48-year-old female currently admitted to the intensive care unit secondary to pneumonia. Patient remains on mechanical ventilation. Patient is s/p trach placement. NG tube was attempted post op for tube feedings but unsuccessful. PHYSICAL EXAM: VITAL SIGNS: Reviewed. GENERAL: Well-developed in no acute distress. Remains on mechanical ventilation. HEENT: No sclera icterus. Extraocular movements grossly intact. Moist buccal mucosa. Head is atraumatic, normocephalic. ABDOMEN: Soft. Nondistended. Positive bowel sounds. NEUROLOGIC: Awake. Able to move extremities. On mechanical ventilation ASSESSMENT: 1. Acute hypoxic respiratory failure requiring mechanical ventilation secondary to pneumonia PLAN: 1. Ventilator management per Dr. Carrillo 2. Nutritional status discussed with [facility] with pulmonary. Consult placed to GI for Dobbhoff placement Nurse practitioner note has been reviewed by physician. Signing provider agrees with the documented findings, assessment, and plan of care. Objective - Vital Signs Vital signs: Vital Signs Temp 98.7 F 02/23/19 08:00 Pulse 101 H 02/23/19 10:00 Resp 25 H 02/23/19 10:00 BP 140/67 02/19/19 04:00 Pulse Ox 95 02/23/19 10:00 Intake & Output 02/22/19 02/23/19 02/23/19 18:59 06:59 18:59 Intake Total 702 728 268 Output Total 755 480 155 Balance -53 248 113 Weight 133.7 kg Intake: IV 702 728 168 Arterial Line 36 39 9 CVP 36 39 9 Sodium Chloride 0.9% 1, 580 650 150 000 ml @ 50 mls/hr IV . Q20H JERRELL Rx#:[id number] cefTRIAXone 1 gm In 50 Sodium Chloride 0.9% 50 ml @ 100 mls/hr IVPB Q24HR JERRELL Rx#:[id number] Intake, IV Titration 100 Amount cefTRIAXone 1 gm In 100 Sodium Chloride 0.9% 50 ml @ 100 mls/hr IVPB Q24HR JERRELL Rx#:[id number] Output: Urine 755 480 155 Other: Voiding Method Indwelling Catheter Indwelling Catheter ABP, PAP, CO, CI - Last Documented Arterial Blood Pressure 134/66 - Labs CBC & Chem 7: 02/23/19 05:05 02/23/19 05:05 Labs: Abnormal Lab Results - Last 24 Hours (Table) 02/23/19 02/23/19 02/23/19 Range/Units 04:14 05:05 05:05 WBC 17.7 H (3.8-10.6) k/uL RBC 3.43 L (3.80-5.40) m/uL Hgb 10.3 L (11.4-16.0) gm/dL Hct 31.8 L (34.0-46.0) % RDW 17.8 H (11.5-15.5) % Plt Count 83 L (150-450) k/uL Neutrophils # (Manual) 15.90 H (1.3-7.7) k/uL Metamyelocytes # (Man) 0.18 H (0) k/uL ABG pH 7.46 H (7.35-7.45) ABG HCO3 30 H (21-25) mmol/L ABG Total CO2 31 H (19-24) mmol/L ABG O2 Saturation 97.5 H (94-97) % Carbon Dioxide 31 H (22-30) mmol/L BUN 29 H (7-17) mg/dL Glucose 100 H (74-99) mg/dL Calcium 11.4 H (8.4-10.2) mg/dL
[2019-02-23] MEDS: SODIUM CHLORIDE 0.9% 1,000 ML IV SCH (11:48)
[2019-02-23 13:50] VITALS: BMI 50.5
--- NOTE | 2019-02-23 13:51 | P.PN ---
Subjective 48-year-old female patient with known history of COPD and neurofibromatosis was post intubation mechanical ventilation for respiratory failure approximately 3 weeks ago at [facility]. The patient was discharged home and this morning the patient was brought back to the emergency department lethargic, diminished level of consciousness, worsening shortness of breath and she was having inspiratory stridor. The patient was placed on a BiPAP in the emergency department. The patient was transferred to selective telemetry unit. At that point, the patient had worsening shortness of breath and further diminishment in level of consciousness pH she got transferred to the intensive care unit. 02/21/2019, Patient remains on mechanical ventilation, was attempted to be placed on trach collar yesterday, and did not do quite well. Chest x-ray showed minimal bibasilar atelectasis, suspect underlying pneumonia in the right lower lobe. Small bilateral pleural effusions were noted. Patient is awake, she is not on any sedation medication, and I have recommended a trial of pressure support of 8 and CPAP, if tolerated will proceed with trach collar. Labs were reviewed including his CBC demonstrated scattered 17.5 hemoglobin is 10.9. ABG showed a pO2 of 71 pCO2 of 40 pH of 7.48. Patient is not on any en teral feeding, I plan to place the patient on trach collar, and allow her to swallow, we encountered some difficulty in placement of a nasogastric tube; once the patient tolerates trach collar, she can be started on oral feeding. 02/22/2019, patient was on trach collar most of the day yesterday, however she was demonstrating some agitation, and she had to be placed back on mechanical ventilation, and she was given sedation/Ativan. Today she is back on mechanical ventilation, the same vent settings as above. She is on tidal volume of 400 assist control rate of 20 FiO2 40% and PEEP of 5. Patient is sedated, received Ativan earlier, hence I have instructed the patient that to hold all narcotics and sedatives, and to give the patient again at trial of pressure support of 8 and CPAP. Will definitely switch her later on today to a trach collar again. In the meantime we will continue present course of treatment including antibiotics, bronchodilators. And steroids. Patient may or may may not require nasogastric tube placement for feeding. However we encountered difficulty in placement of the nasogastric tube after her surgery. Labs today were reviewed WBC count of 17.7 hemoglobin is 11.5. Basic metabolic profile is relatively normal. No chest x-ray was done today 02/23/2019 Patient remains intubated, multiple agents to wean off failed. Patient will the receive a Dobbhoff tube unfortunately patient doesn't have a PEG tube. Patient is awake alert, intubated unable to answer much of my questions. All inpatient medications were reviewed and appropriate changes in these medications as dictated in the interval history and assessment and plan. Objective - Vital Signs Vital signs: Vital Signs Temp 98.0 F 02/23/19 12:00 Pulse 104 H 02/23/19 12:00 Resp 18 02/23/19 12:00 BP 140/67 02/19/19 04:00 Pulse Ox 97 02/23/19 12:00 Intake & Output 02/22/19 02/23/19 02/23/19 18:59 06:59 18:59 Intake Total 702 728 380 Output Total 755 480 315 Balance -53 248 65 Weight 133.7 kg Intake: IV 702 728 280 Arterial Line 36 39 15 CVP 36 39 15 Sodium Chloride 0.9% 1, 580 650 250 000 ml @ 50 mls/hr IV . Q20H JERRELL Rx#:[id number] cefTRIAXone 1 gm In 50 Sodium Chloride 0.9% 50 ml @ 100 mls/hr IVPB Q24HR J[facility]RELL Rx#:[id number] Intake, IV Titration 100 Amount cefTRIAXone 1 gm In 100 Sodium Chloride 0.9% 50 ml @ 100 mls/hr IVPB Q24HR JERRELL Rx#:[id number] Output: Urine 755 480 315 Other: Voiding Method Indwelling Catheter Indwelling Catheter Indwelling Catheter # Voids 0 ABP, PAP, CO, CI - Last Documented Arterial Blood Pressure 118/60 - Exam PHYSICAL EXAMINATION: GENERAL: Patient is awake intubated, obese diffuse neurofibromatosis lesions, unable to answer any medical questions HEENT: Pupils are round and equally reacting to light. EOMI. No scleral icterus. No conjunctival pallor. Normocephalic, atraumatic. No pharyngeal erythema. No thyromegaly. CARDIOVASCULAR: S1 and S2 present. No murmurs, rubs, or gallops. PULMONARY: Rhonchus breath sounds and bibasilar crackles are noted ABDOMEN: Soft, nontender, nondistended, normoactive bowel sounds. No palpable organomegaly. MUSCULOSKELETAL: No joint swelling or deformity. EXTREMITIES: No cyanosis, clubbing, does have diffuse anasarca and edema NEUROLOGICAL: Gross neurological examination did not reveal any focal deficits. SKIN: No rashes. - Labs CBC & Chem 7: 02/23/19 05:05 02/23/19 05:05 Labs: Abnormal Lab Results - Last 24 Hours (Table) 02/23/19 02/23/19 02/23/19 Range/Units 04:14 05:05 05:05 WBC 17.7 H (3.8-10.6) k/uL RBC 3.43 L (3.80-5.40) m/uL Hgb 10.3 L (11.4-16.0) gm/dL Hct 31.8 L (34.0-46.0) % RDW 17.8 H (11.5-15.5) % Plt Count 83 L (150-450) k/uL Neutrophils # (Manual) 15.90 H (1.3-7.7) k/uL Metamyelocytes # (Man) 0.18 H (0) k/uL ABG pH 7.46 H (7.35-7.45) ABG HCO3 30 H (21-25) mmol/L ABG Total CO2 31 H (19-24) mmol/L ABG O2 Saturation 97.5 H (94-97) % Carbon Dioxide 31 H (22-30) mmol/L BUN 29 H (7-17) mg/dL Glucose 100 H (74-99) mg/dL Calcium 11.4 H (8.4-10.2) mg/dL Assessment and Plan Plan: 1. Acute hypoxic respiratory failure requiring intubation and mechanical ventila tion, patient presented with significant stridor and significant mucus plugging was suspected, patient remains intubated failure to wean multiple attempts. 2. Right lower lobe pneumonia secondary to MSSA, remains on antibiotics for MSSA pneumonia in form of ceftriaxone 1 g IV daily. 3. COPD with acute exacerbation; continue with Solu-Medrol 40 mg IV every 6 hours. 4. Neurofibromatosis 5. Obesity 6. Depression 7. History of smoking 8. Troponin leak; stable 9. Status post tracheostomy; patient to be started on trach collar if tolerates, 10. DVT prophylaxis; subcu heparin CODE STATUS; full code
--- NOTE | 2019-02-23 15:13 | XR ---
EXAMINATION TYPE: XR chest 1V portable DATE OF EXAM: 02/23/2019 COMPARISON: 02/21/2019 HISTORY: Dobbhoff tube placement TECHNIQUE: Single frontal view of the chest is obtained. FINDINGS: There is enteric tube has been placed terminating of the distal [id number]. Midline tra cheostomy is noted. Small bilateral layering pleural effusions and bibasilar airspace disease is seen . Left-sided central venous catheter is present with its distal tip overlying the distal superior nadya a cava. IMPRESSION: Enteric tube has been inserted with its distal tip off of the [id number] on this ches t x-ray. Remainder the exam is stable from the prior of 02/21/2019.
--- NOTE | 2019-02-23 20:25 | PCN ---
PROCEDURE NOTE PROCEDURE PERFORMED: Insertion of a Dobbhoff tube. PREOP DIAGNOSIS: For enteral nutrition. POSTOP DIAGNOSIS: For enteral nutrition. DESCRIPTION OF PROCEDURE: The patient's procedure was done at the bedside. There was informed consent. The operators were Dr. Carrillo and Kelvin Bolaños, nurse practitioner. The patient was sat up in bed. She was on the mechanical ventilator. The tip of the Dobbhoff tube was lubricated. We inserted it through the right nostril. It passed easily through the nasopharynx into the oropharynx and then into the hypopharynx. It then seemed to pass directly into the esophagus. There was no respiratory issues at this point. It did not appear that the tube entered the lung. The Dobbhoff tube was inserted to about 42 cm. The patient tolerated the procedure well. Chest x-ray was done immediately after the procedure. The tube was seen to be in the stomach and was directed down towards the duodenum. When we inserted air through the Dobbhoff tube, we could hear the air in the area of the stomach on auscultation. Next, the stylet was removed. The tube was secured. There was no immediate complications. MMODL / IJN: [id number] /
[2019-02-24 04:01] VITALS: TEMP 98.7
[2019-02-24 04:56] LABS: ABG HCO3 30 mmol/L (21-25); ABG Oxygen Saturation 96.7 % (94-97); ABG PCO2 40 mmHg (35-45); ABG PH 7.49 (7.35-7.45); ABG PO2 76 mmHg (83-108); ABG TCO2 32 mmol/L (19-24); Allen Test Performed? Yes
[2019-02-24 05:41] LABS: African American GFR (CKD) >90 (>60 ml/min/1.73 sqM); Anion Gap 1 mmol/L; Blood Urea Nitrogen 35 mg/dL (7-17); Calcium 11.9 mg/dL (8.4-10.2); Carbon Dioxide 31 mmol/L (22-30); Chloride 107 mmol/L (98-107); Glucose 157 mg/dL (74-99); Sodium 139 mmol/L (137-145)
[2019-02-24 06:08] LABS: Anisocytosis Slight; HCT 31.4 % (34.0-46.0); HGB 10.3 gm/dL (11.4-16.0); MCH 30.4 pg (25.0-35.0); MCHC 32.8 g/dL (31.0-37.0); MCV 92.5 fL (80.0-100.0); Mean Platelet Volume 11.2; RBC 3.39 m/uL (3.80-5.40); RDW 17.8 % (11.5-15.5); WBC 21.3 k/uL (3.8-10.6)
[2019-02-24 06:41] LABS: Platelet Count 83 k/uL (150-450)
[2019-02-24] MEDS: methylPREDNISolone SOD SUCCI 40 MG/ML 1 ML VIAL IV SCH (06:54)
[2019-02-24] MEDS: HYDROmorphone 1 MG/ML 1 ML SYRINGE IVP PRN ×2 (06:58→12:29)
[2019-02-24] MEDS: IPRATROPIUM-ALBUTEROL 3 ML NEB INHALATION SCH ×2 (07:04→11:07)
[2019-02-24 07:11] LABS: Band Neutrophils % 7 %; Lymphocytes # (M) 1.07 k/uL (1.0-4.8); Metamyelocytes # (M) 0.64 k/uL (0); Metamyelocytes % 3 %; Monocytes # (M) 0.85 k/uL (0-1.0); Myelocytes # (M) 0.43 k/uL (0); Myelocytes % 2 %; Neutrophils % (M) 81 %; Nucleated Red Blood Cells 0 /100 WBC (0-0); Total Cells Counted 200
[2019-02-24 07:12] LABS: Large Platelets Present
[2019-02-24 07:13] LABS: Polychromasia Present
--- NOTE | 2019-02-24 08:29 | PN ---
PROGRESS NOTE DATE OF SERVICE: 02/24/2019. CRITICAL CARE TIME: 35 minutes. This is a 48-year-old female with history of neurofibromatosis. She was admitted with a diagnosis of acute hypoxemic respiratory failure secondary to possible right lower lobe pneumonia caused by oxacillin sensitive Staph aureus. The patient was admitted on the 14 of February. She was intubated on the same day because of hypoxemic respiratory failure. She remains on the ventilator. She had a tracheostomy performed on February 19. Currently, she is on the volume assist-control mode rate of 20, tidal volume 400, FiO2 of 40%, PEEP of 5. Blood gases show pO2 of 76, pCO2 of 40 and a pH of 7.49. These blood gases are consistent with a mild metabolic alkalosis. The patient did spend about 12 hours yesterday on PSV 8, CPAP of 5. She is getting saline at 50 mL an hour. She is also getting Vital high-protein at 45 mL an hour with a goal of 60 mL an hour. Yesterday, I placed a Dobhoff tube. It was seen to be located in the distal stomach proximal small intestines. She tolerated that procedure well. The plan is possibly to discharge her to [facility] today. The patient has had uneventful night according to the nurse. In addition to the neurofibromatosis, she has a history of underlying COPD, obesity, depression, and chronic tobacco use. PHYSICAL EXAMINATION: VITAL SIGNS: Vital signs are reviewed temperature is 98.7, heart rate 100, respiratory rate 21, blood pressure 120/58, central venous pressure is 8 cm of water and saturations are 93% to 95% that is on 40% and 5 of PEEP. GENERAL: She appears in no acute distress. Seems relatively comfortable. HEENT: Examination is grossly unremarkable. NECK: Supple. There is a midline tracheostomy. No neck vein distention. No adenopathy or thyromegaly. The Dobhoff tube was also noted transnasally in the right nostril. CARDIOVASCULAR: Examination reveals regular rhythm and rate. Heart rate right around 100 beats per minute. It is regular. S1, S2 normal. No murmur. LUNGS: Reveal coarse rhonchi. Breath sounds are diminished. No wheezes. ABDOMEN: Soft. Bowel sounds are heard. EXTREMITIES: Are intact. No cyanosis, clubbing, or edema. SKIN: Without rash. NEUROLOGIC: Examination is difficult to assess, but she appears to be neurologically intact and she does move all 4 extremities, although she does have significant weakness of the extremities. LABS: Labs are reviewed. Thus far, the only thing back is a blood gases as I mentioned earlier. Sodium 139, potassium 4, chloride 107, CO2 of 31. BUN and creatinine were 35 and 0.51. Anion gap is 1. MICROBIOLOGIC STUDY: Microbiologic study show evidence of oxacillin sensitive Staph aureus. X-RAY: She had a chest x-ray yesterday, nothing today. MEDICATIONS: Medications are reviewed. In addition to updrafts, she is on Rocephin for the infection. She is also receiving Solu-Medrol 40 mg q.6 hours. ASSESSMENT: 1. Acute hypoxemic respiratory failure requiring intubation on February 14 secondary to suspected right lower lobe oxacillin sensitive Staphylococcus aureus pneumonia. 2. Failure to wean from mechanical ventilation. 3. Status post tracheostomy tube placement on February 19. 4. History of underlying chronic obstructive pulmonary disease with chronic obstructive pulmonary disease exacerbation. 5. History of neurofibromatosis/von Recklinghausen disease. 6. History of obesity. 7. History of depression. 8. History of ongoing tobacco use with nicotine addiction. 9. Troponin leak. PLAN: The patient had a Dobhoff tube placed yesterday. She is currently receiving Vital high- protein at 45 mL an hour with a goal of 60 mL an hour. Her IV is 0.9 at 50 mL an hour. She did well for about 12 hours on PSV 8, CPAP of 5 yesterday. The patient was placed back on the ventilator in the evening. She might be discharged to [facility] today. No additional recommendations are made. Labs, x-rays, medications and problem list are all reviewed. Her prognosis is guarded. CRITICAL CARE TIME: 35 minutes. MMODL / IJN: [id number] /
[2019-02-24] MEDS: HEPARIN SODIUM,PORCINE 5,000 UNIT/ML 1 ML VIAL SQ SCH (09:46)
[2019-02-24] MEDS: PANTOPRAZOLE 40 MG/10 ML VIAL IVP SCH (09:47)
[2019-02-24] MEDS: CHLORHEXIDINE GLUCONATE 15 ML CUP MUCOUS MEM SCH (09:47)
--- NOTE | 2019-02-24 10:17 | P.DS ---
Providers Date of admission: 02/14/19 05:04 Attending physician: Jose A Howell Consults: 02/14/19 05:04 Consult Physician Routine Consulting Provider: Adrienne Rausch Consult Reason/Comments: Respiratory failure. Do you want consulting provider notified?: Yes 02/18/19 11:23 Consult Physician Routine Consulting Provider: Victor Manuel Rees Reason/Comments: tracheostomy,recurrent failing of extubation Do you want consulting provider notified?: Yes Primary care physician: [facility] Course: 48-year-old female patient with known history of COPD and neurofibromatosis was post intubation mechanical ventilation for respiratory failure approximately 3 weeks ago at [facility]. The patient was discharged home and this morning the patient was brought back to the emergency department lethargic, diminished level of consciousness, worsening shortness of breath and she was having inspiratory stridor. The patient was placed on a BiPAP in the emergency department. The patient was transferred to selective telemetry unit. At that point, the patient had worsening shortness of breath and further diminishment in level of consciousness pH she got transferred to the intensive care unit. 02/21/2019, Patient remains on mechanical ventilation, was attempted to be placed on trach collar yesterday, and did not do quite well. Chest x-ray showed minimal bibasilar atelectasis, suspect underlying pneumonia in the right lower lobe. Small bilateral pleural effusions were noted. Patient is awake, she is not on any sedation medication, and I have recommended a trial of pressure support of 8 and CPAP, if tolerated will proceed with trach collar. Labs were reviewed including his CBC demonstrated scattered 17.5 hemoglobin is 10.9. ABG showed a pO2 of 71 pCO2 of 40 pH of 7.48. Patient is not on any enteral feeding, I plan to place the patient on trach collar, and allow her to swallow, we encountered some difficulty in placement of a nasogastric tube; once the patient tolerates trach collar, she can be started on oral feeding. 02/22/2019, patient was on trach collar most of the day yesterday, however she was de monstrating some agitation, and she had to be placed back on mechanical ventilation, and she was given sedation/Ativan. Today she is back on mechanical ventilation, the same vent settings as above. She is on tidal volume of 400 assist control rate of 20 FiO2 40% and PEEP of 5. Patient is sedated, received Ativan earlier, hence I have instructed the patient that to hold all narcotics and sedatives, and to give the patient again at trial of pressure support of 8 and CPAP. Will definitely switch her later on today to a trach collar again. In the meantime we will continue present course of treatment including antibiotics, bronchodilators. And steroids. Patient may or may may not require nasogastric tube placement for feeding. However we encountered difficulty in placement of the nasogastric tube after her surgery. Labs today were reviewed WBC count of 17.7 hemoglobin is 11.5. Basic metabolic profile is relatively normal. No chest x-ray was done today 02/23/2019 Patient remains intubated, multiple agents to wean off failed. Patient will the receive a Dobbhoff tube unfortunately patient doesn't have a PEG tube. 02/24/2019 Patient is being transferred to because of failure to wean. PHYSICAL EXAMINATION: GENERAL: Patient is awake intubated, obese diffuse neurofibromatosis lesions, unable to answer any medical questions HEENT: Pupils are round and equally reacting to light. EOMI. No scleral icterus. No conjunctival pallor. Normocephalic, atraumatic. No pharyngeal erythema. No thyromegaly. CARDIOVASCULAR: S1 and S2 present. No murmurs, rubs, or gallops. PULMONARY: Rhonchus breath sounds and bibasilar crackles are noted ABDOMEN: Soft, nontender, nondistended, normoactive bowel sounds. No palpable organomegaly. MUSCULOSKELETAL: No joint swelling or deformity. EXTREMITIES: No cyanosis, clubbing, does have diffuse anasarca and edema NEUROLOGICAL: Gross neurological examination did not reveal any focal deficits. SKIN: No rashes. Assessment and Plan Plan: 1. Acute hypoxic respiratory failure requiring intubation and mechanical ventilation, patient presented with significant stridor and significant mucus plugging was suspected, patient remains intubated failure to wean multiple attempts. test presently tracheostomy and ventilator support via tracheostomy and a Dobbhoff tube. 2. Right lower lobe pneumonia secondary to MSSA, remains on antibiotics for MSSA pneumonia in form of ceftriaxone 1 g IV daily. 3. COPD with acute exacerbation; patient will be switched to prednisone 4. Neurofibromatosis 5. Obesity 6. Depression 7. History of smoking 8. Troponin leak; stable 9. Status post tracheostomy; patient to be started on trach collar if tolerates, 10. DVT prophylaxis; subcu heparin Plan - Discharge Summary New Discharge Prescriptions: New Ipratropium-Albuterol Nebulize [Duoneb 0.5 mg-3 mg/3 ml Soln] 3 ml INHALATION RT-QID ampul.neb Heparin Sodium,Porcine [Heparin Sodium] 5,000 unit SQ Q8HR vial Chlorhexidine Gluconate [Peridex] 15 ml MUCOUS MEM BID solution predniSONE 60 mg PO DAILY #10 tab cefTRIAXone [Rocephin] 1 gm IVPB Q24HR vial Continue ARIPiprazole [Abilify] 10 mg PO DAILY FLUoxetine HCL [PROzac] 20 mg PO DAILY Ibuprofen [Motrin] 800 mg PO TID Famotidine [Pepcid] 40 mg PO DAILY Discontinued Furosemide [Lasix] 20 mg PO DAILY Spironolactone [Aldactone] 50 mg PO DAILY Albuterol Inhaler [Ventolin Hfa Inhaler] 1 - 2 puff INHALATION RT-Q6H PRN #1 inhaler PRN Reason: Wheezing Ipratropium Gary [Atrovent Hfa] 2 puff INHALATION RT-TID Discharge Medication List ARIPiprazole [Abilify] 10 mg PO DAILY 12/31/15 [History] FLUoxetine HCL [PROzac] 20 mg PO DAILY 03/11/18 [History] Ibuprofen [Motrin] 800 mg PO TID 03/11/18 [History] Famotidine [Pepcid] 40 mg PO DAILY 11/21/18 [History] Chlorhexidine Gluconate [Peridex] 15 ml MUCOUS MEM BID solution 02/24/19 [Rx] Heparin Sodium,Porcine [Heparin Sodium] 5,000 unit SQ Q8HR vial 02/24/19 [Rx] Ipratropium-Albuterol Nebulize [Duoneb 0.5 mg-3 mg/3 ml Soln] 3 ml INHALATION RT-QID ampul.neb 02/24/19 [Rx] cefTRIAXone [Rocephin] 1 gm IVPB Q24HR vial 02/24/19 [Rx] predniSONE 60 mg PO DAILY #10 tab 02/24/19 [Rx] Follow up Appointment(s)/Referral(s): Mt Slater MD [Primary Care Provider] - 1-2 days Discharge Disposition: OTHER INSTITUTION NOT DEFINED
[2019-02-24 11:17] VITALS: RESP 24
[2019-02-24 11:33] VITALS: PULSE 102
--- NOTE | 2019-03-02 14:25 | P.OP ---
Date of Procedure: 02/19/19 Preoperative Diagnosis: Respiratory failure Postoperative Diagnosis: Respiratory failure Procedure(s) Performed: Tracheostomy Anesthesia: VANIA Surgeon: Victor Manuel Rees Estimated Blood Loss (ml): 5 Pathology: none sent Condition: stable Disposition: PACU Description of Procedure: The patient's placed on the operative table in supine position. She received general endotracheal tube anesthesia. Her neck was prepped and draped in sterile fashion. The standard [place] incision was made above the sternal notch. Using the cautery the platysma was divided. A week later today for wound. The strap muscles were then divided midline. Another millimeters placed in the wound. The thyroid was divided using Harmonic scissors and electrocautery. The trachea was exposed. The endotracheal tube was placed in the right mainstem bronchus. And then the tracheotomy performed between the second and third tracheal rings. The #8 Portex tracheostomy tube was placed. Under direct visualization. Patient is scheduled to the ventilator and end-tidal CO2 was confirmed. The skin incision site was then closed with 3-0 nylon. The tracheostomy was secured with trach ties. The patient was sent back to the ICU in stable condition.
== END 2019-02-24 17:11 | DRG 4 ==
LOC: EC 03:42 → 3SCARD 05:04 → 2SICU 08:33
PROVIDERS: ADMIT Hospitalist; ATTEND Hospitalist
PROC: 5A1955Z Respiratory Ventilation, Greater than 96 Consecutive Hours (ICD-10-PCS; 2019-02-14)
PROC: 0BH17EZ Insertion of Endotracheal Airway into Trachea, Via Natural or Artificial Opening (ICD-10-PCS; 2019-02-14)
PROC: 5A09357 Assistance with Respiratory Ventilation, Less than 24 Consecutive Hours, Continuous Positive Airway Pressure (ICD-10-PCS; 2019-02-14)
PROC: 03HY32Z Insertion of Monitoring Device into Upper Artery, Percutaneous Approach (ICD-10-PCS; 2019-02-14)
PROC: 4A133B1 Monitoring of Arterial Pressure, Peripheral, Percutaneous Approach (ICD-10-PCS; 2019-02-14)
PROC: 4A133J1 Monitoring of Arterial Pulse, Peripheral, Percutaneous Approach (ICD-10-PCS; 2019-02-14)
PROC: 02HV33Z Insertion of Infusion Device into Superior Vena Cava, Percutaneous Approach (ICD-10-PCS; 2019-02-14)
PROC: 0BCB8ZZ Extirpation of Matter from Left Lower Lobe Bronchus, Via Natural or Artificial Opening Endoscopic (ICD-10-PCS; 2019-02-14)
PROC: 0BC38ZZ Extirpation of Matter from Right Main Bronchus, Via Natural or Artificial Opening Endoscopic (ICD-10-PCS; 2019-02-14)
PROC: 0BC78ZZ Extirpation of Matter from Left Main Bronchus, Via Natural or Artificial Opening Endoscopic (ICD-10-PCS; 2019-02-14)
PROC: 0BC68ZZ Extirpation of Matter from Right Lower Lobe Bronchus, Via Natural or Artificial Opening Endoscopic (ICD-10-PCS; 2019-02-14)
PROC: 0B113F4 Bypass Trachea to Cutaneous with Tracheostomy Device, Percutaneous Approach (ICD-10-PCS; 2019-02-19)
PROC: 0B110F4 Bypass Trachea to Cutaneous with Tracheostomy Device, Open Approach (ICD-10-PCS; principal; 2019-02-19 12:40)
PROC: 5A1945Z Respiratory Ventilation, 24-96 Consecutive Hours (ICD-10-PCS; 2019-02-22)
PROC: 0DH67UZ Insertion of Feeding Device into Stomach, Via Natural or Artificial Opening (ICD-10-PCS; 2019-02-23)
DX: J96.01 Acute respiratory failure with hypoxia (principal); J15.211 Pneumonia due to Methicillin susceptible Staphylococcus aureus; J44.0 Chronic obstructive pulmonary disease with (acute) lower respiratory infection; J44.1 Chronic obstructive pulmonary disease with (acute) exacerbation; Z68.43 Body mass index [BMI] 50.0-59.9, adult; E87.4 Mixed disorder of acid-base balance; J98.11 Atelectasis; E66.01 Morbid (severe) obesity due to excess calories; F17.210 Nicotine dependence, cigarettes, uncomplicated; F32.9 Major depressive disorder, single episode, unspecified; F81.9 Developmental disorder of scholastic skills, unspecified; H54.8 Legal blindness, as defined in USA; I11.0 Hypertensive heart disease with heart failure; I50.9 Heart failure, unspecified; Q85.02 Neurofibromatosis, type 2; T17.990A Other foreign object in respiratory tract, part unspecified in causing asphyxiation, initial encounter; Z79.899 Other long term (current) drug therapy; Z80.3 Family history of malignant neoplasm of breast; Z80.1 Family history of malignant neoplasm of trachea, bronchus and lung; Z88.0 Allergy status to penicillin; R74.8 Abnormal levels of other serum enzymes; Z79.1 Long term (current) use of non-steroidal anti-inflammatories (NSAID); R45.1 Restlessness and agitation
CPT/HCPCS: 36415; 71045; 80048; 80053; 81003; 82803; 82805; 83605; 83735; 83880; 83970; 84100; 84484; 84703; 85025; 85379; 85610; 85730; 87040; 87070; 87077; 87186; 87205; 93005; 94002; 94003; 94640; 94660; 94770; 96374; 99285

== ENCOUNTER 2019-04-09 03:40 | Emergency (ER) | payer MEDICARE ==
[~2019-04-09 03:40] MED LIST: CALCIUM CHLORIDE 100 MG/ML 10 ML SYRINGE ONE; EPINEPHrine 10 ML SYRINGE (0.1 MG/ML) ONE; SODIUM BICARB 8.4% 50 ML SYR (1 MEQ/ML) ONE
--- NOTE | 2019-04-09 04:25 | ED ---
CPR HPI - General Chief Complaint: Cardiac Arrest/CPR Stated Complaint: Cardiac Arrest Time Seen by Provider: 04/09/19 04:18 Source: EMS Limitations: altered mental status - History of Present Illness Initial Comments: This patient is a 48-year-old woman brought from residential where she had reportedly activated her call button and then become unresponsive. It was reported that the patient who has a tracheostomy had developed some pink frothing from her tracheostomy tube. When EMS arrived they found the patient without any vital signs and ACLS protocol instituted. They performed [id number] ventilation to the tracheostomy. They started an IO line. The patient was given multiple epinephrine, she was given calcium and sodium bicarbonate, the patient did have a brief return of circulation but this stopped and ACLS protocol was continued. Patient is of course unable to give any history. MD Complaint: stopped breathing -: minute(s) Place: [place] Bystander CPR Performed: Yes Shock Advised: No Initial Findings in the Field: unresponsive ROSC in the Field: Yes Treatments Prior to Arrival: BMV, chest compressions, epinephrine mgs #, sodium bicarbonate, calcium - Related Data Home Medications Medication Instructions Recorded Confirmed ARIPiprazole [Abilify] 10 mg PO DAILY 12/31/15 02/14/19 FLUoxetine HCL [PROzac] 20 mg PO DAILY 03/11/18 02/14/19 Ibuprofen [Motrin] 800 mg PO TID 03/11/18 02/14/19 Famotidine [Pepcid] 40 mg PO DAILY 11/21/18 02/14/19 Previous Rx's Medication Instructions Recorded Chlorhexidine Gluconate [Peridex] 15 ml MUCOUS MEM BID solution 02/24/19 Heparin Sodium,Porcine [Heparin 5,000 unit SQ Q8HR vial 02/24/19 Sodium] Ipratropium-Albuterol Nebulize 3 ml INHALATION RT-QID ampul.neb 02/24/19 [Duoneb 0.5 mg-3 mg/3 ml Soln] cefTRIAXone [Rocephin] 1 gm IVPB Q24HR vial 02/24/19 predniSONE 60 mg PO DAILY #10 tab 02/24/19 Allergies Allergy/AdvReac Type Severity Reaction Status Date / Time amoxicillin AdvReac Nausea & Verified 04/09/19 04:33 Vomiting Review of Systems ROS Statement: Those systems with pertinent positive or pertinent negative responses have been documented in the HPI. ROS Other: All systems not noted in ROS Statement are negative. Limitations: ROS unobtainable due to patients medical condition Past Medical History Past Medical History: Asthma Additional Past Medical History / Comment(s): neurofibromatosis, mild learning disability, legally blind bilaterally-pt states as long as she wears her glasses she can see pretty well, bilateral lower leg edema at times. 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 Past Anesthesia/Blood Transfusion Reactions: Postoperative Nausea & Vomiting (PONV) Past Psychological History: Depression Smoking Status: Current every day smoker Past Alcohol Use History: None Reported Past Drug Use History: None Reported - Past Family History Father Family Medical History: Cancer Additional Family Medical History / Comment(s): Father had lung to bone cancer and of this at the age of 70yrs. He was an exsmoker. Mother Family Medical History: Cancer Additional Family Medical History / Comment(s): Mother of breast cancer at the age of 65yrs. General Exam General appearance: other (Unresponsive) Head exam: Present: atraumatic, normocephalic Pupils: Present: other (The pupils are unreactive) Neck exam: Present: other (Tracheostomy tube with a small amount of pinkish discharge. No evidence of bony deformity or step-off) Respiratory exam: Present: rhonchi (Bilaterally with bag valve ventilation.), other (There is no spontaneous inspiratory effort.) Cardiovascular Exam: Present: other (No detectable PMI. No palpable pulses. No cardiac sounds. No detectable blood pressure) GI/Abdominal exam: Present: soft, other (No bowel sounds.) Extremities exam: Present: other (No evidence of trauma. There is an intraosseous line in the right pretibial area) Back exam: Present: normal inspection, other (No evident trauma) Neurological exam: Present: other (Patient is unresponsive. No cranial nerve or deep tendon reflexes. GCS is 3.) Skin exam: Present: pallor, other (Multiple neurofibromatoses) Medical Decision Making - Medical Decision Making Patient's 48-year-old woman brought by EMS from residential where she had reportedly activated, and then become unresponsive. There is concerned she may have had precipitating CHF as reportedly had some pink frothy from her tracheostomy. On arrival ACLS protocol is an progress. This is continued in the department here. There was one brief period of ROS see that spontaneously deteriorated. After resuscitative efforts no longer able to restore cardiac rhythm and patient is pronounced . I did discuss case with medical field representative and they were waiting to hear from Dr. Slater who we were not able to contact as his clinic did not have contact information before 8 AM. The case is also discussed with patient's family members. Disposition Clinical Impression: Cardiac arrest Disposition: Referrals: Mt Slater MD [Primary Care Provider] - 1-2 days Preliminary Cause of : Cardiopulmonary arrest
== END 2019-04-09 11:22 | disposition expired ==
LOC: EC 03:40
DX: I46.9 Cardiac arrest, cause unspecified (principal); H54.8 Legal blindness, as defined in USA; F32.9 Major depressive disorder, single episode, unspecified; F81.89 Other developmental disorders of scholastic skills; F17.200 Nicotine dependence, unspecified, uncomplicated; Z88.0 Allergy status to penicillin; Z79.1 Long term (current) use of non-steroidal anti-inflammatories (NSAID); Z79.899 Other long term (current) drug therapy; Z86.69 Personal history of other diseases of the nervous system and sense organs; Z98.890 Other specified postprocedural states; Z93.0 Tracheostomy status
CPT/HCPCS: 99285; 92950; J0171; 94002